=== PATIENT | male | born 1965 | race Caucasian/White ===

== ENCOUNTER 2016-08-03 15:33 | Inpatient (IN) | payer BC ==
[2016-08-03 17:51] VITALS: BMI 27.8
[2016-08-03] MEDS ORDERED: NALOXONE 0.4 MG/ML 1 ML VIAL IV PRN (18:04)
[2016-08-03] MEDS ORDERED: ALPRAZolam 0.25 MG TAB PO PRN (18:05)
[2016-08-03] MEDS ORDERED: LORazepam 2 MG/ML SYRINGE IV PRN (19:19)
[2016-08-03] MEDS: HYDROmorphone 1 MG/ML 1 ML SYRINGE IVP PRN (19:52)
[2016-08-03] MEDS: SODIUM CHLORIDE 0.9% 1,000 ML IV SCH (19:53)
[2016-08-03 20:21] LABS: Basophils # (A) 0.2 k/uL (0-0.2); Basophils % (A) 2 %; CH 28.3; CHCM 33.2; Eosinophils # (A) 0.1 k/uL (0-0.7); Eosinophils % (A) 1 %; HCT 54.6 % (39.0-53.0); HDW 2.69; HGB 17.1 gm/dL (13.0-17.5); Luc # (Auto) 0.26; Luc % (Auto) 2; Lymphocytes # (A) 2.2 k/uL (1.0-4.8); Lymphocytes % (A) 18 %; MCH 26.9 pg (25.0-35.0); MCHC 31.4 g/dL (31.0-37.0); MCV 85.6 fL (80.0-100.0); Mean Platelet Volume 7.9; Monocytes % (A) 8 %; Neutrophils # (A) 8.4 k/uL (1.3-7.7); Neutrophils % (A) 70 %; RBC 6.38 m/uL (4.30-5.90); RDW 13.3 % (11.5-15.5); WBC 12.1 k/uL (3.8-10.6); WBC (Perox) 13.11
[2016-08-03 20:26] LABS: INR 1.1 (<1.1); Prothrombin Time 10.9 sec (9.0-12.0)
[2016-08-03 20:31] LABS: ALT 35 U/L (21-72); AST 33 U/L (17-59); Alkaline Phosphatase 82 U/L (38-126); Amylase 71 U/L (30-110); Anion Gap 13 mmol/L; Blood Urea Nitrogen 14 mg/dL (9-20); Calcium 9.4 mg/dL (8.4-10.2); Carbon Dioxide 21 mmol/L (22-30); Chloride 105 mmol/L (98-107); Glucose 106 mg/dL (74-99); Magnesium 2.4 mg/dL (1.6-2.3); Non-African American GFR(MDRD) >60 (>60 ml/min/1.73 sqM); Phosphorous 4.6 mg/dL (2.5-4.5); Potassium 4.8 mmol/L (3.5-5.1); Sodium 139 mmol/L (137-145); Total Protein 6.9 g/dL (6.3-8.2)
[2016-08-03] MEDS: ALBUTEROL NEBULIZED 2.5 MG/3 ML INHALATION SCH (20:31)
[2016-08-03 20:46] LABS: C Reactive Protein 10.1 mg/L (<10.0)
[2016-08-03] MEDS ORDERED: TEMAZEPAM 15 MG CAP PO PRN (21:00)
[2016-08-03 21:17] LABS: Erythrocyte Sedimentation Rate 13 mm/hr (0-15)
[2016-08-03] MEDS: ENOXAPARIN 40 MG/0.4 ML SYRINGE SQ SCH (21:28)
[2016-08-03] MEDS: ONDANSETRON 4 MG/2 ML VIAL IVP PRN (22:22)
[2016-08-04] MEDS: HYDROmorphone 1 MG/ML 1 ML SYRINGE IVP PRN ×3 (01:28→20:26)
[2016-08-04] MEDS: MELATONIN 5 MG TABLET PO SCH (02:38)
[2016-08-04] MEDS: ENOXAPARIN 40 MG/0.4 ML SYRINGE SQ SCH ×2 (02:38→08:57)
[2016-08-04 06:12] LABS: Appearance,Urine Clear (Clear); Bilirubin,Urine Negative (Negative); Glucose,Urine (UA) Negative (Negative); Ketones,Urine 1+ (Negative); Leukocyte Esterase,Urine Negative (Negative); Mucus,Urine Many /hpf; Nitrite,Urine Negative (Negative); PH, Urine 5.5 (5.0-8.0); Particle Count 8968; Protein,Urine 1+ (Negative); RBC,Urine 1 /hpf (0-5); Specific Gravity,Urine 1.022 (1.001-1.035); UA Billing (MACRO vs. MICRO) MICRO; Urobilinogen,Urine <2.0 mg/dL (<2.0); WBC,Urine <1 /hpf (0-5)
[2016-08-04 07:19] LABS: Basophils # (A) 0.2 k/uL (0-0.2); Basophils % (A) 2 %; CH 28.2; Eosinophils # (A) 0.2 k/uL (0-0.7); Eosinophils % (A) 2 %; HCT 51.3 % (39.0-53.0); HDW 2.73; HGB 16.6 gm/dL (13.0-17.5); Luc # (Auto) 0.27; Luc % (Auto) 3; Lymphocytes % (A) 20 %; MCH 27.8 pg (25.0-35.0); MCHC 32.4 g/dL (31.0-37.0); MCV 85.9 fL (80.0-100.0); Mean Platelet Volume 7.6; Monocytes # (A) 0.9 k/uL (0-1.0); Monocytes % (A) 9 %; Neutrophils # (A) 6.6 k/uL (1.3-7.7); Neutrophils % (A) 65 %; RBC 5.98 m/uL (4.30-5.90); RDW 13.4 % (11.5-15.5); WBC 10.1 k/uL (3.8-10.6); WBC (Perox) 10.84
[2016-08-04 07:34] LABS: Anion Gap 9 mmol/L; Blood Urea Nitrogen 16 mg/dL (9-20); Calcium 9.3 mg/dL (8.4-10.2); Carbon Dioxide 27 mmol/L (22-30); Chloride 106 mmol/L (98-107); Glucose 94 mg/dL (74-99); Non-African American GFR(MDRD) >60 (>60 ml/min/1.73 sqM); Potassium 4.8 mmol/L (3.5-5.1); Sodium 142 mmol/L (137-145)
[2016-08-04] MEDS: ALBUTEROL NEBULIZED 2.5 MG/3 ML INHALATION SCH ×3 (07:34→19:29)
--- NOTE | 2016-08-04 08:34 | P.GSCN ---
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 Following his return he complained of nausea vomiting and diarrhea. He states that he was seen by his primary care physician and was treated initially with a course of Levaquin followed by a course of Bactrim. Yesterday his abdominal discomfort became increasingly worse and he presented to the emergency room at [facility]. The patient states he did have fever and chills, nausea and vomiting, and diarrhea. The patient states his abdominal discomfort has improved since yesterday and he is passing flatus. A CAT scan of the abdomen was performed at [facility] and this will be reviewed. The patient's has been treated for the flu and has been sick for the past 2 weeks. Past surgical history: 1. Thermal bronchoscopy 3 for COPD 2. Wojciech fundoplication 3. Cholecystectomy 4. Disc in his neck 5. Sinus surgery Past medical history: 1. COPD 2. Chronic sinusitis 3. Possible Parkinson's disease Medications: 1. Prednisone 2. Singulair 3. Albuterol 4. X Review of systems: HEENT blurred vision tinnitus Lungs: COPD emphysema Heart: Negative GI: As above : Kidney stones ALLERGIES: Penicillin Social history: Smoking cigars in the past does not smoke now Alcohol: Drinks was stopped approximately a year ago Review of Systems - Constitutional Reports as per HPI - Cardiovascular Reports as per HPI - Respiratory Respiratory Comment(s): COPD/emphysema - Gastrointestinal Reports as per HPI - Genitourinary Reports as per HPI - Musculoskeletal Musculoskeleta Comment(s): Tremor may be related to Parkinson's disease - Neurological Reports as per HPI - Allergic/Immunologic Reports as per HPI Past Medical History Past Medical History: Asthma, COPD, Deep Vein Thrombosis (DVT), GERD/Reflux, Pneumonia, Pulmonary Embolus (PE), Sleep Apnea/CPAP/BIPAP Additional Past Medical History / Comment(s): FOLLOWED BY DR MIR FOR TREMORS ? BEGINNINGS OF PARKINSONS NOT A DX OF YET, HX DVT RT LEG, CANDIE'S, HX OF CELLULITIS/SEPSIS X2, DEG DISC,DAILY PREDNISONE, PNEUMONIA History of Any Multi-Drug Resistant Organisms: None Reported Past Surgical History: Cholecystectomy Additional Past Surgical History / Comment(s): Wojciech fundoplication (2012), previous bronchoscopies, SINUS SX X3, CERVICAL DISCECTOMY, BRONCHIAL THERMOPLASTY #1 ON 03/01/15, #2 03-23-15. Past Anesthesia/Blood Transfusion Reactions: No Reported Reaction Past Psychological History: Anxiety, Bipolar, Depression Smoking Status: Never smoker Past Alcohol Use History: Occasional Additional Past Alcohol Use History / Comment(s): SMOKED CIGARS IN THE QUIT 1996 Past Drug Use History: None Reported - Past Family History Father Family Medical History: Pneumonia, Respiratory Disorder Mother Family Medical History: Eye Disorder, Hypertension Additional Family Medical History / Comment(s): GLUACOMA Medications and Allergies Home Medications Medication Instructions Recorded Confirmed Type Montelukast [Singulair] 10 mg PO DAILY 11/28/14 08/03/16 History Albuterol Nebulized [Ventolin 1 inhalation INHALATION RT-TID 04/10/15 08/03/16 History Nebulized] Melatonin 10 mg PO HS 08/03/16 08/03/16 History Sulfamethoxazole/Trimethoprim 1 tab PO BID 08/03/16 08/03/16 History [Bactrim DS 800-160 mg] Vortioxetine Hydrobromide 10 mg PO DAILY 08/03/16 08/03/16 History [Trintellix] clonazePAM [KlonoPIN] 0.5 mg PO DAILY 08/03/16 08/03/16 History predniSONE 5 mg PO DAILY 08/03/16 08/03/16 History Allergies Allergy/AdvReac Type Severity Reaction Status Date / Time Penicillins Allergy Unknown Verified 08/03/16 18:18 Surgical - Exam Vital Signs Temp Pulse Resp BP Pulse Ox 97.7 F 97 17 123/89 99 08/03/16 17:31 08/03/16 17:31 08/03/16 17:31 08/03/16 17:31 08/03/16 17:31 - General well developed, moderate distress - Eyes normal ocular movement - ENT normal pinna, normal nares, no hearing loss - Neck no masses, trachea midline, no lymphadectomy - Respiratory wheezing at the right base, left lung clear to auscultation normal expansion, normal respiratory effort - Cardiovascular Rhythm: regular Heart Sounds: normal: S1, S2 - Abdomen No guarding or rebound Abdomen: soft, bowel sounds - Rectum Rectum: normal sphincter tone, no tenderness, no masses, no bleeding - Neurologic Patient with a tremor - Psychiatric oriented to time, oriented to person, oriented to place, speech is normal Results - Labs 08/04/16 06:43 08/04/16 06:43 Abnormal Lab Results - Last 24 Hours (Table) 08/03/16 08/03/16 08/04/16 Range/Units 19:30 19:30 05:26 WBC 12.1 H (3.8-10.6) k/uL RBC 6.38 H (4.30-5.90) m/uL Hct 54.6 H (39.0-53.0) % Neutrophils # 8.4 H (1.3-7.7) k/uL Carbon Dioxide 21 L (22-30) mmol/L Glucose 106 H (74-99) mg/dL Phosphorus 4.6 H (2.5-4.5) mg/dL Magnesium 2.4 H (1.6-2.3) mg/dL C-Reactive Protein 10.1 H (<10.0) mg/L Urine Protein 1+ H (Negative) Urine Ketones 1+ H (Negative) Hyaline Casts 11 H (0-2) /lpf Urine Mucus Many H (None) /hpf 08/04/16 Range/Units 06:43 WBC (3.8-10.6) k/uL RBC 5.98 H (4.30-5.90) m/uL Hct (39.0-53.0) % Neutrophils # (1.3-7.7) k/uL Carbon Dioxide (22-30) mmol/L Glucose (74-99) mg/dL Phosphorus (2.5-4.5) mg/dL Magnesium (1.6-2.3) mg/dL C-Reactive Protein (<10.0) mg/L Urine Protein (Negative) Urine Ketones (Negative) Hyaline Casts (0-2) /lpf Urine Mucus (None) /hpf Diabetes panel 08/03/16 08/04/16 Range/Units 19:30 06:43 Sodium 139 142 (137-145) mmol/L Potassium 4.8 4.8 (3.5-5.1) mmol/L Chloride 105 106 (98-107) mmol/L Carbon Dioxide 21 L 27 (22-30) mmol/L BUN 14 16 (9-20) mg/dL Creatinine 1.05 1.07 (0.66-1.25) mg/dL Glucose 106 H 94 (74-99) mg/dL Calcium 9.4 9.3 (8.4-10.2) mg/dL AST 33 (17-59) U/L ALT 35 (21-72) U/L Alkaline Phosphatase 82 (38-126) U/L Total Protein 6.9 (6.3-8.2) g/dL Albumin 4.0 (3.5-5.0) g/dL Calcium panel 08/03/16 08/04/16 Range/Units 19:30 06:43 Calcium 9.4 9.3 (8.4-10.2) mg/dL Phosphorus 4.6 H (2.5-4.5) mg/dL Albumin 4.0 (3.5-5.0) g/dL Pituitary panel 08/03/16 08/04/16 Range/Units 19:30 06:43 Sodium 139 142 (137-145) mmol/L Potassium 4.8 4.8 (3.5-5.1) mmol/L Chloride 105 106 (98-107) mmol/L Carbon Dioxide 21 L 27 (22-30) mmol/L BUN 14 16 (9-20) mg/dL Creatinine 1.05 1.07 (0.66-1.25) mg/dL Glucose 106 H 94 (74-99) mg/dL Calcium 9.4 9.3 (8.4-10.2) mg/dL Adrenal panel 08/03/16 08/04/16 Range/Units 19:30 06:43 Sodium 139 142 (137-145) mmol/L Potassium 4.8 4.8 (3.5-5.1) mmol/L Chloride 105 106 (98-107) mmol/L Carbon Dioxide 21 L 27 (22-30) mmol/L BUN 14 16 (9-20) mg/dL Creatinine 1.05 1.07 (0.66-1.25) mg/dL Glucose 106 H 94 (74-99) mg/dL Calcium 9.4 9.3 (8.4-10.2) mg/dL Total Bilirubin 1.0 (0.2-1.3) mg/dL AST 33 (17-59) U/L ALT 35 (21-72) U/L Alkaline Phosphatase 82 (38-126) U/L Total Protein 6.9 (6.3-8.2) g/dL Albumin 4.0 (3.5-5.0) g/dL Assessment and Plan Plan: Impression/plan: 1. 51-year-old gentleman admitted with abdominal discomfort possible partial bowel obstruction 2. COPD 3. Anxiety depression 4. Chronic sinusitis 5. Possible Parkinson's disease Plan: 1. Review computed tomography scan from [place] repeat abdominal x-rays this a.m. 2. Patient does not have an acute surgical abdomen at this time 3. Management of medical problems as per medicine
[2016-08-04] MEDS: SODIUM CHLORIDE 0.9% 1,000 ML IV SCH ×3 (08:57→12:34)
[2016-08-04] MEDS: clonazePAM 0.5 MG TAB PO SCH (08:57)
[2016-08-04] MEDS: PANTOPRAZOLE 40 MG/10 ML VIAL IV SCH (08:57)
[2016-08-04] MEDS ORDERED: NON-FORMULARY DRUG (Vortioxetine Hydrobromide [Trintellix] 10 MG) PO SCH (09:00)
--- NOTE | 2016-08-04 09:04 | XR ---
EXAMINATION TYPE: XR abdomen 2V DATE OF EXAM: 08/04/2016 8:45 AM COMPARISON: 02/16/2013 HISTORY: Small bowel obstruction TECHNIQUE: 3 views FINDINGS: There is a nasogastric tube that has the tip at the gastroesophageal junction. There is mariana dence of infiltrate and atelectasis at the lung bases. There are multiple dilated small bowel loops filled with air and fluid. I see no definite pneumoperit oneum. There are clips from cholecystectomy. IMPRESSION: Dilated small bowel consistent with ileus or partial mechanical obstruction. This appears similar to the old exam of 02/16/2013. Bilateral basilar atelectasis. Nasogastric tube is not clearly positioned in the stomach.
--- NOTE | 2016-08-04 09:25 | HP ---
DATE OF ADMISSION: 08/03/2016 CHIEF COMPLAINT: Abdominal pain and vomiting and diarrhea. HISTORY OF PRESENT ILLNESS: This 51-year-old woman with a past history of asthma, chronic obstructive pulmonary disease, deep venous thrombosis, GERD, history of pulmonary embolism, sleep apnea, history of tremors, Parkinson's, anxiety with depression, history of [place]'s syndrome, being followed by Dr. Sweet in the outpatient setting has been symptomatic apparently from mid-May. The patient is a [employer] at the [employer] near [place]. Patient apparently went on a holiness trip to [facility] from May 19 and spent a week there and the patient went to different places, along [facility]. The patient also went to [facility] and apparently had a meal there also according to him. The patient was feeling well. The patient flew back. Apart from jet lag, the patient feeling fine but after 3 days later patient felt nausea, diarrhea and chills. The patient had loss of appetite and progressively weak and had multiple courses of antibiotics including Levaquin and Bactrim of recently. Today the patient had vomiting and the patient was flushed and because of multiple symptoms the patient went to [facility] in [place]. The patient had a CAT scan of the abdomen which showed dilatation of the small bowel, possibly small bowel obstruction and the patient referred to [facility] direct admission and admitted for further evaluation and treatment. There is no history of any fever, rigors or chills. No history of headache, loss of consciousness, seizures at this time. Past medical history of asthma, COPD, history of deep venous thrombosis, GERD, pneumonia, pulmonary embolism, history of cholecystectomy, anxiety, bipolar depression. Medications prior to admission include: 1. Melatonin 10 mg p.o. q.h.s. 2. Bactrim DS one p.o. b.i.d. 3. Trintillex 10 mg p.o. daily. 4. Klonopin 0.5 mg p.o. b.i.d. 5. Prednisone 5 mg daily. 6. Singulair 10 mg p.o. daily. 7. Ventolin one p.o. t.i.d. ALLERGIES: PENICILLIN. FAMILY HISTORY: History of pneumonia, respiratory disorder and glaucoma. SOCIAL HISTORY: No smoking. Occasional alcohol intake. The patient used to drink up to 4 to 6 drinks previously. REVIEW OF SYSTEMS: ENT: No diminishing hearing. Diminished vision. CARDIOVASCULAR: No angina. RESPIRATORY: Mentioned earlier. GI: As mentioned earlier. : No dysuria. Nervous system: As mentioned earlier. ALLERGY/IMMUNOLOGY: No asthma or hayfever. MUSCULOSKELETAL: As mentioned earlier. HEMATOLOGY/ONCOLOGY: No history of anemia. ENDOCRINE: As mentioned earlier. CONSTITUTIONAL: As mentioned earlier. DERMATOLOGY: Negative. RHEUMATOLOGY: Negative. PSYCHIATRY: As mentioned earlier. PHYSICAL EXAMINATION: The patient is alert and oriented times three, pulse 97, blood pressure 128/89, respiratory rate 17, temperature 97.7, pulse ox 99% on 2 liters. HEENT: Conjunctivae normal. Oral mucosa moist. NECK: No jugular venous distention. No carotid bruit. No lymph node enlargement. CARDIOVASCULAR: S1, S2 muffled. No S3, no S4. A few scattered rhonchi. ABDOMEN: Soft. Mild diffuse distention. Mild diffuse tenderness present. No guarding. No rigidity. No mass palpable. Bowel sounds diminished. No ascites. No hepatosplenomegaly. Legs: No edema, no swelling. Nervous system: Higher functions as mentioned earlier. Moves all 4 limbs. No focal motor or sensory deficits. Diffuse tremors present. LYMPHATICS: No lymph nodes palpable in the neck, axillae or groin. SKIN: No ulcer, rash or bleeding. LABS: Results awaited. ASSESSMENT: 1. Abdominal pain and distention rule out bowel obstruction. 2. Rule out infectious diarrhea. 3. Rule out ileus. 4. History of asthma chronic obstructive pulmonary disease. 5. History of deep venous thrombosis. 6. History of gastroesophageal reflux disease. 7. History of pneumonia. 8. History of pulmonary embolism. 9. History of sleep apnea. 10. History of tremors. 11. History of Parkinson's. 12. History of [place]'s. 13. History of cellulitis and sepsis. 14. History of cholecystectomy. 15. History Wojciech fundoplication. 16. History of anxiety, bipolar, depression, not otherwise specified. 17. History of bronchial thermoplasty. 18. FULL CODE. RECOMMENDATIONS AND DISCUSSION: In this 51-year-old gentleman who presented with multiple complex medical issues, we will monitor the patient closely. Continue the current medications. Continue symptomatic treatment. At this time I would recommend in this 50-year-old gentleman who presented with multiple complex medical issues, we will monitor the patient closely. Continue with the current medications, I would recommend a surgical evaluation. Keep the patient NPO. NG-tube was inserted. IV fluids. Monitor fluid and electrolytes balance closely. Otherwise, obtain cultures. Stool testing. Infectious disease evaluation. Other than that, resume the home medications. DVT prophylaxis. Prognosis guarded because of multiple complex medical issues. Further recommendations to follow. Discussed with the family, who understands and agrees. Copy of dictation forwarded to Dr. Sweet who the primary physician. REBEKAH
[2016-08-04] MEDS ORDERED: SODIUM CHLORIDE 0.9% 500 ML IV ONE (11:54)
[2016-08-04] MEDS: ACETAMINOPHEN IV (For NPO) 1,000 MG in EMPTY BAG 1 BAG IVPB PRN (12:57)
[2016-08-04] MEDS: AZITHROMYCIN 500 MG in SODIUM CHLORIDE 0.9% 250 ML IVPB SCH (17:37)
--- NOTE | 2016-08-04 18:05 | PN ---
DATE OF SERVICE: 08/04/2016 This 51 -year-old male was admitted with abdominal pain and distention, possibly partial small bowel obstruction, also had features of ileus also. Repeat acute abdomen x-ray shows an ileus and the NG tube is still on. Dr. Valdes has seen the patient and recommended the patient noted to be an acute surgical candidate. Currently infectious disease evaluation by Dr. Kendrick is also in progress at this time. Please note the patient is recently returned from [place] as well. There is no history of fever, or rigors. PAST MEDICAL HISTORY: Reviewed. REVIEW OF SYSTEMS: CARDIOVASCULAR: No angina. RESPIRATORY: No cough. No hemoptysis. GI: As mentioned earlier. : No dysuria. Current medications are reviewed and include: 1. Tylenol 1000 mg q.6h p.r.n. 2. [place] 5 mg q.6h 3. Ventolin 2.5 t.i.d. 4. Xanax 0.25 t.i.d. 5. Zithromax 500 mg IV daily. 6. Klonopin 0.5 mg. 7. Lovenox 40 mg daily. 8. Dilaudid 0.5 q.6h p.r.n. 9. Ativan 0.5 q.6. 10. Melatonin 10 mg q.h.s. 11. Narcan. 12. Zofran. 13. Protonix. 14. Restoril 15 mg q.h.s. PHYSICAL EXAMINATION: The patient is alert and oriented times three. Pulse 65, blood pressure 118/72. Respiratory rate 16. Temperature 98.1. Pulse ox 95% on room air. HEENT: Conjunctivae normal. Oral mucosa moist. NECK: No jugular venous distention. No carotid bruit. No lymph node enlargement. CARDIOVASCULAR: S1, S2, no S3, no S4. RESPIRATORY: Breath sounds diminished at the bases. A few scattered rhonchi. No crackles. ABDOMEN: Soft. Mild diffuse distention. No guarding. No rigidity. No mass palpable. LEGS: No edema. No swelling. CENTRAL NERVOUS SYSTEM: No focal deficits. LABS: WBC 12.1, magnesium 2.4, C-reactive protein is 10.1. UA noted. Cultures are pending. ASSESSMENT: 1. Abdominal pain and distention rule out bowel obstruction or ileus. 2. Rule out infectious diarrhea. 3. History of asthma/chronic obstructive pulmonary disease. 4. History of deep venous thrombosis. 5. History of gastroesophageal reflux disease. 6. History of pneumonia. 7. History of pulmonary embolism. 8. History of sleep apnea. 9. History of tremors. 10. History of Parkinson's ( ) syndrome. 11. History of cellulitis and sepsis. 12. History of cholecystectomy. 13. History of Wojciech fundoplication. 14. Anxiety, bipolar, depression, not otherwise specified. 15. History of bronchial thermoplasty. 16. FULL CODE. RECOMMENDATIONS AND DISCUSSION: Recommend to continue current medications, continue with monitoring, symptomatic treatment. Otherwise, we will continue with symptomatic treatment, NG tube. Closely follow with surgery and infectious disease. I would also recommend await cultures and stool studies. Also recommend follow-up chest x-ray. Otherwise, we will follow the patient closely. Discussed with staff. Discussed with the patient. Further recommendations to follow.
[2016-08-04] MEDS ORDERED: BENZOCAINE SPRAY 100 APPLIC/CAN MUCOUS MEM PRN (18:06)
--- NOTE | 2016-08-04 18:12 | P.CONS ---
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 He was able to travel [facility] generated [facility]. While there he was well. He no difficulties is all I was in [place]. He did have a trip [facility] and did eat therapy several meals. He does relate that he has his flu shot for the trip but no other vaccines. He did not have a typhoid vaccine. The patient relates ongoing difficulties with abdominal pain throughout this 2 months. He's had difficulties with intermittent diarrhea that has been quite profuse at time but without evidence of melena or hematochezia. Is a history of a Niesen fundoplication, and when he started to have emesis yesterday with ongoing abdominal pain presented to the local emergency center. There is a computed tomography scan was performed that showed evidence of an ileus and an NG tube was placed entranced to our facility for further surgical evaluation. Because of his travel history and ongoing gastrointestinal symptoms the infectious diseases consultation was requested. This pleasant gentleman relates that he is not having difficulty with fevers, chills or rigors. He's had some mild weight loss to this timeframe. No difficulty with dehydration. He's having no difficulty with rashes. Review of Systems Primitivo 51-year-old male who is feeling better today than yesterday. He is not having profuse diarrhea today. His nausea is improved. HEENT:Denies headache or acute visual change. Denies sinus or mouth discomforts. Denies neck stiffness or pain. Denies significant oral cavity pain. Denies difficulty on swallowing. Lungs: He has chronic shortness of breath due to his extensive COPD status post his thermal bronchoplasty Cardiovascular: Denies worsening shortness of breath, chest pain, chest wall pain, orthopnea, dyspnea on exertion, syncope Gastrointestinal:D as per the HPI Musculoskeletal: denies significant myalgias or arthralgias. No new joint swelling. Denies new back pain. Skin: Denies new rash or lesions. No new ulcers or wounds are related.. Neuro: Denies headache or visual change. Denies any new onset weakness or difficulty with ambulation. Denies falls or seizures. Psychiatric: Chronic anxiety has chronic depression and chronic therapy Endocrine: Has had significant fatigue that is worsened over the last 7 weeks and some mild weight loss. Past Medical History Past Medical History: Asthma, COPD, Deep Vein Thrombosis (DVT), GERD/Reflux, Pneumonia, Pulmonary Embolus (PE), Sleep Apnea/CPAP/BIPAP Additional Past Medical History / Comment(s): FOLLOWED BY DR MIR FOR TREMORS ? [place] NOT A DX OF YET, HX DVT RT LEG, CANDIE'S, HX OF CELLULITIS/SEPSIS X2, DEG DISC,DAILY PREDNISONE, PNEUMONIA History of Any Multi-Drug Resistant Organisms: None Reported Past Surgical History: Cholecystectomy Additional Past Surgical History / Comment(s): Wojciech fundoplication (2011), previous bronchoscopies, SINUS SX X3, CERVICAL DISCECTOMY, BRONCHIAL THERMOPLASTY #1 ON 03/01/15, #2 03-23-15. Past Anesthesia/Blood Transfusion Reactions: No Reported Reaction Past Psychological History: Anxiety, Bipolar, Depression Additional Psychological History / Comment(s): lives with family home with his . 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 International travel to [place] in the [place] returns May 31 2016. No travel since. No animal exposures. No other ill contacts. developed a respiratory illness and is improving now after the last 2 weeks Smoking Status: Former smoker (Cigars quit in 1996) Past Alcohol Use History: Occasional Additional Past Alcohol Use History / Comment(s): SMOKED CIGARS IN THE QUIT 1996 Past Drug Use History: None Reported - Past Family History Father Family Medical History: Pneumonia, Respiratory Disorder Mother Family Medical History: Eye Disorder, Hypertension Additional Family Medical History / Comment(s): GLUACOMA Medications and Allergies Home Medications and Allergies Comment(s): Current Medications Hydrocodone Bitart/Acetaminophen ([place] 5-325) 1 each PO Q6HR PRN PRN Reason: Pain Albuterol Sulfate (Ventolin Nebulized) 2.5 mg INHALATION RT-TID [facility] Last Admin: 08/04/16 15:22 Dose: Not Given Alprazolam (Xanax) 0.25 mg PO TID PRN PRN Reason: Anxiety WHEN PO PREFERRED Clonazepam (Klonopin) 0.5 mg PO DAILY [facility] Last Admin: 08/04/16 08:57 Dose: Not Given Enoxaparin Sodium (Lovenox) 40 mg SQ DAILY [facility] Last Admin: 08/04/16 08:57 Dose: 40 mg Hydromorphone HCl (Dilaudid) 0.5 mg IVP Q6HR PRN PRN Reason: Severe Pain Last Admin: 08/04/16 05:36 Dose: 0.5 mg Sodium Chloride (Saline 0.9%) 1,000 mls @ 125 mls/hr IV .Q8H [facility] Last Admin: 08/04/16 12:34 Dose: 125 mls/hr Acetaminophen 1,000 mg/ IV (Solution) 100 mls @ 400 mls/hr IVPB Q6HR PRN PRN Reason: Pain Stop: 08/05/16 12:14 Last Admin: 08/04/16 12:57 Dose: 400 mls/hr Azithromycin 500 mg/ Sodium (Chloride) 250 mls @ 125 mls/hr IVPB DAILY@1600 [facility] Last Admin: 08/04/16 17:37 Dose: 125 mls/hr Lorazepam (Ativan) 0.5 mg IV Q6HR PRN PRN Reason: Anxiety WHEN IV PREFERRED Melatonin (Melatonin) 10 mg PO HS [facility] Last Admin: 08/04/16 02:38 Dose: Not Given Naloxone HCl (Narcan) 0.2 mg IV Q2M PRN PRN Reason: Opioid Reversal Non-Formulary Medication (Vortioxetine Hydrobromide [Trintellix]) 10 mg PO DAILY [facility] Ondansetron HCl (Zofran) 4 mg IVP Q6HR PRN PRN Reason: Nausea And Vomiting Last Admin: 08/03/16 22:22 Dose: 4 mg Pantoprazole Sodium (Protonix) 40 mg IV DAILY [facility] Last Admin: 08/04/16 08:57 Dose: 40 mg Temazepam (Restoril) 15 mg PO HS PRN PRN Reason: Insomnia Home Medications Medication Instructions Recorded Confirmed Type Montelukast [Singulair] 10 mg PO DAILY 11/28/14 08/03/16 History Albuterol Nebulized [Ventolin 1 inhalation INHALATION RT-TID 04/10/15 08/03/16 History Nebulized] Melatonin 10 mg PO HS 08/03/16 08/03/16 History Sulfamethoxazole/Trimethoprim 1 tab PO BID 08/03/16 08/03/16 History [Bactrim DS 800-160 mg] Vortioxetine Hydrobromide 10 mg PO DAILY 08/03/16 08/03/16 History [Trintellix] clonazePAM [KlonoPIN] 0.5 mg PO DAILY 08/03/16 08/03/16 History predniSONE 5 mg PO DAILY 08/03/16 08/03/16 History Allergies Allergy/AdvReac Type Severity Reaction Status Date / Time Penicillins Allergy Unknown Verified 08/03/16 18:18 Physical Exam Vitals: Vital Signs Temp Pulse Pulse Resp BP Pulse Ox 08/04/16 16:00 65 16 08/04/16 15:00 98.1 F 65 16 118/78 95 08/04/16 08:00 89 16 08/04/16 07:47 96 08/04/16 07:37 100 97 08/04/16 07:00 97.6 F 89 16 127/75 95 08/04/16 02:32 98.1 F 89 16 135/73 97 08/03/16 20:44 90 08/03/16 20:32 90 08/03/16 20:00 97.7 F 80 16 117/75 98 08/03/16 18:04 97 Intake and Output 08/04/16 08/04/16 08/04/16 06:59 14:59 22:59 Output Total 50 200 Balance -50 -200 Output: Urine 50 200 Other: # Voids 1 3 Pleasant 51-year-old male who has mild obesity and seems to be quite comfortable at this time. Since coming to hospital he apparently is showing improvement in that he is not having profuse diarrhea and nausea and emesis of improve with the NG tube that was placed. HEENT: Anicteric conjunctiva are pink and moist nasal mucosa grossly intact without significant lesions, there is no thrush. NG tube is in place without bleeding Neck: The neck is supple without significant lymphadenopathy or thyromegaly. Lungs: Good bilateral air entry without significant crackles or wheezing. There is no significant bronchial sounds. There is no egophony or dullness. Heart: Regular rate and rhythm with an audible S1-S2, no S3 no S4. There is no significant murmur click or rub, PMI was nondisplaced. Abdomen: Positive bowel sounds soft is only mild tenderness at left lower quadrant. There is no guarding or rebound. Paraspinally. No palpable masses. Extremities: The upper extremities have excellent pulses they are symmetric, no significant petechiae or telangiectasia. No splinter hemorrhages were noted. The lower extremities are free from significant edema. The peripheral pulses were 2+ and symmetric. Neuro: Awake alert oriented to person place and time. There are no acute new gross focal sensory motor deficits. Results CBC & Chem 7: 08/04/16 06:43 08/04/16 06:43 Labs: Abnormal Lab Results - Last 24 Hours (Table) 08/03/16 08/03/16 08/04/16 Range/Units 19:30 19:30 05:26 WBC 12.1 H (3.8-10.6) k/uL RBC 6.38 H (4.30-5.90) m/uL Hct 54.6 H (39.0-53.0) % Neutrophils # 8.4 H (1.3-7.7) k/uL Carbon Dioxide 21 L (22-30) mmol/L Glucose 106 H (74-99) mg/dL Phosphorus 4.6 H (2.5-4.5) mg/dL Magnesium 2.4 H (1.6-2.3) mg/dL C-Reactive Protein 10.1 H (<10.0) mg/L Urine Protein 1+ H (Negative) Urine Ketones 1+ H (Negative) Hyaline Casts 11 H (0-2) /lpf Urine Mucus Many H (None) /hpf 08/04/16 Range/Units 06:43 WBC (3.8-10.6) k/uL RBC 5.98 H (4.30-5.90) m/uL Hct (39.0-53.0) % Neutrophils # (1.3-7.7) k/uL Carbon Dioxide (22-30) mmol/L Glucose (74-99) mg/dL Phosphorus (2.5-4.5) mg/dL Magnesium (1.6-2.3) mg/dL C-Reactive Protein (<10.0) mg/L Urine Protein (Negative) Urine Ketones (Negative) Hyaline Casts (0-2) /lpf Urine Mucus (None) /hpf Microbiology - Last 24 Hours (Table) 08/04/16 05:26 Urine Culture - Preliminary Urine,Clean Catch Laboratory Results WBC 10.1 k/uL (3.8-10.6) 08/04/16 06:43 RBC 5.98 m/uL (4.30-5.90) H 08/04/16 06:43 Hgb 16.6 gm/dL (13.0-17.5) 08/04/16 06:43 Hct 51.3 % (39.0-53.0) 08/04/16 06:43 MCV 85.9 fL (80.0-100.0) 08/04/16 06:43 MCH 27.8 pg (25.0-35.0) 08/04/16 06:43 MCHC 32.4 g/dL (31.0-37.0) 08/04/16 06:43 RDW 13.4 % (11.5-15.5) 08/04/16 06:43 Plt Count 372 k/uL (150-450) 08/04/16 06:43 Neutrophils % 65 % 08/04/16 06:43 Lymphocytes % 20 % 08/04/16 06:43 Monocytes % 9 % 08/04/16 06:43 Eosinophils % 2 % 08/04/16 06:43 Basophils % 2 % 08/04/16 06:43 Neutrophils # 6.6 k/uL (1.3-7.7) 08/04/16 06:43 Lymphocytes # 2.0 k/uL (1.0-4.8) 08/04/16 06:43 Monocytes # 0.9 k/uL (0-1.0) 08/04/16 06:43 Eosinophils # 0.2 k/uL (0-0.7) 08/04/16 06:43 Basophils # 0.2 k/uL (0-0.2) 08/04/16 06:43 ESR 13 mm/hr (0-15) 08/03/16 19:30 PT 10.9 sec (9.0-12.0) 08/03/16 19:30 INR 1.1 (<1.1) 08/03/16 19:30 Sodium 142 mmol/L (137-145) 08/04/16 06:43 Potassium 4.8 mmol/L (3.5-5.1) 08/04/16 06:43 Chloride 106 mmol/L (98-107) 08/04/16 06:43 Carbon Dioxide 27 mmol/L (22-30) 08/04/16 06:43 Anion Gap 9 mmol/L 08/04/16 06:43 BUN 16 mg/dL (9-20) 08/04/16 06:43 Creatinine 1.07 mg/dL (0.66-1.25) 08/04/16 06:43 Est GFR (MDRD) Af Amer >60 (>60 ml/min/1.73 sqM) 08/04/16 06:43 Est GFR (MDRD) Non-Af >60 (>60 ml/min/1.73 sqM) 08/04/16 06:43 Glucose 94 mg/dL (74-99) 08/04/16 06:43 Calcium 9.3 mg/dL (8.4-10.2) 08/04/16 06:43 Phosphorus 4.6 mg/dL (2.5-4.5) H 08/03/16 19:30 Magnesium 2.4 mg/dL (1.6-2.3) H 08/03/16 19:30 Total Bilirubin 1.0 mg/dL (0.2-1.3) 08/03/16 19:30 AST 33 U/L (17-59) 08/03/16 19:30 ALT 35 U/L (21-72) 08/03/16 19:30 Alkaline Phosphatase 82 U/L (38-126) 08/03/16 19:30 C-Reactive Protein 10.1 mg/L (<10.0) H 08/03/16 19:30 Total Protein 6.9 g/dL (6.3-8.2) 08/03/16 19:30 Albumin 4.0 g/dL (3.5-5.0) 08/03/16 19:30 Amylase 71 U/L (30-110) 08/03/16 19:30 Lipase 73 U/L (23-300) 08/03/16 19:30 Urine Color Yellow 08/04/16 05:26 Urine Appearance Clear (Clear) 08/04/16 05:26 Urine pH 5.5 (5.0-8.0) 08/04/16 05:26 Ur Specific [place] 1.022 (1.001-1.035) 08/04/16 05:26 Urine Protein 1+ (Negative) H 08/04/16 05:26 Urine Glucose (UA) Negative (Negative) 08/04/16 05:26 Urine Ketones 1+ (Negative) H 08/04/16 05:26 Urine Blood Negative (Negative) 08/04/16 05:26 Urine Nitrite Negative (Negative) 08/04/16 05:26 Urine Bilirubin Negative (Negative) 08/04/16 05:26 Urine Urobilinogen <2.0 mg/dL (<2.0) 08/04/16 05:26 Ur Leukocyte Esterase Negative (Negative) 08/04/16 05:26 Urine RBC 1 /hpf (0-5) 08/04/16 05:26 Urine WBC <1 /hpf (0-5) 08/04/16 05:26 Hyaline Casts 11 /lpf (0-2) H 08/04/16 05:26 Urine Mucus Many /hpf (None) H 08/04/16 05:26 Microbiology 08/04/16 05:26 Urine,Clean Catch Urine Culture - Preliminary Assessment and Plan (1) Gastroenteritis Narrative/Plan: 51-year-old male presents to his local emergency center with a seven- week history of symptoms. Associated with bouts of diarrhea as well as left lower quadrant abdominal pain and more recently nausea with emesis. Patient is yet to be able to provide a stool specimen. But stool cultures will be sent once available. [facility] is [facility]. In is of concern. He has been treated in the outpatient setting as noted with a course of levofloxacin and then trimethoprim sulfamethoxazole. Typhoidal resistance to quinolones is of ongoing concern. In well data is pending will utilize a azithromycin therapy. Patient understands importance of obtaining a stool specimen. The leukocytosis is improving with hydration. Abdominal pain is under good control at this time. He did have evidence of what appears to be a small bowel obstruction or an ileus that is showing marked improvement at this time. Surgery is following and likely will have the NG tube out by the morning. No evidence of any fever at this time. Status: Acute (2) Ileus Status: Acute (3) Leukocytosis Status: Acute
[2016-08-04] MEDS: ONDANSETRON 4 MG/2 ML VIAL IVP PRN (19:06)
[2016-08-05] MEDS: MELATONIN 5 MG TABLET PO SCH ×2 (00:26→21:40)
[2016-08-05] MEDS: ACETAMINOPHEN IV (For NPO) 1,000 MG in EMPTY BAG 1 BAG IVPB PRN ×2 (01:09→10:59)
[2016-08-05] MEDS: SODIUM CHLORIDE 0.9% 1,000 ML IV SCH ×3 (01:09→22:09)
[2016-08-05] MEDS: PANTOPRAZOLE 40 MG/10 ML VIAL IV SCH ×2 (01:41→07:52)
[2016-08-05] MEDS: HYDROmorphone 1 MG/ML 1 ML SYRINGE IVP PRN (02:58)
--- NOTE | 2016-08-05 07:33 | XR ---
EXAMINATION TYPE: XR chest 1V portable DATE OF EXAM: 08/05/2016 7:23 AM HISTORY: pneumonia. REFERENCE: Previous study dated 04/12/2015. FINDINGS: An NG tube is in place. Its tip is within the stomach. There is a [id number] discrepancy on the films. The side marked left is actually right. There is a chronic left pleural reaction. There is silhouetting of the left heart border. The heart i s not enlarged. IMPRESSION: 1. LEFT RIGHT DISCREPANCY. 2. LEFT LINGULAR INFILTRATE.
[2016-08-05] MEDS: ALBUTEROL NEBULIZED 2.5 MG/3 ML INHALATION SCH ×3 (07:35→19:58)
--- NOTE | 2016-08-05 07:36 | XR ---
EXAMINATION TYPE: XR abdomen 2V DATE OF EXAM ORDERED: 08/05/2016 7:30 AM HISTORY: sbo. COMPARISON: Previous study dated 08/04/2016. FINDINGS: There has been a previous cholecystectomy. There is an NG tube in place. Its tip is barely beyond the distal esophagus and should likely be advanced. Tubing projects over the right upper quadrant. The abdominal gas pattern is nonspecific with nondistended air-filled loops of large and small bowel. There is no evidence of free air. No unusual calcifications are seen. IMPRESSION: NONSPECIFIC ABDOMINAL PICTURE.
[2016-08-05] MEDS: ENOXAPARIN 40 MG/0.4 ML SYRINGE SQ SCH (07:51)
[2016-08-05] MEDS: clonazePAM 0.5 MG TAB PO SCH (07:52)
[2016-08-05 07:53] LABS: Basophils # (A) 0.1 k/uL (0-0.2); Basophils % (A) 1 %; Eosinophils # (A) 0.6 k/uL (0-0.7); Eosinophils % (A) 4 %; HCT 47.4 % (39.0-53.0); HGB 15.5 gm/dL (13.0-17.5); Luc % (Auto) 2; Lymphocytes # (A) 2.6 k/uL (1.0-4.8); Lymphocytes % (A) 20 %; MCH 27.9 pg (25.0-35.0); MCHC 32.7 g/dL (31.0-37.0); MCV 85.3 fL (80.0-100.0); Mean Platelet Volume 7.5; Monocytes # (A) 0.9 k/uL (0-1.0); Monocytes % (A) 7 %; Neutrophils # (A) 8.5 k/uL (1.3-7.7); Neutrophils % (A) 66 %; RBC 5.56 m/uL (4.30-5.90); RDW 13.2 % (11.5-15.5); WBC (Perox) 13.56
[2016-08-05] MEDS: ONDANSETRON 4 MG/2 ML VIAL IVP PRN (08:00)
[2016-08-05 08:01] LABS: Anion Gap 11 mmol/L; Blood Urea Nitrogen 14 mg/dL (9-20); Calcium 9.1 mg/dL (8.4-10.2); Carbon Dioxide 22 mmol/L (22-30); Chloride 109 mmol/L (98-107); Glucose 85 mg/dL (74-99); Non-African American GFR(MDRD) >60 (>60 ml/min/1.73 sqM); Potassium 4.6 mmol/L (3.5-5.1); Sodium 142 mmol/L (137-145)
--- NOTE | 2016-08-05 10:52 | P.PN ---
Subjective 51-year-old being seen this morning just returned from having an abdominal x- ray. The report shows a nondistended air-filled loops of large and small bowel there is no evidence of free air chest x-ray a left lingular infiltrate this morning the patient is stating abdominal pain has improved nasal gastric tube currently is connected to suction. Patient did have a CAT scan on admission of the abdomen which did show evidence of an ileus necessitating and the need to insert the nasogastric tube patient's currently being followed by infectious disease and surgical service Objective - Vital Signs Vital signs: Vital Signs Temp 98.4 F 08/05/16 10:34 Pulse 66 08/05/16 10:34 Resp 16 08/05/16 10:34 BP 131/76 08/05/16 00:50 Pulse Ox 97 08/05/16 10:34 Intake & Output 08/04/16 08/05/16 08/05/16 18:59 06:59 18:59 Intake Total 500 Output Total 350 200 Balance -350 300 Intake: Intake, IV Titration 500 Amount Sodium Chloride 0.9% 1, 500 000 ml @ 125 mls/hr IV . Q8H [facility] Rx#:[id number] Output: Gastric Drainage 100 Urine 250 200 Other: # Voids 3 - Exam Physical exam 51-year-old gentleman resting in bed states he feels better today abdominal pain has improved Lungs essentially clear with adequate air movement sats are 97% on room air Heart S1-S2 audible and regular Abdomen soft no guarding no rebound bowel tones present reports less abdominal pain nasal gastric tube in place urinating no difficulty no frequent stooling Extremities no edema noted - Labs CBC & Chem 7: 08/05/16 07:31 08/05/16 07:29 Labs: Abnormal Lab Results - Last 24 Hours (Table) 08/05/16 08/05/16 Range/Units 07:29 07:31 WBC 13.0 H (3.8-10.6) k/uL Neutrophils # 8.5 H (1.3-7.7) k/uL Chloride 109 H (98-107) mmol/L Microbiology - Last 24 Hours (Table) 08/04/16 05:26 Urine Culture - Final Urine,Clean Catch 08/03/16 19:30 Blood Culture - Preliminary Blood No Growth after 24 hours Assessment and Plan Plan: Impression Present on admission abdominal pain suspect due to a partial small bowel obstruction with an ileus Anxiety depressive disorder nonspecified Chronic sinusitis Possible Parkinson's disease Plan Patient does not have an acute surgical abdomen at this time clamp the nasogastric tube now connected to suction 4 hours later if decrease amount will DC the nasogastric tube and start on a clear liquid diet Management of medical problems per medicine Pain control DVT and GI prophylaxis The above dictated assessment and findings were discussed with dr Ethel Stanford. Impression and the plan of care have been dictated as directed. Donna Jimenes nurse practitioner acting as a scribe for Dr. Rodriguez
[2016-08-05] MEDS: HYDROcodone/APAP 5-325MG 1 EACH TAB PO PRN (14:45)
[2016-08-05] MEDS: AZITHROMYCIN 500 MG in SODIUM CHLORIDE 0.9% 250 ML IVPB SCH (17:02)
--- NOTE | 2016-08-05 20:44 | PN ---
DATE OF SERVICE: 08/05/2016 This 51-year-old gentleman, admitted with abdominal pain and distention, was thought to have partial small bowel obstruction versus ileus. The patient has an NG tube in situ. Surgery is following the patient with a conservative line of management. Please note that the patient also recently returned from [place]. Patient was evaluated by Dr. Kendrick, who recommended Zithromax as empiric treatment. White count is elevated today at 13. PHYSICAL EXAMINATION: Patient is alert and oriented x3. Pulse 88, blood pressure 124/83, respiration 16, temperature 98.1, pulse ox 93% on room air. HEENT: Conjunctivae normal. Oral mucosa moist. NECK: No jugular venous distention. No carotid bruit. No lymph node enlargement. CARDIOVASCULAR SYSTEM: S1, S2 muffled. RESPIRATORY SYSTEM: Breath sounds diminished at the bases. No rhonchi. No crackles. ABDOMEN: Soft. Mild diffuse distention present. No guarding. No rigidity noted. No mass palpable. Bowel sounds diminished. No ascites. NERVOUS SYSTEM: No focal deficit. LABS: WBC 13. Other labs are noted. UA noted. ASSESSMENT: 1. Abdominal pain and distention; possibly partial small bowel obstruction or ileus. 2. Rule out infectious diarrhea. 3. History of asthma and chronic obstructive pulmonary disease. 4. History of deep venous thrombosis. 5. History of gastroesophageal reflux disease. 6. History of pneumonia. 7. History of pulmonary embolus. 8. History of sleep apnea. 9. History of tremors. 10. Parkinson's syndrome. 11. Cellulitis and sepsis. 12. History of cholecystectomy. 13. History of Wojciech fundoplication. 14. Anxiety, bipolar depression not otherwise specified. 15. History of bronchial thermoplasty. 16. FULL CODE. RECOMMENDATIONS AND DISCUSSION: I recommend to continue with the current medications, continue with the monitoring, symptomatic treatment. Continue with the NG tube. Follow closely with Surgery. Empiric antibiotics. Follow the cultures. Please note that patient has not had diarrhea after the admission. Further recommendations to follow.
--- NOTE | 2016-08-05 20:53 | P.PN ---
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 He was able to travel to [place] as well as the [facility] generated [place]. While there he was well. He no difficulties is all I was in [place]. He did have a trip into the [facility] [place] and did eat therapy several meals. He does relate that he has his flu shot for the trip but no other vaccines. He did not have a typhoid vaccine. The patient relates ongoing difficulties with abdominal pain throughout this 2 months. He's had difficulties with intermittent diarrhea that has been quite profuse at time but without evidence of melena or hematochezia. Is a history of a Niesen fundoplication, and when he started to have emesis yesterday with ongoing abdominal pain presented to the local emergency center. There is a computed tomography scan was performed that showed evidence of an ileus and an NG tube was placed entranced to our facility for further surgical evaluation. Because of his travel history and ongoing gastrointestinal symptoms the infectious diseases consultation was requested. This pleasant gentleman relates that he is not having difficulty with fevers, chills or rigors. He's had some mild weight loss to this timeframe. No difficulty with dehydration. He's having no difficulty with rashes. Ileus is improved. The NG tube has been removed. Eating a clear liquid diet with no difficulties. His appetite is markedly improved. Not having profuse diarrhea today. Objective - Vital Signs Vital signs: Vital Signs Temp 98.7 F 08/05/16 19:45 Pulse 84 08/05/16 20:05 Resp 18 08/05/16 19:45 BP 123/73 08/05/16 19:45 Pulse Ox 95 08/05/16 19:45 Intake & Output 08/05/16 08/05/16 08/06/16 06:59 18:59 06:59 Intake Total 500 Output Total 200 400 Balance 300 -400 Intake: Intake, IV Titration 500 Amount Sodium Chloride 0.9% 1, 500 000 ml @ 125 mls/hr IV . Q8H MARYJANE Rx#:[id number] Output: Urine 200 400 Other: # Voids 1 - Exam Pleasant 51-year-old male who has mild obesity and seems to be quite comfortable at this time. Since coming to hospital he apparently is showing improvement in that he is not having profuse diarrhea and nausea and emesis of improved NG tube was removed. HEENT: Anicteric conjunctiva are pink and moist nasal mucosa grossly intact without significant lesions, there is no thrush. NG tube is in place without bleeding Neck: The neck is supple without significant lymphadenopathy or thyromegaly. Lungs: Good bilateral air entry without significant crackles or wheezing. There is no significant bronchial sounds. There is no egophony or dullness. Heart: Regular rate and rhythm with an audible S1-S2, no S3 no S4. There is no significant murmur click or rub, PMI was nondisplaced. Abdomen: Positive bowel sounds soft is only mild tenderness at left lower quadrant. There is no guarding or rebound. Paraspinally. No palpable masses. Extremities: The upper extremities have excellent pulses they are symmetric, no significant petechiae or telangiectasia. No splinter hemorrhages were noted. The lower extremities are free from significant edema. The peripheral pulses were 2+ and symmetric. Neuro: Awake alert oriented to person place and time. There are no acute new gross focal sensory motor deficits. - Labs CBC & Chem 7: 08/05/16 07:31 08/05/16 07:29 Labs: Abnormal Lab Results - Last 24 Hours (Table) 08/05/16 08/05/16 Range/Units 07:29 07:31 WBC 13.0 H (3.8-10.6) k/uL Neutrophils # 8.5 H (1.3-7.7) k/uL Chloride 109 H (98-107) mmol/L Microbiology - Last 24 Hours (Table) 08/04/16 05:26 Urine Culture - Final Urine,Clean Catch 08/03/16 19:30 Blood Culture - Preliminary Blood No Growth after 24 hours Laboratory Results WBC 13.0 k/uL (3.8-10.6) H 08/05/16 07:31 RBC 5.56 m/uL (4.30-5.90) 08/05/16 07:31 Hgb 15.5 gm/dL (13.0-17.5) 08/05/16 07:31 Hct 47.4 % (39.0-53.0) 08/05/16 07:31 MCV 85.3 fL (80.0-100.0) 08/05/16 07:31 MCH 27.9 pg (25.0-35.0) 08/05/16 07:31 MCHC 32.7 g/dL (31.0-37.0) 08/05/16 07:31 RDW 13.2 % (11.5-15.5) 08/05/16 07:31 Plt Count 363 k/uL (150-450) 08/05/16 07:31 Neutrophils % 66 % 08/05/16 07:31 Lymphocytes % 20 % 08/05/16 07:31 Monocytes % 7 % 08/05/16 07:31 Eosinophils % 4 % 08/05/16 07:31 Basophils % 1 % 08/05/16 07:31 Neutrophils # 8.5 k/uL (1.3-7.7) H 08/05/16 07:31 Lymphocytes # 2.6 k/uL (1.0-4.8) 08/05/16 07:31 Monocytes # 0.9 k/uL (0-1.0) 08/05/16 07:31 Eosinophils # 0.6 k/uL (0-0.7) 08/05/16 07:31 Basophils # 0.1 k/uL (0-0.2) 08/05/16 07:31 ESR 13 mm/hr (0-15) 08/03/16 19:30 PT 10.9 sec (9.0-12.0) 08/03/16 19:30 INR 1.1 (<1.1) 08/03/16 19:30 Sodium 142 mmol/L (137-145) 08/05/16 07:29 Potassium 4.6 mmol/L (3.5-5.1) 08/05/16 07:29 Chloride 109 mmol/L (98-107) H 08/05/16 07:29 Carbon Dioxide 22 mmol/L (22-30) 08/05/16 07:29 Anion Gap 11 mmol/L 08/05/16 07:29 BUN 14 mg/dL (9-20) 08/05/16 07:29 Creatinine 0.85 mg/dL (0.66-1.25) 08/05/16 07:29 Est GFR (MDRD) Af Amer >60 (>60 ml/min/1.73 sqM) 08/05/16 07:29 Est GFR (MDRD) Non-Af >60 (>60 ml/min/1.73 sqM) 08/05/16 07:29 Glucose 85 mg/dL (74-99) 08/05/16 07:29 Calcium 9.1 mg/dL (8.4-10.2) 08/05/16 07:29 Phosphorus 4.6 mg/dL (2.5-4.5) H 08/03/16 19:30 Magnesium 2.4 mg/dL (1.6-2.3) H 08/03/16 19:30 Total Bilirubin 1.0 mg/dL (0.2-1.3) 08/03/16 19:30 AST 33 U/L (17-59) 08/03/16 19:30 ALT 35 U/L (21-72) 08/03/16 19:30 Alkaline Phosphatase 82 U/L (38-126) 08/03/16 19:30 C-Reactive Protein 10.1 mg/L (<10.0) H 08/03/16 19:30 Total Protein 6.9 g/dL (6.3-8.2) 08/03/16 19:30 Albumin 4.0 g/dL (3.5-5.0) 08/03/16 19:30 Amylase 71 U/L (30-110) 08/03/16 19:30 Lipase 73 U/L (23-300) 08/03/16 19:30 Urine Color Yellow 08/04/16 05:26 Urine Appearance Clear (Clear) 08/04/16 05:26 Urine pH 5.5 (5.0-8.0) 08/04/16 05:26 Ur Specific [place] 1.022 (1.001-1.035) 08/04/16 05:26 Urine Protein 1+ (Negative) H 08/04/16 05:26 Urine Glucose (UA) Negative (Negative) 08/04/16 05:26 Urine Ketones 1+ (Negative) H 08/04/16 05:26 Urine Blood Negative (Negative) 08/04/16 05:26 Urine Nitrite Negative (Negative) 08/04/16 05:26 Urine Bilirubin Negative (Negative) 08/04/16 05:26 Urine Urobilinogen <2.0 mg/dL (<2.0) 08/04/16 05:26 Ur Leukocyte Esterase Negative (Negative) 08/04/16 05:26 Urine RBC 1 /hpf (0-5) 08/04/16 05:26 Urine WBC <1 /hpf (0-5) 08/04/16 05:26 Hyaline Casts 11 /lpf (0-2) H 08/04/16 05:26 Urine Mucus Many /hpf (None) H 08/04/16 05:26 Microbiology 08/04/16 05:26 Urine,Clean Catch Urine Culture - Final 08/03/16 19:30 Blood Blood Culture - Preliminary No Growth after 24 hours Assessment and Plan (1) Gastroenteritis Narrative/Plan: 51-year-old male presents to his local emergency center with a seven- week history of symptoms. Associated with bouts of diarrhea as well as left lower quadrant abdominal pain and more recently nausea with emesis. Patient is yet to be able to provide a stool specimen. But stool cultures will be sent once available. He has been to the [facility] [place] where typhoid fever is endemic. In is of concern. He has been treated in the outpatient setting as noted with a course of levofloxacin and then trimethoprim sulfamethoxazole. Typhoidal resistance to quinolones is of ongoing concern. And while culture data is pending will utilize a azithromycin therapy. Patient understands importance of obtaining a stool specimen. The leukocytosis is improving with hydration. Abdominal pain is under good control at this time. He did have evidence of what appears to be a small bowel obstruction or an ileus that is showing marked improvement at this time. Surgery is following and with the improvement his NG tube has been removed. He is now tolerating clear liquids without difficulty. He is eating everything on his tray without pain. Has passed stool today. Positive flatus. No evidence of any fever at this time. Status: Acute (2) Ileus Status: Acute (3) Leukocytosis Status: Acute
[2016-08-06 07:40] LABS: Basophils % (A) 1 %; CH 27.7; CHCM 32.7; Eosinophils # (A) 0.9 k/uL (0-0.7); Eosinophils % (A) 11 %; HDW 2.77; HGB 14.6 gm/dL (13.0-17.5); Luc # (Auto) 0.22; Luc % (Auto) 3; Lymphocytes # (A) 2.5 k/uL (1.0-4.8); Lymphocytes % (A) 29 %; MCH 27.6 pg (25.0-35.0); MCHC 32.4 g/dL (31.0-37.0); MCV 85.2 fL (80.0-100.0); Mean Platelet Volume 6.9; Monocytes # (A) 0.5 k/uL (0-1.0); Monocytes % (A) 6 %; Neutrophils # (A) 4.3 k/uL (1.3-7.7); Neutrophils % (A) 51 %; RBC 5.28 m/uL (4.30-5.90); RDW 12.9 % (11.5-15.5); WBC 8.5 k/uL (3.8-10.6)
[2016-08-06] MEDS: ENOXAPARIN 40 MG/0.4 ML SYRINGE SQ SCH (07:41)
[2016-08-06] MEDS: clonazePAM 0.5 MG TAB PO SCH (07:41)
[2016-08-06] MEDS: SODIUM CHLORIDE 0.9% 1,000 ML IV SCH ×3 (07:44→16:48)
[2016-08-06 07:49] LABS: Anion Gap 10 mmol/L; Blood Urea Nitrogen 8 mg/dL (9-20); Calcium 8.9 mg/dL (8.4-10.2); Carbon Dioxide 24 mmol/L (22-30); Chloride 107 mmol/L (98-107); Glucose 88 mg/dL (74-99); Non-African American GFR(MDRD) >60 (>60 ml/min/1.73 sqM); Potassium 4.1 mmol/L (3.5-5.1); Sodium 141 mmol/L (137-145)
[2016-08-06] MEDS: ALBUTEROL NEBULIZED 2.5 MG/3 ML INHALATION SCH ×3 (08:08→18:31)
[2016-08-06 10:02] VITALS: RESP 16
--- NOTE | 2016-08-06 14:49 | PN ---
Patient is a 51-year-old admitted secondary to gastroenteritis which is because of his visit to [facility] recently and typhoidal fever is being considered by Infectious Disease, although patient does not have any mucoid blood or mucoid stools. Patient appears to have diarrhea at this point of time. C. diff is negative. Patient still had 5 episodes of diarrhea as per the patient, although patient's renal function is essentially within normal limits. Patient is getting IV fluids. Patient on 4 benzodiazepines. I discontinued 3 of the benzodiazepines and patient is on azithromycin as per Dr. Ruddy Kendrick and stool cultures are pending. On exam, patient has significant wheezing on exam. Patient appears to have COPD exacerbation, was on 20 mg of prednisone at home, which was restarted and patient additionally added Spiriva. REVIEW OF SYSTEMS: GASTROINTESTINAL: As described in HPI. CARDIOVASCULAR: No chest pain, no orthopnea, no PND, no palpitations. PULMONARY: Denied any shortness of breath. No cough or hemoptysis. NEUROLOGIC: No headaches, no weakness, no numbness. Medications were reviewed and medication changes as mentioned in the interval history. PHYSICAL EXAMINATION: VITAL SIGNS: Temperature 96.9, pulse of 88, respiratory rate of 16, blood pressure is 128/79, saturating at 93% on room air. LUNG EXAMINATION: Significant expiratory wheezing. The patient is also coughing with unable to bring up anything and decreased air entry into bilateral lung zepeda. No crackles were appreciated. GENERAL: The patient is alert and oriented x3, not in any acute distress. Well developed, well nourished. HEENT: Pupils are round and equally reacting to light. EOMI. No scleral icterus. No conjunctival pallor. Normocephalic, atraumatic. No pharyngeal erythema. No thyromegaly. CARDIOVASCULAR: S1 and S2 present. No murmurs, rubs, or gallops. ABDOMEN: Soft, nontender, nondistended, normoactive bowel sounds. No palpable organomegaly. MUSCULOSKELETAL: No joint swelling or deformity. EXTREMITIES: No cyanosis, clubbing, or pedal edema. NEUROLOGICAL: Gross neurological examination did not reveal any focal deficits. SKIN: No rashes. LABORATORY DATA: CBC and CMP essentially within normal limits. ASSESSMENT AND PLAN: 1. Abdominal pain with diarrhea, although the abdomen is soft, I do not believe patient has partial small bowel obstruction or ileus. Patient appears to have gastroenteritis and infectious enteritis or dysentery is being ruled out. Patient is being evaluated for typhoidal fever, although patient does not have any of those symptoms that are consistent with typhoid at this point of time. Patient is empirical before we get the stool ova and parasites. Patient is on antibiotic in the form of azithromycin. 2. Chronic obstructive pulmonary disease with acute exacerbation. 3. Gastroesophageal reflux disease. 4. Sleep apnea. 5. Obesity. 6. Parkinson's. 7. Bipolar disorder. 8. Patient apparently had bronchial thermoplasty in the past. PLAN: As mentioned above.
--- NOTE | 2016-08-06 15:35 | P.PN ---
Subjective 51-year-old male being seen by surgical service at the request of the attending for abdominal pain. Patient states abdominal pain has significantly improved patient additionally states is tolerating a diet. Patient did have a CAT scan on admission of the abdomen it did show evidence of an ileus necessitating the need to insert a nasogastric tube. Nasogastric tube was able to be pulled on the . Patient states no further nausea vomiting has been up ambulating in the room and armstrong Objective - Vital Signs Vital signs: Vital Signs Temp 98.2 F 08/06/16 15:23 Pulse 82 08/06/16 15:23 Resp 16 08/06/16 15:23 BP 129/80 08/06/16 15:23 Pulse Ox 96 08/06/16 15:23 Intake & Output 08/05/16 08/06/16 08/06/16 18:59 06:59 18:59 Intake Total 375 900 Output Total 400 1300 1400 Balance -400 -925 -500 Intake: IV 250 Sodium Chloride 0.9% 1, 250 000 ml @ 125 mls/hr IV . Q8H MARYJANE Rx#:[id number] Intake, IV Titration 125 Amount Azithromycin 500 mg In 125 Sodium Chloride 0.9% 250 ml @ 125 mls/hr IVPB DAILY@1600 MARYJANE Rx#: [id number] Oral 900 Output: Urine 400 1300 1400 Other: # Voids 1 # Bowel Movements 2 - Exam Physical exam 51-year-old gentleman resting in bed states he feels better today abdominal pain has improved patient is concerned about his prednisone states he has not had it since he's been admitted he's been on at maintenance dose of prednisone for the past several years Lungs essentially clear with adequate air movement sats are 97% on room air Heart S1-S2 audible and regular Abdomen soft no guarding no rebound bowel tones present not distended nontender no facial grimacing with palpitation to the abdominal wall urinating no difficulty stooling Extremities no edema noted - Labs CBC & Chem 7: 08/06/16 07:12 08/06/16 07:12 Labs: Abnormal Lab Results - Last 24 Hours (Table) 08/06/16 08/06/16 Range/Units 07:12 07:12 Eosinophils # 0.9 H (0-0.7) k/uL BUN 8 L (9-20) mg/dL Microbiology - Last 24 Hours (Table) 08/03/16 19:30 Blood Culture - Preliminary Blood No Growth after 48 hours Assessment and Plan Plan: Impression Present on admission abdominal pain suspect due to a partial small bowel obstruction with an ileus Anxiety depressive disorder nonspecified Chronic sinusitis Possible Parkinson's disease Plan Patient does not have an acute surgical abdomen at this time Management of medical problems per medicine Pain control DVT and GI prophylaxis The above dictated assessment and findings were discussed with dr tEhel Stanford. Impression and the plan of care have been dictated as directed. Donna Jimenes nurse practitioner acting as a scribe for Dr. Rodriguez
[2016-08-06] MEDS: AZITHROMYCIN 500 MG in SODIUM CHLORIDE 0.9% 250 ML IVPB SCH (16:47)
[2016-08-06] MEDS: NON-FORMULARY DRUG (Vortioxetine Hydrobromide [Trintellix] 10 MG) PO SCH (16:47)
[2016-08-06] MEDS: HYDROcodone/APAP 5-325MG 1 EACH TAB PO PRN (20:03)
[2016-08-06] MEDS: MELATONIN 5 MG TABLET PO SCH (21:12)
--- NOTE | 2016-08-06 22:12 | P.PN ---
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 He was able to travel to [place] as well as the [facility] returning generated 2016. While there he was well. He no difficulties is all I was in [place]. He did have a trip into the [facility] and did eat therapy several meals. He does relate that he has his flu shot for the trip but no other vaccines. He did not have a typhoid vaccine. The patient relates ongoing difficulties with abdominal pain throughout this 2 months. He's had difficulties with intermittent diarrhea that has been quite profuse at time but without evidence of melena or hematochezia. Is a history of a Niesen fundoplication, and when he started to have emesis yesterday with ongoing abdominal pain presented to the local emergency center. There is a computed tomography scan was performed that showed evidence of an ileus and an NG tube was placed entranced to our facility for further surgical evaluation. Because of his travel history and ongoing gastrointestinal symptoms the infectious diseases consultation was requested. This pleasant gentleman relates that he is not having difficulty with fevers, chills or rigors. He's had some mild weight loss to this timeframe. No difficulty with dehydration. He's having no difficulty with rashes. Ileus resolved. NG tube is removed. Eating a solid diet. 13 bowel movements today. Abdominal pain is minimal. Objective - Vital Signs Vital signs: Vital Signs Temp 97.5 F L 08/06/16 20:00 Pulse 83 08/06/16 20:00 Resp 16 08/06/16 20:00 BP 108/68 08/06/16 20:00 Pulse Ox 91 L 08/06/16 20:00 Intake & Output 08/06/16 08/06/16 08/07/16 06:59 18:59 06:59 Intake Total 375 900 Output Total 1300 1400 Balance -925 -500 Intake: IV 250 Sodium Chloride 0.9% 1, 250 000 ml @ 125 mls/hr IV . Q8H MARYJANE Rx#:[id number] Intake, IV Titration 125 Amount Azithromycin 500 mg In 125 Sodium Chloride 0.9% 250 ml @ 125 mls/hr IVPB DAILY@1600 MARYJANE Rx#: [id number] Oral 900 Output: Urine 1300 1400 Other: # Bowel Movements 2 - Exam Pleasant 51-year-old male who has mild obesity and seems to be quite comfortable at this time. Since coming to hospital he apparently is showing improvement in that he is not having profuse diarrhea and nausea and emesis of improved NG tube was removed. HEENT: Anicteric conjunctiva are pink and moist nasal mucosa grossly intact without significant lesions, there is no thrush. NG tube is in place without bleeding Neck: The neck is supple without significant lymphadenopathy or thyromegaly. Lungs: Good bilateral air entry without significant crackles or wheezing. There is no significant bronchial sounds. There is no egophony or dullness. Heart: Regular rate and rhythm with an audible S1-S2, no S3 no S4. There is no significant murmur click or rub, PMI was nondisplaced. Abdomen: Positive bowel sounds soft is only mild tenderness at left lower quadrant. There is no guarding or rebound. Paraspinally. No palpable masses. Extremities: The upper extremities have excellent pulses they are symmetric, no significant petechiae or telangiectasia. No splinter hemorrhages were noted. The lower extremities are free from significant edema. The peripheral pulses were 2+ and symmetric. Neuro: Awake alert oriented to person place and time. There are no acute new gross focal sensory motor deficits. - Labs CBC & Chem 7: 08/06/16 07:12 08/06/16 07:12 Labs: Abnormal Lab Results - Last 24 Hours (Table) 08/06/16 08/06/16 Range/Units 07:12 07:12 Eosinophils # 0.9 H (0-0.7) k/uL BUN 8 L (9-20) mg/dL Microbiology - Last 24 Hours (Table) 08/03/16 19:30 Blood Culture - Preliminary Blood No Growth after 72 hours 08/06/16 07:08 Stool Culture - Preliminary Stool Laboratory Results WBC 8.5 k/uL (3.8-10.6) 08/06/16 07:12 RBC 5.28 m/uL (4.30-5.90) 08/06/16 07:12 Hgb 14.6 gm/dL (13.0-17.5) 08/06/16 07:12 Hct 45.0 % (39.0-53.0) 08/06/16 07:12 MCV 85.2 fL (80.0-100.0) 08/06/16 07:12 MCH 27.6 pg (25.0-35.0) 08/06/16 07:12 MCHC 32.4 g/dL (31.0-37.0) 08/06/16 07:12 RDW 12.9 % (11.5-15.5) 08/06/16 07:12 Plt Count 341 k/uL (150-450) 08/06/16 07:12 Neutrophils % 51 % 08/06/16 07:12 Lymphocytes % 29 % 08/06/16 07:12 Monocytes % 6 % 08/06/16 07:12 Eosinophils % 11 % 08/06/16 07:12 Basophils % 1 % 08/06/16 07:12 Neutrophils # 4.3 k/uL (1.3-7.7) 08/06/16 07:12 Lymphocytes # 2.5 k/uL (1.0-4.8) 08/06/16 07:12 Monocytes # 0.5 k/uL (0-1.0) 08/06/16 07:12 Eosinophils # 0.9 k/uL (0-0.7) H 08/06/16 07:12 Basophils # 0.0 k/uL (0-0.2) 08/06/16 07:12 ESR 13 mm/hr (0-15) 08/03/16 19:30 PT 10.9 sec (9.0-12.0) 08/03/16 19:30 INR 1.1 (<1.1) 08/03/16 19:30 Sodium 141 mmol/L (137-145) 08/06/16 07:12 Potassium 4.1 mmol/L (3.5-5.1) 08/06/16 07:12 Chloride 107 mmol/L (98-107) 08/06/16 07:12 Carbon Dioxide 24 mmol/L (22-30) 08/06/16 07:12 Anion Gap 10 mmol/L 08/06/16 07:12 BUN 8 mg/dL (9-20) L 08/06/16 07:12 Creatinine 0.79 mg/dL (0.66-1.25) 08/06/16 07:12 Est GFR (MDRD) Af Amer >60 (>60 ml/min/1.73 sqM) 08/06/16 07:12 Est GFR (MDRD) Non-Af >60 (>60 ml/min/1.73 sqM) 08/06/16 07:12 Glucose 88 mg/dL (74-99) 08/06/16 07:12 Calcium 8.9 mg/dL (8.4-10.2) 08/06/16 07:12 Phosphorus 4.6 mg/dL (2.5-4.5) H 08/03/16 19:30 Magnesium 2.4 mg/dL (1.6-2.3) H 08/03/16 19:30 Total Bilirubin 1.0 mg/dL (0.2-1.3) 08/03/16 19:30 AST 33 U/L (17-59) 08/03/16 19:30 ALT 35 U/L (21-72) 08/03/16 19:30 Alkaline Phosphatase 82 U/L (38-126) 08/03/16 19:30 C-Reactive Protein 10.1 mg/L (<10.0) H 08/03/16 19:30 Total Protein 6.9 g/dL (6.3-8.2) 08/03/16 19:30 Albumin 4.0 g/dL (3.5-5.0) 08/03/16 19:30 Amylase 71 U/L (30-110) 08/03/16 19:30 Lipase 73 U/L (23-300) 08/03/16 19:30 Urine Color Yellow 08/04/16 05:26 Urine Appearance Clear (Clear) 08/04/16 05:26 Urine pH 5.5 (5.0-8.0) 08/04/16 05:26 Ur Specific [place] 1.022 (1.001-1.035) 08/04/16 05:26 Urine Protein 1+ (Negative) H 08/04/16 05:26 Urine Glucose (UA) Negative (Negative) 08/04/16 05:26 Urine Ketones 1+ (Negative) H 08/04/16 05:26 Urine Blood Negative (Negative) 08/04/16 05:26 Urine Nitrite Negative (Negative) 08/04/16 05:26 Urine Bilirubin Negative (Negative) 08/04/16 05:26 Urine Urobilinogen <2.0 mg/dL (<2.0) 08/04/16 05:26 Ur Leukocyte Esterase Negative (Negative) 08/04/16 05:26 Urine RBC 1 /hpf (0-5) 08/04/16 05:26 Urine WBC <1 /hpf (0-5) 08/04/16 05:26 Hyaline Casts 11 /lpf (0-2) H 08/04/16 05:26 Urine Mucus Many /hpf (None) H 08/04/16 05:26 Stool Occult Blood Negative (Negative) 08/06/16 07:08 C. difficile (EIA) Intrp Negative (Negative) 08/06/16 07:08 Microbiology 08/03/16 19:30 Blood Blood Culture - Preliminary No Growth after 72 hours 08/06/16 07:08 Stool Stool Culture - Preliminary 08/04/16 05:26 Urine,Clean Catch Urine Culture - Final Assessment and Plan (1) Gastroenteritis Narrative/Plan: 51-year-old male presents to his local emergency center with a seven- week history of symptoms. Associated with bouts of diarrhea as well as left lower quadrant abdominal pain and more recently nausea with emesis. Patient is yet to be able to provide a stool specimen. But stool cultures will be sent once available. He has been to the [facility] where typhoid fever is endemic. In is of concern. He has been treated in the outpatient setting as noted with a course of levofloxacin and then trimethoprim sulfamethoxazole. Typhoidal resistance to quinolones is of ongoing concern. And while culture data is pending will utilize a azithromycin therapy. Patient understands importance of obtaining a stool specimen. The leukocytosis is improving with hydration. Abdominal pain is under good control at this time. Concerns to alias at admission. This is now completely resolved. Eating solid food without difficulty at all. He did have copious loose stools today. 13 stools noted. The dose of Lomotil will be added and Questran will be added. He is eating everything on his tray without pain. No evidence of any fever at this time. We'll complete a 5 day course of azithromycin. Status: Acute (2) Ileus Status: Acute (3) Leukocytosis Status: Acute
[2016-08-07] MEDS: SODIUM CHLORIDE 0.9% 1,000 ML IV SCH ×2 (02:48→08:39)
[2016-08-07 07:12] LABS: Basophils % (A) 1 %; CH 28.2; CHCM 33.5; Eosinophils # (A) 0.4 k/uL (0-0.7); Eosinophils % (A) 6 %; HCT 41.8 % (39.0-53.0); HDW 2.77; HGB 14.2 gm/dL (13.0-17.5); Luc # (Auto) 0.19; Luc % (Auto) 3; Lymphocytes # (A) 2.4 k/uL (1.0-4.8); Lymphocytes % (A) 34 %; MCH 28.7 pg (25.0-35.0); MCV 84.4 fL (80.0-100.0); Mean Platelet Volume 7.6; Monocytes # (A) 0.4 k/uL (0-1.0); Monocytes % (A) 5 %; Neutrophils # (A) 3.6 k/uL (1.3-7.7); Neutrophils % (A) 52 %; RBC 4.95 m/uL (4.30-5.90); RDW 12.9 % (11.5-15.5); WBC (Perox) 7.06
[2016-08-07 07:24] LABS: Anion Gap 7 mmol/L; Blood Urea Nitrogen 4 mg/dL (9-20); Calcium 8.8 mg/dL (8.4-10.2); Carbon Dioxide 26 mmol/L (22-30); Chloride 108 mmol/L (98-107); Glucose 102 mg/dL (74-99); Non-African American GFR(MDRD) >60 (>60 ml/min/1.73 sqM); Potassium 3.7 mmol/L (3.5-5.1); Sodium 141 mmol/L (137-145)
[2016-08-07] MEDS: ALBUTEROL NEBULIZED 2.5 MG/3 ML INHALATION SCH ×2 (07:29→13:18)
[2016-08-07] MEDS ORDERED: TIOTROPIUM 18 MCG/PUFF INHALER INHALATION SCH (08:00)
[2016-08-07] MEDS: ENOXAPARIN 40 MG/0.4 ML SYRINGE SQ SCH (08:25)
[2016-08-07] MEDS: NON-FORMULARY DRUG (Vortioxetine Hydrobromide [Trintellix] 10 MG) PO SCH (08:26)
[2016-08-07] MEDS: CHOLESTYRAMINE (WITH SUGAR) 4 GM PACKET PO SCH ×3 (08:26→17:04)
[2016-08-07] MEDS: DIPHENOX-ATROP 2.5-0.025 MG 1 EACH TAB PO PRN ×2 (08:43→16:59)
[2016-08-07] MEDS ORDERED: predniSONE 20 MG TAB PO SCH (09:00)
[2016-08-07] MEDS ORDERED: PANTOPRAZOLE 40 MG TABLET PO SCH (09:00)
[2016-08-07 13:20] VITALS: PULSE 82
[2016-08-07 15:21] VITALS: BP 124/72; TEMP 98.6
[2016-08-07] MEDS ORDERED: AZITHROMYCIN 500 MG TAB PO SCH (16:00)
--- NOTE | 2016-08-07 22:39 | P.PN ---
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 He was able to travel [place] [facility]. While there he was well. He no difficulties is all I was in [place]. He did have a trip [place] [facility] [place] and did eat therapy several meals. He does relate that he has his flu shot for the trip but no other vaccines. He did not have a typhoid vaccine. The patient relates ongoing difficulties with abdominal pain throughout this 2 months. He's had difficulties with intermittent diarrhea that has been quite profuse at time but without evidence of melena or hematochezia. Is a history of a Niesen fundoplication, and when he started to have emesis yesterday with ongoing abdominal pain presented to the local emergency center. There is a computed tomography scan was performed that showed evidence of an ileus and an NG tube was placed entranced to our facility for further surgical evaluation. Because of his travel history and ongoing gastrointestinal symptoms the infectious diseases consultation was requested. This pleasant gentleman relates that he is not having difficulty with fevers, chills or rigors. He's had some mild weight loss to this timeframe. No difficulty with dehydration. He's having no difficulty with rashes. Ileus resolved. NG tube is removed. Eating a solid diet. 13 bowel movements yesterday, much better today eating all meals without problem. Abdominal pain resolved. Objective - Vital Signs Vital signs: Vital Signs Temp 98.6 F 08/07/16 15:00 Pulse 82 08/07/16 15:00 Resp 16 08/07/16 15:00 BP 124/72 08/07/16 15:00 Pulse Ox 97 08/07/16 15:00 Intake & Output 08/07/16 08/07/16 08/08/16 06:59 18:59 06:59 Intake Total 720 Balance 720 Intake: Oral 720 Other: Voiding Method Toilet Toilet # Voids 1 3 - Exam Primitivo 51-year-old male who has mild obesity and seems to be quite comfortable at this time. Since coming to hospital he apparently is showing improvement in that he is not having profuse diarrhea and nausea and emesis of improved NG tube was removed. HEENT: Anicteric conjunctiva are pink and moist nasal mucosa grossly intact without significant lesions, there is no thrush. NG tube is in place without bleeding Neck: The neck is supple without significant lymphadenopathy or thyromegaly. Lungs: Good bilateral air entry without significant crackles or wheezing. There is no significant bronchial sounds. There is no egophony or dullness. Heart: Regular rate and rhythm with an audible S1-S2, no S3 no S4. There is no significant murmur click or rub, PMI was nondisplaced. Abdomen: Positive bowel sounds soft no tenderness . There is no guarding or rebound. Paraspinally. No palpable masses. Extremities: The upper extremities have excellent pulses they are symmetric, no significant petechiae or telangiectasia. No splinter hemorrhages were noted. The lower extremities are free from significant edema. The peripheral pulses were 2+ and symmetric. Neuro: Awake alert oriented to person place and time. There are no acute new gross focal sensory motor deficits. - Labs CBC & Chem 7: 08/07/16 06:52 08/07/16 06:52 Labs: Abnormal Lab Results - Last 24 Hours (Table) 08/07/16 Range/Units 06:52 Chloride 108 H (98-107) mmol/L BUN 4 L (9-20) mg/dL Glucose 102 H (74-99) mg/dL Microbiology - Last 24 Hours (Table) 08/03/16 19:30 Blood Culture - Preliminary Blood No Growth after 96 hours 08/06/16 07:08 Stool for WBCs - Final Stool Laboratory Results WBC 7.0 k/uL (3.8-10.6) 08/07/16 06:52 RBC 4.95 m/uL (4.30-5.90) 08/07/16 06:52 Hgb 14.2 gm/dL (13.0-17.5) 08/07/16 06:52 Hct 41.8 % (39.0-53.0) 08/07/16 06:52 MCV 84.4 fL (80.0-100.0) 08/07/16 06:52 MCH 28.7 pg (25.0-35.0) 08/07/16 06:52 MCHC 34.0 g/dL (31.0-37.0) 08/07/16 06:52 RDW 12.9 % (11.5-15.5) 08/07/16 06:52 Plt Count 294 k/uL (150-450) 08/07/16 06:52 Neutrophils % 52 % 08/07/16 06:52 Lymphocytes % 34 % 08/07/16 06:52 Monocytes % 5 % 08/07/16 06:52 Eosinophils % 6 % 08/07/16 06:52 Basophils % 1 % 08/07/16 06:52 Neutrophils # 3.6 k/uL (1.3-7.7) 08/07/16 06:52 Lymphocytes # 2.4 k/uL (1.0-4.8) 08/07/16 06:52 Monocytes # 0.4 k/uL (0-1.0) 08/07/16 06:52 Eosinophils # 0.4 k/uL (0-0.7) 08/07/16 06:52 Basophils # 0.0 k/uL (0-0.2) 08/07/16 06:52 ESR 13 mm/hr (0-15) 08/03/16 19:30 PT 10.9 sec (9.0-12.0) 08/03/16 19:30 INR 1.1 (<1.1) 08/03/16 19:30 Sodium 141 mmol/L (137-145) 08/07/16 06:52 Potassium 3.7 mmol/L (3.5-5.1) 08/07/16 06:52 Chloride 108 mmol/L (98-107) H 08/07/16 06:52 Carbon Dioxide 26 mmol/L (22-30) 08/07/16 06:52 Anion Gap 7 mmol/L 08/07/16 06:52 BUN 4 mg/dL (9-20) L 08/07/16 06:52 Creatinine 0.68 mg/dL (0.66-1.25) 08/07/16 06:52 Est GFR (MDRD) Af Amer >60 (>60 ml/min/1.73 sqM) 08/07/16 06:52 Est GFR (MDRD) Non-Af >60 (>60 ml/min/1.73 sqM) 08/07/16 06:52 Glucose 102 mg/dL (74-99) H 08/07/16 06:52 Calcium 8.8 mg/dL (8.4-10.2) 08/07/16 06:52 Phosphorus 4.6 mg/dL (2.5-4.5) H 08/03/16 19:30 Magnesium 2.4 mg/dL (1.6-2.3) H 08/03/16 19:30 Total Bilirubin 1.0 mg/dL (0.2-1.3) 08/03/16 19:30 AST 33 U/L (17-59) 08/03/16 19:30 ALT 35 U/L (21-72) 08/03/16 19:30 Alkaline Phosphatase 82 U/L (38-126) 08/03/16 19:30 C-Reactive Protein 10.1 mg/L (<10.0) H 08/03/16 19:30 Total Protein 6.9 g/dL (6.3-8.2) 08/03/16 19:30 Albumin 4.0 g/dL (3.5-5.0) 08/03/16 19:30 Amylase 71 U/L (30-110) 08/03/16 19:30 Lipase 73 U/L (23-300) 08/03/16 19:30 Urine Color Yellow 08/04/16 05:26 Urine Appearance Clear (Clear) 08/04/16 05:26 Urine pH 5.5 (5.0-8.0) 08/04/16 05:26 Ur Specific [place] 1.022 (1.001-1.035) 08/04/16 05:26 Urine Protein 1+ (Negative) H 08/04/16 05:26 Urine Glucose (UA) Negative (Negative) 08/04/16 05:26 Urine Ketones 1+ (Negative) H 08/04/16 05:26 Urine Blood Negative (Negative) 08/04/16 05:26 Urine Nitrite Negative (Negative) 08/04/16 05:26 Urine Bilirubin Negative (Negative) 08/04/16 05:26 Urine Urobilinogen <2.0 mg/dL (<2.0) 08/04/16 05:26 Ur Leukocyte Esterase Negative (Negative) 08/04/16 05:26 Urine RBC 1 /hpf (0-5) 08/04/16 05:26 Urine WBC <1 /hpf (0-5) 08/04/16 05:26 Hyaline Casts 11 /lpf (0-2) H 08/04/16 05:26 Urine Mucus Many /hpf (None) H 08/04/16 05:26 Stool Occult Blood Negative (Negative) 08/06/16 07:08 C. difficile (EIA) Intrp Negative (Negative) 08/06/16 07:08 Microbiology 08/03/16 19:30 Blood Blood Culture - Preliminary No Growth after 96 hours 08/06/16 07:08 Stool Stool for WBCs - Final 08/06/16 07:08 Stool Stool Culture - Preliminary 08/04/16 05:26 Urine,Clean Catch Urine Culture - Final Assessment and Plan (1) Gastroenteritis Narrative/Plan: 51-year-old male presents to his local emergency center with a seven- week history of symptoms. Associated with bouts of diarrhea as well as left lower quadrant abdominal pain and more recently nausea with emesis. Patient is yet to be able to provide a stool specimen. But stool cultures will be sent once available. [place] [facility] [place] endemic. In is of concern. He has been treated in the outpatient setting as noted with a course of levofloxacin and then trimethoprim sulfamethoxazole. Typhoidal resistance to quinolones is of ongoing concern. And while culture data is pending will utilize a azithromycin therapy. Patient understands importance of obtaining a stool specimen. The leukocytosis is improving with hydration. Abdominal pain is under good control at this time. Concerns to alias at admission. This is now completely resolved. Eating solid food without difficulty at all. He did have copious loose stools yesterday 13 stools noted. Lomotil added and Questran added with resolution of symptoms He is eating everything on his tray without pain. No evidence of any fever at this time. Cultures negative We'll complete a 5 day course of azithromycin. Status: Acute (2) Ileus Status: Acute (3) Leukocytosis Status: Acute
--- NOTE | 2016-08-08 07:24 | DS ---
DATE OF ADMISSION: 08/03/2016 DATE OF DISCHARGE: 08/07/2016 Patient is a 51-year-old admitted secondary to gastroenteritis which was considered secondary to enteric fever or typhoidal fever. My suspicion is low for that, but anyways Dr. Kendrick, Infectious Disease will decide about the antibiotics. Patient's symptoms improved with Questran and Lomotil and patient's stool cultures still does not have any WBC. Stool cultures are not back yet. I leave the decision of antibiotics to Infectious Disease and patient's C. diff is negative. Patient will be discharged on Lomotil and Questran. Patient was seen and examined on the day of discharge. Vitals are stable. PHYSICAL EXAMINATION: RESPIRATORY EXAMINATION: Improved wheezing, but still has a little bit of expiratory wheezing GENERAL: The patient is alert and oriented x3, not in any acute distress. Well developed, well nourished. HEENT: Pupils are round and equally reacting to light. EOMI. No scleral icterus. No conjunctival pallor. Normocephalic, atraumatic. No pharyngeal erythema. No thyromegaly. CARDIOVASCULAR: S1 and S2 present. No murmurs, rubs, or gallops. ABDOMEN: Soft, nontender, nondistended, normoactive bowel sounds. No palpable organomegaly. MUSCULOSKELETAL: No joint swelling or deformity. EXTREMITIES: No cyanosis, clubbing, or pedal edema. NEUROLOGICAL: Gross neurological examination did not reveal any focal deficits. SKIN: No rashes. Patient also has tracheobronchitis and patient is being discharged on azithromycin for his diarrhea which should help with his bronchitis, too. FINAL DIAGNOSES: 1. Gastroenteritis, enteric fever as per Gastroenterology. 2. Chronic obstructive pulmonary disease with minimal exacerbation. 3. Gastroesophageal reflux disease. 4. Sleep apnea. 5. Parkinson's. 6. Bipolar disorder. 7. Bronchial thermoplasty in the past. Patient will be discharged in stable medical condition to home. Activity as tolerated. Please refer to my discharge medication reconciliation for depart medications. Activity as tolerated. Regular diet. Spent greater than 35 minutes in total discharge process.
[2016-08-14 01:34] LABS: Cryptosporidium parvum Not detected (Not detected); Isospora belli Not detected (Not detected); Microsporidium Not detected (Not detected); Routine Ova and Parasites Not detected
== END 2016-08-07 18:56 | disposition home or self-care (01) | DRG 389 ==
LOC: 3SUR 17:25
PROVIDERS: ADMIT Internal Medicine; ATTEND Internal Medicine
DX: K56.60 Unspecified intestinal obstruction (principal); J44.1 Chronic obstructive pulmonary disease with (acute) exacerbation; G20 Parkinson's disease; G47.30 Sleep apnea, unspecified; J32.9 Chronic sinusitis, unspecified; J45.909 Unspecified asthma, uncomplicated; K21.9 Gastro-esophageal reflux disease without esophagitis; K52.9 Noninfective gastroenteritis and colitis, unspecified; F41.8 Other specified anxiety disorders; E66.9 Obesity, unspecified; F31.9 Bipolar disorder, unspecified; Z79.899 Other long term (current) drug therapy; Z82.49 Family history of ischemic heart disease and other diseases of the circulatory system; Z86.711 Personal history of pulmonary embolism; Z86.718 Personal history of other venous thrombosis and embolism; Z87.01 Personal history of pneumonia (recurrent); Z87.891 Personal history of nicotine dependence; Z88.0 Allergy status to penicillin
CPT/HCPCS: 71010; 74020; 80048; 80053; 81001; 82150; 82272; 83690; 83735; 84100; 85025; 85610; 85652; 86140; 87040; 87045; 87046; 87086; 87177; 87207; 87209; 87324; 89055; 93005; 94640; 94660; 94760

== ENCOUNTER 2016-09-20 08:15 | Day surgery (SDC) | payer BC ==
[2016-09-18 10:57] VITALS: BMI 29.1
--- NOTE | 2016-09-20 07:25 | P.GSHP ---
History of Present Illness H&P Date: 09/20/16 CHIEF COMPLAINT: GERD and colon screen HISTORY OF PRESENT ILLNESS: The patient is a 51-year-old male who presents reports gastroesophageal reflux disease and chronic diarrhea. Upper and lower endoscopy were offered for further evaluation and management. PAST MEDICAL HISTORY: Please see list. PAST SURGICAL HISTORY: Please see list. MEDICATIONS: Please see list. ALLERGIES: Please see list. SOCIAL HISTORY: No illicit drug use FAMILY HISTORY: No reports of Crohn disease or ulcerative colitis. REVIEW OF ORGAN SYSTEMS: CONSTITUTIONAL: No reports of fevers or chills. GI: Denies any blood in stools or constipation. PHYSICAL EXAM: VITAL SIGNS: Stable GENERAL: Well-developed pleasant in no acute distress. HEENT: No scleral icterus. Extraocular movements grossly intact. Moist buccal mucosa. NECK: Supple without lymphadenopathy. CHEST: Unlabored respirations. Equal bilateral excursions. CARDIOVASCULAR: Regular rate and rhythm. Distal 2+ pulses. ABDOMEN: Soft, nondistended. MUSCULOSKELETAL: No clubbing, cyanosis, or edema. ASSESSMENT: 1. Gastroesophageal reflux disease 2. Diarrhea. PLAN: 1. Recommend proceeding with an upper and lower endoscopy Past Medical History Past Medical History: Asthma, COPD, Deep Vein Thrombosis (DVT), GERD/Reflux, Pneumonia, Pulmonary Embolus (PE), Sleep Apnea/CPAP/BIPAP Additional Past Medical History / Comment(s): FOLLOWED BY DR MIR FOR TREMORS ? BEGINNINGS OF [place] NOT A DX OF YET, HX DVT RT LEG, CANDIE'S, HX OF CELLULITIS/SEPSIS X2, DEG DISC,DAILY PREDNISONE, PNEUMONIA , 16 weeks "bowel and abdominal trouble" History of Any Multi-Drug Resistant Organisms: None Reported Past Surgical History: Cholecystectomy Additional Past Surgical History / Comment(s): Wojciech fundoplication (2011), previous bronchoscopies, SINUS SX X3, CERVICAL DISCECTOMY, BRONCHIAL THERMOPLASTY #1 ON 03/01/15, #2 03-23-15. 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 International travel to [place] in the [employer] returns May 31 2016 Smoking Status: Former smoker Past Alcohol Use History: None Reported Additional Past Alcohol Use History / Comment(s): SMOKED CIGARS IN THE QUIT 1996 Past Drug Use History: None Reported - Past Family History Father Family Medical History: Pneumonia, Respiratory Disorder Mother Family Medical History: Eye Disorder, Hypertension Additional Family Medical History / Comment(s): GLUACOMA Medications and Allergies Home Medications Medication Instructions Recorded Confirmed Type Montelukast [Singulair] 10 mg PO DAILY 11/28/14 09/18/16 History Albuterol Nebulized [Ventolin 1 inhalation INHALATION RT-TID 04/10/15 09/18/16 History Nebulized] Melatonin 10 mg PO HS 08/03/16 09/18/16 History Vortioxetine Hydrobromide 10 mg PO DAILY 08/03/16 09/18/16 History [Trintellix] clonazePAM [KlonoPIN] 0.5 mg PO BID 08/03/16 09/18/16 History predniSONE 40 mg PO DAILY 08/03/16 09/18/16 History Ipratropium Nebulized [Atrovent 0.5 mg INHALATION Q6HR PRN 09/18/16 09/18/16 History Nebulized] Loratadine [Claritin] 10 mg PO DAILY 09/18/16 09/18/16 History Pantoprazole [Protonix] 40 mg PO DAILY 09/18/16 09/18/16 History Allergies Allergy/AdvReac Type Severity Reaction Status Date / Time Penicillins Allergy Unknown Verified 09/18/16 10:40
[~2016-09-20 08:15] MED LIST: LACTATED RINGERS 1,000 ML IV SCH
[2016-09-20 08:45] VITALS: RESP 16; TEMP 98.2
[2016-09-20 08:51] LABS: Glucose,Whole Blood 78 mg/dL (75-99)
[2016-09-20] MEDS ORDERED: LIDOCAINE 1% INJ 10MG/ML (20 ML MDV) ONE (09:22)
[2016-09-20] MEDS ORDERED: PROPOFOL 10 MG/ML 20 ML VIAL IV ONE (09:22)
[2016-09-20 10:09] VITALS: PULSE 58
[2016-09-20 10:26] VITALS: BP 116/78
--- NOTE | 2016-09-20 21:52 | P.PCN ---
Date of Procedure: 09/20/16 Description of Procedure: PREOPERATIVE DIAGNOSIS: Epigastric abdominal pain. Gastroesophageal reflux disease. Previous history of Wojciech fundoplasty. POSTOPERATIVE DIAGNOSIS: Epigastric abdominal pain. Gastroesophageal reflux disease. Previous history of Wojciech fundoplasty. OPERATION: Esophagogastroduodenoscopy with biopsies along antrum. SURGEON: Melissa Capellan MD ANESTHESIA: MAC. INDICATIONS: The patient is a 51-year-old female who presents with a history of reflux disease and epigastric abdominal pain. Benefits and risks of the procedure were described. Informed consent was obtained. DESCRIPTION: The patient was brought into the endoscopy suite and laid in the left lateral decubitus position. An Olympus gastroscope was passed along the posterior oropharynx down to the distal esophagus where the squamocolumnar junction was encountered at 45 cm from the incisors. The stomach was entered and minimal bile reflux was found. Additional findings are listed below. Biopsies with cold forceps were obtained of the antrum. The first through third portion of the duodenum was examined and unremarkable. Retroflexion of the scope confirmed Hill grade I lower esophageal valve. The squamocolumnar junction demostrated no acute LA grade A erosive esophagitis. The stomach was desufflated. The patient tolerated the procedure well. FINDINGS: Squamocolumnar junction 45 cm from the incisors. Hill grade 1 lower esophageal valve. No LA grade A erosive esophagitis. No active duodenitis. Mild gastritis. RECOMMENDATIONS: Further recommendations pending results of pathology report. Upper endoscopy as needed.
--- NOTE | 2016-09-20 21:56 | P.PCN ---
Date of Procedure: 09/20/16 Description of Procedure: PREOPERATIVE DIAGNOSIS: Chronic diarrhea. POSTOPERATIVE DIAGNOSIS: Chronic diarrhea. Colon adenoma ascending colon. Colitis. OPERATION: Colonoscopy to the ileocecal valve and appendiceal orifice. Colonoscopy random cold forceps biopsies. Colonoscopy with polypectomy at ascending colon. SURGEON: Melissa Capellan MD. ANESTHESIA: MAC. INDICATIONS: The patient is a 51-year-old male who presents with chronic diarrhea over 4 months. Benefits and risks were described and informed consent was obtained. DESCRIPTION OF PROCEDURE: A colon prep was avoided with his history of chronic diarrhea. He had been brought into the operating room and laid in the left lateral decubitus position. After adequate intravenous sedation, the rectum was examined with 2% lidocaine jelly. The prostate was smooth and without abnormality. No external hemorrhoids were encountered. The rectal tone was within normal limits. No lesions were palpated in the rectal vault. An Olympus colonoscope was advanced until the ileocecal valve and appendiceal orifice were clearly viewed. No stools found throughout the entire colon. The scope was removed with visualization of each mucosal fold. At the ascending colon, a 4 mm villous adenoma was cold forceps biopsy. No scattered diverticulosis was encountered. Random cold forceps biopsies were obtained throughout the colon to investigate microscopic colitis. Retroflexion of the scope demonstrated grade 1 internal hemorrhoids without active bleeding or inflammation. The colon was desufflated. The patient had tolerated the procedure well. Withdrawal time was over 6 minutes. FINDINGS: Internal hemorrhoids, grade 1 No external prolapsed hemorrhoids. No arteriovenous malformations. Villous adenoma 4 mm cold biopsy forceps at ascending colon. Random biopsies throughout the colon for microscopic colitis. RECOMMENDATIONS: Lower endoscopy in 3-5 years for adenoma, otherwise 08/30/2019. Plan - Discharge Summary Discharge Medication List Montelukast [Singulair] 10 mg PO DAILY 11/28/14 [History] Albuterol Nebulized [Ventolin Nebulized] 1 inhalation INHALATION RT-TID [History] Melatonin 10 mg PO HS 08/03/16 [History] Vortioxetine Hydrobromide [Trintellix] 10 mg PO DAILY 08/03/16 [History] clonazePAM [KlonoPIN] 0.5 mg PO BID 08/03/16 [History] predniSONE 40 mg PO DAILY 08/03/16 [History] Budesonide-Formot 160-4.5 Mcg [Symbicort 160-4.5 Mcg Inhaler] 2 puff INHALATION BID #1 inhaler 08/07/16 [Rx] Ipratropium Nebulized [Atrovent Nebulized] 0.5 mg INHALATION Q6HR PRN 09/18/16 [ History] Loratadine [Claritin] 10 mg PO DAILY 09/18/16 [History] Pantoprazole [Protonix] 40 mg PO DAILY 09/18/16 [History] Follow up Appointment(s)/Referral(s): Melissa Capellan MD [STAFF PHYSICIAN] - 10/03/16 (At [place]) Patient Instructions/Handouts: *Surgery [facility] - (Anesthesia) Endoscopy Discharge Instructions, Colonoscopy (DC), Microscopic Colitis (GEN), Upper Endoscopy (DC) Discharge Disposition: HOME SELF-CARE
== END 2016-09-20 10:38 | disposition home or self-care (01) ==
LOC: ORWHC2ENDO 08:15
PROVIDERS: ATTEND Surgery Plastic and Reconstructive Surgery
DX: K52.9 Noninfective gastroenteritis and colitis, unspecified (principal); K29.50 Unspecified chronic gastritis without bleeding; D12.2 Benign neoplasm of ascending colon; K64.0 First degree hemorrhoids; K21.9 Gastro-esophageal reflux disease without esophagitis; J45.909 Unspecified asthma, uncomplicated; J44.9 Chronic obstructive pulmonary disease, unspecified; Z86.718 Personal history of other venous thrombosis and embolism; Z86.711 Personal history of pulmonary embolism; G47.33 Obstructive sleep apnea (adult) (pediatric); F41.9 Anxiety disorder, unspecified; F31.9 Bipolar disorder, unspecified; Z79.52 Long term (current) use of systemic steroids; Z79.51 Long term (current) use of inhaled steroids; Z79.899 Other long term (current) drug therapy; Z88.0 Allergy status to penicillin; Z87.891 Personal history of nicotine dependence
CPT/HCPCS: 88305; 88342; 45380; 43239; J2001; J2704

== ENCOUNTER → 2016-10-15 | Outpatient (CLI) | payer BC ==
[2016-10-15 14:34] LABS: Basophils # (A) 0.1 k/uL (0-0.2); Basophils % (A) 1 %; CHCM 33.8; Eosinophils # (A) 0.1 k/uL (0-0.7); Eosinophils % (A) 1 %; HCT 44.2 % (39.0-53.0); HDW 2.71; HGB 14.6 gm/dL (13.0-17.5); Luc # (Auto) 0.29; Luc % (Auto) 2; Lymphocytes # (A) 4.2 k/uL (1.0-4.8); Lymphocytes % (A) 26 %; MCH 28.5 pg (25.0-35.0); MCHC 33.1 g/dL (31.0-37.0); MCV 86.1 fL (80.0-100.0); Mean Platelet Volume 6.7; Monocytes # (A) 1.1 k/uL (0-1.0); Monocytes % (A) 7 %; Neutrophils # (A) 10.2 k/uL (1.3-7.7); Neutrophils % (A) 64 %; RBC 5.14 m/uL (4.30-5.90); RDW 13.5 % (11.5-15.5); WBC (Perox) 15.47
[2016-10-15 14:50] LABS: Anion Gap 7 mmol/L; Blood Urea Nitrogen 11 mg/dL (9-20); Calcium 9.1 mg/dL (8.4-10.2); Carbon Dioxide 29 mmol/L (22-30); Chloride 103 mmol/L (98-107); Glucose 85 mg/dL (74-99); Magnesium 2.2 mg/dL (1.6-2.3); Non-African American GFR(MDRD) >60 (>60 ml/min/1.73 sqM); Potassium 4.1 mmol/L (3.5-5.1); Sodium 139 mmol/L (137-145)
== END ==
LOC: LABWHC1 13:50
PROVIDERS: ATTEND Internal Medicine Critical Care Medicine
DX: K52.9 Noninfective gastroenteritis and colitis, unspecified (principal); J45.50 Severe persistent asthma, uncomplicated
CPT/HCPCS: 36415; 80048; 83735; 84425; 85025

== ENCOUNTER → 2017-01-07 | Outpatient (CLI) | payer BC ==
--- NOTE | 2017-01-07 15:37 | CT ---
EXAMINATION TYPE: CT chest wo con DATE OF EXAM: 01/07/2017 COMPARISON: Outside CT thorax dated 08/03/2016. CT abdomen pelvis dated 04/20/2011. HISTORY: asthma, decrease in lung capacity CT DLP: 807 mGycm. Automated Exposure Control for Dose Reduction was Utilized. TECHNIQUE: CT scan of the thorax is performed without IV contrast. FINDINGS: LUNGS: Within the posterior basilar segment of the left lower lobe there are 2 focal consolidations t he more medial measuring 2.7 cm in the more lateral measuring 2.1 cm. Given the density and the locat ion these most likely relate to areas of atelectasis. Smaller similar consolidation is seen measuring 8 mm on series 9 image 243 in the left lower lobe, also likely related to atelectasis. Subpleural no dularity on the left dependently is favored to represent focal subsegmental atelectasis. Focal area o f atelectasis is seen within the left upper lobe. Within the right lower lobe at the lung base there are scattered multifocal areas of reticular nodula r opacity with minimal peribronchial cuffing and few areas of mucus impaction identified. These are l ocalized to the right lower lobe and seen on series 9 image 226, series 4 image 51, and series 9 imag e 249. There is no evidence of honeycombing, bronchiectasis, interstitial lobular thickening, or sequ ignacio of fibrosis. There is no concerning parenchymal mass or nodule identified. There is no pleural effusion or pneumothorax seen. The tracheobronchial tree is patent. MEDIASTINUM: Lack of IV contrast is noted to limit evaluation for mediastinal and especially hilar ad enopathy. There are no definitive greater than 1 cm hilar or mediastinal lymph nodes. No cardiomega ly or pericardial effusion is seen. OTHER: Cholecystectomy clips are noted within the right upper quadrant. Multilevel degenerative penaloza es are seen of the thoracic spine, mild in degree. IMPRESSION: 1. No evidence of pulmonary fibrosis. 2. Multifocal right lower lobe reticular opacities with peribronchial cuffing and few areas of termin al bronchus mucoid impaction compatible small airway disease. 3. Small areas of consolidation within the left lung base that have progressed from the prior exam bu t are favored to represent atelectasis. Superimposed infection is possible. 4. No evidence of adenopathy.
== END | disposition home or self-care (01) ==
LOC: RADCTMAIN 14:31
PROVIDERS: ATTEND Internal Medicine Critical Care Medicine
DX: J18.1 Lobar pneumonia, unspecified organism (principal); J98.11 Atelectasis; J45.50 Severe persistent asthma, uncomplicated; Z88.0 Allergy status to penicillin
CPT/HCPCS: 71250

== ENCOUNTER 2017-01-31 11:10 | Day surgery (SDC) | payer BC ==
[2017-01-30 11:59] VITALS: BMI 31.8
[~2017-01-31 11:10] MED LIST changes: +ALBUTEROL NEB (CONC) 2.5 MG/0.5 ML INHALATION ONE; +LACTATED RINGERS 1,000 ML IV ONE; +LIDOCAINE 1% 20 ML VIAL (10MG/ML) FOR IV START INTRADERMA PRN; +LIDOCAINE 2% (PF) 20 MG/ML 10ML INHALATION ONE
[2017-01-31 11:24] VITALS: TEMP 98
[2017-01-31] MEDS ORDERED: LACTATED RINGERS 1,000 ML IV ONE (11:32)
[2017-01-31 11:33] LABS: Glucose,Whole Blood 86 mg/dL (75-99)
[2017-01-31] MEDS ORDERED: MIDAZOLAM 2 MG/2 ML VIAL ONE (12:09)
[2017-01-31] MEDS ORDERED: LIDOCAINE 1% INJ 10MG/ML (20 ML MDV) ONE (12:09)
[2017-01-31] MEDS ORDERED: fentaNYL (PF) 50 MCG/ML 2 ML AMP ONE (12:09)
[2017-01-31] MEDS ORDERED: PROPOFOL 10 MG/ML 20 ML VIAL IV ONE (12:09)
[2017-01-31] MEDS ORDERED: LIDOCAINE 2% INJ 20 MG/ML INTRATRACH ONE (12:26)
--- NOTE | 2017-01-31 12:32 | P.PCN ---
Date of Procedure: 01/31/17 Preoperative Diagnosis: Shortness of breath, severe persistent bronchial asthma, mucous plugging Postoperative Diagnosis: Tracheobronchitis, mucous plugging Procedure(s) Performed: Flexible bronchoscopy, lingular bronchoalveolar lavage Anesthesia: MAC Surgeon: Solomon Gifford Pathology: other Condition: stable Disposition: same day Operative Findings: This procedure was done and operating room. Anesthetic agents was administered by [employer]OV[employer] TECHNICIAN the bedside. After achieving adequate sedation of the flexible bronchoscope was inserted through the left nostril. The bronchoscope was advanced to the posterior oropharynx and the upper airway structures were all within normal limits. Following that the laryngeal structures were inspected. Epiglottis was identified. The vallecula, arytenoids and the vocal cords were all within normal limits. A total of 2 mL of 1% lidocaine was applied to the vocal cords and following that the bronchoscope was advanced into the upper trachea and examination of the tracheal bronchial tree was done. Some loose of the secretions were identified in the trachea. There was suctioned out without any major difficulties. There was a mild degree of tracheal bronchomalacia. The tracheal wall was slightly inflamed throughout. Airway inspection was completed. The joselin was sharp in the midline. Bilateral mainstem bronchi were seen. Examination of the right side including the right upper lobe bronchus, bronchus intermedius, right middle lobe bronchus and right lower lobe bronchussegments and subsegments. Examination of the left side including left main stem bronchus, left upper lobe bronchus, lingular segments, and the left lower lobesegments. There were loose it for secretions throughout the patient' s airway more so in the lingular segment and the various segments of the left lower lobe. Therapeutic it was suctioning was done. Similarly, and mild degree of tracheal bronchomalacia throughout the patient's airways. The bronchoscope was wedged in the superior segment of the lingula and a bronchioloalveolar lavage was done. A total of 120s up fluid was infused and 35 mL was suctioned back without any major difficulties. Therapeutic it was suctioning was done. Bronchoscope was removed and the procedure was terminated. No endobronchial tumors. No foreign bodies. No polyps. No lesions. Diffuse mucosal inflammatory changes were seen typical of tracheal bronchitis.
[2017-01-31 14:29] VITALS: BP 114/64; PULSE 97; RESP 18
[2017-01-31 16:33] LABS: RBC, Body Fluid 35000 /uL
== END 2017-01-31 13:50 | disposition home or self-care (01) ==
LOC: ORWHC2ENDO 11:10
PROVIDERS: ATTEND Internal Medicine Critical Care Medicine
DX: J40 Bronchitis, not specified as acute or chronic (principal); J45.50 Severe persistent asthma, uncomplicated; J98.09 Other diseases of bronchus, not elsewhere classified; G47.33 Obstructive sleep apnea (adult) (pediatric); Z99.89 Dependence on other enabling machines and devices; E66.9 Obesity, unspecified; Z68.31 Body mass index [BMI] 31.0-31.9, adult; K21.9 Gastro-esophageal reflux disease without esophagitis; Z87.891 Personal history of nicotine dependence; Z86.718 Personal history of other venous thrombosis and embolism; Z86.711 Personal history of pulmonary embolism; F31.9 Bipolar disorder, unspecified; F41.9 Anxiety disorder, unspecified; G25.0 Essential tremor; Z79.51 Long term (current) use of inhaled steroids; Z79.52 Long term (current) use of systemic steroids; Z79.899 Other long term (current) drug therapy; Z88.0 Allergy status to penicillin
CPT/HCPCS: 94640; 87798 ×4; 87496; 87498; 87529 ×2; 88108; 88305; 89050; 87252; 87502 ×2; 87070; 87205; 87102; 87077; 87186; 31624; J2001 ×3; J2250; J3010; J2704

== ENCOUNTER → 2017-04-07 | Outpatient (CLI) | payer BC ==
[2017-04-07 14:24] LABS: Basophils % (A) 0 %; CH 27.6; CHCM 31.6; Eosinophils % (A) 0 %; HDW 2.54; Luc # (Auto) 0.07; Luc % (Auto) 1; Lymphocytes # (A) 1.5 k/uL (1.0-4.8); Lymphocytes % (A) 14 %; MCH 27.6 pg (25.0-35.0); MCHC 31.3 g/dL (31.0-37.0); Mean Platelet Volume 7.3; Monocytes # (A) 0.5 k/uL (0-1.0); Monocytes % (A) 5 %; Neutrophils # (A) 8.9 k/uL (1.3-7.7); Neutrophils % (A) 80 %; RBC 5.45 m/uL (4.30-5.90); RDW 15.5 % (11.5-15.5); WBC 11.1 k/uL (3.8-10.6); WBC (Perox) 11.04
== END | disposition home or self-care (01) ==
LOC: LABWHC1 13:29
PROVIDERS: ATTEND Internal Medicine Critical Care Medicine
DX: J18.9 Pneumonia, unspecified organism (principal)
CPT/HCPCS: 36415; 85025

== ENCOUNTER 2017-05-15 14:31 | Observation (INO) | payer BC ==
[2017-05-15] MEDS ORDERED: NITROGLYCERIN OINT 1 INCH/GM PACKET TOPICAL STA (14:52)
[2017-05-15] MEDS ORDERED: IPRATROPIUM-ALBUTEROL 3 ML NEB INHALATION STA (14:52)
[2017-05-15] MEDS ORDERED: ASPIRIN 81 MG PO STA (14:52)
--- NOTE | 2017-05-15 14:55 | ED ---
General Adult HPI - General Chief complaint: Chest Pain Stated complaint: Chest Pain Time Seen by Provider: 05/15/17 14:45 Source: patient, family, RN notes reviewed Mode of arrival: wheelchair Limitations: no limitations - History of Present Illness Initial comments: Patient is a pleasant 52-year-old male presenting to the emergency department claiming of chest discomfort. Onset of symptoms was a couple of days ago. Symptoms have progressively worsened since that time. Discomfort is currently 3 /10. Discomfort feels like an ache. Patient does have associated dyspnea. Symptoms do worsen with exertion. No nausea or vomiting or diaphoresis. Patient has had some associated sweating. Patient is unclear if he has a history of CHF based on mixed reports from doctors. Patient states he does have a history of COPD however this feels different. Patient did have a pneumonia recently however this has cleared up based on follow-up x-ray. - Related Data Home Medications Medication Instructions Recorded Confirmed Montelukast [Singulair] 10 mg PO DAILY 11/28/14 05/15/17 predniSONE 20 mg PO DAILY 08/03/16 05/15/17 Loratadine [Claritin] 10 mg PO DAILY 09/18/16 05/15/17 Pantoprazole [Protonix] 40 mg PO DAILY 09/18/16 05/15/17 Loperamide [Imodium] 4 mg PO DAILY 01/30/17 05/15/17 Sertraline [Zoloft] 100 mg PO DAILY 01/30/17 05/15/17 Topiramate [Topamax] 25 mg PO BID 01/30/17 05/15/17 Previous Rx's Medication Instructions Recorded Budesonide-Formot 160-4.5 Mcg 2 puff INHALATION BID #1 inhaler 08/07/16 [Symbicort 160-4.5 Mcg Inhaler] Albuterol Nebulized [Ventolin 1 inhalation INHALATION RT-TID #0 04/24/17 Nebulized] Allergies Allergy/AdvReac Type Severity Reaction Status Date / Time Penicillins Allergy Swelling Verified 05/15/17 15:14 Review of Systems ROS Statement: Those systems with pertinent positive or pertinent negative responses have been documented in the HPI. ROS Other: All systems not noted in ROS Statement are negative. Constitutional: Denies: fever Eyes: Denies: eye pain ENT: Denies: ear pain Respiratory: Reports: cough (Chronic and unchanged), dyspnea Cardiovascular: Reports: chest pain Endocrine: Reports: fatigue Gastrointestinal: Denies: abdominal pain, vomiting Genitourinary: Denies: dysuria Musculoskeletal: Denies: back pain Skin: Denies: rash Neurological: Denies: headache Past Medical History Past Medical History: Asthma, COPD, Deep Vein Thrombosis (DVT), GERD/Reflux, Pneumonia, Pulmonary Embolus (PE), Sleep Apnea/CPAP/BIPAP Additional Past Medical History / Comment(s): [place] persistent bronchial asthma, remote history of pulmonary embolism, 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 Previous bronchoscopies. SINUS SX X3, CERVICAL DISCECTOMY. BRONCHIAL THERMOPLASTY X3. Past Anesthesia/Blood Transfusion Reactions: No Reported Reaction, Family History of Problems w/ Anesthesia Additional Past Anesthesia/Blood Transfusion Reaction / Comment(s): mother, brother-ponv Past Psychological History: Anxiety, Bipolar, Depression Smoking Status: Former smoker Past Alcohol Use History: None Reported Past Drug Use History: None Reported - Past Family History Son(s) Additional Family Medical History / Comment(s): suicide- depression. Daughter(s) Additional Family Medical History / Comment(s): "two holes in heart" Father Family Medical History: Pneumonia, Respiratory Disorder Mother Family Medical History: Eye Disorder, Hypertension Additional Family Medical History / Comment(s): GLAUCOMA General Exam Limitations: no limitations General appearance: alert, in no apparent distress Head exam: Present: atraumatic Eye exam: Present: normal appearance, PERRL ENT exam: Present: normal oropharynx Neck exam: Present: normal inspection Respiratory exam: Present: wheezes Cardiovascular Exam: Present: regular rate, normal rhythm Expanded Peripheral pulses: 2+: Radial (R), Radial (L), Dorsalis Pedis (R), Dorsalis Pedis (L) GI/Abdominal exam: Present: soft. Absent: tenderness Extremities exam: Present: normal inspection. Absent: pedal edema, calf tenderness Back exam: Present: normal inspection Neurological exam: Present: alert Psychiatric exam: Present: normal affect, normal mood Skin exam: Present: normal color Course Vital Signs 05/15/17 05/15/17 05/15/17 14:39 15:37 15:48 Temperature 97.6 F Pulse Rate 95 90 90 Respiratory 18 Rate Blood Pressure 134/82 O2 Sat by Pulse 95 Oximetry 05/15/17 16:00 Temperature Pulse Rate 101 H Respiratory 16 Rate Blood Pressure 130/79 O2 Sat by Pulse 95 Oximetry EKG Findings - EKG Comments: EKG Findings:: Sinus tachycardia 101. IN 140. QRS 82. QT 3:30. QTC 427. Normal axis. Normal QRS. No acute ST change. Medical Decision Making - Medical Decision Making Patient reevaluated and resting comfortably in bed. Patient and family updated on results and plan. Case was discussed with practitioner Camille, who will admit for Dr. bates, who admits for Dr. Sweet. - Lab Data Result diagrams: 05/15/17 15:14 05/15/17 15:14 Lab Results 05/15/17 05/15/17 05/15/17 Range/Units 15:14 15:14 15:14 WBC 15.9 H (3.8-10.6) k/uL RBC 5.67 (4.30-5.90) m/uL Hgb 15.6 (13.0-17.5) gm/dL Hct 50.7 (39.0-53.0) % MCV 89.4 (80.0-100.0) fL MCH 27.5 (25.0-35.0) pg MCHC 30.8 L (31.0-37.0) g/dL RDW 16.4 H (11.5-15.5) % Plt Count 334 (150-450) k/uL Neutrophils % 87 % Lymphocytes % 7 % Monocytes % 3 % Eosinophils % 1 % Basophils % 0 % Neutrophils # 13.9 H (1.3-7.7) k/uL Lymphocytes # 1.2 (1.0-4.8) k/uL Monocytes # 0.5 (0-1.0) k/uL Eosinophils # 0.2 (0-0.7) k/uL Basophils # 0.0 (0-0.2) k/uL Anisocytosis Slight PT (9.0-12.0) sec INR (<1.2) APTT (22.0-30.0) sec D-Dimer (<0.60) mg/L FEU Sodium 140 (137-145) mmol/L Potassium 3.8 (3.5-5.1) mmol/L Chloride 107 (98-107) mmol/L Carbon Dioxide 23 (22-30) mmol/L Anion Gap 10 mmol/L BUN 17 (9-20) mg/dL Creatinine 1.04 (0.66-1.25) mg/dL Est GFR (MDRD) Af Amer >60 (>60 ml/min/1.73 sqM) Est GFR (MDRD) Non-Af >60 (>60 ml/min/1.73 sqM) Glucose 119 H (74-99) mg/dL Calcium 9.8 (8.4-10.2) mg/dL Magnesium 2.2 (1.6-2.3) mg/dL Total Bilirubin 0.8 (0.2-1.3) mg/dL AST 18 (17-59) U/L ALT 38 (21-72) U/L Alkaline Phosphatase 64 (38-126) U/L Total Creatine Kinase 31 L (55-170) U/L CK-MB (CK-2) 0.7 (0.0-2.4) ng/mL CK-MB (CK-2) Rel Index 2.3 Troponin I <0.012 (0.000-0.034) ng/mL NT-Pro-B Natriuret Pep pg/mL Total Protein 6.5 (6.3-8.2) g/dL Albumin 4.1 (3.5-5.0) g/dL 05/15/17 05/15/17 Range/Units 15:14 15:14 WBC (3.8-10.6) k/uL RBC (4.30-5.90) m/uL Hgb (13.0-17.5) gm/dL Hct (39.0-53.0) % MCV (80.0-100.0) fL MCH (25.0-35.0) pg MCHC (31.0-37.0) g/dL RDW (11.5-15.5) % Plt Count (150-450) k/uL Neutrophils % % Lymphocytes % % Monocytes % % Eosinophils % % Basophils % % Neutrophils # (1.3-7.7) k/uL Lymphocytes # (1.0-4.8) k/uL Monocytes # (0-1.0) k/uL Eosinophils # (0-0.7) k/uL Basophils # (0-0.2) k/uL Anisocytosis PT 9.6 (9.0-12.0) sec INR 1.0 (<1.2) APTT 20.5 L (22.0-30.0) sec D-Dimer 0.25 (<0.60) mg/L FEU Sodium (137-145) mmol/L Potassium (3.5-5.1) mmol/L Chloride (98-107) mmol/L Carbon Dioxide (22-30) mmol/L Anion Gap mmol/L BUN (9-20) mg/dL Creatinine (0.66-1.25) mg/dL Est GFR (MDRD) Af Amer (>60 ml/min/1.73 sqM) Est GFR (MDRD) Non-Af (>60 ml/min/1.73 sqM) Glucose (74-99) mg/dL Calcium (8.4-10.2) mg/dL Magnesium (1.6-2.3) mg/dL Total Bilirubin (0.2-1.3) mg/dL AST (17-59) U/L ALT (21-72) U/L Alkaline Phosphatase (38-126) U/L Total Creatine Kinase (55-170) U/L CK-MB (CK-2) (0.0-2.4) ng/mL CK-MB (CK-2) Rel Index Troponin I (0.000-0.034) ng/mL NT-Pro-B Natriuret Pep 43 pg/mL Total Protein (6.3-8.2) g/dL Albumin (3.5-5.0) g/dL - Radiology Data Radiology results: image reviewed (Chest x-ray shows atelectasis) Disposition Clinical Impression: Unstable angina pectoris Disposition: ADMITTED IP TO THIS [facility] Referrals: Corona Sweet MD [Primary Care Provider] - 1-2 days Decision Time: 17:00
[2017-05-15 15:28] LABS: Anisocytosis Slight; Basophils % (A) 0 %; Eosinophils # (A) 0.2 k/uL (0-0.7); Eosinophils % (A) 1 %; HCT 50.7 % (39.0-53.0); HGB 15.6 gm/dL (13.0-17.5); Lymphocytes # (A) 1.2 k/uL (1.0-4.8); Lymphocytes % (A) 7 %; MCH 27.5 pg (25.0-35.0); MCHC 30.8 g/dL (31.0-37.0); MCV 89.4 fL (80.0-100.0); Mean Platelet Volume 7.3; Monocytes # (A) 0.5 k/uL (0-1.0); Monocytes % (A) 3 %; Neutrophils # (A) 13.9 k/uL (1.3-7.7); Neutrophils % (A) 87 %; Platelet Count 334 k/uL (150-450); RBC 5.67 m/uL (4.30-5.90); RDW 16.4 % (11.5-15.5); WBC 15.9 k/uL (3.8-10.6)
[2017-05-15 15:39] LABS: D-Dimer 0.25 mg/L FEU (<0.60)
[2017-05-15 15:43] LABS: Prothrombin Time 9.6 sec (9.0-12.0)
[2017-05-15 15:44] LABS: ALT 38 U/L (21-72); AST 18 U/L (17-59); Albumin 4.1 g/dL (3.5-5.0); Alkaline Phosphatase 64 U/L (38-126); Anion Gap 10 mmol/L; Blood Urea Nitrogen 17 mg/dL (9-20); Calcium 9.8 mg/dL (8.4-10.2); Carbon Dioxide 23 mmol/L (22-30); Chloride 107 mmol/L (98-107); Glucose 119 mg/dL (74-99); Magnesium 2.2 mg/dL (1.6-2.3); Potassium 3.8 mmol/L (3.5-5.1); Sodium 140 mmol/L (137-145); Total Bilirubin 0.8 mg/dL (0.2-1.3); Total Protein 6.5 g/dL (6.3-8.2)
[2017-05-15 15:51] LABS: Partial Thromboplastin Time 20.5 sec (22.0-30.0)
[2017-05-15 15:56] LABS: Creatine Kinase 31 U/L (55-170)
--- NOTE | 2017-05-15 15:56 | XR ---
EXAMINATION TYPE: XR chest 2V DATE OF EXAM: 05/15/2017 COMPARISON: 05/09/2017 TECHNIQUE: PA and lateral views submitted. HISTORY: Chest pain FINDINGS: Subsegmental changes at both lung bases. Biapical pleural thickening. No pneumothorax or overt failur e. Heart size stable. Degenerative changes spine. Arthropathy of the shoulders. IMPRESSION: 1. Basilar atelectasis favored over pneumonia.
[2017-05-15 16:09] LABS: Creatine Kinase MB 0.7 ng/mL (0.0-2.4); Troponin I <0.012 ng/mL (0.000-0.034)
[2017-05-15] MEDS ORDERED: HEPARIN SODIUM,PORCINE 5,000 UNIT/ML 1 ML VIAL IV ONE (17:00)
[2017-05-15] MEDS ORDERED: HEPARIN SODIUM,PORCINE 5,000 UNIT/ML 1 ML VIAL IV PRN (17:00)
[2017-05-15] MEDS ORDERED: HEPARIN SOD,PORK IN 0.45% NACL 25,000 UNIT in 0.45% NACL 1 500ML.BAG IV SCH (17:00)
[2017-05-15] MEDS ORDERED: NITROGLYCERIN SL TABS 0.4 MG TAB SUBLINGUAL PRN (17:00)
--- NOTE | 2017-05-15 20:05 | P.HPIM ---
History of Present Illness H&P Date: 05/15/17 Chief Complaint: Chest pain HISTORY OF PRESENT ILLNESS: 52-year-old male patient of Dr. Sweet with chronic stable medical conditions include asthma, COPD, DVT, GERD, PE, obstructive sleep apnea, generalized anxiety disorder and depression who presented to the emergency department after 2 days of chest pain and increasing shortness of breath. States that even with minimal activity he had extreme shortness of breath, all symptoms worsen with any activity. with accompanying chest pain which was midsternal radiating straight through to his back and down to the lower portions of his flank bilaterally. No nausea vomiting sweating palpitations, dizziness, lightheadedness. Of note patient had a recent hospital stay for an acute asthma exacerbation and bronchopneumonia for which he received a course of steroids as well as underwent a bronchoscopy. Patient was seen in the outpatient setting by Dr. Gifford's nurse practitioner Lexi Denny on Friday, follow-up x-ray performed at that time and showed that the pneumonia had cleared up. REVIEW OF SYSTEMS GEN.: [ Tired] EYES: [None] HEENT: [None] NECK: [None] RESPIRATORY: [ shortness of breath at rest] CARDIOVASCULAR: [Chest pain ] GASTROINTESTINAL: [None] GENITOURINARY: [None] MUSCULOSKELETAL: [Back pain] LYMPHATICS: [None] HEMATOLOGICAL: [None] PSYCHIATRY: [Anxiety, depression] NEUROLOGICAL: [None] PAST MEDICAL HISTORY Past medical history: Asthma COPD, remote history of right deep vein thrombosis , GERD, reflux, pneumonia, pulmonary embolus, sleep apnea/CPAP/BiPAP, essential tremor, Past surgical history: Cholecystectomy, Wojciech fundoplication, previous bronchoscopies, sinus surgery 3, cervical discectomy, bronchial thermoplasty 3 , Past psychological history: Anxiety, depression SOCIAL HISTORY: Additional psychological/social history: None Smoking use history: 5 cigars a day 10 years Alcohol use history: Occasional Drug use history: Denies Marital status: Living situation: Lives with family and 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 BMI noted] GENERAL: [Average built, sitting up, anxious appearing]. EYES: [Pupils equal. Conjunctiva raciel]l. HEENT: [External appearance of nose and ears normal, oral cavity grossly normal] . NECK: [JVD unable to assess; masses not palpable]. HEART: [First and second heart sounds are normal; no edema]. LUNGS:[ Respiratory rate increased; clear to auscultation, productive cough with clear sputum]. ABDOMEN: [Soft, nontender, liver spleen not palpable, no masses palpable]. LYMPHATICS: [No lymph nodes palpable in the axilla and neck]. PSYCH: [Alert and oriented x3; mood and affect somewhat anxious]l. NEUROLOGICAL: [Cranial nerves grossly intact; no facial asymmetry, power and sensation grossly intact]. INVESTIGATIONS: LABS: White blood cell count 15.9, total CK 31, troponin less than 0.012 BNP 43 Chest x-ray: Basilar atelectasis favored over pneumonia ASSESSMENT: -Unstable angina/atypical chest pain in a patient who had a recent episode of purulent tracheobronchitis who presents with persistent chest pain and cough with shortness of breath -Severe persistent steroid-dependent bronchial asthma -Obstructive sleep apnea uses a CPAP machine. -GERD -Essential tremor -Anxiety/depression not otherwise specified PLAN: Continue heparin drip, cardiology consulted home medications reordered. Plan of care discussed with the patient the bedside in detail he is in agreement. We will follow along closely. 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 Smith. 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 Previous bronchoscopies. SINUS SX X3, CERVICAL DISCECTOMY. BRONCHIAL THERMOPLASTY X3. Past Anesthesia/Blood Transfusion Reactions: No Reported Reaction, Family History of Problems w/ Anesthesia Additional Past Anesthesia/Blood Transfusion Reaction / Comment(s): mother, brother-ponv Past Psychological History: Anxiety, Bipolar, Depression Smoking Status: Former smoker Past Alcohol Use History: None Reported Past Drug Use History: None Reported - Past Family History Son(s) Additional Family Medical History / Comment(s): suicide- depression. Daughter(s) Additional Family Medical History / Comment(s): "two holes in heart" Father Family Medical History: Pneumonia, Respiratory Disorder Mother Family Medical History: Eye Disorder, Hypertension Additional Family Medical History / Comment(s): GLAUCOMA Medications and Allergies Home Medications Medication Instructions Recorded Confirmed Type Montelukast [Singulair] 10 mg PO DAILY 11/28/14 05/15/17 History predniSONE 20 mg PO DAILY 08/03/16 05/15/17 History Budesonide-Formot 160-4.5 Mcg 2 puff INHALATION BID #1 inhaler 08/07/16 Rx [Symbicort 160-4.5 Mcg Inhaler] Loratadine [Claritin] 10 mg PO DAILY 09/18/16 05/15/17 History Pantoprazole [Protonix] 40 mg PO DAILY 09/18/16 05/15/17 History Loperamide [Imodium] 4 mg PO DAILY 01/30/17 05/15/17 History Sertraline [Zoloft] 100 mg PO DAILY 01/30/17 05/15/17 History Topiramate [Topamax] 25 mg PO BID 01/30/17 05/15/17 History Albuterol Nebulized [Ventolin 1 inhalation INHALATION RT-TID #0 04/24/17 Rx Nebulized] Allergies Allergy/AdvReac Type Severity Reaction Status Date / Time Penicillins Allergy Swelling Verified 05/15/17 15:14 Physical Exam Vitals: Vital Signs Temp Pulse Pulse Resp BP BP Pulse Ox 05/15/17 18:33 98.2 F 89 18 128/74 94 L 05/15/17 18:05 98 F 86 16 112/79 96 05/15/17 16:00 101 H 16 130/79 95 05/15/17 15:48 90 05/15/17 15:37 90 05/15/17 14:39 97.6 F 95 18 134/82 95 Intake and Output 05/15/17 05/15/17 05/15/17 06:59 14:59 22:59 Intake Total 360 Output Total 48 Balance 312 Intake: Oral 360 Output: Post Void Residual 48 Other: Weight 104.326 kg 102.2 kg Patient Weight 05/16/17 06:59 Weight 102.2 kg Results CBC & Chem 7: 05/15/17 15:14 05/15/17 15:14 Labs: Abnormal Lab Results - Last 24 Hours (Table) 05/15/17 05/15/17 05/15/17 Range/Units 15:14 15:14 15:14 WBC 15.9 H (3.8-10.6) k/uL MCHC 30.8 L (31.0-37.0) g/dL RDW 16.4 H (11.5-15.5) % Neutrophils # 13.9 H (1.3-7.7) k/uL APTT (22.0-30.0) sec Glucose 119 H (74-99) mg/dL Total Creatine Kinase 31 L (55-170) U/L 05/15/17 Range/Units 15:14 WBC (3.8-10.6) k/uL MCHC (31.0-37.0) g/dL RDW (11.5-15.5) % Neutrophils # (1.3-7.7) k/uL APTT 20.5 L (22.0-30.0) sec Glucose (74-99) mg/dL Total Creatine Kinase (55-170) U/L
[2017-05-15] MEDS: NITROGLYCERIN OINT 1 INCH/GM PACKET TOPICAL SCH (20:18)
[2017-05-15] MEDS: ALBUTEROL NEBULIZED 2.5 MG/3 ML INHALATION PRN (20:43)
[2017-05-15] MEDS: TOPIRAMATE 25 MG TAB PO SCH (21:14)
[2017-05-15 21:27] VITALS: BMI 30.5
[2017-05-15 21:58] LABS: Creatine Kinase 29 U/L (55-170)
[2017-05-15 22:11] LABS: Creatine Kinase MB 0.7 ng/mL (0.0-2.4); Troponin I <0.012 ng/mL (0.000-0.034)
[2017-05-15] MEDS: TEMAZEPAM 15 MG CAP PO SCH (22:26)
--- NOTE | 2017-05-15 22:39 | HP ---
HISTORY AND PHYSICAL DATE OF ADMISSION: May 15, 2017. ATTENDING NOTE: Patient seen and examined by me. I discussed with nurse practitioner, Ms. Godinez. Patient recently treated for pneumonia. Now presents with some chest pressure and exertion. Anterior central. Denies any perspiration. No obvious radiation. Getting easily short-winded. PHYSICAL EXAMINATION: Temperature 98.2, pulse 89, respiration 18, blood pressure 120/74, pulse ox 94% on room air. BMI 30.6. Lungs decreased breath sounds. Mild minimal wheezing. Cardiovascular first and second sounds normal. No edema. ABDOMEN: Soft and nontender. Psych alert x3. Mood is slightly anxious-appearing. INVESTIGATIONS: White count 15.9, hemoglobin 15.6. Home medications do include steroids. INVESTIGATIONS: Troponin negative. ProBNP 43. EKG normal sinus rhythm. ASSESSMENT: 1. Anterior chest wall pain, sharp, could be viral pleurisy. The patient recently recovered from pneumonia. Need to rule out a cardiac cause. 2. Chronic gastroesophageal reflux disease. 3. Bipolar disorder, chronic. 4. Obstructive sleep apnea uses CPAP machine. 5. Primary osteoarthritis. 6. Anxiety, not otherwise specified. 7. Persistent asthma with recent exacerbation. 8. 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 9. Obesity; BMI 30.6. PLAN: Home medications are resumed. Care was discussed with the patient. Cardiology was consulted. The patient's D-dimer is only 0.25 making PE extremely unlikely. Care was discussed with the patient. Copy to Dr. Sweet. Cardiology was consulted. MMODL / REDN: [id number] /
[2017-05-16] MEDS: NITROGLYCERIN OINT 1 INCH/GM PACKET TOPICAL SCH ×5 (00:06→23:09)
[2017-05-16 04:25] LABS: Mean Platelet Volume 7.5; Platelet Count 294 k/uL (150-450)
[2017-05-16 04:48] LABS: Creatine Kinase 27 U/L (55-170)
[2017-05-16 04:49] LABS: Cholesterol 232 mg/dL (<200); HDL Cholesterol 85 mg/dL (40-60); LDL Cholesterol,Calculated 128 mg/dL (0-99); Triglycerides 95 mg/dL (<150)
[2017-05-16 05:01] LABS: Creatine Kinase MB 0.7 ng/mL (0.0-2.4); Troponin I <0.012 ng/mL (0.000-0.034)
[2017-05-16] MEDS: SYMBICORT 160-4.5 MCG INHALER INHALATION SCH ×2 (08:19→20:07)
[2017-05-16] MEDS: ALBUTEROL NEBULIZED 2.5 MG/3 ML INHALATION SCH ×3 (08:19→20:07)
[2017-05-16] MEDS: ASPIRIN 81 MG PO SCH (08:45)
[2017-05-16] MEDS ORDERED: ASPIRIN 325 MG TAB PO SCH (09:00)
[2017-05-16] MEDS ORDERED: ATORVASTATIN 80 MG TAB PO SCH (09:00)
--- NOTE | 2017-05-16 10:51 | P.CRDCN ---
History of Present Illness Consult date: 05/16/16 History of present illness: Mr. Tafoya is a 52-year-old male past medical history significant for COPD and sleep apnea. He has never seen a shop repairer and denies history of coronary artery disease, hypertension, diabetes mellitus or dyslipidemia. We have asked to see him in consultation for complaints of chest pain. He states the chest pain has been going on for the past 2 days in the mid-sternal region and radiates to the precordial region. It is described as a heavy burning sensation. The pain is worse with exertion and is associated with shortness of breath. He says while he is sitting still the pain is mildly evident but when he gets up to walk the heaviness increases. He also complains of persistent reflux type heartburn pain for the past 2 days unrelieved by his prescribed Protonix. He recently was treated for pneumonia and underwent a bronchoscopy per Dr. Gifford. He states this pain and shortness of breath is different in nature than his typical COPD sensations. EKG on arrival shows sinus mechanism with no acute ST or T-wave abnormalities. Chest xray is negative for an acute cardiopulmonary process with evidence of bibasilar atelectasis. He has significant family history of heart disease with his father and 2 brothers both having had heart disease prematurely. Laboratory data reviewed, WBC 15.9 is chronically elevated secondary to chronic steroid use, d-dimer negative, potassium 3.8, Cr 1.04, LDL 128, HDL 85, cardiac enzymes negative x3. Currently he takes no cardiac medications. Review of Systems CONSTITUTIONAL: Denies fever. Denies chills. EYES: Denies blurred vision. Denies vision changes. Denies eye pain. EARS, NOSE, MOUTH & THROAT: Denies headache. Denies sore throat. Denies ear pain. CARDIOVASCULAR: Complains of mild chest heaviness at rest, worse with exertion associated with shortness of breath. Denies orthopnea. Denies PND. Denies palpitations. RESPIRATORY: Denies cough. GASTROINTESTINAL: Denies abdominal pain. Denies diarrhea. Denies constipation. Denies nausea. Denies vomiting. MUSCULOSKELETAL: Denies myalgias. INTEGUMENTARY: Denies pruitis. Denies rash. NEUROLOGIC: Denies numbness. Denies tingling. Denies weakness. PSYCHIATRIC: Denies anxiety. Denies depression. ENDOCRINE: Denies fatigue. Denies weight change. Denies polydipsia. Denies polyurina. GENITOURINARY: Denies burning, hematuria or urgency with micturation. HEMATOLOGIC: Denies history of anemia. Denies bleeding. 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 Previous bronchoscopies. SINUS SX X3, CERVICAL DISCECTOMY. BRONCHIAL THERMOPLASTY X3. Past Anesthesia/Blood Transfusion Reactions: No Reported Reaction, Family History of Problems w/ Anesthesia Additional Past Anesthesia/Blood Transfusion Reaction / Comment(s): mother, brother-ponv Smoking Status: Former smoker - Past Family History Son(s) Additional Family Medical History / Comment(s): suicide- depression. Daughter(s) Additional Family Medical History / Comment(s): "two holes in heart" Father Family Medical History: Pneumonia, Respiratory Disorder Mother Family Medical History: Eye Disorder, Hypertension Additional Family Medical History / Comment(s): GLAUCOMA Medications and Allergies Home Medications Medication Instructions Recorded Confirmed Type Montelukast [Singulair] 10 mg PO DAILY 11/28/14 05/15/17 History predniSONE 20 mg PO DAILY 08/03/16 05/15/17 History Budesonide-Formot 160-4.5 Mcg 2 puff INHALATION BID #1 inhaler 08/07/16 Rx [Symbicort 160-4.5 Mcg Inhaler] Loratadine [Claritin] 10 mg PO DAILY 09/18/16 05/15/17 History Pantoprazole [Protonix] 40 mg PO DAILY 09/18/16 05/15/17 History Loperamide [Imodium] 4 mg PO DAILY 01/30/17 05/15/17 History Sertraline [Zoloft] 100 mg PO DAILY 01/30/17 05/15/17 History Topiramate [Topamax] 25 mg PO BID 01/30/17 05/15/17 History Albuterol Nebulized [Ventolin 1 inhalation INHALATION RT-TID #0 04/24/17 Rx Nebulized] Temazepam [Restoril] 15 mg PO HS 05/15/17 05/15/17 History Allergies Allergy/AdvReac Type Severity Reaction Status Date / Time Penicillins Allergy Swelling Verified 05/15/17 21:15 Physical Exam Vitals: Vital Signs Temp Pulse Pulse Resp BP BP Pulse Ox 05/16/17 04:00 97.6 F 72 16 116/65 96 05/16/17 03:57 18 05/16/17 00:00 18 05/15/17 22:53 88 18 120/68 93 L 05/15/17 20:56 95 05/15/17 20:43 95 95 05/15/17 20:00 18 05/15/17 18:33 98.2 F 89 18 128/74 94 L 05/15/17 18:05 98 F 86 16 112/79 96 05/15/17 16:00 101 H 16 130/79 95 05/15/17 15:48 90 05/15/17 15:37 90 05/15/17 14:39 97.6 F 95 18 134/82 95 Intake and Output 05/15/17 05/16/17 05/16/17 22:59 06:59 14:59 Intake Total 360 163 Output Total 48 Balance 312 163 Intake: Intake, IV Titration 163 Amount Heparin Sod,Pork in 0.45% 163 NaCl 25,000 unit In 0.45 % NaCl 1 500ml.bag @ 9. 586 UNITS/KG/HR 20 mls/hr IV .Q24H [facility] Rx#: [id number] Oral 360 Output: Post Void Residual 48 Other: # Voids 1 Weight 102.2 kg blood pressure 116/65 with a heart rate of 72 afebrile GENERAL: This is a 52-year-old male in no apparent distress at the time of my examination. Obese. HEENT: Head is atraumatic, normocephalic. Pupils are equal, round. Sclerae anicteric. Conjunctivae are clear. Mucous membranes of the mouth are moist. Neck is supple. There is no jugular venous distention. No carotid bruit is heard. LUNGS: faint wheezing on inspiration as well as expiration with coarse sounds at the bases. Diminished bilaterally. No chest wall tenderness is noted on palpation or with deep breathing. HEART: Regular rate and rhythm without murmurs, rubs or gallops. S1 and S2 heard. ABDOMEN: Soft, nontender. Bowel sounds are heard. No organomegaly noted. EXTREMITIES: 2+ peripheral pulses with no evidence of peripheral edema and no calf tenderness noted. NEUROLOGIC: Patient is awake, alert and oriented x3. Results 05/16/17 03:45 05/15/17 15:14 Cardiac Enzymes 05/15/17 05/15/17 05/15/17 Range/Units 15:14 15:14 15:14 WBC 15.9 H (3.8-10.6) k/uL RBC 5.67 (4.30-5.90) m/uL Hgb 15.6 (13.0-17.5) gm/dL Hct 50.7 (39.0-53.0) % MCV 89.4 (80.0-100.0) fL MCH 27.5 (25.0-35.0) pg MCHC 30.8 L (31.0-37.0) g/dL RDW 16.4 H (11.5-15.5) % Plt Count 334 (150-450) k/uL Neutrophils % 87 % Lymphocytes % 7 % Monocytes % 3 % Eosinophils % 1 % Basophils % 0 % Neutrophils # 13.9 H (1.3-7.7) k/uL Lymphocytes # 1.2 (1.0-4.8) k/uL Monocytes # 0.5 (0-1.0) k/uL Eosinophils # 0.2 (0-0.7) k/uL Basophils # 0.0 (0-0.2) k/uL Anisocytosis Slight PT (9.0-12.0) sec INR (<1.2) APTT (22.0-30.0) sec D-Dimer (<0.60) mg/L FEU Sodium 140 (137-145) mmol/L Potassium 3.8 (3.5-5.1) mmol/L Chloride 107 (98-107) mmol/L Carbon Dioxide 23 (22-30) mmol/L Anion Gap 10 mmol/L BUN 17 (9-20) mg/dL Creatinine 1.04 (0.66-1.25) mg/dL Est GFR (MDRD) Af Amer >60 (>60 ml/min/1.73 sqM) Est GFR (MDRD) Non-Af >60 (>60 ml/min/1.73 sqM) Glucose 119 H (74-99) mg/dL Calcium 9.8 (8.4-10.2) mg/dL Magnesium 2.2 (1.6-2.3) mg/dL Total Bilirubin 0.8 (0.2-1.3) mg/dL AST 18 (17-59) U/L ALT 38 (21-72) U/L Alkaline Phosphatase 64 (38-126) U/L Total Creatine Kinase 31 L (55-170) U/L CK-MB (CK-2) 0.7 (0.0-2.4) ng/mL CK-MB (CK-2) Rel Index 2.3 Troponin I <0.012 (0.000-0.034) ng/mL NT-Pro-B Natriuret Pep pg/mL Total Protein 6.5 (6.3-8.2) g/dL Albumin 4.1 (3.5-5.0) g/dL Triglycerides (<150) mg/dL Cholesterol (<200) mg/dL LDL Cholesterol, Calc (0-99) mg/dL HDL Cholesterol (40-60) mg/dL 05/15/17 05/15/17 05/15/17 Range/Units 15:14 15:14 21:28 WBC (3.8-10.6) k/uL RBC (4.30-5.90) m/uL Hgb (13.0-17.5) gm/dL Hct (39.0-53.0) % MCV (80.0-100.0) fL MCH (25.0-35.0) pg MCHC (31.0-37.0) g/dL RDW (11.5-15.5) % Plt Count (150-450) k/uL Neutrophils % % Lymphocytes % % Monocytes % % Eosinophils % % Basophils % % Neutrophils # (1.3-7.7) k/uL Lymphocytes # (1.0-4.8) k/uL Monocytes # (0-1.0) k/uL Eosinophils # (0-0.7) k/uL Basophils # (0-0.2) k/uL Anisocytosis PT 9.6 (9.0-12.0) sec INR 1.0 (<1.2) APTT 20.5 L (22.0-30.0) sec D-Dimer 0.25 (<0.60) mg/L FEU Sodium (137-145) mmol/L Potassium (3.5-5.1) mmol/L Chloride (98-107) mmol/L Carbon Dioxide (22-30) mmol/L Anion Gap mmol/L BUN (9-20) mg/dL Creatinine (0.66-1.25) mg/dL Est GFR (MDRD) Af Amer (>60 ml/min/1.73 sqM) Est GFR (MDRD) Non-Af (>60 ml/min/1.73 sqM) Glucose (74-99) mg/dL Calcium (8.4-10.2) mg/dL Magnesium (1.6-2.3) mg/dL Total Bilirubin (0.2-1.3) mg/dL AST (17-59) U/L ALT (21-72) U/L Alkaline Phosphatase (38-126) U/L Total Creatine Kinase 29 L (55-170) U/L CK-MB (CK-2) 0.7 (0.0-2.4) ng/mL CK-MB (CK-2) Rel Index 2.4 Troponin I <0.012 (0.000-0.034) ng/mL NT-Pro-B Natriuret Pep 43 pg/mL Total Protein (6.3-8.2) g/dL Albumin (3.5-5.0) g/dL Triglycerides (<150) mg/dL Cholesterol (<200) mg/dL LDL Cholesterol, Calc (0-99) mg/dL HDL Cholesterol (40-60) mg/dL 05/15/17 05/16/17 05/16/17 Range/Units 23:33 03:45 03:45 WBC (3.8-10.6) k/uL RBC (4.30-5.90) m/uL Hgb (13.0-17.5) gm/dL Hct (39.0-53.0) % MCV (80.0-100.0) fL MCH (25.0-35.0) pg MCHC (31.0-37.0) g/dL RDW (11.5-15.5) % Plt Count 294 (150-450) k/uL Neutrophils % % Lymphocytes % % Monocytes % % Eosinophils % % Basophils % % Neutrophils # (1.3-7.7) k/uL Lymphocytes # (1.0-4.8) k/uL Monocytes # (0-1.0) k/uL Eosinophils # (0-0.7) k/uL Basophils # (0-0.2) k/uL Anisocytosis PT (9.0-12.0) sec INR (<1.2) APTT 28.4 (22.0-30.0) sec D-Dimer (<0.60) mg/L FEU Sodium (137-145) mmol/L Potassium (3.5-5.1) mmol/L Chloride (98-107) mmol/L Carbon Dioxide (22-30) mmol/L Anion Gap mmol/L BUN (9-20) mg/dL Creatinine (0.66-1.25) mg/dL Est GFR (MDRD) Af Amer (>60 ml/min/1.73 sqM) Est GFR (MDRD) Non-Af (>60 ml/min/1.73 sqM) Glucose (74-99) mg/dL Calcium (8.4-10.2) mg/dL Magnesium (1.6-2.3) mg/dL Total Bilirubin (0.2-1.3) mg/dL AST (17-59) U/L ALT (21-72) U/L Alkaline Phosphatase (38-126) U/L Total Creatine Kinase 27 L (55-170) U/L CK-MB (CK-2) 0.7 (0.0-2.4) ng/mL CK-MB (CK-2) Rel Index 2.6 Troponin I <0.012 (0.000-0.034) ng/mL NT-Pro-B Natriuret Pep pg/mL Total Protein (6.3-8.2) g/dL Albumin (3.5-5.0) g/dL Triglycerides (<150) mg/dL Cholesterol (<200) mg/dL LDL Cholesterol, Calc (0-99) mg/dL HDL Cholesterol (40-60) mg/dL 05/16/17 Range/Units 03:45 WBC (3.8-10.6) k/uL RBC (4.30-5.90) m/uL Hgb (13.0-17.5) gm/dL Hct (39.0-53.0) % MCV (80.0-100.0) fL MCH (25.0-35.0) pg MCHC (31.0-37.0) g/dL RDW (11.5-15.5) % Plt Count (150-450) k/uL Neutrophils % % Lymphocytes % % Monocytes % % Eosinophils % % Basophils % % Neutrophils # (1.3-7.7) k/uL Lymphocytes # (1.0-4.8) k/uL Monocytes # (0-1.0) k/uL Eosinophils # (0-0.7) k/uL Basophils # (0-0.2) k/uL Anisocytosis PT (9.0-12.0) sec INR (<1.2) APTT (22.0-30.0) sec D-Dimer (<0.60) mg/L FEU Sodium (137-145) mmol/L Potassium (3.5-5.1) mmol/L Chloride (98-107) mmol/L Carbon Dioxide (22-30) mmol/L Anion Gap mmol/L BUN (9-20) mg/dL Creatinine (0.66-1.25) mg/dL Est GFR (MDRD) Af Amer (>60 ml/min/1.73 sqM) Est GFR (MDRD) Non-Af (>60 ml/min/1.73 sqM) Glucose (74-99) mg/dL Calcium (8.4-10.2) mg/dL Magnesium (1.6-2.3) mg/dL Total Bilirubin (0.2-1.3) mg/dL AST (17-59) U/L ALT (21-72) U/L Alkaline Phosphatase (38-126) U/L Total Creatine Kinase (55-170) U/L CK-MB (CK-2) (0.0-2.4) ng/mL CK-MB (CK-2) Rel Index Troponin I (0.000-0.034) ng/mL NT-Pro-B Natriuret Pep pg/mL Total Protein (6.3-8.2) g/dL Albumin (3.5-5.0) g/dL Triglycerides 95 (<150) mg/dL Cholesterol 232 H (<200) mg/dL LDL Cholesterol, Calc 128 H (0-99) mg/dL HDL Cholesterol 85 H (40-60) mg/dL Coagulation 05/15/17 05/15/17 Range/Units 15:14 23:33 PT 9.6 (9.0-12.0) sec APTT 20.5 L 28.4 (22.0-30.0) sec Lipids 05/16/17 Range/Units 03:45 Triglycerides 95 (<150) mg/dL Cholesterol 232 H (<200) mg/dL HDL Cholesterol 85 H (40-60) mg/dL CBC 05/15/17 05/16/17 Range/Units 15:14 03:45 WBC 15.9 H (3.8-10.6) k/uL RBC 5.67 (4.30-5.90) m/uL Hgb 15.6 (13.0-17.5) gm/dL Hct 50.7 (39.0-53.0) % Plt Count 334 294 (150-450) k/uL Comprehensive Metabolic Panel 05/15/17 Range/Units 15:14 Sodium 140 (137-145) mmol/L Potassium 3.8 (3.5-5.1) mmol/L Chloride 107 (98-107) mmol/L Carbon Dioxide 23 (22-30) mmol/L BUN 17 (9-20) mg/dL Creatinine 1.04 (0.66-1.25) mg/dL Glucose 119 H (74-99) mg/dL Calcium 9.8 (8.4-10.2) mg/dL AST 18 (17-59) U/L ALT 38 (21-72) U/L Alkaline Phosphatase 64 (38-126) U/L Total Protein 6.5 (6.3-8.2) g/dL Albumin 4.1 (3.5-5.0) g/dL Current Medications Generic Name Dose Route Start Last Admin Trade Name Freq PRN Reason Stop Dose Admin Albuterol Sulfate 2.5 mg 05/16/17 08:00 Ventolin Nebulized INHALATION RT-TID MARYJANE Albuterol Sulfate 2.5 mg 05/15/17 20:33 05/15/17 20:43 Ventolin Nebulized INHALATION 2.5 mg RT-Q4H PRN Administration Shortness Of Breath Aspirin 81 mg 05/16/17 09:00 Aspirin PO DAILY [facility] Budesonide/Formoterol Fumarate 2 puff 05/16/17 08:00 Symbicort 160-4.5 Mcg Inhaler INHALATION RT-BID [facility] Heparin Sodium (Porcine) 0 unit 05/15/17 17:00 Heparin IV Q6HR PRN Low PTT Protocol Heparin Sodium/Sodium Chloride 500 mls @ 20 mls/hr 05/15/17 17:00 05/16/17 02 :10 25,000 unit/ Sodium Chloride IV 12.58 units/kg/hr .Q24H MARYJANE 26.24 mls/hr Protocol Titration 9.586 UNITS/KG/HR Loperamide HCl 4 mg 05/16/17 09:00 Imodium PO DAILY [facility] Loratadine 10 mg 05/16/17 09:00 Claritin PO DAILY [facility] Montelukast Sodium 10 mg 05/16/17 09:00 Singulair PO DAILY [facility] Nitroglycerin 1 inch 05/15/17 19:00 05/16/17 06:07 Nitro-Bid Oint TOPICAL Not Given Q6HR [facility] Nitroglycerin 0.4 mg 05/15/17 17:00 Nitrostat SUBLINGUAL Q5M PRN Chest Pain Pantoprazole Sodium 40 mg 05/16/17 07:30 Protonix PO AC-BRKFST [facility] Prednisone 20 mg 05/16/17 09:00 PO DAILY [facility] Sertraline HCl 100 mg 05/16/17 09:00 Zoloft PO DAILY [facility] Sodium Chloride 10 ml 05/15/17 21:00 05/15/17 21:14 Saline Flush IV 10 ml BID [facility] Administration Temazepam 15 mg 05/15/17 22:30 05/15/17 22:26 Restoril PO 15 mg HS [facility] Administration Topiramate 25 mg 05/15/17 21:00 05/15/17 21:14 Topamax PO 25 mg BID MARYJANE Administration Intake and Output 05/15/17 05/16/17 05/16/17 22:59 06:59 14:59 Intake Total 360 163 Output Total 48 Balance 312 163 Intake: Intake, IV Titration 163 Amount Heparin Sod,Pork in 0.45% 163 NaCl 25,000 unit In 0.45 % NaCl 1 500ml.bag @ 9. 586 UNITS/KG/HR 20 mls/hr IV .Q24H [facility] Rx#: [id number] Oral 360 Output: Post Void Residual 48 Other: # Voids 1 Weight 102.2 kg 05/16/17 03:45 05/15/17 15:14 Assessment and Plan Assessment: ASSESSMENT 1. Unstable angina, negative cardiac enzymes. 2. COPD 3. Dyslipidemia 4. Leukocytosis secondary to chronic steroid use PLAN Obtain 2-D echocardiogram and Doppler study to assess cardiac structure and function. I recommend proceeding with cardiac catheterization. This will be discussed with plant safety leader on-call Dr. Cook. Give atorvastatin 80 mg and aspirin 81 mg now. Continue with heparin infusion until time of catheterization is determined. Remain NPO. I have discussed the risks, benefits and alternative therapies for the above- mentioned procedure and for both sedation/analgesia as well as necessary blood product administration, if indicated, as they pertain to this patient. The patient has indicated understanding and acceptance of the risks and procedures discussed. Questions have been answered appropriately and he is agreeable to move forward with above stated procedure. Nurse Practitioner note has been reviewed, I agree with a documented findings and plan of care. Patient was seen and examined.
--- NOTE | 2017-05-16 10:58 | P.CRDCN ---
History of Present Illness History of present illness: 52-year-old male patient presenting with increasing shortness of breath with heaviness in the chest which is new and his symptoms are different from his usual symptoms of shortness of breath related to advanced COPD. ECG normal 2, cardiac enzymes normal symptoms consistent with exertional angina of new onset Plan: Aspirin, statins, discussed with Dr. Cook for proceeding with coronary angiography. Detailed discussion with the patient. 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 Previous bronchoscopies. SINUS SX X3, CERVICAL DISCECTOMY. BRONCHIAL THERMOPLASTY X3. Past Anesthesia/Blood Transfusion Reactions: No Reported Reaction, Family History of Problems w/ Anesthesia Additional Past Anesthesia/Blood Transfusion Reaction / Comment(s): mother, brother-ponv Smoking Status: Former smoker - Past Family History Son(s) Additional Family Medical History / Comment(s): suicide- depression. Daughter(s) Additional Family Medical History / Comment(s): "two holes in heart" Father Family Medical History: Pneumonia, Respiratory Disorder Mother Family Medical History: Eye Disorder, Hypertension Additional Family Medical History / Comment(s): GLAUCOMA Medications and Allergies Home Medications Medication Instructions Recorded Confirmed Type Montelukast [Singulair] 10 mg PO DAILY 11/28/14 05/15/17 History predniSONE 20 mg PO DAILY 08/03/16 05/15/17 History Budesonide-Formot 160-4.5 Mcg 2 puff INHALATION BID #1 inhaler 08/07/16 Rx [Symbicort 160-4.5 Mcg Inhaler] Loratadine [Claritin] 10 mg PO DAILY 09/18/16 05/15/17 History Pantoprazole [Protonix] 40 mg PO DAILY 09/18/16 05/15/17 History Loperamide [Imodium] 4 mg PO DAILY 01/30/17 05/15/17 History Sertraline [Zoloft] 100 mg PO DAILY 01/30/17 05/15/17 History Topiramate [Topamax] 25 mg PO BID 01/30/17 05/15/17 History Albuterol Nebulized [Ventolin 1 inhalation INHALATION RT-TID #0 04/24/17 Rx Nebulized] Temazepam [Restoril] 15 mg PO HS 05/15/17 05/15/17 History Allergies Allergy/AdvReac Type Severity Reaction Status Date / Time Penicillins Allergy Swelling Verified 05/15/17 21:15 Physical Exam Vitals: Vital Signs Temp Pulse Pulse Resp BP BP BP 05/16/17 08:34 74 05/16/17 08:19 72 05/16/17 08:00 98.2 F 80 18 137/63 05/16/17 04:00 97.6 F 72 16 116/65 05/16/17 03:57 18 05/16/17 00:00 18 05/15/17 22:53 88 18 120/68 05/15/17 20:56 95 05/15/17 20:43 95 05/15/17 20:00 18 05/15/17 18:33 98.2 F 89 18 128/74 05/15/17 18:05 98 F 86 16 112/79 05/15/17 16:00 101 H 16 130/79 05/15/17 15:48 90 05/15/17 15:37 90 05/15/17 14:39 97.6 F 95 18 134/82 Pulse Ox 05/16/17 08:34 05/16/17 08:19 05/16/17 08:00 98 05/16/17 04:00 96 05/16/17 03:57 05/16/17 00:00 05/15/17 22:53 93 L 05/15/17 20:56 05/15/17 20:43 95 05/15/17 20:00 05/15/17 18:33 94 L 05/15/17 18:05 96 05/15/17 16:00 95 05/15/17 15:48 05/15/17 15:37 05/15/17 14:39 95 Intake and Output 05/15/17 05/16/17 05/16/17 22:59 06:59 14:59 Intake Total 360 163 214.731 Output Total 48 Balance 312 163 214.731 Intake: Intake, IV Titration 163 214.731 Amount Heparin Sod,Pork in 0.45% 163 214.731 NaCl 25,000 unit In 0.45 % NaCl 1 500ml.bag @ 9. 586 UNITS/KG/HR 20 mls/hr IV .Q24H [facility] Rx#: [id number] Oral 360 Output: Post Void Residual 48 Other: Voiding Method Toilet # Voids 1 Weight 102.2 kg Results 05/16/17 03:45 05/15/17 15:14 Cardiac Enzymes 05/15/17 05/15/17 05/15/17 Range/Units 15:14 15:14 21:28 AST 18 (17-59) U/L CK-MB (CK-2) 0.7 0.7 (0.0-2.4) ng/mL Troponin I <0.012 <0.012 (0.000-0.034) ng/mL 05/16/17 Range/Units 03:45 AST (17-59) U/L CK-MB (CK-2) 0.7 (0.0-2.4) ng/mL Troponin I <0.012 (0.000-0.034) ng/mL Coagulation 05/15/17 05/15/17 05/16/17 Range/Units 15:14 23:33 09:23 PT 9.6 (9.0-12.0) sec APTT 20.5 L 28.4 36.0 H (22.0-30.0) sec Lipids 05/16/17 Range/Units 03:45 Triglycerides 95 (<150) mg/dL Cholesterol 232 H (<200) mg/dL HDL Cholesterol 85 H (40-60) mg/dL CBC 05/15/17 05/16/17 Range/Units 15:14 03:45 WBC 15.9 H (3.8-10.6) k/uL RBC 5.67 (4.30-5.90) m/uL Hgb 15.6 (13.0-17.5) gm/dL Hct 50.7 (39.0-53.0) % Plt Count 334 294 (150-450) k/uL Comprehensive Metabolic Panel 05/15/17 Range/Units 15:14 Sodium 140 (137-145) mmol/L Potassium 3.8 (3.5-5.1) mmol/L Chloride 107 (98-107) mmol/L Carbon Dioxide 23 (22-30) mmol/L BUN 17 (9-20) mg/dL Creatinine 1.04 (0.66-1.25) mg/dL Glucose 119 H (74-99) mg/dL Calcium 9.8 (8.4-10.2) mg/dL AST 18 (17-59) U/L ALT 38 (21-72) U/L Alkaline Phosphatase 64 (38-126) U/L Total Protein 6.5 (6.3-8.2) g/dL Albumin 4.1 (3.5-5.0) g/dL Current Medications Generic Name Dose Route Start Last Admin Trade Name Freq PRN Reason Stop Dose Admin Albuterol Sulfate 2.5 mg 05/16/17 08:00 05/16/17 08:19 Ventolin Nebulized INHALATION 2.5 mg RT-TID MARYJANE Administration Albuterol Sulfate 2.5 mg 05/15/17 20:33 05/15/17 20:43 Ventolin Nebulized INHALATION 2.5 mg RT-Q4H PRN Administration Shortness Of Breath Aspirin 81 mg 05/16/17 09:00 05/16/17 08:45 Aspirin PO 81 mg DAILY [facility] Administration Atorvastatin Calcium 80 mg 05/16/17 09:00 05/16/17 08:45 Lipitor PO 80 mg DAILY MARYJANE Administration Budesonide/Formoterol Fumarate 2 puff 05/16/17 08:00 05/16/17 08:19 Symbicort 160-4.5 Mcg Inhaler INHALATION 2 puff RT-BID MARYJANE Administration Heparin Sodium (Porcine) 0 unit 05/15/17 17:00 05/16/17 10:21 Heparin IV 4,000 unit Q6HR PRN Administration Low PTT Protocol Heparin Sodium/Sodium Chloride 500 mls @ 20 mls/hr 05/15/17 17:00 05/16/17 10 :21 25,000 unit/ Sodium Chloride IV 15.43 units/kg/hr .Q24H MARYJANE 32.2 mls/hr Protocol Titration 9.586 UNITS/KG/HR Loperamide HCl 4 mg 05/16/17 09:00 Imodium PO DAILY [facility] Loratadine 10 mg 05/16/17 09:00 Claritin PO DAILY [facility] Montelukast Sodium 10 mg 05/16/17 09:00 Singulair PO DAILY [facility] Nitroglycerin 1 inch 05/15/17 19:00 05/16/17 06:07 Nitro-Bid Oint TOPICAL Not Given Q6HR [facility] Nitroglycerin 0.4 mg 05/15/17 17:00 Nitrostat SUBLINGUAL Q5M PRN Chest Pain Pantoprazole Sodium 40 mg 05/16/17 07:30 Protonix PO AC-BRKFST [facility] Prednisone 20 mg 05/16/17 09:00 PO DAILY [facility] Sertraline HCl 100 mg 05/16/17 09:00 Zoloft PO DAILY [facility] Sodium Chloride 10 ml 05/15/17 21:00 05/16/17 09:42 Saline Flush IV Not Given BID [facility] Temazepam 15 mg 05/15/17 22:30 05/15/17 22:26 Restoril PO 15 mg HS MARYJANE Administration Topiramate 25 mg 05/15/17 21:00 05/15/17 21:14 Topamax PO 25 mg BID MARYJANE Administration Intake and Output 05/15/17 05/16/17 05/16/17 22:59 06:59 14:59 Intake Total 360 163 214.731 Output Total 48 Balance 312 163 214.731 Intake: Intake, IV Titration 163 214.731 Amount Heparin Sod,Pork in 0.45% 163 214.731 NaCl 25,000 unit In 0.45 % NaCl 1 500ml.bag @ 9. 586 UNITS/KG/HR 20 mls/hr IV .Q24H [facility] Rx#: [id number] Oral 360 Output: Post Void Residual 48 Other: Voiding Method Toilet # Voids 1 Weight 102.2 kg 05/16/17 03:45 05/15/17 15:14
[2017-05-16] MEDS: LORATADINE 10 MG TAB PO SCH (11:17)
[2017-05-16] MEDS: TOPIRAMATE 25 MG TAB PO SCH ×2 (11:17→19:44)
[2017-05-16] MEDS: SERTRALINE 100 MG TAB PO SCH (11:18)
[2017-05-16] MEDS: LOPERAMIDE 2 MG CAP PO SCH (11:18)
[2017-05-16] MEDS: PANTOPRAZOLE 40 MG TABLET PO SCH (11:18)
[2017-05-16] MEDS: MONTELUKAST 10 MG TAB PO SCH (11:18)
[2017-05-16] MEDS: predniSONE 20 MG TAB PO SCH (11:18)
[2017-05-16] MEDS: ACETAMINOPHEN TAB 325 MG TAB PO PRN ×2 (11:56→17:43)
--- NOTE | 2017-05-16 12:11 | ECHOF ---
Referral Reason:sob with exertion MEASUREMENTS -------- HEIGHT: 182.9 cm WEIGHT: 102.1 kg BP: 116/5 RVIDd: 2.6 cm (< 3.3) IVSd: 1.3 cm (0.6 - 1.1) LVIDd: 4.5 cm (3.9 - 5.3) LVPWd: 1.1 cm (0.6 - 1.1) IVSs: 1.5 cm LVIDs: 3.5 cm LVPWs: 1.6 cm LA Diam: 3.6 cm (2.7 - 3.8) LAESV Index (A-L): 22.97 ml/m Ao Diam: 3.6 cm (2.0 - 3.7) AV Cusp: 2.5 cm (1.5 - 2.6) MV EXCURSION: 14.230 mm (> 18.000) MV EF SLOPE: 83 mm/s (70 - 150) EPSS: 0.2 cm MV E Vicente: 0.81 m/s MV DecT: 188 ms MV A Vicente: 0.71 m/s MV E/A Ratio: 1.15 FINDINGS -------- Sinus rhythm. This was a technically adequate study. The left ventricular size is normal. There is mild concentric left ventricular hypertrophy. Overa ll left ventricular systolic function is normal with, an EF between 55 - 60 %. The right ventricle is normal in size. Normal LA size by volume 22+/-6 ml/m2. The right atrium is normal in size. The aortic valve is trileaflet and appears structurally normal. The mitral valve is normal. The tricuspid valve appears structurally normal. There is no pulmonic regurgitation present. The aortic root size is normal. Normal inferior vena cava with normal inspiratory collapse consistent with estimated right atrial pre ssure of 5 mmHg. There is no pericardial effusion. CONCLUSIONS -------- 1. Sinus rhythm. 2. This was a technically adequate study. 3. The left ventricular size is normal. 4. There is mild concentric left ventricular hypertrophy. 5. Overall left ventricular systolic function is normal with, an EF between 55 - 60 %. 6. The right ventricle is normal in size. 7. Normal LA size by volume 22+/-6 ml/m2. 8. The right atrium is normal in size. 9. The aortic valve is trileaflet and appears structurally normal. 10. The mitral valve is normal. 11. The tricuspid valve appears structurally normal. 12. There is no pulmonic regurgitation present. 13. The aortic root size is normal. 14. Normal inferior vena cava with normal inspiratory collapse consistent with estimated right atrial pressure of 5 mmHg. 15. There is no pericardial effusion. SUPERVISOR PASTRY: Shayla South RDCS
[2017-05-16] MEDS ORDERED: SODIUM CHLORIDE 0.9% 1,000 ML in EMPTY BAG 1 BAG IV ONE (13:08)
[2017-05-16] MEDS ORDERED: LIDOCAINE 2% INJ 20 MG/ML (20 ML MDV) ONE ×2 (14:04→16:30)
[2017-05-16] MEDS ORDERED: MIDAZOLAM 2 MG/2 ML VIAL ONE ×2 (14:15→16:31)
[2017-05-16] MEDS ORDERED: VERAPAMIL 2.5 MG/ML 2 ML AMP ONE ×2 (14:15→16:31)
[2017-05-16] MEDS ORDERED: HEPARIN SODIUM 1,000 UN/ML (10ML VL) ONE ×2 (14:15→16:31)
[2017-05-16] MEDS ORDERED: IV FLUID CONTINUATION 450 ML IV ONE (14:24)
--- NOTE | 2017-05-16 16:13 | PN ---
PROGRESS NOTE DATE OF SERVICE: 05/16/17. ATTENDING NOTE: Patient seen and examined by me. I discussed with nurse practitioner, Ms. Godinez. Patient admitted with chest pain. Cardiology has decided to proceed with cardiac catheterization, awaiting the same. Had some episodes of chest pain. PHYSICAL EXAMINATION: Temperature 98.1, pulse 84, respiration 18, blood pressure 130/69, pulse ox 94% on room air. LUNGS: Slightly decreased breath sounds. CARDIOVASCULAR: First and second sounds normal. INVESTIGATIONS: Troponin x3 negative. LDL is 128. ASSESSMENT: 1. Anterior chest wall pain could be unstable angina pending a cardiac catheterization as per Cardiology. 2. Possible viral pleurisy from recently recurring pneumonia. 3. Other medical conditions are stable. Care was discussed with the patient. Await cardiac catheterization and go from there. MMBINAL / IJN: [id number] /
[2017-05-16] MEDS ORDERED: SODIUM CHLORIDE 0.9% 1,000 ML IV ONE (16:54)
[2017-05-16] MEDS: MIDAZOLAM 2 MG/2 ML VIAL IVP ONE ×2 (17:02→17:09)
[2017-05-16] MEDS ORDERED: LIDOCAINE 2% INJ 20 MG/ML SQ ONE (17:03)
[2017-05-16] MEDS: VERAPAMIL SYRINGE (5 MG/10 ML) INTRAARTER ONE ×2 (17:04→17:14)
[2017-05-16] MEDS ORDERED: HEPARIN SODIUM 1,000 UN/ML (10ML VL) IV ONE (17:12)
--- NOTE | 2017-05-16 17:15 | P.PN ---
Progress Note - Text Progress Note Date: 05/16/17 DATE OF SERVICE: 05/16/2017 PRESENTING COMPLAINT: Chest pain HISTORY OF PRESENT ILLNESS: 52-year-old male who presents with 2 days of chest pain and increasing shortness of breath. Patient had a recent history of acute asthma exacerbation and bronchopneumonia for which he received a course of steroids as well as underwent bronchoscopy on his previous hospital stay. INTERVAL HISTORY: 05/16/2017 Patient lying in bed appears comfortable, cardiology saw the patient recommending to proceed with cardiac catheterization sometime later today. Patient to remain nothing by mouth with heparin infusion to continue. Ambulatory in the room and armstrong ways without assistance. Last BM prior to admission. REVIEW OF SYSTEMS: Done for constitutional ,cardiovascular, GI, pulmonary with relevant findings as above. CURRENT MEDICATIONS Tylenol, albuterol, aspirin, Symbicort, heparin, Imodium, loratidine, nitro ointment, Protonix, prednisone, Zoloft, Restoril, Topamax. PHYSICAL EXAM VITAL SIGNS: Temperature 98.2, pulse 80, respirations 18, blood pressure 137/63, oxygen saturation 98% on room air. GENERAL APPEARANCE: Lying in bed, not in distress. EYES: Pupils equal. Conjunctiva normal. NECK: JVD not raised. Mass not palpable. RESPIRATORY: Respiratory effort normal. Lungs clear to auscultation. CARDIOVASCULAR: First and second sounds normal. No edema. ABDOMEN: Soft. Liver and spleen not palpable. No tenderness. No mass palpable. PSYCHIATRY: Alert and oriented x3. Mood and affect normal. INVESTIGATIONS: White blood cell count 15.9, triglyceride 95 cholesterol 232, LDL cholesterol 128, HDL cholesterol 85. ASSESSMENT: -Anterior chest wall chest pain could be unstable angina pending a cardiac catheterization as per cardiology. -Possible viral pleurisy from recent recurring pneumonia. -Chronic gastroesophageal reflux disease. -Bipolar disorder, chronic. -Obstructive sleep apnea uses CPAP machine. -Primary osteoarthritis. -Anxiety not otherwise specified. -Persistent asthma with recent exacerbation. -[place] syndrome secondary to chronic use of steroids. -Obesity, body mass index 30.6 PLAN: Patient to remain nothing by mouth, continue IV fluids await for cardiac catheterization per cardiology. Plan of care discussed with the patient the bedside we will follow closely. PLASTIC CARD GRADER CARDROOM statement: Patient was seen and examined by nurse practitioner Camille Godinez and all elements of the case discussed with attending Dr. Smith
[2017-05-16] MEDS ORDERED: IOHEXOL 350 MG/ML 125ML BOTTLE INJ ONE (17:16)
[2017-05-16] MEDS ORDERED: RX INFO: IV CONTRAST WAS GIVEN 1 EACH MISC MISCELLANE PRN (17:21)
[2017-05-16] MEDS ORDERED: SODIUM CHLORIDE 0.9% 1,000 ML IV SCH (17:30)
[2017-05-16] MEDS: TEMAZEPAM 15 MG CAP PO SCH (19:44)
[2017-05-16] MEDS ORDERED: TEMAZEPAM 15 MG CAP PO SCH (23:15)
[2017-05-17] MEDS: NITROGLYCERIN OINT 1 INCH/GM PACKET TOPICAL SCH (05:01)
[2017-05-17 07:25] VITALS: RESP 16
[2017-05-17] MEDS: SYMBICORT 160-4.5 MCG INHALER INHALATION SCH (07:54)
[2017-05-17] MEDS: ALBUTEROL NEBULIZED 2.5 MG/3 ML INHALATION SCH ×2 (07:54→11:20)
[2017-05-17 08:12] LABS: Mean Platelet Volume 6.8; Platelet Count 273 k/uL (150-450)
[2017-05-17] MEDS: TOPIRAMATE 25 MG TAB PO SCH (08:54)
[2017-05-17] MEDS: LOPERAMIDE 2 MG CAP PO SCH (08:54)
[2017-05-17] MEDS: ASPIRIN 81 MG PO SCH (08:55)
[2017-05-17] MEDS: PANTOPRAZOLE 40 MG TABLET PO SCH (08:55)
[2017-05-17] MEDS: LORATADINE 10 MG TAB PO SCH (08:55)
[2017-05-17] MEDS: MONTELUKAST 10 MG TAB PO SCH (08:55)
[2017-05-17] MEDS: predniSONE 20 MG TAB PO SCH (08:55)
[2017-05-17] MEDS: SERTRALINE 100 MG TAB PO SCH (08:55)
--- NOTE | 2017-05-17 08:58 | CC ---
CARDIAC CATHETERIZATION REPORT PERFORMING PHYSICIAN: Servando Cook MD, digital technician. PROCEDURE PERFORMED: 1. Selective right and left coronary angiogram. 2. Left heart catheterization. INDICATION: This is a pleasant 52-year-old gentleman who has COPD and was experiencing exertional dyspnea and was concerning for angina. He was seen and evaluated by Dr. Chavez who recommended proceeding with a heart catheterization to assess severe underlying CAD. APPROACH: Right radial artery. COMPLICATION: None. LEVEL OF SEDATION: Moderate with sedation length of 14 minutes. PROCEDURE DESCRIPTION: After obtaining informed consent, the patient was brought to cardiac aquatic laborer. The right radial artery was cannulated using micropuncture technique and a micropuncture wire passed easily then I placed a 6-Turkish sheath in the right radial artery and then I did selective right and left coronary angiogram using JR4 and JL4. A JL3 0.5 catheters. The procedure was completed without any complication. SELECTIVE CORONARY ANGIOGRAM: 1. The RCA is a large caliber vessel. It is a dominant vessel. It is angiographically normal. 2. The left main is angiographically normal it bifurcates into the circumflex, ramus intermedius, and left anterior descending artery. 3. The circumflex is a large caliber vessel and it is a codominant vessel. The left circumflex system is angiographically normal. It gives rise into a large OM branch which seems to be angiographically normal and the circumflex distally bifurcates into PDA and PLV branches both are angiographically normal. 4. The ramus intermedius is a medium caliber vessel and seems to be angiographically normal. 5. The left anterior descending artery: The proximal LAD is angiographically normal and gives rise into a large diagonal, which seems to be angiographically normal. The mid LAD and distal LAD are angiographically normal. HEMODYNAMICS: The left ventricular end-diastolic pressure was 8 mmHg. No gradient was identified across the aortic valve. CONCLUSION: 1. Normal coronary angiogram. 2. Normal left ventricular end-diastolic pressure. POSTPROCEDURE MANAGEMENT: 1. Maximize medical treatment. 2. Follow up with the patient. MMODL / IJN: [id number] /
[2017-05-17] MEDS ORDERED: ATORVASTATIN 20 MG TAB PO SCH (09:00)
--- NOTE | 2017-05-17 09:14 | PN ---
PROGRESS NOTE Mr. Tafoya is a 52-year-old male who presented with symptoms of chest discomfort. He has a history of chronic obstructive lung disease and asthma. He underwent a cardiac catheterization yesterday by Dr. Cook that showed no evidence of obstructive coronary artery disease with a preserved left ventricle size by echocardiography. He continues to have dyspnea and cough. MEDICATION: At this time includes: 1. Aspirin 81 mg daily. 2. Lipitor 80 mg daily. 3. Nitro paste. 4. Sertraline. 5. Temazepam. 6. Topamax. PHYSICAL EXAMINATION: Blood pressure running in the one teens and 120s with a heart in 70s. Lungs with severe decrease in air exchange and scattered wheezes. HEART: Regular rhythm S1, S2. No S3. No rub. ABDOMEN: Soft, nontender. EXTREMITIES: No edema. Right radial pulse is intact. LAB DATA: Revealed cholesterol 232 with an LDL of 128. His white blood cell count 15.9. IMPRESSION: 1. Chest discomfort with no evidence of obstructive coronary artery disease. 2. History of chronic obstructive lung disease. 3. Hyperlipidemia. RECOMMENDATION: From the cardiac standpoint, he is stable. I would expect he should be able to be discharged home soon and follow up as an outpatient. MMODL / IJN: [id number] /
[2017-05-17 11:12] VITALS: BP 150/79; TEMP 98
[2017-05-17] MEDS: ALBUTEROL NEBULIZED 2.5 MG/3 ML INHALATION PRN (11:20)
[2017-05-17 11:31] VITALS: PULSE 80
--- NOTE | 2017-05-17 11:49 | XR ---
EXAMINATION TYPE: XR chest 2V DATE OF EXAM: 05/17/2017 HISTORY: increasing shortness of breath. REFERENCE: Previous study dated 05/15/2017. FINDINGS: Lung volumes are prominent. There continues to be bibasilar atelectasis. The lungs are othe rwise clear. Pleural spaces are clear. Heart size is upper limits of normal. IMPRESSION: CONTINUING BIBASILAR AIRSPACE DISEASE LIKELY REPRESENTED ATELECTASIS.
--- NOTE | 2017-05-17 14:02 | P.CNPUL ---
History of Present Illness Consult date: 05/17/17 Reason for consult: dyspnea History of present illness: 52-year-old male patient with severe persistent bronchial asthma that has been steroid dependent for many years. The patient also has history of obstructive sleep apnea. The patient has chronic dyspnea. The patient came into the hospital because of worsening shortness of breath and chest pain. The patient had a cardiac catheterization and the catheterization was essentially clear. The patient was asked to be seen by pulmonary knowing that he has chronic dyspnea which we think it is currently at his baseline. The patient a bronchoscopy on multiple occasions. Last bronchoscopy that was done in April showed no evidence of any microbial growth in the microbial cultures were essentially negative. He did however have some rest or secretions that were suctioned out and therapeutic it was suctioning was done. Chest x-ray showed no acute cardio pulmonary abnormalities and the patient has some limited bibasilar pulmonary infiltrates. The patient has mild leukocytosis. No pleurisy. No hemoptysis. He has had previous history of DVT of the right lower extremity and questionable pulmonary embolism for which she is on no anticoagulants for the time being. In terms of his bronchial asthma, he has a severe persistent bronchial asthma who is postop bronchial thermoplasty and his latest spirometry in the office showed a FEV1 of 60% of predicted. His fractional excretion of nitric oxide was 17 ppb. The patient had a baseline eosinophile count that was low and he was not candidate for interleukin-5 treatment. He was maintained on a combination of Symbicort, Pulmicort Respules, and he is steroid dependent and he has been taking 20 mg of prednisone a daily basis. He utilizes albuterol neb last treatment [id number]. We will unable to wean down the steroids because of his severe persistent bronchial asthma and worsening shortness of breath. The patient has also obstructive sleep apnea maintained on CPAP therapy at a pressure of 12 cm of water. His been battling tremors for which she is under the care of Dr. Ayala treated with Mysoline. 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 This of fundoplication 2011, previous bronchoscopies, cervical discectomy, bronchial thermoplasty. Past Anesthesia/Blood Transfusion Reactions: No Reported Reaction, Family History of Problems w/ Anesthesia Additional Past Anesthesia/Blood Transfusion Reaction / Comment(s): mother, brother-ponv Smoking Status: Former smoker - Past Family History Son(s) Additional Family Medical History / Comment(s): suicide- depression. Daughter(s) Additional Family Medical History / Comment(s): "two holes in heart" Father Family Medical History: Pneumonia, Respiratory Disorder Mother Family Medical History: Eye Disorder, Hypertension Additional Family Medical History / Comment(s): GLAUCOMA Medications and Allergies Home Medications Medication Instructions Recorded Confirmed Type Montelukast [Singulair] 10 mg PO DAILY 11/28/14 05/15/17 History predniSONE 20 mg PO DAILY 08/03/16 05/15/17 History Budesonide-Formot 160-4.5 Mcg 2 puff INHALATION BID #1 inhaler 08/07/16 Rx [Symbicort 160-4.5 Mcg Inhaler] Loratadine [Claritin] 10 mg PO DAILY 09/18/16 05/15/17 History Pantoprazole [Protonix] 40 mg PO DAILY 09/18/16 05/15/17 History Loperamide [Imodium] 4 mg PO DAILY 01/30/17 05/15/17 History Sertraline [Zoloft] 100 mg PO DAILY 01/30/17 05/15/17 History Topiramate [Topamax] 25 mg PO BID 01/30/17 05/15/17 History Albuterol Nebulized [Ventolin 1 inhalation INHALATION RT-TID #0 04/24/17 Rx Nebulized] Temazepam [Restoril] 15 mg PO HS 05/15/17 05/15/17 History Allergies Allergy/AdvReac Type Severity Reaction Status Date / Time Penicillins Allergy Swelling Verified 05/15/17 21:15 Physical Exam Vitals: Vital Signs Temp Pulse Pulse Resp BP BP Pulse Ox 05/17/17 11:30 80 05/17/17 11:22 76 05/17/17 11:10 98 F 66 16 150/79 95 05/17/17 08:01 72 05/17/17 07:55 72 05/17/17 07:24 98.5 F 75 16 156/92 93 L 05/17/17 04:00 97.6 F 66 18 113/66 96 05/16/17 23:26 18 05/16/17 22:44 74 18 125/68 94 L 05/16/17 20:30 80 05/16/17 20:07 76 95 05/16/17 20:00 18 05/16/17 19:43 97.9 F 78 18 130/71 94 L 05/16/17 19:15 82 18 145/64 96 05/16/17 18:45 84 132/72 95 05/16/17 18:05 84 137/69 94 L 05/16/17 17:50 83 132/67 95 05/16/17 17:35 98.2 F 79 18 110/64 95 05/16/17 16:00 98.3 F 84 18 123/71 93 L Intake and Output 05/16/17 05/17/17 05/17/17 22:59 06:59 14:59 Intake Total 390 700 Balance 390 700 Intake: IV 150 Oral 240 700 Other: Voiding Method Toilet Toilet Toilet Urinal Urinal This is an obese male patient, comfortable, not in acute distress. He has obvious cushingoid features related to previous steroid use.Head exam was generally normal. There was no scleral icterus or corneal arcus. Mucous membranes were moist.Neck was supple and without jugular venous distension, thyromegaly, or carotid bruits. Carotids were easily palpable bilaterally. There was no adenopathy. There is significant crowding of posterior pharynx. Lungs diminished breath sounds bilaterally otherwise clear.Cardiac exam revealed the PMI to be normally situated and sized. The rhythm was regular and no extrasystoles were noted during several minutes of auscultation. The first and second heart sounds were normal and physiologic splitting of the second heart sound was noted. There were no murmurs, rubs, clicks, or gallops. Abdomen is distended soft there is no direct tenderness no rebound tinsel guarding. No organomegaly. Extremity especially on the right is quite abnormal which is very much swollen from knee below and there is obvious erythema warmth and tenderness related to cellulitis. No open wounds or ulcers. No varicosities.neurologically the patient is awake and alert and the patient has no focal neurological deficit at this point. Results - Laboratory Findings CBC and BMP: 05/17/17 07:29 05/15/17 15:14 PT/INR, D-dimer PT 9.6 sec (9.0-12.0) 05/15/17 15:14 INR 1.0 (<1.2) 05/15/17 15:14 D-Dimer 0.25 mg/L FEU (<0.60) 05/15/17 15:14 Abnormal lab findings: Abnormal Labs 05/15/17 05/15/17 05/15/17 15:14 15:14 15:14 WBC 15.9 H MCHC 30.8 L RDW 16.4 H Neutrophils # 13.9 H APTT Glucose 119 H Total Creatine Kinase 31 L Cholesterol LDL Cholesterol, Calc HDL Cholesterol 05/15/17 05/15/17 05/16/17 15:14 21:28 03:45 WBC MCHC RDW Neutrophils # APTT 20.5 L Glucose Total Creatine Kinase 29 L 27 L Cholesterol LDL Cholesterol, Calc HDL Cholesterol 05/16/17 05/16/17 03:45 09:23 WBC MCHC RDW Neutrophils # APTT 36.0 H Glucose Total Creatine Kinase Cholesterol 232 H LDL Cholesterol, Calc 128 H HDL Cholesterol 85 H - Diagnostic Findings Chest x-ray: image reviewed Assessment and Plan Plan: Assessment 1 atypical chest pain with normal coronaries 2 chronic dyspnea, multifactorial. Obviously his severe persistent bronchial asthma has been a significant Contributing factor and I think that the patient has developed somewhat of fixed airway disease and he has been not responding to systemic steroids and he hasn't been able to wean his steroids any further. Based on the most recent evaluation that was done in the office, his FENO was at 17, his FEV1 was at 60% of predicted and the patient was on 20 mg of prednisone a daily basis. The most recent CAT scan of the chest that was done April 2016 shows no evidence of any pulmonary embolism, fibrosis or any other major abnormalities. Some atelectatic changes and limited infiltration was seen in the left lung base. He is less bronchoscopy from 04/25/2017 yielded no microbial growth and there was positive rhino virus detected. 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 No changes from my standpoint. Continue Symbicort, Pulmicort Respules, Singulair, and 20 mg of prednisone daily basis. Continue bronchodilators around the clock. No need for antibiotics. Chest x-ray was reviewed. We'll follow-up in the office.
--- NOTE | 2017-05-18 10:15 | DS ---
DISCHARGE SUMMARY DATE OF ADMISSION: 05/15/17. DATE OF DISCHARGE: 05/17/17. FINAL DIAGNOSES: 1. Anterior chest wall pain possibly from viral pleurisy. 2. Chronic gastroesophageal reflux disease. 3. Bipolar disorder, chronic. 4. Obstructive sleep apnea uses CPAP machine. 5. Primary osteoarthritis. 6. Anxiety, not otherwise specified. 7. Severe persistent asthma. 8. [place] syndrome secondary to chronic use of steroids. 9. Obesity; BMI of 30.6. CONSULTATION: Dr. Gifofrd from Pulmonary and Dr. Haja Chavez from Cardiology. HOSPITAL COURSE: This is a patient with recent pneumonia presented with chest pain, sounded more pleuritic in nature, felt to be viral pleurisy. Seen by Cardiology, Dr. Chavez. Did undergo a cardiac cath with normal coronaries. Seen by Dr. Gifford. Nothing further to be added. Patient steroids. Today patient is feeling better. On exam lungs slightly decreased breath sounds. Care was discussed with the patient and at the bedside. The patient LDL did come back at 128. The patient did have a 2-D echocardiogram that showed preserved LV function. DISCHARGE MEDICATIONS: 1. Singulair 10 mg p.o. daily. 2. Prednisone 20 mg a day. 3. Symbicort 160/4.5, 2 puffs b.i.d. 4. Claritin 10 mg a day. 5. Protonix 40 mg a day. 6. Imodium 4 mg p.o. daily. 7. Zoloft 100 mg p.o. daily. 8. Topamax 25 p.o. b.i.d. 9. Ventolin inhaler t.i.d. p.r.n. 10.Restoril 50 mg p.o. q.h.s. Follow up with Dr. Harvey in 1 week, follow up with Dr. Sweet in 3 days, follow up with Dr. Gifford in 3 days. Discussion and discharge planning more than [address] Sweet. MMELEONORA / REDN: [id number] /
== END 2017-05-17 15:28 | disposition home or self-care (01) ==
LOC: EC 14:31 → 3OBS 17:00
PROVIDERS: ADMIT Hospitalist; ATTEND Hospitalist
DX: R07.89 Other chest pain (principal); K21.9 Gastro-esophageal reflux disease without esophagitis; F31.9 Bipolar disorder, unspecified; G47.33 Obstructive sleep apnea (adult) (pediatric); J45.50 Severe persistent asthma, uncomplicated; M19.91 Primary osteoarthritis, unspecified site; T38.0X5A Adverse effect of glucocorticoids and synthetic analogues, initial encounter; E24.2 Drug-induced Cushing's syndrome; J44.9 Chronic obstructive pulmonary disease, unspecified; E66.9 Obesity, unspecified; G25.0 Essential tremor; F41.1 Generalized anxiety disorder; F17.290 Nicotine dependence, other tobacco product, uncomplicated; E78.5 Hyperlipidemia, unspecified; Z79.52 Long term (current) use of systemic steroids; Z79.51 Long term (current) use of inhaled steroids; Z68.30 Body mass index [BMI] 30.0-30.9, adult; Z87.01 Personal history of pneumonia (recurrent); Z79.899 Other long term (current) drug therapy; Z88.0 Allergy status to penicillin; Z86.718 Personal history of other venous thrombosis and embolism; Z86.711 Personal history of pulmonary embolism; Z99.89 Dependence on other enabling machines and devices; Z82.49 Family history of ischemic heart disease and other diseases of the circulatory system; Z83.6 Family history of other diseases of the respiratory system
CPT/HCPCS: 96366 ×2; 96376 ×2; 96365; 99285; 51798; 36415; 94640 ×6; 94760 ×2; 93005; 93306; 93458; 85379; 83880; 80061; 80053; 82550 ×2; 82553 ×2; 83735; 84484 ×2; 85025; 85049 ×2; 85610; 85730 ×2; 71046 ×2; G0378 ×3; C1894; C1769; J2001; J2250; J1644 ×4; J7512 ×2; Q9967

== ENCOUNTER → 2017-07-15 | Outpatient (CLI) | payer BC ==
--- NOTE | 2017-07-15 16:28 | BD ---
EXAMINATION TYPE: MG DEXA axial skeleton. DATE OF EXAM: 07/15/2017 COMPARISON: NONE CLINICAL HISTORY: PT IS 52 YR OLD MALE, ICD-10 CODE S32.010 FRAGILITY FRACTURE/CHRONIC COMP. FXS Height: 69.5 Weight: 230 FRAX RISK QUESTIONS: Alcohol (3 or more units per day): SOCIAL Family History (Parent hip fracture): NO Glucocorticoids (More than 3mos): YES (Ex: prednisone, prednisolone, methylprednisolone, dexamethasone, and hydrocortisone). History of Fracture in Adulthood: YES Secondary Osteoporosis: NO 1. Type 1 Diabetes: NO 2. Hyperthyroidism: NO 3. Menopause before 45: NA 4. Malnutrition: NO 5. Chronic liver disease: NO Rheumatoid Arthritis: NO Current Tobacco Use: CIGARS IN THE 'S, NOTHING NOW RISK FACTORS HISTORY OF: RT HAND CHILD Spine Fracture: COMPRESSION FX IN LUMBAR AND THORACIC SPINE When: AT 51 YRS OLD Family History of Osteoporosis: NONE KNOW Active: SOMEWHAT Diet low in dairy products/other sources of calcium: MAYBE, A BIT LOW Lost more than 2 inches in height since high school: YES Frequent falls: NO Poor Health: COPD Hyperparathyroidism: NO Adrenal Insufficiency: NO MEDICATIONS: Prednisone or other steroids: YES, PREDNISONE, 18 YRS. FOR COPD How Lon YRS Additional Medications: ZOLOFT, PROTONIX, Additional History: DISC REMOVAL FROM C SPINE, EXAM MEASUREMENTS: Bone mineral densitometry was performed using the [employer] System. Bone mineral density as measured about the Lumbar spine is: LUMBAR SPINE NOT TESTED....COMPRESSION FXS OF LUMBAR SPINE AND THORACIC SPINE Bone mineral density about the R hip (g/cm2): 0.867 Bone mineral density about the L hip (g/cm2): 0.979 T Score values are as follows: -----R Neck: -0.9 -----L Neck: -0.7 -----R Total: -1.1 -----L Total: -0.2 Bone mineral density FIRST BONE DENSITY STUDY AT [facility] FRAX%S: THERE IS A 12.5% CHANCE OF A MAJOR OSTEOPOROTIC FX AND A1.2% FOR HIP FX.....PROBABILITY OF FX IN 10 YRS TIME. IMPRESSION: Osteopenia (T Score between -2.5 and -1). There is slightly increased risk of fracture and the patient may be considered for treatment. Re-Screen 2-5 years. NOTE: T-SCORE=SD OF THE YOUNG ADULT MEAN.
== END | disposition home or self-care (01) ==
LOC: RADBDWWP 07:50
PROVIDERS: ATTEND Physical Medicine & Rehabilitation
DX: M48.56XA Collapsed vertebra, not elsewhere classified, lumbar region, initial encounter for fracture (principal); M48.54XA Collapsed vertebra, not elsewhere classified, thoracic region, initial encounter for fracture
CPT/HCPCS: 77080

== ENCOUNTER → 2018-01-26 | Outpatient (CLI) | payer BC ==
[2018-01-26 15:16] LABS: Basophils # (A) 0.1 k/uL (0-0.2); Basophils % (A) 1 %; Eosinophils % (A) 0 %; HCT 49.1 % (39.0-53.0); HGB 15.8 gm/dL (13.0-17.5); Lymphocytes # (A) 1.2 k/uL (1.0-4.8); Lymphocytes % (A) 11 %; MCHC 32.1 g/dL (31.0-37.0); MCV 90.3 fL (80.0-100.0); Mean Platelet Volume 6.5; Monocytes # (A) 0.5 k/uL (0-1.0); Monocytes % (A) 5 %; Neutrophils # (A) 9.1 k/uL (1.3-7.7); Neutrophils % (A) 83 %; Platelet Count 378 k/uL (150-450); RBC 5.44 m/uL (4.30-5.90); RDW 14.1 % (11.5-15.5)
[2018-01-26 20:07] LABS: Gliadin AB IgA, Unit <0.2 U/mL
== END | disposition home or self-care (01) ==
LOC: LABWHC1 14:52
PROVIDERS: ATTEND Internal Medicine Gastroenterology
DX: K52.832 Lymphocytic colitis (principal); K52.9 Noninfective gastroenteritis and colitis, unspecified
CPT/HCPCS: 36415; 83516; 85025

== ENCOUNTER → 2018-05-22 | Outpatient (CLI) | payer BC ==
[2018-05-23 02:28] LABS: Albumin/Globulin Ratio 2.11 (1.20-2.10); Anion Gap 8.8 mmol/L (4.00-12.00); Carbon Dioxide 26.2 mmol/L (21.6-31.8); Globulin 1.9 g/dL (1.6-3.3); Potassium 4.3 mmol/L (3.5-5.5); Total Bilirubin 0.3 mg/dL (0.2-1.2); Total Protein 5.9 g/dL (6.2-8.2)
== END ==
LOC: LABWHC1 15:00
PROVIDERS: ATTEND Internal Medicine Clinical Cardiac Electrophysiology
DX: E78.5 Hyperlipidemia, unspecified (principal); R06.02 Shortness of breath
CPT/HCPCS: 36415; 80053; 80061; 84443

== ENCOUNTER → 2018-07-30 | Outpatient (CLI) | payer BC ==
--- NOTE | 2018-07-30 13:22 | US ---
EXAMINATION TYPE: US abdomen comp/pelvis limited DATE OF EXAM: 07/30/2018 COMPARISON: CT 2017 CLINICAL HISTORY: 53-year-old male R10.13Epigastric pain,N20.0Calculus of kidney. Abdomen pain with r ight flank pain, increase in urination, history of cholecystectomy TECHNIQUE: Multiple sonographic images of the abdomen and bladder are obtained. FINDINGS: EXAM MEASUREMENTS: Liver Length: 16.9 cm Gallbladder: surgically absent CBD: 0.3 cm Spleen: 11.9 cm Right Kidney: 12.0 x 5.4 x 5.9 cm Left Kidney: 12.0 x 5.4 x 5.0 cm Pancreas: limited by overlying midline bowel gas. The visualized head and neck show no gross abnorma lly. Liver: wnl Gallbladder: surgically absent CBD: wnl Spleen: wnl Right Kidney: wnl Left Kidney: wnl Upper IVC: wnl Abd Aorta: wnl Bladder: wnl Bilateral Jets Seen yes IMPRESSION: 1. Status post cholecystectomy. Suboptimal visualization of the pancreas. 2. Otherwise, unremarkable sonographic examination of the abdomen. 3. Both ureteral jets are visualized. The bladder also shows no gross abnormality.
== END | disposition home or self-care (01) ==
LOC: RADUSWWP 08:19
PROVIDERS: ATTEND Surgery Plastic and Reconstructive Surgery
DX: R10.13 Epigastric pain (principal); N20.0 Calculus of kidney; Z90.49 Acquired absence of other specified parts of digestive tract; Z88.0 Allergy status to penicillin
CPT/HCPCS: 76700; 76857

== ENCOUNTER 2018-08-13 07:24 | Day surgery (SDC) | payer BC ==
[2018-08-11 12:57] VITALS: BMI 34.4
[~2018-08-13 07:24] MED LIST changes: -ALBUTEROL NEB (CONC) 2.5 MG/0.5 ML INHALATION ONE; -LACTATED RINGERS 1,000 ML IV ONE; -LIDOCAINE 2% (PF) 20 MG/ML 10ML INHALATION ONE
--- NOTE | 2018-08-13 07:51 | P.GSHP ---
History of Present Illness H&P Date: 08/13/18 CHIEF COMPLAINT: GERD and chronic diarrhea HISTORY OF PRESENT ILLNESS: The patient is a 53-year-old male who presents with gastroesophageal reflux disease and chronic diarrhea. Upper and lower endoscopy were offered for further evaluation and management. PAST MEDICAL HISTORY: Please see list. PAST SURGICAL HISTORY: Please see list. MEDICATIONS: Please see list. ALLERGIES: Please see list. SOCIAL HISTORY: No illicit drug use FAMILY HISTORY: No reports of Crohn disease or ulcerative colitis. REVIEW OF ORGAN SYSTEMS: CONSTITUTIONAL: No reports of fevers or chills. GI: Denies any blood in stools or constipation. PHYSICAL EXAM: VITAL SIGNS: Stable GENERAL: Well-developed pleasant in no acute distress. HEENT: No scleral icterus. Extraocular movements grossly intact. Moist buccal mucosa. NECK: Supple without lymphadenopathy. CHEST: Unlabored respirations. Equal bilateral excursions. CARDIOVASCULAR: Regular rate and rhythm. Distal 2+ pulses. ABDOMEN: Soft, nondistended. MUSCULOSKELETAL: No clubbing, cyanosis, or edema. ASSESSMENT: 1. Gastroesophageal reflux disease 2. Chronic diarrhea PLAN: 1. Recommend proceeding with an upper and lower endoscopy Past Medical History Past Medical History: Asthma, COPD, Deep Vein Thrombosis (DVT), GERD/Reflux, Pneumonia, Pulmonary Embolus (PE), Sleep Apnea/CPAP/BIPAP Additional Past Medical History / Comment(s): Severe persistent bronchial asthma , remote history of pulmonary embolism, history of DVT of the right lower extremity, degenerative arthritis, obstructive sleep apnea maintained on CPAP at a pressure of 12 cm of water,essential tremors,degenerative disc disc History of Any Multi-Drug Resistant Organisms: None Reported Past Surgical History: Cholecystectomy Additional Past Surgical History / Comment(s): Cardiac catheterization was done in May 2017 it was consistent with normal coronaries. This of fundoplication 2011, previous bronchoscopies, cervical discectomy, bronchial thermoplasty. Past Anesthesia/Blood Transfusion Reactions: No Reported Reaction, Family History of Problems w/ Anesthesia Additional Past Anesthesia/Blood Transfusion Reaction / Comment(s): mother, brother-ponv Smoking Status: Former smoker - Past Family History Son(s) Additional Family Medical History / Comment(s): suicide- depression. Daughter(s) Additional Family Medical History / Comment(s): "two holes in heart" Father Family Medical History: Pneumonia, Respiratory Disorder Mother Family Medical History: Eye Disorder, Hypertension Additional Family Medical History / Comment(s): GLAUCOMA Medications and Allergies Home Medications Medication Instructions Recorded Confirmed Type Montelukast [Singulair] 10 mg PO HS 11/28/14 08/11/18 History predniSONE 40 mg PO DAILY 08/03/16 08/11/18 History Loratadine [Claritin] 10 mg PO DAILY 09/18/16 08/11/18 History Pantoprazole [Protonix] 40 mg PO HS 09/18/16 08/11/18 History Sertraline [Zoloft] 100 mg PO HS 01/30/17 08/11/18 History Topiramate [Topamax] 25 mg PO HS 01/30/17 08/11/18 History Albuterol Nebulized [Ventolin 1 inhalation INHALATION RT-TID #0 04/24/17 08/11/18 Rx Nebulized] Budesonide [Pulmicort] 1 mg INHALATION BID 08/11/18 08/11/18 History Diphenox-Atrop 2.5-0.025 mg 1 tab PO HS 08/11/18 08/11/18 History [Lomotil] Gabapentin [Neurontin] 300 mg PO BID 08/11/18 08/11/18 History Ipratropium-Albuterol Nebulize 3 ml INHALATION TID PRN 08/11/18 08/11/18 History [Duoneb 0.5 mg-3 mg/3 ml Soln] Tamsulosin HCl [Flomax] 0.8 mg PO HS 08/11/18 08/11/18 History clonazePAM [KlonoPIN] 0.5 mg PO BID PRN 08/11/18 08/11/18 History Allergies Allergy/AdvReac Type Severity Reaction Status Date / Time Penicillins Allergy Swelling Verified 08/11/18 12:45
[2018-08-13 07:59] VITALS: TEMP 98.2
[2018-08-13] MEDS ORDERED: PROPOFOL 10 MG/ML 20 ML VIAL IV ONE (08:07)
[2018-08-13] MEDS ORDERED: LIDOCAINE 1% INJ 10MG/ML (20 ML MDV) ONE (08:07)
[2018-08-13] MEDS ORDERED: fentaNYL (PF) 50 MCG/ML 2 ML AMP ONE (08:07)
[2018-08-13] MEDS ORDERED: MIDAZOLAM 2 MG/2 ML VIAL ONE (08:07)
--- NOTE | 2018-08-13 08:35 | P.PCN ---
Date of Procedure: 08/13/18 Description of Procedure: PREOPERATIVE DIAGNOSIS: Gastroesophageal reflux disease. Severe chronic structure pulmonary disease, history of asthma Chronic steroid dependence Hypertensive heart disease History of Wojciech fundoplasty POSTOPERATIVE DIAGNOSIS: Gastroesophageal reflux disease. Severe chronic structure pulmonary disease, history of asthma Chronic steroid dependence Hypertensive heart disease Chronic gastritis, superficial History of Wojciech fundoplasty OPERATION: Esophagogastroduodenoscopy with biopsies along antrum. SURGEON: Melissa Capellan MD ANESTHESIA: MAC. INDICATIONS: The patient is a 53-year-old male who presents with a history of reflux disease. Benefits and risks of the procedure were described. Informed consent was obtained. DESCRIPTION: The patient was brought into the endoscopy suite and laid in the left lateral decubitus position. An Olympus gastroscope was passed along the posterior oropharynx down to the distal esophagus where the squamocolumnar junction was encountered at 47 cm from the incisors. The stomach was entered and no bile reflux was found. Additional findings are listed below. Biopsies with cold forceps were obtained of the antrum. The first through third portion of the duodenum was examined and unremarkable. Retroflexion of the scope confirmed Hill grade 1+ lower esophageal valve. The squamocolumnar junction demonstrated no LA grade A erosive esophagitis. The stomach was desufflated. The patient tolerated the procedure well. FINDINGS: Squamocolumnar junction 47 cm from the incisors. Diaphragmatic hiatus at 47 cm. Features of previous Wojciech fundoplasty Hill grade 1+ lower esophageal valve. No LA grade A erosive esophagitis. No active duodenitis. Chronic gastritis, superficial RECOMMENDATIONS: Upper endoscopy as needed.
[2018-08-13 08:40] VITALS: RESP 16
--- NOTE | 2018-08-13 08:41 | P.PCN ---
Date of Procedure: 08/13/18 Description of Procedure: PREOPERATIVE DIAGNOSIS: Chronic diarrhea History of microscopic colitis POSTOPERATIVE DIAGNOSIS: Chronic diarrhea History of microscopic colitis Transverse colon polyp, benign OPERATION: Colonoscopy to the ileocecal valve and appendiceal orifice. Colonoscopy with hot snare polypectomy Colonoscopy with multiple cold forceps biopsies. SURGEON: Melissa Capellan MD. ANESTHESIA: MAC. INDICATIONS: The patient is a 53-year-old male who presents for chronic diarrhea and history of colitis. Benefits and risks were described and informed consent was obtained. DESCRIPTION OF PROCEDURE: The patient had undergone Gatorade, MiraLAX and Dulcolax prep. He had been brought into the operating room and laid in the left lateral decubitus position. After adequate intravenous sedation, the rectum was examined with 2% lidocaine jelly. No external hemorrhoids were encountered. The rectal tone was within normal limits. The prostate was smooth and without abnormality. No lesions were palpated in the rectal vault. An Olympus colonoscope was advanced until the ileocecal valve and appendiceal orifice were clearly viewed. The prep was fair with residual liquid stool. No blunting of the mucosa or hyperemia was found. Multiple random cold forceps biopsies were obtained for evaluation of microscopic colitis. No scattered diverticulosis was encountered. A hyperplastic villous polyp of 6 mm was snare polypectomy at 70 cm from the anal verge, midtransverse colon. Stool assay was obtained for colitis. Retroflexion of the scope demonstrated no internal hemorrhoids without active bleeding or inflammation. The colon was desufflated. The patient had tolerated the procedure well. Withdrawal time was over 6 minutes. FINDINGS: [place]ronchik preparation quality scale 3 (1-5) No internal hemorrhoids No external hemorrhoids A hyperplastic villous polyp of 6 mm was snare polypectomy at 70 cm from the anal verge, midtransverse colon. Stool assay was obtained for colitis. No arteriovenous malformations. No sigmoid diverticulosis RECOMMENDATIONS: Repeat colonoscopy 5 years, 2023. Plan - Discharge Summary Discharge Rx Participant: No New Discharge Prescriptions: No Action Montelukast [Singulair] 10 mg PO HS predniSONE 40 mg PO DAILY Loratadine [Claritin] 10 mg PO DAILY Pantoprazole [Protonix] 40 mg PO HS Sertraline [Zoloft] 100 mg PO HS Topiramate [Topamax] 25 mg PO HS Albuterol Nebulized [Ventolin Nebulized] 1 inhalation INHALATION RT-TID #0 clonazePAM [KlonoPIN] 0.5 mg PO BID PRN PRN Reason: Anxiety Diphenox-Atrop 2.5-0.025 mg [Lomotil] 1 tab PO HS Tamsulosin HCl [Flomax] 0.8 mg PO HS Ipratropium-Albuterol Nebulize [Duoneb 0.5 mg-3 mg/3 ml Soln] 3 ml INHALATION TID PRN PRN Reason: sob Budesonide [Pulmicort] 1 mg INHALATION BID Gabapentin [Neurontin] 300 mg PO BID Discharge Medication List Montelukast [Singulair] 10 mg PO HS 11/28/14 [History] predniSONE 40 mg PO DAILY 08/03/16 [History] Loratadine [Claritin] 10 mg PO DAILY 09/18/16 [History] Pantoprazole [Protonix] 40 mg PO HS 09/18/16 [History] Sertraline [Zoloft] 100 mg PO HS 01/30/17 [History] Topiramate [Topamax] 25 mg PO HS 01/30/17 [History] Albuterol Nebulized [Ventolin Nebulized] 1 inhalation INHALATION RT-TID #0 04/24/17 [Rx] Budesonide [Pulmicort] 1 mg INHALATION BID 08/11/18 [History] Diphenox-Atrop 2.5-0.025 mg [Lomotil] 1 tab PO HS 08/11/18 [History] Gabapentin [Neurontin] 300 mg PO BID 08/11/18 [History] Ipratropium-Albuterol Nebulize [Duoneb 0.5 mg-3 mg/3 ml Soln] 3 ml INHALATION TID PRN 08/11/18 [History] Tamsulosin HCl [Flomax] 0.8 mg PO HS 08/11/18 [History] clonazePAM [KlonoPIN] 0.5 mg PO BID PRN 08/11/18 [History] Follow up Appointment(s)/Referral(s): Melissa Capellan MD [STAFF PHYSICIAN] - 09/01/18 ([place]) Patient Instructions/Handouts: Microscopic Colitis (DC), Gastroesophageal Reflux Disease (DC), Colorectal Polyps (DC) Activity/Diet/Wound Care/Special Instructions: Repeat colonoscopy 5 years2023 Discharge Disposition: HOME SELF-CARE
[2018-08-13 09:00] VITALS: BP 131/83; PULSE 83
== END 2018-08-13 09:10 | disposition home or self-care (01) ==
LOC: ORWHC2ENDO 07:24
PROVIDERS: ATTEND Surgery Plastic and Reconstructive Surgery
DX: D12.3 Benign neoplasm of transverse colon (principal); K29.30 Chronic superficial gastritis without bleeding; K21.9 Gastro-esophageal reflux disease without esophagitis; K52.9 Noninfective gastroenteritis and colitis, unspecified; J44.9 Chronic obstructive pulmonary disease, unspecified; I11.9 Hypertensive heart disease without heart failure; F19.20 Other psychoactive substance dependence, uncomplicated; I25.10 Atherosclerotic heart disease of native coronary artery without angina pectoris; G47.33 Obstructive sleep apnea (adult) (pediatric); J45.50 Severe persistent asthma, uncomplicated; Z88.0 Allergy status to penicillin; Z87.891 Personal history of nicotine dependence; Z86.718 Personal history of other venous thrombosis and embolism; Z86.711 Personal history of pulmonary embolism; Z81.8 Family history of other mental and behavioral disorders; Z79.52 Long term (current) use of systemic steroids; Z87.01 Personal history of pneumonia (recurrent); Z82.49 Family history of ischemic heart disease and other diseases of the circulatory system; Z79.899 Other long term (current) drug therapy; Z99.89 Dependence on other enabling machines and devices; G25.0 Essential tremor
CPT/HCPCS: 88305; 83993; 87045; 83630; 87046; 45385; 45380; 43239; J2250; J2001; J3010; J2704

== ENCOUNTER → 2018-09-11 | Outpatient (CLI) | payer BC | LOC: LABWHC1 14:11 | PROVIDERS: ATTEND Internal Medicine Critical Care Medicine | DX: J45.901 Unspecified asthma with (acute) exacerbation (principal); J45.50 Severe persistent asthma, uncomplicated | CPT/HCPCS: 36415; 85008 ==

== ENCOUNTER 2018-09-18 05:55 | Day surgery (SDC) | payer BC ==
[2018-09-17 09:31] VITALS: BMI 33.1
[2018-09-18] MEDS ORDERED: LIDOCAINE 2% (PF) 20 MG/ML 5 ML VIAL INHALATION ONE (06:23)
[2018-09-18] MEDS ORDERED: ALBUTEROL NEBULIZED 2.5 MG/3 ML INHALATION STA (06:24)
[2018-09-18] MEDS ORDERED: LIDOCAINE VISCOUS 2% 15 ML CUP MUCOUS MEM ONE (06:24)
[2018-09-18] MEDS ORDERED: LIDOCAINE 1% 20 ML VIAL (10MG/ML) FOR IV START INTRADERMA ONE (06:42)
[2018-09-18 06:43] VITALS: TEMP 98.1
[2018-09-18] MEDS ORDERED: LACTATED RINGERS 1,000 ML IV ONE (06:43)
[2018-09-18] MEDS ORDERED: HYDROCORTISONE SUCCINATE 100 MG/2 ML VIAL IV ONE (06:45)
[2018-09-18 06:51] LABS: Glucose,Whole Blood 91 mg/dL (75-99)
[2018-09-18] MEDS ORDERED: MIDAZOLAM 2 MG/2 ML VIAL ONE (07:15)
[2018-09-18] MEDS ORDERED: PROPOFOL 10 MG/ML 20 ML VIAL IV ONE (07:15)
[2018-09-18] MEDS ORDERED: KETAMINE 10 MG/ML 20 ML VIAL ONE (07:15)
[2018-09-18] MEDS ORDERED: GLYCOPYRROLATE 0.2 MG/ML 2 ML VIAL ONE (07:15)
[2018-09-18] MEDS ORDERED: LIDOCAINE 2% INJ 20 MG/ML INTRATRACH ONE (07:32)
--- NOTE | 2018-09-18 07:35 | P.PCN ---
Date of Procedure: 09/18/18 Preoperative Diagnosis: Severe persistent bronchial asthma, steroid dependence, shortness of breath, rule out underlying infection Postoperative Diagnosis: Severe persistent bronchial asthma, mucous plugging, steroid dependence, bronchial alveolar lavage of the right middle lobe done Procedure(s) Performed: Flexible bronchoscopy, bronchioloalveolar lavage of the right middle lobe, therapeutic airway suctioning Anesthesia: MAC Surgeon: Solomon Gifford Estimated Blood Loss (ml): 0 Pathology: other Condition: stable Disposition: same day Operative Findings: This procedure was done under conscious sedation. The patient was given a total of 50 mg of ketamine IV, 100 mg of propofol IV, 2 mg of Versed IV. After achieving adequate sedation, the flexible bronchoscope was inserted to the right nostril and was advanced into the upper airway. Examination of the posterior oropharynx and larynx was done. Epiglottis was easily identified. There was some secretions retained around the epiglottis and vallecula that was suctioned out. Arytenoids and the vocal cords were within normal limits. No lesions or nodules was identified. There was dynamic obstruction of the upper airway/pharyngeal laryngeal liang indicating a component of obstructive sleep apnea. A total of 2 mL of 1% lidocaine was applied to the vocal cords and following that the flexible bronchoscope was advanced into the upper trachea. Examination of the tracheal bronchial tree was done. There was milky yellowish respiratory secretions retained in the distal trachea and bilateral mainstem bronchi and some in the lower lobes bilaterally. The secretions were suctioned out after being irrigated with saline. Airway inspection was completed. There was a mild degree of malacia involving the trachea. Some degree of malacia also seen in the main bronchi and the lower lobe bronchi bilaterally. This was not severe and the patient had a patent airway with exhalation and cough. The visualized airways included main trachea, joselin, bilateral mainstem bronchi, right upper lobe bronchus, bronchus intermedius, right middle lobe bronchus, right lower lobe bronchus, left upper lobe bronchus, left lower lobe bronchus, along with its various segments and subsegments. All of these airways were patent and there was no evidence of any endobronchial tumors or lesions identified. At this point, the bronchoscope was wedged in the right middle lobe and the bronchioloalveolar lavage was done. A total of 100 disease of fluid was infused in the form of normal saline and 25 mL was aspirated. The aspirate was nonbloody. Therapeutic airway suctioning was done. Bronchoscope was removed. Patient was transferred recovery in stable condition. The bronchioloalveolar lavage will be sent for cell count and differential in addition to microbial cultures. No bedside complications.
[2018-09-18 08:20] VITALS: BP 121/76; PULSE 89; RESP 20
[2018-09-18 14:18] LABS: Color,BF Red
[2018-09-18 14:19] LABS: Appearance,BF Blood Tinged; Nucleated Cells, Body Fluid 260 /uL; RBC, Body Fluid 17000 /uL
[2018-09-18 14:30] LABS: Mononuclear WBC,Body Fluid 58 %; Polynuclear WBC,Body Fluid 42 %; Total Cells Counted,Body Fluid 100
== END 2018-09-18 08:35 | disposition home or self-care (01) ==
LOC: ORWHC2ENDO 05:55
PROVIDERS: ATTEND Internal Medicine Critical Care Medicine
DX: J45.50 Severe persistent asthma, uncomplicated (principal); J39.8 Other specified diseases of upper respiratory tract; G47.33 Obstructive sleep apnea (adult) (pediatric); E66.9 Obesity, unspecified; F31.9 Bipolar disorder, unspecified; F41.9 Anxiety disorder, unspecified; G25.0 Essential tremor; K52.832 Lymphocytic colitis; J44.9 Chronic obstructive pulmonary disease, unspecified; H26.9 Unspecified cataract; M50.90 Cervical disc disorder, unspecified, unspecified cervical region; K21.9 Gastro-esophageal reflux disease without esophagitis; Z68.33 Body mass index [BMI] 33.0-33.9, adult; Z99.89 Dependence on other enabling machines and devices; Z79.51 Long term (current) use of inhaled steroids; Z79.52 Long term (current) use of systemic steroids; Z79.899 Other long term (current) drug therapy; Z88.0 Allergy status to penicillin; Z87.891 Personal history of nicotine dependence; Z86.14 Personal history of Methicillin resistant Staphylococcus aureus infection; Z86.711 Personal history of pulmonary embolism; Z86.718 Personal history of other venous thrombosis and embolism
CPT/HCPCS: 94640; 87798 ×3; 87496; 87498; 87529; 89050; 87252; 87502; 87634; 87070; 87205; 87075; 87116; 87102; 87206; 31645; 31624; J2001 ×2; J2250; J1720; J2704

== ENCOUNTER 2018-12-25 11:59 | Inpatient (IN) | payer BC ==
[2018-12-25] MEDS ORDERED: ALBUTEROL NEBULIZED 2.5 MG/3 ML INHALATION STA (12:13)
[2018-12-25] MEDS ORDERED: methylPREDNISolone SOD SUCCI 125 MG/2 ML VIAL IV STA (12:13)
[2018-12-25] MEDS ORDERED: SODIUM CHLORIDE 0.9% 1,000 ML IV STA (12:13)
[2018-12-25] MEDS ORDERED: IPRATROPIUM 0.5 MG/2.5 ML NEBU INHALATION STA (12:13)
--- NOTE | 2018-12-25 12:30 | ED ---
SOB HPI - General Chief Complaint: Shortness of Breath Stated Complaint: MARIA DE JESUS Time Seen by Provider: 12/25/18 12:12 Source: patient, RN notes reviewed, old records reviewed Mode of arrival: ambulatory Limitations: no limitations - History of Present Illness Initial Comments: This is a 53-year-old male the ER for evaluation. Patient resents today for one month of shortness of breath occasional cough no chest pain. He does suffer from asthma and COPD. Patient has been on outpatient treatment with steroids and antibiotics states symptoms just have not improved at this point. No recent travel history no significant sick contacts no fever cough or congestion. MD Complaint: shortness of breath, cough -: month(s) Severity: moderate Severity scale (1-10): 4 Quality: other (Without chest pain) Consistency: intermittent Improves With: rest, bronchodilators Worsens With: exertion, movement Known History Of: COPD, asthma Context: recent URI Associated Symptoms: cough Treatments Prior to Arrival: none - Related Data Home Medications Medication Instructions Recorded Confirmed Montelukast [Singulair] 10 mg PO DAILY 11/28/14 12/25/18 Loratadine [Claritin] 10 mg PO DAILY 09/18/16 12/25/18 Sertraline [Zoloft] 100 mg PO HS 01/30/17 12/25/18 Topiramate [Topamax] 50 mg PO HS 01/30/17 12/25/18 Budesonide [Pulmicort] 1 mg INHALATION RT-BID 08/11/18 12/25/18 Diphenox-Atrop 2.5-0.025 mg 2 tab PO HS 08/11/18 12/25/18 [Lomotil] Gabapentin [Neurontin] 600 mg PO HS 08/11/18 12/25/18 Ipratropium-Albuterol Nebulize 3 ml INHALATION RT-TID PRN 08/11/18 12/25/18 [Duoneb 0.5 mg-3 mg/3 ml Soln] Tamsulosin HCl [Flomax] 0.8 mg PO HS 08/11/18 12/25/18 L.acidoph,Paracasei, B.lactis 2 cap PO DAILY 09/17/18 12/25/18 [Probiotic] Albuterol Inhaler [Ventolin Hfa 2 puff INHALATION RT-Q6H PRN 12/25/18 12/25/18 Inhaler] Ibuprofen [Motrin Ib] 1,000 mg PO BID PRN 12/25/18 12/25/18 predniSONE 20 mg PO DAILY 12/25/18 12/25/18 Allergies Allergy/AdvReac Type Severity Reaction Status Date / Time Penicillins Allergy Swelling Verified 12/25/18 13:50 Review of Systems ROS Statement: Those systems with pertinent positive or pertinent negative responses have been documented in the HPI. ROS Other: All systems not noted in ROS Statement are negative. 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 Past Anesthesia/Blood Transfusion Reactions: No Reported Reaction, Family History of Problems w/ Anesthesia Additional Past Anesthesia/Blood Transfusion Reaction / Comment(s): mother, brother-ponv Past Psychological History: Anxiety, Depression Smoking Status: Former smoker - Past Family History Son(s) Additional Family Medical History / Comment(s): suicide- depression. Daughter(s) Additional Family Medical History / Comment(s): "two holes in heart" Father Family Medical History: Pneumonia, Respiratory Disorder Mother Family Medical History: Eye Disorder, Hypertension Additional Family Medical History / Comment(s): GLAUCOMA General Exam Limitations: no limitations General appearance: alert, in no apparent distress Head exam: Present: atraumatic, normocephalic, normal inspection Eye exam: Present: normal appearance, PERRL, EOMI. Absent: scleral icterus, conjunctival injection, periorbital swelling ENT exam: Present: normal exam, mucous membranes moist Neck exam: Present: normal inspection. Absent: tenderness, meningismus, lymphadenopathy Respiratory exam: Present: wheezes. Absent: respiratory distress, rales, rhonchi, stridor Cardiovascular Exam: Present: normal rhythm, tachycardia, normal heart sounds. Absent: systolic murmur, diastolic murmur, rubs, gallop, clicks GI/Abdominal exam: Present: soft, normal bowel sounds. Absent: distended, tenderness, guarding, rebound, rigid Extremities exam: Present: normal inspection, full ROM, normal capillary refill. Absent: tenderness, pedal edema, joint swelling, calf tenderness Back exam: Present: normal inspection Neurological exam: Present: alert, oriented X3, CN II-XII intact Psychiatric exam: Present: normal affect, normal mood Skin exam: Present: warm, dry, intact, normal color. Absent: rash Course Vital Signs 12/25/18 12/25/18 12/25/18 12:03 13:27 13:41 Temperature 97.8 F Pulse Rate 100 94 90 Respiratory 24 22 Rate Blood Pressure 120/78 122/80 O2 Sat by Pulse 96 98 Oximetry 12/25/18 12/25/18 13:45 14:02 Temperature Pulse Rate 98 101 H Respiratory Rate Blood Pressure O2 Sat by Pulse Oximetry Medical Decision Making - Medical Decision Making 53 male the ER for evaluation presents today for evaluation regards to shortness of breath. Patient acting been on outpatient treatment feeling outpatient treatment steroids 2 and antibiotics. Patient will admit for further chanel luation management - Lab Data Result diagrams: 12/25/18 13:00 12/25/18 13:00 Lab Results 12/25/18 12/25/18 12/25/18 Range/Units 13:00 13:00 13:00 WBC 13.3 H (3.8-10.6) k/uL RBC 4.89 (4.30-5.90) m/uL Hgb 14.1 (13.0-17.5) gm/dL Hct 43.4 (39.0-53.0) % MCV 88.6 (80.0-100.0) fL MCH 28.7 (25.0-35.0) pg MCHC 32.4 (31.0-37.0) g/dL RDW 13.7 (11.5-15.5) % Plt Count 342 (150-450) k/uL Neutrophils % 79 % Lymphocytes % 11 % Monocytes % 4 % Eosinophils % 4 % Basophils % 1 % Neutrophils # 10.5 H (1.3-7.7) k/uL Lymphocytes # 1.5 (1.0-4.8) k/uL Monocytes # 0.6 (0-1.0) k/uL Eosinophils # 0.5 (0-0.7) k/uL Basophils # 0.1 (0-0.2) k/uL PT (9.0-12.0) sec INR (<1.2) APTT (22.0-30.0) sec Sodium 135 L (137-145) mmol/L Potassium 4.1 (3.5-5.1) mmol/L Chloride 104 (98-107) mmol/L Carbon Dioxide 21 L (22-30) mmol/L Anion Gap 10 mmol/L BUN 9 (9-20) mg/dL Creatinine 0.85 (0.66-1.25) mg/dL Est GFR (CKD-EPI)AfAm >90 (>60 ml/min/1.73 sqM) Est GFR (CKD-EPI)NonAf >90 (>60 ml/min/1.73 sqM) Glucose 100 H (74-99) mg/dL Calcium 9.0 (8.4-10.2) mg/dL Magnesium 1.8 (1.6-2.3) mg/dL Total Bilirubin 0.4 (0.2-1.3) mg/dL AST 20 (17-59) U/L ALT 22 (21-72) U/L Alkaline Phosphatase 59 (38-126) U/L Troponin I (0.000-0.034) ng/mL NT-Pro-B Natriuret Pep 37 pg/mL Total Protein 6.1 L (6.3-8.2) g/dL Albumin 3.7 (3.5-5.0) g/dL 12/25/18 12/25/18 Range/Units 13:00 13:00 WBC (3.8-10.6) k/uL RBC (4.30-5.90) m/uL Hgb (13.0-17.5) gm/dL Hct (39.0-53.0) % MCV (80.0-100.0) fL MCH (25.0-35.0) pg MCHC (31.0-37.0) g/dL RDW (11.5-15.5) % Plt Count (150-450) k/uL Neutrophils % % Lymphocytes % % Monocytes % % Eosinophils % % Basophils % % Neutrophils # (1.3-7.7) k/uL Lymphocytes # (1.0-4.8) k/uL Monocytes # (0-1.0) k/uL Eosinophils # (0-0.7) k/uL Basophils # (0-0.2) k/uL PT 9.6 (9.0-12.0) sec INR 0.9 (<1.2) APTT 22.3 (22.0-30.0) sec Sodium (137-145) mmol/L Potassium (3.5-5.1) mmol/L Chloride (98-107) mmol/L Carbon Dioxide (22-30) mmol/L Anion Gap mmol/L BUN (9-20) mg/dL Creatinine (0.66-1.25) mg/dL Est GFR (CKD-EPI)AfAm (>60 ml/min/1.73 sqM) Est GFR (CKD-EPI)NonAf (>60 ml/min/1.73 sqM) Glucose (74-99) mg/dL Calcium (8.4-10.2) mg/dL Magnesium (1.6-2.3) mg/dL Total Bilirubin (0.2-1.3) mg/dL AST (17-59) U/L ALT (21-72) U/L Alkaline Phosphatase (38-126) U/L Troponin I <0.012 (0.000-0.034) ng/mL NT-Pro-B Natriuret Pep pg/mL Total Protein (6.3-8.2) g/dL Albumin (3.5-5.0) g/dL - EKG Data -: EKG Interpreted by Me (EKG shows sinus rhythm rate of 93, RI 144, QRS 86, QTc 410) - Radiology Data Radiology results: report reviewed (Chest x-rays negative for acute disease), image reviewed Disposition Clinical Impression: Acute exacerbation of chronic obstructive airways disease, Severe asthma with acute exacerbation Disposition: ADMITTED IP TO THIS [facility] Condition: Fair Is patient prescribed a controlled substance at d/c from ED?: No Referrals: Corona Sweet MD [Primary Care Provider] - 1-2 days
[2018-12-25 13:09] LABS: Basophils # (A) 0.1 k/uL (0-0.2); Basophils % (A) 1 %; Eosinophils # (A) 0.5 k/uL (0-0.7); Eosinophils % (A) 4 %; HCT 43.4 % (39.0-53.0); HGB 14.1 gm/dL (13.0-17.5); Lymphocytes # (A) 1.5 k/uL (1.0-4.8); Lymphocytes % (A) 11 %; MCH 28.7 pg (25.0-35.0); MCHC 32.4 g/dL (31.0-37.0); MCV 88.6 fL (80.0-100.0); Mean Platelet Volume 6.6; Monocytes # (A) 0.6 k/uL (0-1.0); Monocytes % (A) 4 %; Neutrophils # (A) 10.5 k/uL (1.3-7.7); Neutrophils % (A) 79 %; Platelet Count 342 k/uL (150-450); RBC 4.89 m/uL (4.30-5.90); RDW 13.7 % (11.5-15.5); WBC 13.3 k/uL (3.8-10.6)
[2018-12-25 13:19] LABS: ALT 22 U/L (21-72); AST 20 U/L (17-59); African American GFR (CKD) >90 (>60 ml/min/1.73 sqM); Albumin 3.7 g/dL (3.5-5.0); Alkaline Phosphatase 59 U/L (38-126); Anion Gap 10 mmol/L; Blood Urea Nitrogen 9 mg/dL (9-20); Carbon Dioxide 21 mmol/L (22-30); Chloride 104 mmol/L (98-107); Glucose 100 mg/dL (74-99); Magnesium 1.8 mg/dL (1.6-2.3); Non-African American GFR(CKD) >90 (>60 ml/min/1.73 sqM); Potassium 4.1 mmol/L (3.5-5.1); Sodium 135 mmol/L (137-145); Total Bilirubin 0.4 mg/dL (0.2-1.3); Total Protein 6.1 g/dL (6.3-8.2)
[2018-12-25 13:27] LABS: INR 0.9 (<1.2); Partial Thromboplastin Time 22.3 sec (22.0-30.0); Prothrombin Time 9.6 sec (9.0-12.0)
--- NOTE | 2018-12-25 14:39 | XR ---
EXAMINATION TYPE: XR chest 2V DATE OF EXAM: 12/25/2018 COMPARISON: NONE HISTORY: Increasing shortness of breath for one month TECHNIQUE: Frontal and lateral views of the chest are obtained. FINDINGS: There is no focal air space opacity, pleural effusion, or pneumothorax seen. Curvilinear density overlying the right cardiophrenic angle appears to the prior 05/17/2017 and could represent rig ht middle lobe atelectasis on the lateral view or prominent epicardial fat pad. Skinfold is seen over the left cardiac border. Pulmonary hyperinflation and flattening the diaphragms relates underlying C OPD. Prominent perihilar markings are present on the lateral view. Minimal degenerative changes of th e spine. The cardiac silhouette size is within normal limits. The osseous structures are intact. IMPRESSION: 1. Right middle lobe atelectasis versus prominent epicardial fat pad is chronic and seen in 2018. 2. COPD with peribronchial cuffing on the lateral view that may be reactive or infectious.
[2018-12-25] MEDS: SODIUM CHLORIDE 0.9% 1,000 ML IV SCH (15:07)
[2018-12-25] MEDS: IPRATROPIUM-ALBUTEROL 3 ML NEB INHALATION SCH ×2 (15:42→19:49)
[2018-12-25] MEDS ORDERED: IPRATROPIUM-ALBUTEROL 3 ML NEB INHALATION PRN (16:56)
--- NOTE | 2018-12-25 17:35 | CT ---
EXAMINATION TYPE: CT angio chest DATE OF EXAM: 12/25/2018 5:00 PM COMPARISON: None HISTORY: Increasing SOB CT DLP: 537.1 mGycm Automated exposure control for dose reduction was used. CONTRAST: CTA scan of the thorax is performed with IV Contrast, patient injected with 100 mL of Isovue 370, pul monary embolism protocol. There are 3-D post processed images.. FINDINGS: There is subsegmental atelectasis at the posterior left lung base. Lungs are clear of consolidation. There is no pleural effusion. Heart size is normal. There is no pericardial effusion. There is no mediastinal adenopathy. There are no hilar masses. Thoracic aorta is intact without evide nce of aneurysm or dissection. There are small filling defects in the branches of the left lower lobe pulmonary artery. There is also filling defect in small branches of the right lower lobe pulmonary a rtery. Bony thorax is intact. There is old mild compression fractures of T12 and L1. IMPRESSION: THERE ARE MULTIPLE SMALL EMBOLI IN LOWER LOBE PULMONARY ARTERIES BILATERALLY. This exam was discussed with ER physician at 5:45 PM.
[2018-12-25] MEDS ORDERED: HEPARIN SODIUM,PORCINE 10,000 UNIT/ML 1 ML VIAL IV ONE (17:41)
[2018-12-25] MEDS ORDERED: HEPARIN SODIUM,PORCINE 5,000 UNIT/ML 1 ML VIAL IV PRN (17:41)
[2018-12-25] MEDS: HEPARIN SOD,PORK IN 0.45% NACL 25,000 UNIT in 0.45% NACL 1 250ML.BAG IV SCH (18:38)
[2018-12-25] MEDS: methylPREDNISolone SOD SUCCI 125 MG/2 ML VIAL IV SCH ×2 (18:38→23:44)
--- NOTE | 2018-12-25 18:43 | P.CNPUL ---
History of Present Illness Consult date: 12/25/18 Reason for consult: dyspnea, asthma History of present illness: 53-year-old male patient with known history of severe persistent bronchial asthma, steroid dependent who is coming into the emergency department complaining of few weeks worth of increased shortness of breath with occasional cough and congestion. He has been bronchospastic and wheezy. The patient is very well-known to me. He has history of severe chronic bronchial asthma, deep venous thrombosis, bipolar disorder, chronic steroid therapy, chronic anxiety, cataracts, a previous history of methicillin-resistant staph aureus infection, cervical disc disease, pulmonary embolism, and sleep apnea syndrome. The patient used to be on Xolair but it did not seem to help. In addition, the patient is status post bronchial thermoplasty. He was seen in April of last year and then more recently seen by our nurse practitioner and June and me in July. The patient takes prednisone chronically at 20 mg a day. His last bronchoscopy was done 2016 and back then there was a bilateral growth with a rhinovirus Yeasts including penicillium and Cladosporium. The bacterial cultures were all negative. His total eosinophil level is low at 55. As such we sill try to see if his insurance covers any interleukin-5 or 4, 13 treatments. He is currently on Pulmicort Respules and albuterol nebulized treatments [id number]. He is also on Singulair. During his last office visit, I was able to move this patient for Fesenra as I thought that the patient is a steroid-dependent bronchi al asthma and the patient's eosinophil count has been high in the past however, based on the fact that he has been on steroids, his most recent count is 55 A repeat bronchospastic evaluation was done today and he was up to 70%. No fever. No chills. No pleurisy. No hemoptysis. He is walking and has lost around 12 pounds since his last evaluation. Based on all this encouraging results I asked the patient to gradually cut down his prednisone hoping that with initiation of Fesenra should be under better control. I asked him to cut down his prednisone 1 mg every week. Note that the patient is also active sleep apnea. He has been maintained on CPAP pressure of 12 cm of water. Review of Systems Constitutional Constitutional: no fever, no night sweats, no significant weight gain, no significant weight loss, there is chronic worsening of his overall exercise tolerance Eyes Eyes: no dry eyes, no vision change, no irritation ENMT Ears: no difficulty hearing, no ear pain Nose: no frequent nosebleeds, no nose problems, no sinus problems Mouth/Throat: no sore throat, no bleeding gums, no snoring, no mouth ulcers, no teeth problems, dry mouth Cardiovascular Cardiovascular: no chest pain, no arm pain on exertion, no shortness of breath when lying down, no palpitations, no known heart murmur, shortness of breath when walking Respiratory Respiratory: wheezing, no coughing up blood, no sleep apnea, cough, he has chronic shortness of breath Gastrointestinal Gastrointestinal: no abdominal pain, no nausea, no vomiting, no constipation, normal appetite, no diarrhea, not vomiting blood, no dyspepsia, no GERD Genitourinary Genitourinary: no incontinence, no difficulty urinating, no hematuria, no increased frequency Musculoskeletal Musculoskeletal: no muscle aches, no muscle weakness, no arthralgias/joint pain, no back pain, no swelling in the extremities Integumentary Skin: no abnormal mole, no jaundice, no rashes, no laceration Neurologic Neurologic: no loss of consciousness, no weakness, no numbness, no seizures, no dizziness, no migraines, no headaches, tremor Psychiatric Psych: no depression, no sleep disturbances, feeling safe in a relationship, no alcohol abuse, no anxiety, no hallucinations, no suicidal thoughts Endocrine Endocrine: no fatigue Hematologic/Lymphatic Hematologic/Lymphatic no swollen glands, no bruising, no excessive bleeding Allergic/Immunologic Allergy/Immunologic: no runny nose, no sinus pressure, no itching, no hives, no frequent sneezing Past Medical History Past Medical History: Asthma, COPD, Deep Vein Thrombosis (DVT), GERD/Reflux, Pneumonia, Pulmonary Embolus (PE), Sleep Apnea/CPAP/BIPAP Additional Past Medical History / Comment(s): Severe persistent bronchial asthma, remote history of pulmonary embolism, 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 History of Any Multi-Drug Resistant Organisms: MRSA Date of last positivie culture/infection: "few years ago" MDRO Source:: lungs Past Surgical History: Cholecystectomy, Heart Catheterization Additional Past Surgical History / Comment(s): EGD, colonoscopies, esophageal motility test, kaylee fundlaplication, bronchoscopies, bronchial thermoplasty, cervical disc surgery, vasectomy, sinus surgery x 3. Past Anesthesia/Blood Transfusion Reactions: No Reported Reaction, Family History of Problems w/ Anesthesia Additional Past Anesthesia/Blood Transfusion Reaction / Comment(s): Mother, brother-ponv. Pt received blood in past without reaction. Smoking Status: Former smoker - Past Family History Son(s) Additional Family Medical History / Comment(s): suicide- depression. Daughter(s) Additional Family Medical History / Comment(s): "two holes in heart" Brother(s) Family Medical History: Myocardial Infarction (HI) Additional Family Medical History / Comment(s): Brother of a HI at the age of 56yrs. Father Family Medical History: Pneumonia, Respiratory Disorder Mother Family Medical History: Eye Disorder, Hypertension, Myocardial Infarction (HI) Additional Family Medical History / Comment(s): GLAUCOMA. Mother had a HI at the age of 87yrs. Medications and Allergies Home Medications Medication Instructions Recorded Confirmed Type Montelukast [Singulair] 10 mg PO DAILY 11/28/14 12/25/18 History Loratadine [Claritin] 10 mg PO DAILY 09/18/16 12/25/18 History Sertraline [Zoloft] 100 mg PO HS 01/30/17 12/25/18 History Topiramate [Topamax] 50 mg PO HS 01/30/17 12/25/18 History Budesonide [Pulmicort] 1 mg INHALATION RT-BID 08/11/18 12/25/18 History Diphenox-Atrop 2.5-0.025 mg 2 tab PO HS 08/11/18 12/25/18 History [Lomotil] Gabapentin [Neurontin] 600 mg PO HS 08/11/18 12/25/18 History Ipratropium-Albuterol Nebulize 3 ml INHALATION RT-TID PRN 08/11/18 12/25/18 History [Duoneb 0.5 mg-3 mg/3 ml Soln] Tamsulosin HCl [Flomax] 0.8 mg PO HS 08/11/18 12/25/18 History L.acidoph,Paracasei, B.lactis 2 cap PO DAILY 09/17/18 12/25/18 History [Probiotic] Albuterol Inhaler [Ventolin Hfa 2 puff INHALATION RT-Q6H PRN 12/25/18 12/25/18 History Inhaler] Ibuprofen [Motrin Ib] 1,000 mg PO BID PRN 12/25/18 12/25/18 History predniSONE 20 mg PO DAILY 12/25/18 12/25/18 History Allergies Allergy/AdvReac Type Severity Reaction Status Date / Time Penicillins Allergy Swelling Verified 12/25/18 13:50 Physical Exam Vitals: Vital Signs Temp Pulse Pulse Resp BP BP Pulse Ox 12/25/18 16:00 98 18 12/25/18 15:53 98 12/25/18 15:42 100 96 12/25/18 15:29 98.6 F 98 18 115/69 96 12/25/18 15:14 107 H 16 121/74 98 12/25/18 15:00 98.9 F 99 22 104/65 91 L 12/25/18 14:02 101 H 12/25/18 13:45 98 12/25/18 13:41 90 22 122/80 98 12/25/18 13:27 94 12/25/18 12:03 97.8 F 100 24 120/78 96 Intake and Output 12/25/18 12/25/18 12/25/18 06:59 14:59 22:59 Other: Voiding Method Toilet Weight 104.326 kg General Appearance no diaphoresis, no respiratory distress, speech not interrupted by breaths, no dyspnea, no pallor, not cachectic, well nourished, appears well, obesity (Cushingoid features) HEENT no pursed lip breathing, no jugular venous distention, no mucous membrane cyanosis, no perioral cyanosis, mallampati classification: class 3 Chest no barrel chest, no retractions, no sternocleidomastoid muscle contractions, no supraclavicular retractions, no intercostal retractions, no decreased air movement, no rhonchi, no hyperinflation, prolonged expiratory wheezing, decreased air movement Heart no right ventricular heave, no distant heart sounds, no s3 gallop, (normal) jugular vein: jugular venous distention: by 0cm GI bowel sounds: hyperactive (borborygmi), bowel sounds: diminished or absent Extremities no cyanosis, no clubbing, no edema Neurologic no decreased mental status, no somnolence, no confusion, and there are tremors Examination of the skin revealed no evidence of significant rashes, suspicious appearing nevi or other concerning lesions. Results - Laboratory Findings CBC and BMP: 12/25/18 13:00 12/25/18 13:00 PT/INR, D-dimer PT 9.6 sec (9.0-12.0) 12/25/18 13:00 INR 0.9 (<1.2) 12/25/18 13:00 Abnormal lab findings: Abnormal Labs 12/25/18 12/25/18 13:00 13:00 WBC 13.3 H Neutrophils # 10.5 H Sodium 135 L Carbon Dioxide 21 L Glucose 100 H Total Protein 6.1 L - Diagnostic Findings Chest x-ray: image reviewed Assessment and Plan Plan: 1 Worsening of chronic dyspnea without clear signs of exacerbation of severe persistent bronchial asthma. The patient is coming in for worsening shortness of breath. During his last evaluation my office back in October 2018 the patient was doing much better. He was on a combination of Pulmicort Respules, DuoNeb nebulized treatments around the clock, Singulair and 20 mg of prednisone. He was approved for Fesenra and he was asked to gradually wean down the prednisone dose till he gets admitted for dyspnea. 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 Restart Pulmicort Respules. Hold oral prednisone for now. Obtain CTA of the chest to rule out PE. Chest x-ray shows no evidence of any acute pulmonary infiltrates. Resume his outpatient medications. We'll continue to follow
[2018-12-25] MEDS: BUDESONIDE 1 MG/2 ML NEBU INHALATION SCH (19:48)
[2018-12-25] MEDS: IBUPROFEN 800 MG TAB PO PRN (21:57)
[2018-12-25] MEDS: SERTRALINE 100 MG TAB PO SCH (21:58)
[2018-12-25] MEDS: GABAPENTIN 300 MG CAP PO SCH (21:58)
[2018-12-25] MEDS: DIPHENOX-ATROP 2.5-0.025 MG 1 EACH TAB PO SCH (21:58)
[2018-12-25] MEDS: TOPIRAMATE 25 MG TAB PO SCH (21:58)
[2018-12-25] MEDS: TAMSULOSIN 0.4 MG CAP.ER.24H PO SCH (21:58)
[2018-12-26] MEDS ORDERED: clonazePAM 0.5 MG TAB PO STA (00:57)
[2018-12-26] MEDS: methylPREDNISolone SOD SUCCI 125 MG/2 ML VIAL IV SCH ×2 (05:22→11:34)
[2018-12-26] MEDS: HEPARIN SOD,PORK IN 0.45% NACL 25,000 UNIT in 0.45% NACL 1 250ML.BAG IV SCH ×2 (05:23→21:55)
[2018-12-26] MEDS: SODIUM CHLORIDE 0.9% 1,000 ML IV SCH ×3 (05:23→21:15)
[2018-12-26 05:59] LABS: Basophils % (A) 0 %; Eosinophils % (A) 0 %; HGB 14.3 gm/dL (13.0-17.5); Lymphocytes # (A) 1.1 k/uL (1.0-4.8); Lymphocytes % (A) 8 %; MCH 29.1 pg (25.0-35.0); MCHC 32.6 g/dL (31.0-37.0); MCV 89.4 fL (80.0-100.0); Mean Platelet Volume 6.6; Monocytes # (A) 0.4 k/uL (0-1.0); Monocytes % (A) 3 %; Neutrophils # (A) 12.3 k/uL (1.3-7.7); Neutrophils % (A) 89 %; Platelet Count 369 k/uL (150-450); RBC 4.92 m/uL (4.30-5.90); RDW 13.8 % (11.5-15.5); WBC 13.8 k/uL (3.8-10.6)
[2018-12-26 06:06] LABS: INR 0.9 (<1.2); Partial Thromboplastin Time 63.8 sec (22.0-30.0)
[2018-12-26] MEDS: LACTOBACILLUS ACIDOPH & BULGAR 1 EACH PACKET PO SCH (08:13)
[2018-12-26] MEDS: MONTELUKAST 10 MG TAB PO SCH (08:14)
[2018-12-26] MEDS: IBUPROFEN 800 MG TAB PO PRN ×2 (08:14→16:25)
[2018-12-26] MEDS: LORATADINE 10 MG TAB PO SCH (08:14)
[2018-12-26] MEDS: BUDESONIDE 1 MG/2 ML NEBU INHALATION SCH ×2 (09:34→20:04)
[2018-12-26] MEDS: IPRATROPIUM-ALBUTEROL 3 ML NEB INHALATION SCH ×4 (09:34→20:04)
--- NOTE | 2018-12-26 09:54 | US ---
EXAMINATION TYPE: US venous doppler duplex LE DATE OF EXAM: 12/25/2018 9:48 PM COMPARISON: US CLINICAL HISTORY: r/o dvt. Small Pulmonary emboli; prior right leg DVT and PE 10 years ago SIDE PERFORMED: Bilateral TECHNIQUE: The lower extremity deep venous system is examined utilizing real time linear array sonog matty with graded compression, doppler sonography and color-flow sonography. VESSELS IMAGED: Common Femoral Vein Deep Femoral Vein Greater Saphenous Vein * Femoral Vein Popliteal Vein Small Saphenous Vein * Proximal Calf Veins (* superficial vessels) Right Leg: Negative for DVT Left Leg: Negative for DVT IMPRESSION: No evidence for DVT at this time.
--- NOTE | 2018-12-26 12:38 | P.HPIM ---
History of Present Illness H&P Date: 12/26/18 Chief Complaint: Shortness of breath Mr. 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 Patient states that he has been having difficulty in breathing going on for the past 3-4 weeks. He has occasional cough and mild congestion. In an outpatient setting patient has been taking breathing treatments and steroids but his difficulty in breathing doesn't seem to improve, so he came into the emergency department. Patient takes 20 mg of prednisone every day for the past 19 years and he has cushingoid features. Patient denies having any lower extremity swelling or hemoptysis. He has history of obstructive sleep apnea and is on CPAP of 12. Patient denies having any chest pain. Denies having any fevers chills or pleuritic type of chest pain. In the emergency the patient had chest x-ray showing right middle lobe atelectasis and chronic COPD changes, so admitted for COPD exacerbation. He has been evaluated by Dr. Palacios and his field recruiter yesterday who ordered a CT of the chest to rule out PE. The CTA chest was showing bilateral multiple small emboli in the pulmonary arteries. So the patient has been started on IV heparin last night. Patient denies having any fevers chills or rigors. No bowel pain, nausea vomiting or diarrhea. No lower extremity swelling. No headaches or neck stiffness or blurring of vision. No weakness of his extremities. No dysuria or hematuria. No other active complaints. Patient states that his shortness of breath is still present. Review of Systems REVIEW OF SYSTEMS: PSYCH: Generalized anxiety disorder NEURO:No c/o weakness of the extremties, No facial droop, No speech abnormalitie s. VASCULAR: Peripheral nervous system within the normal limits no edema HEMATOLOGIC: No history of easy bleeding and bruising . No recent infections . RESPIRATORY: As per HPI IMMUNE: No infections INTEGUMENT: no rashes OPHTHALMOLOGIC: No blurry vision and no eye discharge : No dysuria or hematuria CARDIAC: No chest pain , shortness of breath , paroxysmal nocturnal dyspnea MUSCULOSKELETAL : No Aches or pains in the joints or muscles. GI: No abdominal pain, Nausea or vomiting. No constipation or diarrhea. 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 History of Any Multi-Drug Resistant Organisms: MRSA Date of last positivie culture/infection: "few years ago" MDRO Source:: lungs Past Surgical History: Cholecystectomy, Heart Catheterization Additional Past Surgical History / Comment(s): EGD, colonoscopies, esophageal motility test, kaylee fundlaplication, bronchoscopies, bronchial thermoplasty, cervical disc surgery, vasectomy, sinus surgery x 3. Past Anesthesia/Blood Transfusion Reactions: No Reported Reaction, Family History of Problems w/ Anesthesia Additional Past Anesthesia/Blood Transfusion Reaction / Comment(s): Mother, brother-ponv. Pt received blood in past without reaction. Smoking Status: Former smoker - Past Family History Son(s) Additional Family Medical History / Comment(s): suicide- depression. Daughter(s) Additional Family Medical History / Comment(s): "two holes in heart" Brother(s) Family Medical History: Myocardial Infarction (CO) Additional Family Medical History / Comment(s): Brother of a CO at the age of 56yrs. Father Family Medical History: Pneumonia, Respiratory Disorder Mother Family Medical History: Eye Disorder, Hypertension, Myocardial Infarction (CO) Additional Family Medical History / Comment(s): GLAUCOMA. Mother had a CO at the age of 87yrs. Medications and Allergies Home Medications Medication Instructions Recorded Confirmed Type Montelukast [Singulair] 10 mg PO DAILY 11/28/14 12/25/18 History Loratadine [Claritin] 10 mg PO DAILY 09/18/16 12/25/18 History Sertraline [Zoloft] 100 mg PO HS 01/30/17 12/25/18 History Topiramate [Topamax] 50 mg PO HS 01/30/17 12/25/18 History Budesonide [Pulmicort] 1 mg INHALATION RT-BID 08/11/18 12/25/18 History Diphenox-Atrop 2.5-0.025 mg 2 tab PO HS 08/11/18 12/25/18 History [Lomotil] Gabapentin [Neurontin] 600 mg PO HS 08/11/18 12/25/18 History Ipratropium-Albuterol Nebulize 3 ml INHALATION RT-TID PRN 08/11/18 12/25/18 History [Duoneb 0.5 mg-3 mg/3 ml Soln] Tamsulosin HCl [Flomax] 0.8 mg PO HS 08/11/18 12/25/18 History L.acidoph,Paracasei, B.lactis 2 cap PO DAILY 09/17/18 12/25/18 History [Probiotic] Albuterol Inhaler [Ventolin Hfa 2 puff INHALATION RT-Q6H PRN 12/25/18 12/25/18 History Inhaler] Ibuprofen [Motrin Ib] 1,000 mg PO BID PRN 12/25/18 12/25/18 History predniSONE 20 mg PO DAILY 12/25/18 12/25/18 History Allergies Allergy/AdvReac Type Severity Reaction Status Date / Time Penicillins Allergy Swelling Verified 12/25/18 13:50 Physical Exam Vitals: Vital Signs Temp Pulse Pulse Resp BP BP Pulse Ox 12/26/18 09:50 96 12/26/18 09:35 96 95 12/26/18 08:10 16 12/26/18 06:47 98.4 F 86 16 123/70 93 L 12/26/18 01:32 97.7 F 87 18 109/63 94 L 12/25/18 21:55 98.6 F 99 18 119/68 95 12/25/18 20:03 92 12/25/18 19:50 92 12/25/18 19:01 98.4 F 67 15 107/67 98 12/25/18 16:00 98 18 12/25/18 15:53 98 12/25/18 15:42 100 96 12/25/18 15:29 98.6 F 98 18 115/69 96 12/25/18 15:14 107 H 16 121/74 98 12/25/18 15:00 98.9 F 99 22 104/65 91 L 12/25/18 14:02 101 H 12/25/18 13:45 98 12/25/18 13:41 90 22 122/80 98 12/25/18 13:27 94 Intake and Output 12/25/18 12/26/18 12/26/18 22:59 06:59 14:59 Intake Total 80 176.992 180 Output Total 900 Balance 80 176.992 -720 Intake: Intake, IV Titration 80 176.992 Amount Heparin Sod,Pork in 0.45% 176.992 NaCl 25,000 unit In 0.45 % NaCl 1 250ml.bag @ 18 UNITS/KG/HR 18.779 mls/hr IV .[id number] MARYJANE Rx#: [id number] Sodium Chloride 0.9% 1, 80 000 ml @ 100 mls/hr IV . Q10H MARYJANE Rx#:[id number] Oral 180 Output: Urine 900 Other: Voiding Method Toilet Toilet # Voids 1 1 Weight 106.8 kg GEN. APPEARANCE: alert, in no apparent distress HEENT: Cushingoid features with hudson shaped face NECK EXAM: Short. RESPIRATORY EXAM: Decreased breath sounds bilaterally. No wheeze or crackles. CARDIOVASCULAR EXAM: S1 and S2 heard. GI/ABDOMINAL EXAM: soft, normal bowel sounds. Absent: distended, tenderness, guarding, rebound, rigid EXTREMITIES EXAM: No pedal edema. NEUROLOGICAL EXAM: alert, oriented X3, no focal neurological deficits PSYCHIATRIC EXAM: normal affect, normal mood SKIN EXAM: warm, dry, intact, normal color. Absent: rash Results CBC & Chem 7: 12/26/18 05:46 12/25/18 13:00 Labs: Abnormal Lab Results - Last 24 Hours (Table) 12/25/18 12/25/18 12/26/18 Range/Units 13:00 13:00 00:24 WBC 13.3 H (3.8-10.6) k/uL Neutrophils # 10.5 H (1.3-7.7) k/uL APTT 118.4 H* (22.0-30.0) sec Sodium 135 L (137-145) mmol/L Carbon Dioxide 21 L (22-30) mmol/L Glucose 100 H (74-99) mg/dL Total Protein 6.1 L (6.3-8.2) g/dL 12/26/18 12/26/18 Range/Units 05:46 05:46 WBC 13.8 H (3.8-10.6) k/uL Neutrophils # 12.3 H (1.3-7.7) k/uL APTT 63.8 H (22.0-30.0) sec Sodium (137-145) mmol/L Carbon Dioxide (22-30) mmol/L Glucose (74-99) mg/dL Total Protein (6.3-8.2) g/dL Thrombosis Risk Factor Assmnt - Choose All That Apply Any of the Below Risk Factors Present?: Yes Each Factor Represents 1 point: Abnormal pulmonary function (COPD), Age 41-60 years, Obesity (BMI >25), Serious lung disease incl. 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 He is to be continued on IV steroids and breathing treatments for COPD exacerbation. Continue with the rest of his home medication regimen. Further recommendations to follow depending on the progress of the patient. The treatment plan was dis cussed in detail with the patient at bedside today.
--- NOTE | 2018-12-26 13:00 | P.PN ---
Subjective Progress Note Date: 12/26/18 53-year-old male patient with known history of severe persistent bronchial asthma, steroid dependent who is coming into the emergency department complaining of few weeks worth of increased shortness of breath with occasional cough and congestion. He has been bronchospastic and wheezy. The patient is ve ry well-known to me. He has history of severe chronic bronchial asthma, deep venous thrombosis, bipolar disorder, chronic steroid therapy, chronic anxiety, cataracts, a previous history of methicillin-resistant staph aureus infection, cervical disc disease, pulmonary embolism, and sleep apnea syndrome. The patient used to be on Xolair but it did not seem to help. In addition, the patient is status post bronchial thermoplasty. He was seen in April of last year and then more recently seen by our nurse practitioner and June and me in July. The patient takes prednisone chronically at 20 mg a day. His last bronchoscopy was done 2016 and back then there was a bilateral growth with a rhinovirus Yeasts including penicillium and Cladosporium. The bacterial cultures were all negative. His total eosinophil level is low at 55. As such we sill try to see if his insurance covers any interleukin-5 or 4, 13 treatments. He is currently on Pulmicort Respules and albuterol nebulized treatments [id number]. He is also on Singulair. During his last office visit, I was able to move this zehra ent for Fesenra as I thought that the patient is a steroid-dependent bronchial asthma and the patient's eosinophil count has been high in the past however, based on the fact that he has been on steroids, his most recent count is 55 A repeat bronchospastic evaluation was done today and he was up to 70%. No fever. No chills. No pleurisy. No hemoptysis. He is walking and has lost around 12 pounds since his last evaluation. Based on all this encouraging results I asked the patient to gradually cut down his prednisone hoping that with initiation of Fesenra should be under better control. I asked him to cut down his prednisone 1 mg every week. Note that the patient is also active sleep apnea. He has been maintained on CPAP pressure of 12 cm of water. On today's evaluation of 12/26/2018, the patient is resting comfortably in bed. Diagnosis of a breath and pulmonary embolism. Currently on IV heparin. PTT is therapeutic. The Doppler of the lower extremity was negative for DVT. The pat ient is having an echocardiogram. The plan is to subject this patient to oral anticoagulation with the next 24 hours. He is hemodynamically stable. The steroids will be tapered. Objective - Vital Signs Vital signs: Vital Signs Temp 98.4 F 12/26/18 06:47 Pulse 96 12/26/18 09:50 Resp 16 12/26/18 08:10 BP 123/70 12/26/18 06:47 Pulse Ox 95 12/26/18 09:35 Intake & Output 12/25/18 12/26/18 12/26/18 18:59 06:59 18:59 Intake Total 256.992 180 Output Total 900 Balance 256.992 -720 Weight 104.326 kg 106.8 kg Intake: Intake, IV Titration 256.992 Amount Heparin Sod,Pork in 0.45% 176.992 NaCl 25,000 unit In 0.45 % NaCl 1 250ml.bag @ 18 UNITS/KG/HR 18.779 mls/hr IV .[id number] [facility] Rx#: [id number] Sodium Chloride 0.9% 1, 80 000 ml @ 100 mls/hr IV . Q10H [facility] Rx#:[id number] Oral 180 Output: Urine 900 Other: Voiding Method Toilet Toilet Toilet # Voids 1 - Exam General Appearance no diaphoresis, no respiratory distress, speech not interrup guero by breaths, no dyspnea, no pallor, not cachectic, well nourished, appears well, obesity (Cushingoid features) HEENT no pursed lip breathing, no jugular venous distention, no mucous membrane cyanosis, no perioral cyanosis, mallampati classification: class 3 Chest no barrel chest, no retractions, no sternocleidomastoid muscle contractions, no supraclavicular retractions, no intercostal retractions, no decreased air movement, no rhonchi, no hyperinflation, prolonged expiratory wheezing, decreased air movement Heart no right ventricular heave, no distant heart sounds, no s3 gallop, (normal) jugular vein: jugular venous distention: by 0cm GI bowel sounds: hyperactive (borborygmi), bowel sounds: diminished or absent Extremities no cyanosis, no clubbing, no edema Neurologic no decreased mental status, no somnolence, no confusion, and there are tremors Examination of the skin revealed no evidence of significant rashes, suspicious appearing nevi or other concerning lesions. - Labs CBC & Chem 7: 12/26/18 05:46 12/25/18 13:00 Labs: Abnormal Lab Results - Last 24 Hours (Table) 12/25/18 12/25/18 12/26/18 Range/Units 13:00 13:00 00:24 WBC 13.3 H (3.8-10.6) k/uL Neutrophils # 10.5 H (1.3-7.7) k/uL APTT 118.4 H* (22.0-30.0) sec Sodium 135 L (137-145) mmol/L Carbon Dioxide 21 L (22-30) mmol/L Glucose 100 H (74-99) mg/dL Total Protein 6.1 L (6.3-8.2) g/dL 12/26/18 12/26/18 Range/Units 05:46 05:46 WBC 13.8 H (3.8-10.6) k/uL Neutrophils # 12.3 H (1.3-7.7) k/uL APTT 63.8 H (22.0-30.0) sec Sodium (137-145) mmol/L Carbon Dioxide (22-30) mmol/L Glucose (74-99) mg/dL Total Protein (6.3-8.2) g/dL Assessment and Plan Plan: 1 Worsening of chronic dyspnea without clear signs of exacerbation of severe persistent bronchial asthma. The CT angiogram of the chest showed bilateral pulmonary embolism consistent with acute bilateral pulmonary embolism. Doppler of the lower extremity was negative. 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 Continue IV heparin and switched this patient to Eliquis as of tomorrow. Echocardiogram. We'll continue to follow.
[2018-12-26] MEDS: predniSONE 10 MG TAB PO SCH (13:53)
--- NOTE | 2018-12-26 14:44 | ECHOF ---
Referral Reason:sob MEASUREMENTS -------- HEIGHT: 182.9 cm WEIGHT: 106.6 kg BP: 109/63 IVSd: 1.2 cm (0.6 - 1.1) LVIDd: 3.4 cm (3.9 - 5.3) LVPWd: 1.2 cm (0.6 - 1.1) IVSs: 1.3 cm LVIDs: 1.8 cm LVPWs: 1.5 cm RVIDd: 3.3 cm (< 3.3) LAESV Index (A-L): 21.60 ml/m Ao Diam: 3.7 cm (2.0 - 3.7) LA Diam: 3.1 cm (2.7 - 3.8) AV Cusp: 2.3 cm (1.5 - 2.6) EPSS: 2.2 cm MV E Vicente: 0.86 m/s MV DecT: 138 ms MV A Vicente: 0.65 m/s MV E/A Ratio: 1.32 RAP: 5.00 mmHg RVSP: 16.42 mmHg MV EF SLOPE: 89.33 mm/s (70 - 150) MV EXCURSION: 15.25 mm (> 18.000) FINDINGS -------- Sinus rhythm. This was a technically adequate study. The left ventricular size is normal. There is mild concentric left ventricular hypertrophy. Overa ll left ventricular systolic function is normal with, an EF between 55 - 60 %. The right ventricle is mildly enlarged. The left atrial size is normal. Normal LA size by volume 22+/-6 ml/m2. The right atrial size is normal. Interatrial and interventricular septum intact. The aortic valve is trileaflet and appears structurally normal. The mitral valve is normal. There is trace mitral regurgitation. The tricuspid valve appears structurally normal. Trace tricuspid regurgitation present. There is no pulmonic regurgitation present. The aortic root size is normal. Normal inferior vena cava with normal inspiratory collapse consistent with estimated right atrial pre ssure of 5 mmHg. There is no pericardial effusion. CONCLUSIONS -------- 1. Sinus rhythm. 2. This was a technically adequate study. 3. The left ventricular size is normal. 4. There is mild concentric left ventricular hypertrophy. 5. Overall left ventricular systolic function is normal with, an EF between 55 - 60 %. 6. The right ventricle is mildly enlarged. 7. The left atrial size is normal. 8. Normal LA size by volume 22+/-6 ml/m2. 9. The right atrial size is normal. 10. Interatrial and interventricular septum intact. 11. The aortic valve is trileaflet and appears structurally normal. 12. The mitral valve is normal. 13. There is trace mitral regurgitation. 14. The tricuspid valve appears structurally normal. 15. Trace tricuspid regurgitation present. 16. There is no pulmonic regurgitation present. 17. The aortic root size is normal. 18. Normal inferior vena cava with normal inspiratory collapse consistent with estimated right atrial pressure of 5 mmHg. 19. There is no pericardial effusion. CORPORATE COUNSELOR: Karen Santamaria RDCS
[2018-12-26] MEDS: GABAPENTIN 300 MG CAP PO SCH (21:15)
[2018-12-26] MEDS: TAMSULOSIN 0.4 MG CAP.ER.24H PO SCH (21:15)
[2018-12-26] MEDS: DIPHENOX-ATROP 2.5-0.025 MG 1 EACH TAB PO SCH (21:15)
[2018-12-26] MEDS: SERTRALINE 100 MG TAB PO SCH (21:15)
[2018-12-26] MEDS: TOPIRAMATE 25 MG TAB PO SCH (21:54)
[2018-12-27] MEDS ORDERED: clonazePAM 1 MG TAB PO STA (00:31)
[2018-12-27 07:20] LABS: Basophils % (A) 0 %; Eosinophils % (A) 0 %; HCT 41.2 % (39.0-53.0); HGB 13.2 gm/dL (13.0-17.5); Lymphocytes # (A) 1.6 k/uL (1.0-4.8); Lymphocytes % (A) 12 %; MCH 28.2 pg (25.0-35.0); MCHC 32.1 g/dL (31.0-37.0); Mean Platelet Volume 7.3; Monocytes # (A) 0.9 k/uL (0-1.0); Monocytes % (A) 7 %; Neutrophils # (A) 10.7 k/uL (1.3-7.7); Neutrophils % (A) 79 %; Platelet Count 325 k/uL (150-450); RBC 4.68 m/uL (4.30-5.90); RDW 13.7 % (11.5-15.5); WBC 13.5 k/uL (3.8-10.6)
[2018-12-27 07:26] LABS: INR 0.9 (<1.2); Partial Thromboplastin Time 54.1 sec (22.0-30.0); Prothrombin Time 9.8 sec (9.0-12.0)
[2018-12-27] MEDS: predniSONE 10 MG TAB PO SCH (07:44)
[2018-12-27] MEDS: MONTELUKAST 10 MG TAB PO SCH (07:44)
[2018-12-27] MEDS: LORATADINE 10 MG TAB PO SCH (07:44)
[2018-12-27] MEDS: SODIUM CHLORIDE 0.9% 1,000 ML IV SCH ×2 (07:45→17:27)
[2018-12-27] MEDS: LACTOBACILLUS ACIDOPH & BULGAR 1 EACH PACKET PO SCH (07:46)
[2018-12-27] MEDS: BUDESONIDE 1 MG/2 ML NEBU INHALATION SCH ×2 (08:39→20:02)
[2018-12-27] MEDS: IPRATROPIUM-ALBUTEROL 3 ML NEB INHALATION SCH ×4 (08:39→20:02)
[2018-12-27] MEDS: HEPARIN SOD,PORK IN 0.45% NACL 25,000 UNIT in 0.45% NACL 1 250ML.BAG IV SCH (11:38)
--- NOTE | 2018-12-27 12:53 | P.PN ---
Subjective Progress Note Date: 12/27/18 Principal diagnosis: Pulmonary embolism Mr. 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 Patient states that he has been having difficulty in breathing going on for the past 3-4 weeks. He has occasional cough and mild congestion. In an outpatient setting patient has been taking breathing treatments and steroids but his difficulty in breathing doesn't seem to improve, so he came into the emergency department. Patient takes 20 mg of prednisone every day for the past 19 years and he has cushingoid features. Patient denies having any lower extremity swelling or hemoptysis. He has history of obstructive sleep apnea and is on CPAP of 12. Patient denies having any chest pain. Denies having any fevers chills or pleuritic type of chest pain. In the emergency the patient had chest x-ray showing right middle lobe atelectasis and chronic COPD changes, so admitted for COPD exacerbation. He has been evaluated by Dr. Gifford, his value stream leader who ordered a CT of the chest to rule out PE. The CTA chest was showing bilateral multiple small emboli in the pulmonary arteries. So the patient has been started on IV heparin . On 12/27/2018- patient is lying in bed appears to be in no acute distress. He complains that on moving around from the bed to the bathroom he has mild difficulty in breathing. Patient denies having any cough. No fever chills or rigors. No swelling of his extremities. No dysuria or hematuria. No abdominal pain, nausea or vomiting. Patient denies having any blood in his stool. No complaints of orthopnea or PND. No bleeding from any site. Patient continues to be on a heparin drip. Objective - Vital Signs Vital signs: Vital Signs Temp 98.3 F 12/27/18 07:38 Pulse 80 12/27/18 11:40 Resp 16 12/27/18 07:38 BP 123/70 12/27/18 07:38 Pulse Ox 97 12/27/18 08:39 Intake & Output 12/26/18 12/27/18 12/27/18 18:59 06:59 18:59 Intake Total 840 250 534.652 Output Total 900 900 Balance -60 250 -365.348 Weight 107 kg Intake: Intake, IV Titration 250 214.652 Amount Heparin Sod,Pork in 0.45% 250 214.652 NaCl 25,000 unit In 0.45 % NaCl 1 250ml.bag @ 18 UNITS/KG/HR 18.779 mls/hr IV .[id number] [facility] Rx#: [id number] Oral 840 320 Output: Urine 900 900 Other: Voiding Method Toilet Urinal Urinal # Voids 2 - Exam GEN. APPEARANCE: alert, in no apparent distress HEENT: Cushingoid features with hudson shaped face NECK EXAM: Short. RESPIRATORY EXAM: Decreased breath sounds bilaterally. Mild end expiratory w heeze bilaterally. CARDIOVASCULAR EXAM: S1 and S2 heard. GI/ABDOMINAL EXAM: soft, normal bowel sounds. Absent: distended, tenderness, guarding, rebound, rigid EXTREMITIES EXAM: No pedal edema. NEUROLOGICAL EXAM: alert, oriented X3, no focal neurological deficits PSYCHIATRIC EXAM: normal affect, normal mood SKIN EXAM: warm, dry, intact, normal color. Absent: rash - Labs CBC & Chem 7: 12/27/18 06:36 12/25/18 13:00 Labs: Abnormal Lab Results - Last 24 Hours (Table) 12/27/18 12/27/18 Range/Units 06:36 06:36 WBC 13.5 H (3.8-10.6) k/uL Neutrophils # 10.7 H (1.3-7.7) k/uL APTT 54.1 H (22.0-30.0) sec Assessment and Plan Assessment: ASSESSMENT Multiple small bilateral PE Acute COPD exacerbation Remote history of DVT and PE Cushingoid features secondary to chronic long-term steroid use History of lymphocytic plasmacytoid colitis Generalized anxiety disorder Obesity with BMI of 33 Bipolar disorder Essential tremors Previous history of MRSA in the lungs Cervical disc disease Obstructive sleep apnea on CPAP PLAN: Patient continues to be on heparin drip until tomorrow morning, to check with his insurance regarding anticoagulation choice, that he can be sent home on. Will be continued on IV steroids and breathing treatments for COPD exacerbation. Continue with the rest of his home medication regimen. Further recommendations to follow depending on the progress of the patient. The treatment plan was discussed in detail with the patient at bedside today.
--- NOTE | 2018-12-27 13:45 | P.PN ---
Subjective Progress Note Date: 12/27/18 53-year-old male patient with known history of severe persistent bronchial asthma, steroid dependent who is coming into the emergency department complaining of few weeks worth of increased shortness of breath with occasional cough and congestion. He has been bronchospastic and wheezy. The patient is ve ry well-known to me. He has history of severe chronic bronchial asthma, deep venous thrombosis, bipolar disorder, chronic steroid therapy, chronic anxiety, cataracts, a previous history of methicillin-resistant staph aureus infection, cervical disc disease, pulmonary embolism, and sleep apnea syndrome. The patient used to be on Xolair but it did not seem to help. In addition, the patient is status post bronchial thermoplasty. He was seen in April of last year and then more recently seen by our nurse practitioner and June and me in July. The patient takes prednisone chronically at 20 mg a day. His last bronchoscopy was done 2016 and back then there was a bilateral growth with a rhinovirus Yeasts including penicillium and Cladosporium. The bacterial cultures were all negative. His total eosinophil level is low at 55. As such we sill try to see if his insurance covers any interleukin-5 or 4, 13 treatments. He is currently on Pulmicort Respules and albuterol nebulized treatments [id number]. He is also on Singulair. During his last office visit, I was able to move this zehra ent for Fesenra as I thought that the patient is a steroid-dependent bronchial asthma and the patient's eosinophil count has been high in the past however, based on the fact that he has been on steroids, his most recent count is 55 A repeat bronchospastic evaluation was done today and he was up to 70%. No fever. No chills. No pleurisy. No hemoptysis. He is walking and has lost around 12 pounds since his last evaluation. Based on all this encouraging results I asked the patient to gradually cut down his prednisone hoping that with initiation of Fesenra should be under better control. I asked him to cut down his prednisone 1 mg every week. Note that the patient is also active sleep apnea. He has been maintained on CPAP pressure of 12 cm of water. On today's evaluation of 12/26/2018, the patient is resting comfortably in bed. Diagnosis of a breath and pulmonary embolism. Currently on IV heparin. PTT is therapeutic. The Doppler of the lower extremity was negative for DVT. The pat ient is having an echocardiogram. The plan is to subject this patient to oral anticoagulation with the next 24 hours. He is hemodynamically stable. The steroids will be tapered. On 12/27/2018, Coleman is feeling great. Has no complaints. He'll be switched to oral anticoagulation. Prednisone is down to 30 mg. Echo was noted and within normal limits. Objective - Vital Signs Vital signs: Vital Signs Temp 98.3 F 12/27/18 07:38 Pulse 80 12/27/18 11:40 Resp 16 12/27/18 07:38 BP 123/70 12/27/18 07:38 Pulse Ox 97 12/27/18 08:39 Intake & Output 12/26/18 12/27/18 12/27/18 18:59 06:59 18:59 Intake Total 840 250 534.652 Output Total 900 900 Balance -60 250 -365.348 Weight 107 kg Intake: Intake, IV Titration 250 214.652 Amount Heparin Sod,Pork in 0.45% 250 214.652 NaCl 25,000 unit In 0.45 % NaCl 1 250ml.bag @ 18 UNITS/KG/HR 18.779 mls/hr IV .[id number] [facility] Rx#: [id number] Oral 840 320 Output: Urine 900 900 Other: Voiding Method Toilet Urinal Urinal # Voids 2 - Exam General Appearance no diaphoresis, no respiratory distress, speech not interrupted by breaths, no dyspnea, no pallor, not cachectic, well nourished, appears well, obesity (Cushingoid features) HEENT no pursed lip breathing, no jugular venous distention, no mucous membrane cyanosis, no perioral cyanosis, mallampati classification: class 3 Chest no barrel chest, no retractions, no sternocleidomastoid muscle contractions, no supraclavicular retractions, no intercostal retractions, no decreased air movement, no rhonchi, no hyperinflation, prolonged expiratory wheezing, decreased air movement Heart no right ventricular heave, no distant heart sounds, no s3 gallop, (normal) jugular vein: jugular venous distention: by 0cm GI bowel sounds: hyperactive (borborygmi), bowel sounds: diminished or absent Extremities no cyanosis, no clubbing, no edema Neurologic no decreased mental status, no somnolence, no confusion, and there are tremors Examination of the skin revealed no evidence of significant rashes, suspicious appearing nevi or other concerning lesions. - Labs CBC & Chem 7: 12/27/18 06:36 12/25/18 13:00 Labs: Abnormal Lab Results - Last 24 Hours (Table) 12/27/18 12/27/18 Range/Units 06:36 06:36 WBC 13.5 H (3.8-10.6) k/uL Neutrophils # 10.7 H (1.3-7.7) k/uL APTT 54.1 H (22.0-30.0) sec Assessment and Plan Plan: 1 Worsening of chronic dyspnea without clear signs of exacerbation of severe persistent bronchial asthma. The CT angiogram of the chest showed bilateral pulmonary embolism consistent with acute bilateral pulmonary embolism. Doppler of the lower extremity was negative. The echo of the heart is within normal limits and the patient is on IV heparin. Clinically improved and the patient is less short of breath. 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 Investigate the possibility of switching this patient is Xarelto. A prescription will be sent to case management for in stools clearance and if so the patient will be switched.
[2018-12-27] MEDS: GABAPENTIN 300 MG CAP PO SCH (20:23)
[2018-12-27] MEDS: DIPHENOX-ATROP 2.5-0.025 MG 1 EACH TAB PO SCH (20:23)
[2018-12-27] MEDS: SERTRALINE 100 MG TAB PO SCH (20:23)
[2018-12-27] MEDS: TAMSULOSIN 0.4 MG CAP.ER.24H PO SCH (20:23)
[2018-12-27] MEDS: TOPIRAMATE 25 MG TAB PO SCH (20:24)
[2018-12-27] MEDS ORDERED: clonazePAM 1 MG TAB PO ONE (21:00)
[2018-12-28] MEDS: HEPARIN SOD,PORK IN 0.45% NACL 25,000 UNIT in 0.45% NACL 1 250ML.BAG IV SCH (00:58)
[2018-12-28] MEDS: SODIUM CHLORIDE 0.9% 1,000 ML IV SCH (00:58)
[2018-12-28 07:21] VITALS: BP 122/80; RESP 15; TEMP 98.5
[2018-12-28] MEDS: BUDESONIDE 1 MG/2 ML NEBU INHALATION SCH (07:37)
[2018-12-28] MEDS: IPRATROPIUM-ALBUTEROL 3 ML NEB INHALATION SCH ×2 (07:37→11:39)
[2018-12-28] MEDS: MONTELUKAST 10 MG TAB PO SCH (08:09)
[2018-12-28] MEDS: predniSONE 10 MG TAB PO SCH (08:09)
[2018-12-28] MEDS: LORATADINE 10 MG TAB PO SCH (08:10)
[2018-12-28] MEDS: LACTOBACILLUS ACIDOPH & BULGAR 1 EACH PACKET PO SCH (08:10)
[2018-12-28 08:28] LABS: Basophils % (A) 0 %; Eosinophils # (A) 0.1 k/uL (0-0.7); Eosinophils % (A) 1 %; HCT 43.9 % (39.0-53.0); HGB 14.3 gm/dL (13.0-17.5); Lymphocytes # (A) 4.4 k/uL (1.0-4.8); Lymphocytes % (A) 46 %; MCH 28.8 pg (25.0-35.0); MCHC 32.5 g/dL (31.0-37.0); MCV 88.4 fL (80.0-100.0); Mean Platelet Volume 6.9; Monocytes # (A) 0.6 k/uL (0-1.0); Monocytes % (A) 7 %; Neutrophils # (A) 4.4 k/uL (1.3-7.7); Neutrophils % (A) 45 %; Platelet Count 322 k/uL (150-450); RBC 4.96 m/uL (4.30-5.90); RDW 13.9 % (11.5-15.5); WBC 9.7 k/uL (3.8-10.6)
[2018-12-28 08:31] LABS: INR 0.9 (<1.2)
[2018-12-28 08:32] LABS: Partial Thromboplastin Time 51.2 sec (22.0-30.0); Prothrombin Time 10.2 sec (9.0-12.0)
[2018-12-28 11:50] VITALS: PULSE 80
[2018-12-28] MEDS ORDERED: RIVAROXABAN 15 MG TAB PO SCH (12:15)
--- NOTE | 2018-12-28 12:15 | P.PN ---
Subjective Progress Note Date: 12/28/18 Principal diagnosis: Acute pulmonary emboli 53-year-old male patient with known history of severe persistent bronchial asthma, steroid dependent who is coming into the emergency department complaining of few weeks worth of increased shortness of breath with occasional cough and congestion. He has been bronchospastic and wheezy. The patient is very well-known to me. He has history of severe chronic bronchial asthma, deep venous thrombosis, bipolar disorder, chronic steroid therapy, chronic anxiety, cataracts, a previous history of methicillin-resistant staph aureus infection, cervical disc disease, pulmonary embolism, and sleep apnea syndrome. The patient used to be on Xolair but it did not seem to help. In addition, the patient is status post bronchial thermoplasty. He was seen in April of last year and then more recently seen by our nurse practitioner and June and me in July. The patient takes prednisone chronically at 20 mg a day. His last bronchoscopy was done 2016 and back then there was a bilateral growth with a rhinovirus Yeasts including penicillium and Cladosporium. The bacterial cultures were all negative. His total eosinophil level is low at 55. As such we sill try to see if his insurance covers any interleukin-5 or 4, 13 treatments. He is currently on Pulmicort Respules and albuterol nebulized treatments [id number]. He is also on Singulair. During his last office visit, I was able to move this patient for Fesenra as I thought that the patient is a steroid-dependent bronchial asthma and the patient's eosinophil count has been high in the past however, based on the fact that he has been on steroids, his most recent count is 55 A repeat bronchospastic evaluation was done today and he was up to 70%. No fever. No chills. No pleurisy. No hemoptysis. He is walking and has lost around 12 pounds since his last evaluation. Based on all this encouraging results I asked the patient to gradually cut down his prednisone hoping that with initiation of Fesenra should be under better control. I asked him to cut down his prednisone 1 mg every week. Note that the patient is also active sleep apnea. He has been maintained on CPAP pressure of 12 cm of water. On today's evaluation of 12/26/2018, the patient is resting comfortably in bed. Diagnosis of a breath and pulmonary embolism. Currently on IV heparin. PTT is therapeutic. The Doppler of the lower extremity was negative for DVT. The patient is having an echocardiogram. The plan is to subject this patient to oral anticoagulation with the next 24 hours. He is hemodynamically stable. The steroids will be tapered. On 12/27/2018, Coleman is feeling great. Has no complaints. He'll be switched to oral anticoagulation. Prednisone is down to 30 mg. Echo was noted and within normal limits. On 12/28/2018 patient seen in follow-up on medical surgical floor. Breathing easier today, yesterday patient states he had severe coughing spells, the coughing has subsided today, still has some shortness of breath with exertion, otherwise no acute distress, lung sounds are positive for expiratory wheezes at the lung bases, but good air entry noted bilaterally, CTA chest was positive for bilateral PEs, patient has been on IV heparin, we will transition him to oral Xarelto today. Room air pulse ox was 93%, patient is afebrile. Patient continues on oral prednisone, nebulized bronchodilators. Today's lab work has been reviewed, showing CBC within normal limits. No complaints of chest pain, no lightheadedness, no dizziness, no hemoptysis, no pleurisy. Objective - Vital Signs Vital signs: Vital Signs Temp 98.5 F 12/28/18 07:00 Pulse 80 12/28/18 11:49 Resp 15 12/28/18 07:00 BP 122/80 12/28/18 07:00 Pulse Ox 93 L 12/28/18 07:00 Intake & Output 12/27/18 12/28/18 12/28/18 18:59 06:59 18:59 Intake Total 1274.652 208.653 Output Total 1300 Balance -25.348 208.653 Weight 107.8 kg Intake: Intake, IV Titration 214.652 208.653 Amount Heparin Sod,Pork in 0.45% 214.652 208.653 NaCl 25,000 unit In 0.45 % NaCl 1 250ml.bag @ 18 UNITS/KG/HR 18.779 mls/hr IV .[id number] MARYJANE Rx#: [id number] Oral 1060 Output: Urine 1300 Other: Voiding Method Urinal Toilet # Voids 2 - Exam GENERAL EXAM: Alert, active, pleasant, 53-year-old white male, on the room air, with pulse ox of 93% comfortable in no apparent distress. HEAD: Normocephalic/atraumatic. EYES: Normal reaction of pupils, equal size. Conjunctiva pink, sclera white. NOSE: Clear with pink turbinates. THROAT: No erythema or exudates. NECK: No masses, no JVD, no thyroid enlargement, no adenopathy. CHEST: No chest wall deformity. Symmetrical expansion. LUNGS: Equal air entry with end expiratory wheezes, at the lung bases posteriorly CVS: Regular rate and rhythm, normal S1 and S2, no gallops, no murmurs, no rubs ABDOMEN: Soft, nontender. No hepatosplenomegaly, normal bowel sounds, no guarding or rigidity. EXTREMITIES: No clubbing, no edema, no cyanosis, 2+ pulses and upper and lower extremities. MUSCULOSKELETAL: Muscle strength and tone normal. SPINE: No scoliosis or deformity SKIN: No rashes CENTRAL NERVOUS SYSTEM: Alert and oriented -3. No focal deficits, tone is normal in all 4 extremities. PSYCHIATRIC: Alert and oriented -3. Appropriate affect. Intact judgment and insight. - Labs CBC & Chem 7: 12/28/18 07:49 12/25/18 13:00 Labs: Abnormal Lab Results - Last 24 Hours (Table) 12/28/18 Range/Units 07:49 APTT 51.2 H (22.0-30.0) sec Assessment and Plan Plan: Assessment: 1 Worsening of chronic dyspnea without clear signs of exacerbation of severe persistent bronchial asthma. The CT angiogram of the chest showed bilateral pulmonary embolism consistent with acute bilateral pulmonary embolism. Doppler of the lower extremity was negative. The echo of the heart is within normal limits and the patient is on IV heparin. Clinically improved and the patient is less short of breath. 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 Echo results have been noted, Dopplers of the lower extremities were negative. Overall patient is less dyspneic, coughing less, no pleurisy, no chest pain. Hemodynamically patient is stable. Increase activity as tolerated. Anticipate discharge home possibly next 24 hours I performed a history & physical examination of the patient and discussed their management with my nurse practitioner, Lola Castillo. I reviewed the nurse practitioner's note and agree with the documented findings and plan of care. Lung sounds are positive for end expiratory wheezes at bilateral bases. The findings and the impression was discussed with the patient. I attest to the documentation by the nurse practitioner. Time with Patient: Less than 30
--- NOTE | 2018-12-28 21:52 | P.DS ---
Providers Date of admission: 12/25/18 18:04 Expected date of discharge: 12/28/18 Attending physician: Alo Esteban Primary care physician: [facility] Course: Mr. 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 Patient states that he has been having difficulty in breathing going on for the past 3-4 weeks. He has occasional cough and mild congestion. In an outpatient setting patient has been taking breathing treatments and steroids but his difficulty in breathing doesn't seem to improve, so he came into the emergency department. Patient takes 20 mg of prednisone every day for the past 19 years and he has cushingoid features. Patient denies having any lower extremity swelling or hemoptysis. He has history of obstructive sleep apnea and is on CPAP of 12. Patient denies having any chest pain. Denies having any fevers chills or pleuritic type of chest pain. In the emergency the patient had chest x-ray showing right middle lobe atelectasis and chronic COPD changes, so admitted for COPD exacerbation. He has been evaluated by Dr. Palacios and his impregnator electrolytic capacitors yesterday who ordered a CT of the chest to rule out PE. The CTA chest was showing bilateral multiple small emboli in the pulmonary arteries. So the patient has been started on IV heparin. Hospital course - Pt was given IV steroids, breathing treatments. He was maintained on heparin drip over the weekend. And on Friday morning checked with his insurance regarding the coverage for newer anti coagulants. Xarelto is covered and so he was cleared by Pulmonary service, to be discharged home on it. No other changes in his meds were made. His vitals and labs were WNL. Exam GEN. APPEARANCE: alert, in no apparent distress HEENT: Cushingoid features with hudson shaped face NECK EXAM: Short. RESPIRATORY EXAM: Decreased breath sounds bilaterally. Mild end expiratory wheeze bilaterally. CARDIOVASCULAR EXAM: S1 and S2 heard. GI/ABDOMINAL EXAM: soft, normal bowel sounds. Absent: distended, tenderness, guarding, rebound, rigid EXTREMITIES EXAM: No pedal edema. NEUROLOGICAL EXAM: alert, oriented X3, no focal neurological deficits PSYCHIATRIC EXAM: normal affect, normal mood SKIN EXAM: warm, dry, intact, normal color. Absent: rash Laboratory Last Values WBC 9.7 k/uL (3.8-10.6) 12/28/18 07:49 RBC 4.96 m/uL (4.30-5.90) 12/28/18 07:49 Hgb 14.3 gm/dL (13.0-17.5) 12/28/18 07:49 Hct 43.9 % (39.0-53.0) 12/28/18 07:49 MCV 88.4 fL (80.0-100.0) 12/28/18 07:49 MCH 28.8 pg (25.0-35.0) 12/28/18 07:49 MCHC 32.5 g/dL (31.0-37.0) 12/28/18 07:49 RDW 13.9 % (11.5-15.5) 12/28/18 07:49 Plt Count 322 k/uL (150-450) 12/28/18 07:49 Neutrophils % 45 % 12/28/18 07:49 Lymphocytes % 46 % 12/28/18 07:49 Monocytes % 7 % 12/28/18 07:49 Eosinophils % 1 % 12/28/18 07:49 Basophils % 0 % 12/28/18 07:49 Neutrophils # 4.4 k/uL (1.3-7.7) 12/28/18 07:49 Lymphocytes # 4.4 k/uL (1.0-4.8) 12/28/18 07:49 Monocytes # 0.6 k/uL (0-1.0) 12/28/18 07:49 Eosinophils # 0.1 k/uL (0-0.7) 12/28/18 07:49 Basophils # 0.0 k/uL (0-0.2) 12/28/18 07:49 PT 10.2 sec (9.0-12.0) 12/28/18 07:49 INR 0.9 (<1.2) 12/28/18 07:49 APTT 51.2 sec (22.0-30.0) H 12/28/18 07:49 Sodium 135 mmol/L (137-145) L 12/25/18 13:00 Potassium 4.1 mmol/L (3.5-5.1) 12/25/18 13:00 Chloride 104 mmol/L (98-107) 12/25/18 13:00 Carbon Dioxide 21 mmol/L (22-30) L 12/25/18 13:00 Anion Gap 10 mmol/L 12/25/18 13:00 BUN 9 mg/dL (9-20) 12/25/18 13:00 Creatinine 0.85 mg/dL (0.66-1.25) 12/25/18 13:00 Est GFR (CKD-EPI)AfAm >90 (>60 ml/min/1.73 sqM) 12/25/18 13:00 Est GFR (CKD-EPI)NonAf >90 (>60 ml/min/1.73 sqM) 12/25/18 13:00 Glucose 100 mg/dL (74-99) H 12/25/18 13:00 Calcium 9.0 mg/dL (8.4-10.2) 12/25/18 13:00 Magnesium 1.8 mg/dL (1.6-2.3) 12/25/18 13:00 Total Bilirubin 0.4 mg/dL (0.2-1.3) 12/25/18 13:00 AST 20 U/L (17-59) 12/25/18 13:00 ALT 22 U/L (21-72) 12/25/18 13:00 Alkaline Phosphatase 59 U/L (38-126) 12/25/18 13:00 Troponin I <0.012 ng/mL (0.000-0.034) 12/25/18 13:00 NT-Pro-B Natriuret Pep 37 pg/mL 12/25/18 13:00 Total Protein 6.1 g/dL (6.3-8.2) L 12/25/18 13:00 Albumin 3.7 g/dL (3.5-5.0) 12/25/18 13:00 DISCHARGE DIAGNOSIS Multiple small bilateral PE Acute COPD exacerbation Remote history of DVT and PE Cushingoid features secondary to chronic long-term steroid use History of lymphocytic plasmacytoid colitis Generalized anxiety disorder Obesity with BMI of 33 Bipolar disorder Essential tremors Previous history of MRSA in the lungs Cervical disc disease Obstructive sleep apnea on CPAP Plan - Pt is being discharged home in a stable condition and to have a follow up with his PCP and Lithograph Printer. Patient Condition at Discharge: Fair Plan - Discharge Summary Discharge Rx Participant: No New Discharge Prescriptions: New Rivaroxaban [Xarelto Starter Pack] 1 each PO DIRECTED 30 Days #1 tab Continue Montelukast [Singulair] 10 mg PO DAILY Loratadine [Claritin] 10 mg PO DAILY Sertraline [Zoloft] 100 mg PO HS Topiramate [Topamax] 50 mg PO HS Diphenox-Atrop 2.5-0.025 mg [Lomotil] 2 tab PO HS Tamsulosin HCl [Flomax] 0.8 mg PO HS Ipratropium-Albuterol Nebulize [Duoneb 0.5 mg-3 mg/3 ml Soln] 3 ml INHALATION RT-TID PRN PRN Reason: Shortness Of Breath Budesonide [Pulmicort] 1 mg INHALATION RT-BID Gabapentin [Neurontin] 600 mg PO HS L.acidoph,Paracasei, B.lactis [Probiotic] 2 cap PO DAILY predniSONE 20 mg PO DAILY Ibuprofen [Motrin Ib] 1,000 mg PO BID PRN PRN Reason: Pain Albuterol Inhaler [Ventolin Hfa Inhaler] 2 puff INHALATION RT-Q6H PRN PRN Reason: Shortness Of Breath Discharge Medication List Montelukast [Singulair] 10 mg PO DAILY 11/28/14 [History] Loratadine [Claritin] 10 mg PO DAILY 09/18/16 [History] Sertraline [Zoloft] 100 mg PO HS 01/30/17 [History] Topiramate [Topamax] 50 mg PO HS 01/30/17 [History] Budesonide [Pulmicort] 1 mg INHALATION RT-BID 08/11/18 [History] Diphenox-Atrop 2.5-0.025 mg [Lomotil] 2 tab PO HS 08/11/18 [History] Gabapentin [Neurontin] 600 mg PO HS 08/11/18 [History] Ipratropium-Albuterol Nebulize [Duoneb 0.5 mg-3 mg/3 ml Soln] 3 ml INHALATION RT-TID PRN 08/11/18 [History] Tamsulosin HCl [Flomax] 0.8 mg PO HS 08/11/18 [History] L.acidoph,Paracasei, B.lactis [Probiotic] 2 cap PO DAILY 09/17/18 [History] Albuterol Inhaler [Ventolin Hfa Inhaler] 2 puff INHALATION RT-Q6H PRN 12/25/18 [History] Ibuprofen [Motrin Ib] 1,000 mg PO BID PRN 12/25/18 [History] predniSONE 20 mg PO DAILY 12/25/18 [History] Rivaroxaban [Xarelto Starter Pack] 1 each PO DIRECTED 30 Days #1 tab 12/28/18 [Rx] Follow up Appointment(s)/Referral(s): Corona Sweet MD [Primary Care Provider] - 01/04/19 1:00 pm Solomon Gifford MD [Family Provider] - (Patient already has appointment scheduled for Thursday 12/28 ) Patient Instructions/Handouts: Pulmonary Embolism (DC) Discharge Disposition: HOME SELF-CARE
== END 2018-12-28 14:52 | disposition home or self-care (01) | DRG 190 ==
LOC: EC 11:59 → 1SOBS 14:51 → OBSVTOIN 18:04 → 4SSUR 19:27
PROVIDERS: ADMIT Hospitalist; ATTEND Hospitalist
DX: J44.1 Chronic obstructive pulmonary disease with (acute) exacerbation (principal); I26.99 Other pulmonary embolism without acute cor pulmonale; J45.51 Severe persistent asthma with (acute) exacerbation; E66.9 Obesity, unspecified; F31.9 Bipolar disorder, unspecified; F41.1 Generalized anxiety disorder; G25.0 Essential tremor; G47.33 Obstructive sleep apnea (adult) (pediatric); Z99.89 Dependence on other enabling machines and devices; K21.9 Gastro-esophageal reflux disease without esophagitis; M50.90 Cervical disc disorder, unspecified, unspecified cervical region; Z68.33 Body mass index [BMI] 33.0-33.9, adult; Z79.52 Long term (current) use of systemic steroids; Z79.899 Other long term (current) drug therapy; Z81.8 Family history of other mental and behavioral disorders; Z82.49 Family history of ischemic heart disease and other diseases of the circulatory system; Z86.14 Personal history of Methicillin resistant Staphylococcus aureus infection; Z86.711 Personal history of pulmonary embolism; Z86.718 Personal history of other venous thrombosis and embolism; Z87.891 Personal history of nicotine dependence; Z87.442 Personal history of urinary calculi; Z83.511 Family history of glaucoma; M10.9 Gout, unspecified; Z90.49 Acquired absence of other specified parts of digestive tract; K52.9 Noninfective gastroenteritis and colitis, unspecified
CPT/HCPCS: 36415; 71046; 71275; 80053; 83735; 83880; 84484; 85025; 85610; 85730; 93005; 93306; 93970; 94640; 94644; 94660; 94760; 96361; 96374; 99285

== ENCOUNTER 2019-04-14 13:15 | Inpatient (IN) | payer BC ==
[2019-04-14] MEDS ORDERED: IBUPROFEN 600 MG TAB PO STA (13:35)
[2019-04-14] MEDS ORDERED: ACETAMINOPHEN TAB 500 MG TAB PO STA (13:35)
[2019-04-14] MEDS ORDERED: HYDROmorphone 1 MG/ML 1 ML SYRINGE IVP STA (13:37)
[2019-04-14] MEDS ORDERED: IPRATROPIUM-ALBUTEROL 3 ML NEB INHALATION STA (13:37)
[2019-04-14] MEDS ORDERED: methylPREDNISolone SOD SUCCI 125 MG/2 ML VIAL IV STA (13:38)
--- NOTE | 2019-04-14 13:44 | ED ---
General Adult HPI - General Chief complaint: Shortness of Breath Stated complaint: SOB Time Seen by Provider: 04/14/19 13:25 Source: patient, RN notes reviewed, old records reviewed Mode of arrival: wheelchair Limitations: no limitations - History of Present Illness Initial comments: This is a 54-year-old male who presents emergency Department with a past medical history significant for COPD. Patient states over the last 2 days he's had difficulty breathing is gotten considerably worse per patient also states at home is been spiking 101-102 10. Patient states today the breathing was so bad he decided to come and be evaluated. Patient complains of chronic back pain but he also states his been having some diffuse abdominal achiness today and that is been fairly significant at times. Patient denies any vomiting but states she's been nauseated anytime he tries to eat or drink. Patient denies any diarrhea. Patient denies any dysuria hematuria. Patient denies headache patient denies numbness weakness. Patient denies lightheadedness or dizziness. - Related Data Home Medications Medication Instructions Recorded Confirmed Montelukast [Singulair] 10 mg PO DAILY 11/28/14 12/25/18 Loratadine [Claritin] 10 mg PO DAILY 09/18/16 12/25/18 Sertraline [Zoloft] 100 mg PO HS 01/30/17 12/25/18 Topiramate [Topamax] 50 mg PO HS 01/30/17 12/25/18 Budesonide [Pulmicort] 1 mg INHALATION RT-BID 08/11/18 12/25/18 Diphenox-Atrop 2.5-0.025 mg 2 tab PO HS 08/11/18 12/25/18 [Lomotil] Gabapentin [Neurontin] 600 mg PO HS 08/11/18 12/25/18 Ipratropium-Albuterol Nebulize 3 ml INHALATION RT-TID PRN 08/11/18 12/25/18 [Duoneb 0.5 mg-3 mg/3 ml Soln] Tamsulosin HCl [Flomax] 0.8 mg PO HS 08/11/18 12/25/18 L.acidoph,Paracasei, B.lactis 2 cap PO DAILY 09/17/18 12/25/18 [Probiotic] Albuterol Inhaler [Ventolin Hfa 2 puff INHALATION RT-Q6H PRN 12/25/18 12/25/18 Inhaler] Ibuprofen [Motrin Ib] 1,000 mg PO BID PRN 12/25/18 12/25/18 predniSONE 20 mg PO DAILY 12/25/18 12/25/18 Previous Rx's Medication Instructions Recorded Rivaroxaban [Xarelto Starter Pack] 1 each PO DIRECTED 30 Days #1 12/28/18 tab Allergies Allergy/AdvReac Type Severity Reaction Status Date / Time Penicillins Allergy Swelling Verified 04/14/19 13:22 Review of Systems ROS Statement: Those systems with pertinent positive or pertinent negative responses have been documented in the HPI. ROS Other: All systems not noted in ROS Statement are negative. Past Medical History Past Medical History: Asthma, COPD, Deep Vein Thrombosis (DVT), GERD/Reflux, Pneumonia, Pulmonary Embolus (PE), Sleep Apnea/CPAP/BIPAP Additional Past Medical History / Comment(s): Severe persistent bronchial asthma, remote history of pulmonary embolism, 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 History of Any Multi-Drug Resistant Organisms: MRSA Date of last positivie culture/infection: "few years ago" MDRO Source:: lungs Past Surgical History: Cholecystectomy, Heart Catheterization Additional Past Surgical History / Comment(s): EGD, colonoscopies, esophageal motility test, kaylee fundlaplication, bronchoscopies, bronchial thermoplasty, cervical disc surgery, vasectomy, sinus surgery x 3. Past Anesthesia/Blood Transfusion Reactions: No Reported Reaction, Family History of Problems w/ Anesthesia Additional Past Anesthesia/Blood Transfusion Reaction / Comment(s): Mother, brother-ponv. Pt received blood in past without reaction. Past Psychological History: Anxiety, Depression Smoking Status: Former smoker Past Alcohol Use History: None Reported Past Drug Use History: None Reported - Past Family History Son(s) Additional Family Medical History / Comment(s): suicide- depression. Daughter(s) Additional Family Medical History / Comment(s): "two holes in heart" Brother(s) Family Medical History: Myocardial Infarction (MS) Additional Family Medical History / Comment(s): Brother of a MS at the age of 56yrs. Father Family Medical History: Pneumonia, Respiratory Disorder Mother Family Medical History: Eye Disorder, Hypertension, Myocardial Infarction (MS) Additional Family Medical History / Comment(s): GLAUCOMA. Mother had a MS at the age of 87yrs. General Exam - General Exam Comments Initial Comments: GENERAL: Patient is well-developed and well-nourished. Patient is nontoxic and well- hydrated and is in mild distress. ENT: Neck is soft and supple. No significant lymphadenopathy is noted. Oropharynx is clear. Moist mucous membranes. Neck has full range of motion without elici ting any pain. EYES: The sclera were anicteric and conjunctiva were pink and moist. Extraocular m ovements were intact and pupils were equal round and reactive to light. Eyelids were unremarkable. PULMONARY: Patient has diminished breath sounds in the left base. Patient has a very wheezing bilaterally. CARDIOVASCULAR: There is a regular rate and rhythm without any murmurs gallops or rubs. ABDOMEN: Soft and nontender with normal bowel sounds. No palpable organomegaly was noted. There is no palpable pulsatile mass. SKIN: Skin is clear with no lesions or rashes and otherwise unremarkable. NEUROLOGIC: Patient is alert and oriented x3. Cranial nerves II through XII are grossly intact. Motor and sensory are also intact. Normal speech, volume and content. Symmetrical smile. MUSCULOSKELETAL: Normal extremities with adequate strength and full range of motion. No lower extremity swelling or edema. No calf tenderness. LYMPHATICS: No significant lymphadenopathy is noted PSYCHIATRIC: Normal psychiatric evaluation. Limitations: no limitations Course Vital Signs 04/14/19 04/14/19 04/14/19 13:20 15:31 15:41 Temperature 98.8 F Pulse Rate 107 H 98 100 Respiratory 22 Rate Blood Pressure 136/68 O2 Sat by Pulse 91 L Oximetry Medical Decision Making - Medical Decision Making EKG shows sinus rhythm at 71 bpm WA interval 206 QRS is 96 Q-T intervals 406 QTC shows 441. EKG shows no ST segment elevation or depression Repeat EKG was done because of the poor quality of the first EKG. This EKG shows a sinus rhythm at a rate of 105 bpm WA interval is 138 QRS is 92 QT interval 322 QTC is 425 per patient's EKG shows no ST segment elevation or depression. Chest x-ray shows no acute abnormality. I started the patient on antibiotics secondary to the patient's fever and his COPD. I spoke with the depression agreed to admit the patient admitted the patient wrote admitting orders. CT of the patient's admission no acute abnormality. - Lab Data Result diagrams: 04/14/19 14:00 04/14/19 14:00 Lab Results 04/14/19 04/14/19 04/14/19 Range/Units 14:00 14:00 14:00 WBC 13.5 H (3.8-10.6) k/uL RBC 4.99 (4.30-5.90) m/uL Hgb 14.3 (13.0-17.5) gm/dL Hct 42.7 (39.0-53.0) % MCV 85.4 (80.0-100.0) fL MCH 28.6 (25.0-35.0) pg MCHC 33.5 (31.0-37.0) g/dL RDW 13.9 (11.5-15.5) % Plt Count 316 (150-450) k/uL Neutrophils % 76 % Lymphocytes % 12 % Monocytes % 9 % Eosinophils % 0 % Basophils % 0 % Neutrophils # 10.3 H (1.3-7.7) k/uL Lymphocytes # 1.6 (1.0-4.8) k/uL Monocytes # 1.2 H (0-1.0) k/uL Eosinophils # 0.0 (0-0.7) k/uL Basophils # 0.0 (0-0.2) k/uL PT (9.0-12.0) sec INR (<1.2) APTT (22.0-30.0) sec Sodium 139 (137-145) mmol/L Potassium 4.1 (3.5-5.1) mmol/L Chloride 104 (98-107) mmol/L Carbon Dioxide 26 (22-30) mmol/L Anion Gap 9 mmol/L BUN 14 (9-20) mg/dL Creatinine 1.01 (0.66-1.25) mg/dL Est GFR (CKD-EPI)AfAm >90 (>60 ml/min/1.73 sqM) Est GFR (CKD-EPI)NonAf 83 (>60 ml/min/1.73 sqM) Glucose 102 H (74-99) mg/dL Plasma Lactic Acid Willian 1.1 (0.7-2.0) mmol/L Calcium 9.0 (8.4-10.2) mg/dL Total Bilirubin 1.7 H (0.2-1.3) mg/dL AST 23 (17-59) U/L ALT 31 (21-72) U/L Alkaline Phosphatase 76 (38-126) U/L Troponin I (0.000-0.034) ng/mL Total Protein 6.3 (6.3-8.2) g/dL Albumin 3.8 (3.5-5.0) g/dL Influenza Type A RNA (Not Detectd) Influenza Type B (PCR) (Not Detectd) 04/14/19 04/14/19 04/14/19 Range/Units 14:00 14:00 14:30 WBC (3.8-10.6) k/uL RBC (4.30-5.90) m/uL Hgb (13.0-17.5) gm/dL Hct (39.0-53.0) % MCV (80.0-100.0) fL MCH (25.0-35.0) pg MCHC (31.0-37.0) g/dL RDW (11.5-15.5) % Plt Count (150-450) k/uL Neutrophils % % Lymphocytes % % Monocytes % % Eosinophils % % Basophils % % Neutrophils # (1.3-7.7) k/uL Lymphocytes # (1.0-4.8) k/uL Monocytes # (0-1.0) k/uL Eosinophils # (0-0.7) k/uL Basophils # (0-0.2) k/uL PT 10.0 (9.0-12.0) sec INR 0.9 (<1.2) APTT 21.5 L (22.0-30.0) sec Sodium (137-145) mmol/L Potassium (3.5-5.1) mmol/L Chloride (98-107) mmol/L Carbon Dioxide (22-30) mmol/L Anion Gap mmol/L BUN (9-20) mg/dL Creatinine (0.66-1.25) mg/dL Est GFR (CKD-EPI)AfAm (>60 ml/min/1.73 sqM) Est GFR (CKD-EPI)NonAf (>60 ml/min/1.73 sqM) Glucose (74-99) mg/dL Plasma Lactic Acid Willian (0.7-2.0) mmol/L Calcium (8.4-10.2) mg/dL Total Bilirubin (0.2-1.3) mg/dL AST (17-59) U/L ALT (21-72) U/L Alkaline Phosphatase (38-126) U/L Troponin I <0.012 (0.000-0.034) ng/mL Total Protein (6.3-8.2) g/dL Albumin (3.5-5.0) g/dL Influenza Type A RNA Not Detected (Not Detectd) Influenza Type B (PCR) Not Detected (Not Detectd) Disposition Clinical Impression: Acute exacerbation of chronic obstructive pulmonary disease, Bronchitis Disposition: ADMITTED IP TO THIS [facility] Referrals: Corona Sweet MD [Primary Care Provider] - 1-2 days Time of Disposition: 15:52
[2019-04-14 14:12] LABS: Basophils % (A) 0 %; Eosinophils % (A) 0 %; HCT 42.7 % (39.0-53.0); HGB 14.3 gm/dL (13.0-17.5); Lymphocytes # (A) 1.6 k/uL (1.0-4.8); Lymphocytes % (A) 12 %; MCH 28.6 pg (25.0-35.0); MCHC 33.5 g/dL (31.0-37.0); MCV 85.4 fL (80.0-100.0); Mean Platelet Volume 6.4; Monocytes # (A) 1.2 k/uL (0-1.0); Monocytes % (A) 9 %; Neutrophils # (A) 10.3 k/uL (1.3-7.7); Neutrophils % (A) 76 %; Platelet Count 316 k/uL (150-450); RBC 4.99 m/uL (4.30-5.90); RDW 13.9 % (11.5-15.5); WBC 13.5 k/uL (3.8-10.6)
[2019-04-14 14:24] LABS: ALT 31 U/L (21-72); AST 23 U/L (17-59); African American GFR (CKD) >90 (>60 ml/min/1.73 sqM); Albumin 3.8 g/dL (3.5-5.0); Alkaline Phosphatase 76 U/L (38-126); Anion Gap 9 mmol/L; Blood Urea Nitrogen 14 mg/dL (9-20); Carbon Dioxide 26 mmol/L (22-30); Chloride 104 mmol/L (98-107); Glucose 102 mg/dL (74-99); Non-African American GFR(CKD) 83 (>60 ml/min/1.73 sqM); Potassium 4.1 mmol/L (3.5-5.1); Sodium 139 mmol/L (137-145); Total Bilirubin 1.7 mg/dL (0.2-1.3); Total Protein 6.3 g/dL (6.3-8.2)
[2019-04-14 14:38] LABS: INR 0.9 (<1.2)
[2019-04-14 14:51] LABS: Partial Thromboplastin Time 21.5 sec (22.0-30.0)
--- NOTE | 2019-04-14 15:05 | XR ---
EXAMINATION TYPE: XR chest 2V DATE OF EXAM: 04/14/2019 COMPARISON: 12/25/2018 TECHNIQUE: PA and lateral views submitted. HISTORY: Fever and cough FINDINGS: Hyperinflation suggests COPD. There is apical and lateral pleural based thickening. By basilar subseg mental consolidation noted. Heart is stable in size. Degenerative change of the spine. IMPRESSION: 1. COPD with basilar atelectasis favored over pneumonia correlate clinically.
--- NOTE | 2019-04-14 15:24 | CT ---
EXAMINATION TYPE: CT abdomen pelvis wo con DATE OF EXAM: 04/14/2019 COMPARISON: 04/20/2011 HISTORY: epigastric pain CT DLP: 1384 mGycm Examination of the solid and hollow viscera is limited given the lack of contrast. FINDINGS: LUNG BASES: No evidence for nodule. No evidence for infiltrate. LIVER/GB: Cholecystectomy clips noted. No space-occupying hepatic lesion. PANCREAS: No pancreatic mass identified. No inflammatory process seen. SPLEEN: No evidence for splenomegaly. No intrasplenic lesions seen. ADRENALS: No adrenal nodules identified. No evidence for thickening. KIDNEYS: No evidence for renal mass. No nephrolithiasis. No hydronephrosis. BOWEL: Appendix has a normal appearance. No evidence of bowel obstruction. No inflammatory process. Lymph nodes: No evidence for adenopathy greater than 1 cm. Abdominal aorta: Atheromatous changes seen. No evidence for aneurysm. Genital organs: No significant abnormality. Other: No significant abnormality. IMPRESSION: NO DISTINCT ABNORMALITY IDENTIFIED TO ACCOUNT FOR THE PATIENT'S SYMPTOMS.
[2019-04-14] MEDS: SODIUM CHLORIDE 0.9% 500 ML 500 ML IV SCH ×3 (15:28→16:32)
[2019-04-14] MEDS ORDERED: IPRATROPIUM-ALBUTEROL 3 ML NEB INHALATION PRN (15:52)
[2019-04-14 18:22] LABS: Appearance,Urine Clear (Clear); Bilirubin,Urine Negative (Negative); Blood,Urine Negative (Negative); Color,Urine Yellow; Glucose,Urine (UA) Negative (Negative); Ketones,Urine 2+ (Negative); Leukocyte Esterase,Urine Negative (Negative); Nitrite,Urine Negative (Negative); PH, Urine 6.5 (5.0-8.0); Protein,Urine Trace (Negative); Specific Gravity,Urine 1.021 (1.001-1.035)
[2019-04-14] MEDS: methylPREDNISolone SOD SUCCI 125 MG/2 ML VIAL IV SCH (18:22)
[2019-04-14 20:12] LABS: Glucose,Whole Blood 123 mg/dL (75-99)
[2019-04-14] MEDS ORDERED: ALBUTEROL NEBULIZED 2.5 MG/3 ML INHALATION PRN (20:22)
[2019-04-14] MEDS ORDERED: ACETAMINOPHEN TAB 325 MG TAB PO PRN (20:25)
[2019-04-14] MEDS: DIPHENOX-ATROP 2.5-0.025 MG 1 EACH TAB PO SCH (21:21)
[2019-04-14] MEDS: SERTRALINE 100 MG TAB PO SCH (21:21)
[2019-04-14] MEDS: clonazePAM 0.5 MG TAB PO SCH (21:21)
[2019-04-14] MEDS: TAMSULOSIN 0.4 MG CAP.ER.24H PO SCH (21:21)
[2019-04-14] MEDS: GABAPENTIN 300 MG CAP PO SCH (21:21)
[2019-04-14] MEDS: TOPIRAMATE 25 MG TAB PO SCH (21:22)
[2019-04-15] MEDS: methylPREDNISolone SOD SUCCI 125 MG/2 ML VIAL IV SCH ×5 (00:22→23:25)
[2019-04-15] MEDS: IPRATROPIUM-ALBUTEROL 3 ML NEB INHALATION SCH ×4 (07:00→19:25)
[2019-04-15] MEDS: BUDESONIDE 0.5 MG/2 ML NEBU INHALATION SCH ×2 (07:00→19:25)
[2019-04-15] MEDS: FORMOTEROL FUMARATE 20 MCG/2 ML NEBU INHALATION SCH ×2 (07:04→19:25)
[2019-04-15 07:15] LABS: Glucose,Whole Blood 138 mg/dL (75-99)
[2019-04-15] MEDS ORDERED: FORMOTEROL FUMARATE 20 MCG/2 ML NEBU INHALATION SCH (08:00)
[2019-04-15] MEDS: RIVAROXABAN 20 MG TAB PO SCH (08:29)
[2019-04-15] MEDS: LACTOBACILLUS ACIDOPH & BULGAR 1 EACH PACKET PO SCH (08:29)
[2019-04-15] MEDS: MONTELUKAST 10 MG TAB PO SCH (08:29)
[2019-04-15] MEDS: LORATADINE 10 MG TAB PO SCH (08:30)
[2019-04-15] MEDS: SODIUM CHLORIDE 0.9% 1,000 ML IV SCH ×2 (08:56→20:15)
[2019-04-15] MEDS ORDERED: LEVOFLOXACIN 500 MG TAB PO SCH (09:00)
[2019-04-15 12:22] LABS: Glucose,Whole Blood 133 mg/dL (75-99)
[2019-04-15] MEDS: INSULIN ASPART (NovoLOG) 100 UNIT/ML VIAL SQ SCH ×3 (12:24→20:25)
[2019-04-15 17:21] LABS: Glucose,Whole Blood 123 mg/dL (75-99)
[2019-04-15] MEDS: TOPIRAMATE 25 MG TAB PO SCH (20:15)
[2019-04-15] MEDS: clonazePAM 0.5 MG TAB PO SCH (20:16)
[2019-04-15] MEDS: DIPHENOX-ATROP 2.5-0.025 MG 1 EACH TAB PO SCH (20:16)
[2019-04-15] MEDS: GABAPENTIN 300 MG CAP PO SCH (20:16)
[2019-04-15] MEDS: SERTRALINE 100 MG TAB PO SCH (20:16)
[2019-04-15] MEDS: TAMSULOSIN 0.4 MG CAP.ER.24H PO SCH (20:16)
[2019-04-15 20:25] LABS: Glucose,Whole Blood 152 mg/dL (75-99)
--- NOTE | 2019-04-16 00:04 | P.HPIM ---
History of Present Illness H&P Date: 04/15/19 Chief Complaint: Short of breath History of presenting complaint: This is a pleasant 54-year-old patient of Dr. Sweet. Chronic stable medical conditions include GERD, obstructive sleep apnea uses CPAP, or strength redness, anxiety,. Patient has known severe persistent asthma. Patient for about a week has been progressively getting more and more short of breath cough(congestion the chest. Not able to pickling grader any sputum really appetite has not been good much worse in the last 2 days. Does spike a fever of 102.4. Patient normally constipated as a bowel movement every 3 days. Patient also severely wheezing. Started on bronchodilators steroids. With some improvement. 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 Alcohol occ asionally. Lives alone. Is on disability. 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 Physical examination: VITAL SIGNS: 100.6, 107, 22, 136/68, 91% on room air GENERAL: BMI 32.6, sitting up short of breath., Cushingoid EYES: Pupils equal. Conjunctiva normal. HEENT: External appearance of nose and ears normal, oral cavity grossly normal. NECK: JVD not raised; masses not palpable. HEART: First and second heart sounds are normal; no edema. LUNGS:[ Respiratory rate increased, accessory muscles working, decreased breath sounds prolonged expiration,. Some coarse crackles in the right base ABDOMEN: Soft, nontender, liver spleen not palpable, no masses palpable. PSYCH: Alert and oriented x3; mood and affect anxiousl. NEUROLOGICAL: Cranial nerves grossly intact; no facial asymmetry, power and sensation grossly intact. LYMPHATICS: No lymph nodes palpable in the axilla and neck INVESTIGATIONS, reviewed in the clinical context: White count 3.5 potassium 4.1 creatinine 1.01 Influenza type A and B both negative Chest x-ray film personally reviewed by me-possible right-sided infiltrate EKG tracing personally reviewed by me-sinus rhythm Assessment: -Possible right lower lobe pneumonia suspected gram-negative organism causing sepsis on presentation -Acute exacerbation of severe persistent asthma -Obesity BMI 32.6 -Obstructive sleep apnea uses CPAP machine -GERD -Anxiety not otherwise specified Plan: -Patient started on nebulized bronchodilators every 4 hours, inhaled and IV steroids, on the home medications resumed. Bulb was consulted. Care was discussed with the patient. Questions were answered. 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 History of Any Multi-Drug Resistant Organisms: MRSA Date of last positivie culture/infection: 2015 MDRO Source:: lungs Past Surgical History: Cholecystectomy, Heart Catheterization Additional Past Surgical History / Comment(s): EGD, colonoscopies, esophageal motility test, kaylee fundlaplication, bronchoscopies, bronchial thermoplasty, cervical disc surgery, vasectomy, sinus surgery x 3. Past Anesthesia/Blood Transfusion Reactions: No Reported Reaction, Family History of Problems w/ Anesthesia Additional Past Anesthesia/Blood Transfusion Reaction / Comment(s): Mother, brother-ponv. Pt received blood in past without reaction. Past Psychological History: Anxiety, Depression Additional Psychological History / Comment(s): Pt resides alone. He is independent. He has a walker and a nebulizer. Smoking Status: Former smoker Past Alcohol Use History: None Reported Additional Past Alcohol Use History / Comment(s): SMOKED CIGARS IN THE QUIT 1996 Past Drug Use History: None Reported - Past Family History Son(s) Additional Family Medical History / Comment(s): suicide- depression. Daughter(s) Additional Family Medical History / Comment(s): "two holes in heart" Brother(s) Family Medical History: Myocardial Infarction ([place]) Additional Family Medical History / Comment(s): Brother of a AR at the age of 56yrs. Father Family Medical History: Pneumonia, Respiratory Disorder Mother Family Medical History: Eye Disorder, Hypertension, Myocardial Infarction ([place]) Additional Family Medical History / Comment(s): GLAUCOMA. Mother had a AR at the age of 87yrs. Medications and Allergies Home Medications Medication Instructions Recorded Confirmed Type Montelukast [Singulair] 10 mg PO DAILY 11/28/14 04/14/19 History Loratadine [Claritin] 10 mg PO DAILY 09/18/16 04/14/19 History Sertraline [Zoloft] 100 mg PO HS 01/30/17 04/14/19 History Topiramate [Topamax] 50 mg PO HS 01/30/17 04/14/19 History Diphenox-Atrop 2.5-0.025 mg 2 tab PO HS 08/11/18 04/14/19 History [Lomotil] Gabapentin [Neurontin] 600 mg PO HS 08/11/18 04/14/19 History Ipratropium-Albuterol Nebulize 3 ml INHALATION RT-QID 08/11/18 04/14/19 History [Duoneb 0.5 mg-3 mg/3 ml Soln] Tamsulosin HCl [Flomax] 0.8 mg PO HS 08/11/18 04/14/19 History L.acidoph,Paracasei, B.lactis 2 cap PO DAILY 09/17/18 04/14/19 History [Probiotic] Albuterol Inhaler [Ventolin Hfa 2 puff INHALATION RT-Q6H PRN 12/25/18 04/14/19 H istory Inhaler] predniSONE 20 mg PO DAILY 12/25/18 04/14/19 History Arformoterol Tartrate [Brovana] 15 mcg INHALATION RT-BID 04/14/19 04/14/19 History Benralizumab [Fasenra] 30 mg SQ Q56D 04/14/19 04/14/19 History Budesonide [Pulmicort] 0.5 mg INHALATION RT-BID 04/14/19 04/14/19 History Rivaroxaban [Xarelto] 20 mg PO DAILY 04/14/19 04/14/19 History clonazePAM [KlonoPIN] 1.5 mg PO HS 04/14/19 04/14/19 History Allergies Allergy/AdvReac Type Severity Reaction Status Date / Time Penicillins Allergy Swelling Verified 04/14/19 16:16 Physical Exam Vitals: Vital Signs Temp Pulse Pulse Resp BP Pulse Ox 04/15/19 19:52 91 04/15/19 19:40 93 04/15/19 19:25 92 95 04/15/19 16:00 18 04/15/19 15:22 95 04/15/19 15:12 92 04/15/19 13:28 98.6 F 97 18 118/62 95 04/15/19 10:58 96 04/15/19 10:47 100 04/15/19 08:45 97.5 F L 99 16 102/67 95 04/15/19 08:00 20 04/15/19 07:29 98 04/15/19 07:20 102 H 04/15/19 07:19 102 H 04/15/19 07:04 96 04/15/19 04:30 97.8 F 73 20 109/63 94 L Intake and Output 04/15/19 04/15/19 04/16/19 14:59 22:59 06:59 Intake Total 850 Balance 850 Intake: Oral 850 Other: Voiding Method Urinal Urinal # Voids 2 600 Results CBC & Chem 7: 04/14/19 14:00 04/14/19 14:00 Labs: Abnormal Lab Results - Last 24 Hours (Table) 04/15/19 04/15/19 04/15/19 Range/Units 07:13 12:20 17:19 POC Glucose (mg/dL) 138 H 133 H 123 H (75-99) mg/dL 04/15/19 Range/Units 20:22 POC Glucose (mg/dL) 152 H (75-99) mg/dL Microbiology - Last 24 Hours (Table) 04/14/19 15:15 Blood Culture - Preliminary Blood No Growth after 24 hours 04/14/19 14:18 Blood Culture - Preliminary Blood No Growth after 24 hours Thrombosis Risk Factor Assmnt - Choose All That Apply Each Factor Represents 1 point: Abnormal pulmonary function (COPD), Age 41-60 years, Obesity (BMI >25), Serious lung disease incl. pneumonia (< 1month) Other Risk Factors: Yes Each Risk Factor Represents 3 Points: History of DVT/PE Other congenital or acquired thrombophilia - If yes, enter type in comment: No Thrombosis Risk Factor Assessment Total Risk Factor Score: 7 Thrombosis Risk Factor Assessment Level: High Risk
[2019-04-16] MEDS: methylPREDNISolone SOD SUCCI 40 MG/ML 1 ML VIAL IV SCH ×3 (00:32→15:46)
[2019-04-16] MEDS: IPRATROPIUM-ALBUTEROL 3 ML NEB INHALATION SCH ×7 (00:48→22:54)
[2019-04-16] MEDS: SODIUM CHLORIDE 0.9% 1,000 ML IV SCH ×2 (05:08→15:46)
[2019-04-16] MEDS: BUDESONIDE 1 MG/2 ML NEBU INHALATION SCH ×2 (07:07→19:14)
[2019-04-16] MEDS: FORMOTEROL FUMARATE 20 MCG/2 ML NEBU INHALATION SCH ×2 (07:08→19:14)
[2019-04-16 07:09] LABS: Glucose,Whole Blood 130 mg/dL (75-99)
[2019-04-16] MEDS: INSULIN ASPART (NovoLOG) 100 UNIT/ML VIAL SQ SCH ×4 (08:36→21:44)
[2019-04-16] MEDS: LACTOBACILLUS ACIDOPH & BULGAR 1 EACH PACKET PO SCH (08:37)
[2019-04-16] MEDS: MONTELUKAST 10 MG TAB PO SCH (08:38)
[2019-04-16] MEDS: LORATADINE 10 MG TAB PO SCH (08:38)
[2019-04-16] MEDS: RIVAROXABAN 20 MG TAB PO SCH (08:38)
[2019-04-16 11:59] LABS: Glucose,Whole Blood 132 mg/dL (75-99)
--- NOTE | 2019-04-16 13:09 | P.CNPUL ---
History of Present Illness Consult date: 04/16/19 Requesting physician: Rodolfo Smith Reason for consult: dyspnea Chief complaint: Fever, body aches, shortness of breath History of present illness: This is a 54-year-old white male patient with past medical history of severe persistent eosinophilic bronchial asthma, status post bronchial thermoplasty, on Fasenra, history of pulmonary embolism currently on Xarelto, sleep apnea syndrome on CPAP therapy, morbid obesity, chronic steroid use, anxiety, bipolar disorder, lymphocytic-plasmacytic colitis, previous history of MRSA infection, chronic pain syndrome who presented to the hospital on 04/14/2019 for evaluation of worsening shortness of breath, fever, diffuse body aches, lethargy, and poor appetite. He stated that his symptoms started on Friday, on Friday had a fever of 102.3, he went to [facility] where he was given a dose of Levaquin and a prescription for oral Levaquin however she never filled the prescription. His symptoms became progressively worse and patient came into [facility] ER for further treatment. No chest pain, no hemoptysis, no nausea vomiting or diarrhea, his ap petite is poor, and he is also complaining of feeling weak and dehydrated. Chest x-ray was completed showing COPD with basilar atelectasis. Abdominal and pelvis CT showed clear lung bases and no distinct abnormality. Influenza screen was negative, white blood cell count was 13.5, hemoglobin is 14.3, coagulation profile was within normal limits, renal profile and electrolytes are within normal limits, troponin was negative 1, urinalysis did not show evidence of infection. Patient was started on empiric antibiotics in the form of Rocephin, IV steroids, and breathing treatments and was seen the patient in consultation for acute exacerbation of severe persistent bronchial asthma likely related to possibility of viral infection Review of Systems All systems: negative Constitutional: Reports as per HPI, Reports poor appetite, Reports weakness, Denies chills, Denies fever Eyes: denies blurred vision, denies pain Ears, nose, mouth and throat: Denies headache, Denies sore throat Cardiovascular: Denies chest pain, Denies shortness of breath Respiratory: Reports dyspnea, Denies cough Gastrointestinal: Denies abdominal pain, Denies diarrhea, Denies nausea, Denies vomiting Musculoskeletal: Denies myalgias Integumentary: Denies pruritus, Denies rash Neurological: Denies numbness, Denies weakness Psychiatric: Denies anxiety, Denies depression Endocrine: Denies fatigue, Denies weight change Past Medical History Past Medical History: Asthma, COPD, Deep Vein Thrombosis (DVT), GERD/Reflux, Hyperlipidemia, Pneumonia, Pulmonary Embolus (PE), Sleep Apnea/CPAP/BIPAP Additional Past Medical History / Comment(s): Severe persistent bronchial asthma, remote history of pulmonary embolism, 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 History of Any Multi-Drug Resistant Organisms: MRSA Date of last positivie culture/infection: 2015 MDRO Source:: lungs Past Surgical History: Cholecystectomy, Heart Catheterization Additional Past Surgical History / Comment(s): EGD, colonoscopies, esophageal motility test, kaylee fundlaplication, bronchoscopies, bronchial thermoplasty, cervical disc surgery, vasectomy, sinus surgery x 3. Past Anesthesia/Blood Transfusion Reactions: No Reported Reaction, Family History of Problems w/ Anesthesia Additional Past Anesthesia/Blood Transfusion Reaction / Comment(s): Mother, brother-ponv. Pt received blood in past without reaction. Past Psychological History: Anxiety, Depression Additional Psychological History / Comment(s): Pt resides alone. He is independent. He has a walker and a nebulizer. Smoking Status: Former smoker Past Alcohol Use History: None Reported Additional Past Alcohol Use History / Comment(s): SMOKED CIGARS IN THE QUIT 1996 Past Drug Use History: None Reported - Past Family History Son(s) Additional Family Medical History / Comment(s): suicide- depression. Daughter(s) Additional Family Medical History / Comment(s): "two holes in heart" Brother(s) Family Medical History: Myocardial Infarction ([place]) Additional Family Medical History / Comment(s): Brother of a [place] at the age of 56yrs. Father Family Medical History: Pneumonia, Respiratory Disorder Mother Family Medical History: Eye Disorder, Hypertension, Myocardial Infarction ([place]) Additional Family Medical History / Comment(s): GLAUCOMA. Mother had a [place] at the age of 87yrs. Medications and Allergies Home Medications Medication Instructions Recorded Confirmed Type Montelukast [Singulair] 10 mg PO DAILY 11/28/14 04/14/19 History Loratadine [Claritin] 10 mg PO DAILY 09/18/16 04/14/19 History Sertraline [Zoloft] 100 mg PO HS 01/30/17 04/14/19 History Topiramate [Topamax] 50 mg PO HS 01/30/17 04/14/19 History Diphenox-Atrop 2.5-0.025 mg 2 tab PO HS 08/11/18 04/14/19 History [Lomotil] Gabapentin [Neurontin] 600 mg PO HS 08/11/18 04/14/19 History Ipratropium-Albuterol Nebulize 3 ml INHALATION RT-QID 08/11/18 04/14/19 History [Duoneb 0.5 mg-3 mg/3 ml Soln] Tamsulosin HCl [Flomax] 0.8 mg PO HS 08/11/18 04/14/19 History L.acidoph,Paracasei, B.lactis 2 cap PO DAILY 09/17/18 04/14/19 History [Probiotic] Albuterol Inhaler [Ventolin Hfa 2 puff INHALATION RT-Q6H PRN 12/25/18 04/14/19 History Inhaler] predniSONE 20 mg PO DAILY 12/25/18 04/14/19 History Arformoterol Tartrate [Brovana] 15 mcg INHALATION RT-BID 04/14/19 04/14/19 History Benralizumab [Fasenra] 30 mg SQ Q56D 04/14/19 04/14/19 History Budesonide [Pulmicort] 0.5 mg INHALATION RT-BID 04/14/19 04/14/19 History Rivaroxaban [Xarelto] 20 mg PO DAILY 04/14/19 04/14/19 History clonazePAM [KlonoPIN] 1.5 mg PO HS 04/14/19 04/14/19 History Allergies Allergy/AdvReac Type Severity Reaction Status Date / Time Penicillins Allergy Swelling Verified 04/14/19 16:16 Physical Exam Vitals: Vital Signs Temp Pulse Pulse Resp BP BP Pulse Ox 04/16/19 10:58 100 04/16/19 10:43 98 04/16/19 08:00 20 04/16/19 07:30 102 H 04/16/19 07:17 105 H 04/16/19 07:08 105 H 94 L 04/16/19 05:11 97.0 F L 100 20 111/70 95 04/16/19 00:58 93 04/16/19 00:50 90 04/15/19 20:45 97.5 F L 99 16 102/67 95 04/15/19 19:52 91 04/15/19 19:40 93 04/15/19 19:25 92 95 04/15/19 16:00 18 04/15/19 15:22 95 04/15/19 15:12 92 04/15/19 13:28 98.6 F 97 18 118/62 95 Intake and Output 04/15/19 04/16/19 04/16/19 22:59 06:59 14:59 Output Total 850 Balance -850 Output: Urine 850 Other: Voiding Method Urinal Toilet Urinal # Voids 600 # Bowel Movements 0 GENERAL EXAM: Alert, pleasant, 54-year-old white male, on room air, with a pul se ox of 95% comfortable in no apparent distress. HEAD: Normocephalic/atraumatic. EYES: Normal reaction of pupils, equal size. Conjunctiva pink, sclera white. NOSE: Clear with pink turbinates. THROAT: No erythema or exudates. NECK: No masses, no JVD, no thyroid enlargement, no adenopathy. CHEST: No chest wall deformity. Symmetrical expansion. LUNGS: Equal air entry with scattered wheezes, no significant rhonchi or rales CVS: Regular rate and rhythm, normal S1 and S2, no gallops, no murmurs, no rubs ABDOMEN: Soft, nontender. No hepatosplenomegaly, normal bowel sounds, no guarding or rigidity. EXTREMITIES: No clubbing, no edema, no cyanosis, 2+ pulses and upper and lower extremities. MUSCULOSKELETAL: Muscle strength and tone normal. SPINE: No scoliosis or deformity SKIN: No rashes CENTRAL NERVOUS SYSTEM: Alert and oriented -3. No focal deficits, tone is normal in all 4 extremities. PSYCHIATRIC: Alert and oriented -3. Appropriate affect. Intact judgment and insight. Results - Laboratory Findings CBC and BMP: 04/14/19 14:00 04/14/19 14:00 PT/INR, D-dimer PT 10.0 sec (9.0-12.0) 04/14/19 14:00 INR 0.9 (<1.2) 04/14/19 14:00 Abnormal lab findings: Abnormal Labs 04/14/19 04/14/19 04/14/19 14:00 14:00 14:00 WBC 13.5 H Neutrophils # 10.3 H Monocytes # 1.2 H APTT 21.5 L Glucose 102 H POC Glucose (mg/dL) Total Bilirubin 1.7 H Urine Protein Urine Ketones 04/14/19 04/14/19 04/15/19 17:41 20:10 07:13 WBC Neutrophils # Monocytes # APTT Glucose POC Glucose (mg/dL) 123 H 138 H Total Bilirubin Urine Protein Trace H Urine Ketones 2+ H 04/15/19 04/15/19 04/15/19 12:20 17:19 20:22 WBC Neutrophils # Monocytes # APTT Glucose POC Glucose (mg/dL) 133 H 123 H 152 H Total Bilirubin Urine Protein Urine Ketones 04/16/19 04/16/19 07:06 11:57 WBC Neutrophils # Monocytes # APTT Glucose POC Glucose (mg/dL) 130 H 132 H Total Bilirubin Urine Protein Urine Ketones - Diagnostic Findings Chest x-ray: report reviewed, image reviewed Additional studies: CT of abdomen and pelvis reviewed, EKG reviewed Assessment and Plan Plan: Assessment: #1. Acute exacerbation of severe persistent eosinophilic bronchial asthma #2. Fever, chills, generalized body aches, influenza screen was negative, possibly a viral infection. Chest x-ray and lung bases seen on the CT of abdomen and pelvis showed no acute process #3. History of pulmonary embolism, recurrent, patient is on long-term anticoagulation in the form of Xarelto #4. 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 Hx of eosinophilic bronchial asthma, S/P bronchial thermoplasty, previous treatment with Xolair, with no improvement, and currenty on Fasenra #6. Bipolar disorder #7. Essential tremors #8. Chronic anxiety #9. History of lymphocytic plasmacytoid colitis #10. Cervical disc disease #11. Chronic pain syndrome #12. Previous respiratory MRSA infection Plan: Continue IV steroids, continue antibiotics, no fever or chills since admission, patient is on room air, still has some wheezes, and exertional dyspnea, but overall improving, clinically stable. Continue bronchodilators, continue oral anticoagulation. I performed a history & physical examination of the patient and discussed their management with my nurse practitioner, Lola Castillo. I reviewed the nurse practitioner's note and agree with the documented findings and plan of care. Lung sounds are positive for scattered wheezes. The findings and the impression was discussed with the patient. I attest to the documentation by the nurse practitioner. Time with Patient: Greater than 30
[2019-04-16 16:55] LABS: Glucose,Whole Blood 122 mg/dL (75-99)
--- NOTE | 2019-04-16 20:24 | PN ---
PROGRESS NOTE DATE OF SERVICE: 04/16/2019 This 54-year-old gentleman who was admitted with right lower pneumonia is being closely monitored at this time. The patient also had acute exacerbation of chronic persistent asthma as well. Pulmonary is following the patient closely. Patient on broad IV antibiotics. PAST MEDICAL HISTORY: Reviewed. REVIEW OF SYSTEMS: Cardiovascular system: No angina or palpitations. Respirations: As mentioned earlier. GI no nausea or vomiting. : No dysuria or hematuria. CENTRAL NERVOUS SYSTEM: No numbness or weakness. CURRENT MEDICATIONS: Reviewed and include: 1. Tylenol p.r.n. 2. Ventolin 2.5 q.6h p.r.n. 3. DuoNeb q.i.d. and p.r.n. 4. Pulmicort 1 mg b.i.d. 5. Rocephin 1 g daily. 6. Klonopin 1.5 mg q.h.s. 7. Lomotil 2 mg q.h.s. 8. Perforomist 20 mcg b.i.d. 9. Neurontin. 10.NovoLog. 11.Lactinex. 12.Claritin. 13.Solu-Medrol 40 IV q.8h. 14.Singular. 15.Xarelto. 16.Zoloft. 17.Flomax. 18.Topamax. PHYSICAL EXAM: Patient is alert, oriented x3. Pulse is 91. blood pressure 135/69, respirations 16, temperature 98 degrees, pulse ox 92% on 2 L. HEENT: Conjunctivae normal. NECK: No JVD. CARDIOVASCULAR: S1, S2 normal. RESPIRATION: Breath sounds diminished in the bases. Bilateral scattered rhonchi and crackles. ABDOMEN: Soft, nontender. LEGS are no edema. No swelling. CENTRAL NERVOUS SYSTEM: No focal deficits. LABS: WBC 13.5, 1.2. Cultures obtained. Influenza is negative. Chest x-ray reviewed personally by me. ASSESSMENT: 1. Acute right lower lobe pneumonia possibly gram-negative with sepsis present on admission. 2. Asthma, acute exacerbation with history of chronic persistent severe asthma. 3. Obesity with body mass index of 32.6. 4. Obstructive sleep apnea. 5. Gastroesophageal reflux disease. 6. Anxiety. 7. Hypertension. 8. History of pulmonary embolism. 9. History of sleep apnea. 10.History of deep vein thrombosis. 11.History of degenerative joint disease. 12.History of cholecystectomy. 13.history of anxiety, depression. RECOMMENDATIONS AND DISCUSSION: In this 54-year-old gentleman with multiple complex medical issues, we will monitor the patient closely, continue the current medications, management and symptomatic treatment. Otherwise, I would recommend continue with antibiotics, steroids, bronchodilators. Patient is on Xarelto. We will continue to monitor. Prognosis guarded because of multiple complex medical issues. Home medication has been ordered. I would also recommend monitor blood sugars closely. Prognosis guarded because of multiple complex medical issues. Further recommendations to follow. MMODL / IJN: [id number] / MTDD
[2019-04-16 21:11] LABS: Glucose,Whole Blood 105 mg/dL (75-99)
[2019-04-16] MEDS: GABAPENTIN 300 MG CAP PO SCH (21:44)
[2019-04-16] MEDS: SERTRALINE 100 MG TAB PO SCH (21:44)
[2019-04-16] MEDS: TAMSULOSIN 0.4 MG CAP.ER.24H PO SCH (21:44)
[2019-04-16] MEDS: TOPIRAMATE 25 MG TAB PO SCH (21:44)
[2019-04-16] MEDS: MELATONIN 5 MG TABLET PO SCH (21:44)
[2019-04-16] MEDS: DIPHENOX-ATROP 2.5-0.025 MG 1 EACH TAB PO SCH (21:49)
[2019-04-16] MEDS: clonazePAM 0.5 MG TAB PO SCH (21:50)
[2019-04-17] MEDS: methylPREDNISolone SOD SUCCI 40 MG/ML 1 ML VIAL IV SCH ×4 (00:15→23:36)
[2019-04-17] MEDS: SODIUM CHLORIDE 0.9% 1,000 ML IV SCH ×2 (00:20→10:20)
[2019-04-17] MEDS: IPRATROPIUM-ALBUTEROL 3 ML NEB INHALATION SCH ×6 (04:01→22:52)
[2019-04-17 07:19] LABS: Glucose,Whole Blood 115 mg/dL (75-99)
[2019-04-17] MEDS: BUDESONIDE 1 MG/2 ML NEBU INHALATION SCH ×2 (07:38→19:22)
[2019-04-17] MEDS: FORMOTEROL FUMARATE 20 MCG/2 ML NEBU INHALATION SCH ×2 (07:38→19:22)
[2019-04-17] MEDS: INSULIN ASPART (NovoLOG) 100 UNIT/ML VIAL SQ SCH ×4 (09:15→20:39)
[2019-04-17] MEDS: LORATADINE 10 MG TAB PO SCH (10:20)
[2019-04-17] MEDS: MONTELUKAST 10 MG TAB PO SCH (10:20)
[2019-04-17] MEDS: LACTOBACILLUS ACIDOPH & BULGAR 1 EACH PACKET PO SCH (10:20)
[2019-04-17] MEDS: RIVAROXABAN 20 MG TAB PO SCH (10:20)
[2019-04-17 11:41] LABS: Glucose,Whole Blood 121 mg/dL (75-99)
--- NOTE | 2019-04-17 14:04 | P.PN ---
Subjective Progress Note Date: 04/17/19 Principal diagnosis: Acute exacerbation of severe persistent a was in the final bronchial asthma, and tracheobronchitis This is a 54-year-old white male patient with past medical history of severe persistent eosinophilic bronchial asthma, status post bronchial thermoplasty, on Fasenra, history of pulmonary embolism currently on Xarelto, sleep apnea syndrome on CPAP therapy, morbid obesity, chronic steroid use, anxiety, bipolar disorder, lymphocytic-plasmacytic colitis, previous history of MRSA infection, chronic pain syndrome who presented to the hospital on 04/14/2019 for evaluation of worsening shortness of breath, fever, diffuse body aches, lethargy, and poor appetite. He stated that his symptoms started on Friday, on Friday had a fever of 102.3, he went to [place] [facility] where he was given a dose of Levaquin and a prescription for oral Levaquin however she never filled the prescription. His symptoms became progressively worse and patient came into [facility] ER for further treatment. No chest pain, no hemoptysis, no nausea vomiting or diarrhea, his appetite is poor, and he is also complaining of feeling weak and dehydrated. Chest x-ray was completed showing COPD with basilar atelectasis. Abdominal and pelvis CT showed clear lung bases and no distinct abnormality. Influenza screen was negative, white blood cell count was 13.5, hemoglobin is 14.3, coagulation profile was within normal limits, renal profile and electrolytes are within normal limits, troponin was negative 1, urinalysis did not show evidence of infection. Patient was started on empiric antibiotics in the form of Rocephin, IV steroids, and breathing treatments and was seen the patient in consultation for acute exacerbation of severe persistent bronchial asthma likely related to possibility of viral infection. On 04/17/2019 patient seen in follow-up on medical surgical floor. He states his breathing is still labored, although slightly improved, his cough is dry, nonproductive, no complaints of chest pain, he is afebrile, remains on 2 L of oxygen, he is wearing his CPAP from home. Influenza is negative. Continues on IV steroids, empiric antibiotics and oral anticoagulants Objective - Vital Signs Vital signs: Vital Signs Temp 98.0 F 04/17/19 05:09 Pulse 80 04/17/19 11:41 Resp 18 04/17/19 05:09 BP 118/69 04/17/19 05:09 Pulse Ox 94 L 04/17/19 05:09 Intake & Output 04/16/19 04/17/19 04/17/19 18:59 06:59 18:59 Output Total 600 1400 Balance -600 -1400 Output: Urine 600 1400 Other: Voiding Method Toilet Toilet Urinal Urinal # Voids 1 # Bowel Movements 0 - Exam GENERAL EXAM: Alert, pleasant, 54-year-old white male, on 2 L of oxygen, with a pulse ox of 95% comfortable in no apparent distress. HEAD: Normocephalic/atraumatic. EYES: Normal reaction of pupils, equal size. Conjunctiva pink, sclera white. NOSE: Clear with pink turbinates. THROAT: No erythema or exudates. NECK: No masses, no JVD, no thyroid enlargement, no adenopathy. CHEST: No chest wall deformity. Symmetrical expansion. LUNGS: Equal air entry with scattered wheezes, no significant rhonchi or rales CVS: Regular rate and rhythm, normal S1 and S2, no gallops, no murmurs, no rubs ABDOMEN: Soft, nontender. No hepatosplenomegaly, normal bowel sounds, no guarding or rigidity. EXTREMITIES: No clubbing, no edema, no cyanosis, 2+ pulses and upper and lower extremities. MUSCULOSKELETAL: Muscle strength and tone normal. SPINE: No scoliosis or deformity SKIN: No rashes CENTRAL NERVOUS SYSTEM: Alert and oriented -3. No focal deficits, tone is normal in all 4 extremities. PSYCHIATRIC: Alert and oriented -3. Appropriate affect. Intact judgment and insight. - Labs CBC & Chem 7: 04/14/19 14:00 04/14/19 14:00 Labs: Abnormal Lab Results - Last 24 Hours (Table) 04/16/19 04/16/19 04/17/19 Range/Units 16:53 21:10 07:18 POC Glucose (mg/dL) 122 H 105 H 115 H (75-99) mg/dL 04/17/19 Range/Units 11:40 POC Glucose (mg/dL) 121 H (75-99) mg/dL Microbiology - Last 24 Hours (Table) 04/14/19 15:15 Blood Culture - Preliminary Blood No Growth after 48 hours 04/14/19 14:18 Blood Culture - Preliminary Blood No Growth after 48 hours Assessment and Plan Plan: Assessment: #1. Acute exacerbation of severe persistent eosinophilic bronchial asthma, complicated by tracheobronchitis #2. Fever, chills, generalized body aches, influenza screen was negative, possibly a viral infection. Chest x-ray and lung bases seen on the CT of abdomen and pelvis showed no acute process #3. History of pulmonary embolism, recurrent, patient is on long-term a nticoagulation in the form of Xarelto #4. 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 Hx of eosinophilic bronchial asthma, S/P bronchial thermoplasty, previous treatment with Xolair, with no improvement, and currenty on Fasenra #6. Bipolar disorder #7. Essential tremors #8. Chronic anxiety #9. History of lymphocytic plasmacytoid colitis #10. Cervical disc disease #11. Chronic pain syndrome #12. Previous respiratory MRSA infection Plan: Continue current medical treatment, continue IV steroids, empiric antibiotics, send a sputum for culture, continue breathing treatments, still dyspneic and bronchospastic, not quite back to baseline. I performed a history & physical examination of the patient and discussed their management with my nurse practitioner, Lola Csatillo. I reviewed the nurse practitioner's note and agree with the documented findings and plan of care. Lung sounds are positive for scattered wheezes. The findings and the impression was discussed with the patient. I attest to the documentation by the nurse practitioner. Time with Patient: Less than 30
[2019-04-17 16:59] LABS: Glucose,Whole Blood 140 mg/dL (75-99)
--- NOTE | 2019-04-17 20:02 | PN ---
PROGRESS NOTE DATE OF SERVICE: 04/17/2019 This 54-year-old gentleman admitted with asthma, acute exacerbation, also had pneumonia. No chest pain. No palpitations. No fever. Dr. Reynoso is following the patient closely. EXAM: Alert and oriented x3. Pulse is 94, blood pressure 118/56, respiration 18, temperature 97.9, pulse ox 94% on 2 L. HEENT: Conjunctivae normal. Oral mucosa moist. NECK: No jugular venous distention. No lymph node enlargement. CARDIOVASCULAR: S1, S2. RESPIRATORY: Diminished breath sounds at the bases. Bilateral scattered rhonchi and crackles. ABDOMEN: Soft, nontender. LEGS: No swelling. NERVOUS SYSTEM: No focal deficits. LABS: WBC 13.5. ASSESSMENT: 1. Asthma acute exacerbation with cough with a baseline chronic persistent severe asthma. 2. Acute right lower lobe pneumonia, possibly gram-negative sepsis present on admission. 3. Obesity with body mass index of 32.6. 4. History of obstructive sleep apnea. 5. Gastroesophageal reflux disease. 6. Anxiety. 7. Hypertension. 8. History of pulmonary embolism. 9. History of sleep apnea. 10.History of deep vein thrombosis. 11.History of degenerative joint disease. 12.History of cholecystectomy. 13.History of anxiety and depression. RECOMMENDATION AND DISCUSSION: Recommend to continue current management, continue bronchodilators, continue empiric antibiotics and I would recommend also DVT prophylaxis. The patient is currently on Xarelto. Further recommendations to follow. MMODL / IJN: [id number] /
[2019-04-17] MEDS: TAMSULOSIN 0.4 MG CAP.ER.24H PO SCH (20:21)
[2019-04-17] MEDS: SERTRALINE 100 MG TAB PO SCH (20:21)
[2019-04-17] MEDS: MELATONIN 5 MG TABLET PO SCH (20:21)
[2019-04-17] MEDS: TOPIRAMATE 25 MG TAB PO SCH (20:21)
[2019-04-17] MEDS: clonazePAM 0.5 MG TAB PO SCH (20:27)
[2019-04-17] MEDS: DIPHENOX-ATROP 2.5-0.025 MG 1 EACH TAB PO SCH (20:27)
[2019-04-17] MEDS: GABAPENTIN 300 MG CAP PO SCH (20:27)
[2019-04-17 20:33] LABS: Glucose,Whole Blood 119 mg/dL (75-99)
[2019-04-18] MEDS: IPRATROPIUM-ALBUTEROL 3 ML NEB INHALATION SCH ×6 (03:27→23:38)
[2019-04-18] MEDS: BUDESONIDE 1 MG/2 ML NEBU INHALATION SCH ×2 (06:46→19:13)
[2019-04-18] MEDS: FORMOTEROL FUMARATE 20 MCG/2 ML NEBU INHALATION SCH ×2 (06:47→19:13)
[2019-04-18 06:54] LABS: Glucose,Whole Blood 106 mg/dL (75-99)
[2019-04-18 08:02] LABS: Basophils % (A) 0 %; Eosinophils % (A) 0 %; HCT 41.7 % (39.0-53.0); HGB 13.5 gm/dL (13.0-17.5); Lymphocytes # (A) 1.2 k/uL (1.0-4.8); Lymphocytes % (A) 12 %; MCHC 32.4 g/dL (31.0-37.0); MCV 86.6 fL (80.0-100.0); Mean Platelet Volume 7.6; Monocytes # (A) 0.6 k/uL (0-1.0); Monocytes % (A) 6 %; Neutrophils % (A) 81 %; Platelet Count 349 k/uL (150-450); RBC 4.81 m/uL (4.30-5.90); RDW 13.5 % (11.5-15.5)
[2019-04-18 08:25] LABS: African American GFR (CKD) >90 (>60 ml/min/1.73 sqM); Anion Gap 8 mmol/L; Blood Urea Nitrogen 17 mg/dL (9-20); Calcium 9.2 mg/dL (8.4-10.2); Carbon Dioxide 24 mmol/L (22-30); Chloride 109 mmol/L (98-107); Glucose 125 mg/dL (74-99); Non-African American GFR(CKD) >90 (>60 ml/min/1.73 sqM); Potassium 4.3 mmol/L (3.5-5.1); Sodium 141 mmol/L (137-145)
[2019-04-18] MEDS: INSULIN ASPART (NovoLOG) 100 UNIT/ML VIAL SQ SCH ×4 (08:30→21:20)
[2019-04-18] MEDS: RIVAROXABAN 20 MG TAB PO SCH (09:37)
[2019-04-18] MEDS: LACTOBACILLUS ACIDOPH & BULGAR 1 EACH PACKET PO SCH (09:37)
[2019-04-18] MEDS: LORATADINE 10 MG TAB PO SCH (09:37)
[2019-04-18] MEDS: MONTELUKAST 10 MG TAB PO SCH (09:37)
[2019-04-18] MEDS: methylPREDNISolone SOD SUCCI 40 MG/ML 1 ML VIAL IV SCH ×3 (09:37→23:45)
[2019-04-18 11:46] LABS: Glucose,Whole Blood 110 mg/dL (75-99)
--- NOTE | 2019-04-18 12:11 | P.PN ---
Subjective Progress Note Date: 04/18/19 Principal diagnosis: Acute exacerbation of severe persistent a was in the final bronchial asthma, and tracheobronchitis This is a 54-year-old white male patient with past medical history of severe persistent eosinophilic bronchial asthma, status post bronchial thermoplasty, on Fasenra, history of pulmonary embolism currently on Xarelto, sleep apnea syndrome on CPAP therapy, morbid obesity, chronic steroid use, anxiety, bipolar disorder, lymphocytic-plasmacytic colitis, previous history of MRSA infection, chronic pain syndrome who presented to the hospital on 04/14/2019 for evaluation of worsening shortness of breath, fever, diffuse body aches, lethargy, and poor appetite. He stated that his symptoms started on Friday, on Friday had a fever of 102.3, he went to [place] ER where he was given a dose of Levaquin and a prescription for oral Levaquin however she never filled the prescription. His symptoms became progressively worse and patient came into [facility] ER for further treatment. No chest pain, no hemoptysis, no nausea vomiting or diarrhea, his appetite is poor, and he is also complaining of feeling weak and dehydrated. Chest x-ray was completed showing COPD with basilar atelectasis. Abdominal and pelvis CT showed clear lung bases and no distinct abnormality. Influenza screen was negative, white blood cell count was 13.5, hemoglobin is 14.3, coagulation profile was within normal limits, renal profile and electrolytes are within normal limits, troponin was negative 1, urinalysis did not show evidence of infection. Patient was started on empiric antibiotics in the form of Rocephin, IV steroids, and breathing treatments and was seen the patient in consultation for acute exacerbation of severe persistent bronchial asthma likely related to possibility of viral infection. On 04/17/2019 patient seen in follow-up on medical surgical floor. He states his breathing is still labored, although slightly improved, his cough is dry, nonproductive, no complaints of chest pain, he is afebrile, remains on 2 L of oxygen, he is wearing his CPAP from home. Influenza is negative. Continues on IV steroids, empiric antibiotics and oral anticoagulants On 04/18/2019 patient seen in follow-up on medical surgical floor. Doing better, breathing easier. At times she is producing small amount of philip-colored phlegm, no fever or chills. Still has some burning sensation with coughing in his chest, but the throat burning has subsided. Vital signs are stable, afebrile. He is on a combination of ceftriaxone, IV steroids, nebulized bronchodilators, and Pulmicort/Perforomist, improving Objective - Vital Signs Vital signs: Vital Signs Temp 97.8 F 04/18/19 04:33 Pulse 84 04/18/19 10:53 Resp 18 04/18/19 04:33 BP 134/70 04/18/19 04:33 Pulse Ox 95 04/18/19 04:33 Intake & Output 04/17/19 04/18/19 04/18/19 18:59 06:59 18:59 Intake Total 1200 Output Total 2700 900 Balance -1500 -900 Intake: Oral 1200 Output: Urine 2700 900 Other: Voiding Method Toilet Urinal # Voids 4 - Exam GENERAL EXAM: Alert, pleasant, 54-year-old white male, on 2 L of oxygen, with a pulse ox of 95% comfortable in no apparent distress. HEAD: Normocephalic/atraumatic. EYES: Normal reaction of pupils, equal size. Conjunctiva pink, sclera white. NOSE: Clear with pink turbinates. THROAT: No erythema or exudates. NECK: No masses, no JVD, no thyroid enlargement, no adenopathy. CHEST: No chest wall deformity. Symmetrical expansion. LUNGS: Equal air entry with scattered wheezes, no significant rhonchi or rales CVS: Regular rate and rhythm, normal S1 and S2, no gallops, no murmurs, no rubs ABDOMEN: Soft, nontender. No hepatosplenomegaly, normal bowel sounds, no guarding or rigidity. EXTREMITIES: No clubbing, no edema, no cyanosis, 2+ pulses and upper and lower extremities. MUSCULOSKELETAL: Muscle strength and tone normal. SPINE: No scoliosis or deformity SKIN: No rashes CENTRAL NERVOUS SYSTEM: Alert and oriented -3. No focal deficits, tone is normal in all 4 extremities. PSYCHIATRIC: Alert and oriented -3. Appropriate affect. Intact judgment and insight. - Labs CBC & Chem 7: 04/18/19 07:44 04/18/19 07:44 Labs: Abnormal Lab Results - Last 24 Hours (Table) 04/17/19 04/17/19 04/18/19 Range/Units 16:58 20:32 06:53 Neutrophils # (1.3-7.7) k/uL Chloride (98-107) mmol/L Glucose (74-99) mg/dL POC Glucose (mg/dL) 140 H 119 H 106 H (75-99) mg/dL 04/18/19 04/18/19 04/18/19 Range/Units 07:44 07:44 11:44 Neutrophils # 8.0 H (1.3-7.7) k/uL Chloride 109 H (98-107) mmol/L Glucose 125 H (74-99) mg/dL POC Glucose (mg/dL) 110 H (75-99) mg/dL Microbiology - Last 24 Hours (Table) 04/14/19 15:15 Blood Culture - Preliminary Blood No Growth after 72 hours 04/14/19 14:18 Blood Culture - Preliminary Blood No Growth after 72 hours Assessment and Plan Plan: Assessment: #1. Acute exacerbation of severe persistent eosinophilic bronchial asthma, complicated by tracheobronchitis #2. Fever, chills, generalized body aches, influenza screen was negative, possibly a viral infection. Chest x-ray and lung bases seen on the CT of abdomen and pelvis showed no acute process #3. History of pulmonary embolism, recurrent, patient is on long-term anticoagulation in the form of Xarelto #4. 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 Hx of eosinophilic bronchial asthma, S/P bronchial thermoplasty, previous treatment with Xolair, with no improvement, and currenty on Fasenra #6. Bipolar disorder #7. Essential tremors #8. Chronic anxiety #9. History of lymphocytic plasmacytoid colitis #10. Cervical disc disease #11. Chronic pain syndrome #12. Previous respiratory MRSA infection Plan: Doing better, less dyspneic less wheezy, coughing has subsided, continue current medical treatment, continue same dose steroids, Rocephin, neb bronchodilators, and antibiotics. Vital signs are stable, afebrile. Continue to follow, anticipate possible discharge home in the next 24 hours I performed a history & physical examination of the patient and discussed their management with my nurse practitioner, Lola Castillo. I reviewed the nurse practitioner's note and agree with the documented findings and plan of care. Lung sounds are positive for scattered wheezes. The findings and the impression was discussed with the patient. I attest to the documentation by the nurse practitioner. Time with Patient: Less than 30
[2019-04-18 17:06] LABS: Glucose,Whole Blood 102 mg/dL (75-99)
--- NOTE | 2019-04-18 19:40 | PN ---
PROGRESS NOTE DATE OF SERVICE: 04/18/2019 This 54-year-old gentleman who was admitted with asthma acute exacerbation as well as right lower lobe pneumonia is being closely monitored. Clinically the patient is slightly better. Dr. Reynoso is following the patient. No chest pain. No palpitations. No fever. EXAM: Alert, oriented x3. Pulse is 86, blood pressure 148/82, respirations 16, temp 98.2, pulse ox 94% on 2 L. HEENT: Conjunctivae normal. Oral mucosa moist. NECK: No jugular venous distention. No lymph node enlargement. CARDIOVASCULAR: S1, S2. RESPIRATORY: Diminished breath sounds at the bases. Scattered rhonchi and crackles. Expiratory wheezing also present. ABDOMEN: Soft, nontender. LEGS: No edema, no swelling. NERVOUS SYSTEM: Higher functions mentioned earlier. Moves all four limbs. No focal deficits. LYMPHATICS: No lymph node in neck or axilla. SKIN: No rash. JOINTS: No active deforming arthropathy. LABS: CBC within normal. Sodium 140, potassium 4.3. ASSESSMENT: 1. Asthma, acute exacerbation, with cough at baseline, chronic persistent severe asthma. 2. Acute right lower lobe pneumonia possibly gram-negative with sepsis, present on admission. 3. Obesity with body mass index of 32.6. 4. History of obstructive sleep apnea. 5. Gastroesophageal reflux disease. 6. Anxiety. 7. Hypertension. 8. History of pulmonary embolism. 9. History of sleep apnea. 10.History of deep venous thrombosis. 11.History of degenerative joint disease. 12.History of cholecystectomy. 13.History of anxiety, depression. RECOMMENDATIONS AND DISCUSSION: I recommend to continue current medications, continue symptomatic treatment. The patient is still short of breath at rest. Dr. Reynoso is following the patient closely. Currently patient is on broad-spectrum antibiotics in the form of Rocephin and ( ) and the patient is also on tapering dose of IV steroids and Xarelto. I would add Zithromax to the current regimen as well. Otherwise, continue to monitor. Guarded prognosis because of the multiple complex medical issues. Further recommendations to follow. MMODL / IJN: [id number] /
[2019-04-18 20:22] LABS: Glucose,Whole Blood 115 mg/dL (75-99)
[2019-04-18] MEDS: MELATONIN 5 MG TABLET PO SCH (21:18)
[2019-04-18] MEDS: TAMSULOSIN 0.4 MG CAP.ER.24H PO SCH (21:19)
[2019-04-18] MEDS: clonazePAM 0.5 MG TAB PO SCH (21:19)
[2019-04-18] MEDS: DIPHENOX-ATROP 2.5-0.025 MG 1 EACH TAB PO SCH (21:19)
[2019-04-18] MEDS: SERTRALINE 100 MG TAB PO SCH (21:19)
[2019-04-18] MEDS: TOPIRAMATE 25 MG TAB PO SCH (21:19)
[2019-04-18] MEDS: AZITHROMYCIN 500 MG TAB PO SCH (21:19)
[2019-04-18] MEDS: GABAPENTIN 300 MG CAP PO SCH (21:19)
[2019-04-19] MEDS: IPRATROPIUM-ALBUTEROL 3 ML NEB INHALATION SCH ×3 (03:17→11:04)
[2019-04-19 05:20] VITALS: BP 125/70; RESP 20; TEMP 97.5
[2019-04-19 07:19] LABS: Glucose,Whole Blood 109 mg/dL (75-99)
[2019-04-19] MEDS: FORMOTEROL FUMARATE 20 MCG/2 ML NEBU INHALATION SCH (07:27)
[2019-04-19] MEDS: BUDESONIDE 1 MG/2 ML NEBU INHALATION SCH (07:27)
[2019-04-19] MEDS: RIVAROXABAN 20 MG TAB PO SCH (07:45)
[2019-04-19] MEDS: MONTELUKAST 10 MG TAB PO SCH (07:45)
[2019-04-19] MEDS: LACTOBACILLUS ACIDOPH & BULGAR 1 EACH PACKET PO SCH (07:45)
[2019-04-19] MEDS: methylPREDNISolone SOD SUCCI 40 MG/ML 1 ML VIAL IV SCH (07:45)
[2019-04-19] MEDS: AZITHROMYCIN 500 MG TAB PO SCH (07:45)
[2019-04-19] MEDS: LORATADINE 10 MG TAB PO SCH (07:45)
[2019-04-19] MEDS: INSULIN ASPART (NovoLOG) 100 UNIT/ML VIAL SQ SCH ×2 (07:45→11:59)
[2019-04-19 09:12] LABS: African American GFR (CKD) >90 (>60 ml/min/1.73 sqM); Anion Gap 10 mmol/L; Blood Urea Nitrogen 21 mg/dL (9-20); Calcium 9.4 mg/dL (8.4-10.2); Carbon Dioxide 27 mmol/L (22-30); Chloride 104 mmol/L (98-107); Glucose 184 mg/dL (74-99); Non-African American GFR(CKD) >90 (>60 ml/min/1.73 sqM); Potassium 4.3 mmol/L (3.5-5.1); Sodium 141 mmol/L (137-145)
[2019-04-19 11:16] VITALS: PULSE 90
[2019-04-19 11:57] LABS: Glucose,Whole Blood 102 mg/dL (75-99)
--- NOTE | 2019-04-19 13:36 | P.PN ---
Subjective Progress Note Date: 04/19/19 Principal diagnosis: Acute exacerbation of severe persistent a was in the final bronchial asthma, and tracheobronchitis This is a 54-year-old white male patient with past medical history of severe persistent eosinophilic bronchial asthma, status post bronchial thermoplasty, on Fasenra, history of pulmonary embolism currently on Xarelto, sleep apnea syndrome on CPAP therapy, morbid obesity, chronic steroid use, anxiety, bipolar disorder, lymphocytic-plasmacytic colitis, previous history of MRSA infection, chronic pain syndrome who presented to the hospital on 04/14/2019 for evaluation of worsening shortness of breath, fever, diffuse body aches, lethargy, and poor appetite. He stated that his symptoms started on Friday, on Friday had a fever of 102.3, he went to [place] ER where he was given a dose of Levaquin and a prescription for oral Levaquin however she never filled the prescription. His symptoms became progressively worse and patient came into [facility] ER for further treatment. No chest pain, no hemoptysis, no nausea vomiting or diarrhea, his appetite is poor, and he is also complaining of feeling weak and dehydrated. Chest x-ray was completed showing COPD with basilar atelectasis. Abdominal and pelvis CT showed clear lung bases and no distinct abnormality. Influenza screen was negative, white blood cell count was 13.5, hemoglobin is 14.3, coagulation profile was within normal limits, renal profile and electrolytes are within normal limits, troponin was negative 1, urinalysis did not show evidence of infection. Patient was started on empiric antibiotics in the form of Rocephin, IV steroids, and breathing treatments and was seen the patient in consultation for acute exacerbation of severe persistent bronchial asthma likely related to possibility of viral infection. On 04/17/2019 patient seen in follow-up on medical surgical floor. He states his breathing is still labored, although slightly improved, his cough is dry, nonproductive, no complaints of chest pain, he is afebrile, remains on 2 L of oxygen, he is wearing his CPAP from home. Influenza is negative. Continues on IV steroids, empiric antibiotics and oral anticoagulants On 04/18/2019 patient seen in follow-up on medical surgical floor. Doing better, breathing easier. At times she is producing small amount of philip-colored phlegm, no fever or chills. Still has some burning sensation with coughing in his chest, but the throat burning has subsided. Vital signs are stable, afebrile. He is on a combination of ceftriaxone, IV steroids, nebulized bronchodilators, and Pulmicort/Perforomist, improving On 04/19/2019 patient seen in follow-up on medical surgical floor. He continues to improve, lung sounds are positive for slightly coarse breath sounds, no major wheezing, or congestion, patient has ambulated in the hallway, maintaining oxygenation on room air, the pulse ox of 95%, his had no fever or chills, last signs have been stable, patient has been treated with Zithromax and Rocephin, nebulized bronchodilators, and IV steroids, and responded well to treatments. Blood and sputum cultures have shown no growth thus far. He is on oral anticoagulation for his history of pulmonary embolism. No acute events overnight, patient is requesting to go home today. Objective - Vital Signs Vital signs: Vital Signs Temp 97.5 F L 04/19/19 04:30 Pulse 90 04/19/19 11:16 Resp 20 04/19/19 07:51 BP 125/70 04/19/19 04:30 Pulse Ox 96 04/19/19 08:55 Intake & Output 04/18/19 04/19/19 04/19/19 18:59 06:59 18:59 Intake Total 540 Balance 540 Intake: Oral 540 Other: Voiding Method Toilet Toilet Urinal Urinal # Voids 3 1 1 # Bowel Movements 1 - Exam GENERAL EXAM: Alert, pleasant, 54-year-old white male, on 2 L of oxygen, with a pulse ox of 95% comfortable in no apparent distress. HEAD: Normocephalic/atraumatic. EYES: Normal reaction of pupils, equal size. Conjunctiva pink, sclera white. NOSE: Clear with pink turbinates. THROAT: No erythema or exudates. NECK: No masses, no JVD, no thyroid enlargement, no adenopathy. CHEST: No chest wall deformity. Symmetrical expansion. LUNGS: Equal air entry with coarse breath sounds, no significant rhonchi or rales CVS: Regular rate and rhythm, normal S1 and S2, no gallops, no murmurs, no rubs ABDOMEN: Soft, nontender. No hepatosplenomegaly, normal bowel sounds, no guarding or rigidity. EXTREMITIES: No clubbing, no edema, no cyanosis, 2+ pulses and upper and lower extremities. MUSCULOSKELETAL: Muscle strength and tone normal. SPINE: No scoliosis or deformity SKIN: No rashes CENTRAL NERVOUS SYSTEM: Alert and oriented -3. No focal deficits, tone is normal in all 4 extremities. PSYCHIATRIC: Alert and oriented -3. Appropriate affect. Intact judgment and insight. - Labs CBC & Chem 7: 04/18/19 07:44 04/19/19 08:40 Labs: Abnormal Lab Results - Last 24 Hours (Table) 04/18/19 04/18/19 04/19/19 Range/Units 17:04 20:19 07:15 BUN (9-20) mg/dL Glucose (74-99) mg/dL POC Glucose (mg/dL) 102 H 115 H 109 H (75-99) mg/dL 04/19/19 04/19/19 Range/Units 08:40 11:54 BUN 21 H (9-20) mg/dL Glucose 184 H (74-99) mg/dL POC Glucose (mg/dL) 102 H (75-99) mg/dL Microbiology - Last 24 Hours (Table) 04/18/19 09:45 Gram Stain - Preliminary Sputum Sputum Culture - Preliminary 04/14/19 15:15 Blood Culture - Preliminary Blood No Growth after 96 hours 04/14/19 14:18 Blood Culture - Preliminary Blood No Growth after 96 hours Assessment and Plan Plan: Assessment: #1. Acute exacerbation of severe persistent eosinophilic bronchial asthma, complicated by tracheobronchitis #2. Fever, chills, generalized body aches, influenza screen was negative, possibly a viral infection. Chest x-ray and lung bases seen on the CT of abdomen and pelvis showed no acute process #3. History of pulmonary embolism, recurrent, patient is on long-term anticoagulation in the form of Xarelto #4. 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 Hx of eosinophilic bronchial asthma, S/P bronchial thermoplasty, previous treatment with Xolair, with no improvement, and currenty on Fasenra #6. Bipolar disorder #7. Essential tremors #8. Chronic anxiety #9. History of lymphocytic plasmacytoid colitis #10. Cervical disc disease #11. Chronic pain syndrome #12. Previous respiratory MRSA infection Plan: Continues to improve, vital signs are stable, home oxygen assessment was completed and patient maintained O2 sat at 95% with ambulation in the hallway, coughing has subsided, less bronchospastic and dyspneic on exertion, stable for discharge home today with outpatient follow-up in the office with Dr. Gifford. I performed a history & physical examination of the patient and discussed their management with my nurse practitioner, Lola Castillo. I reviewed the nurse practitioner's note and agree with the documented findings and plan of care. Lung sounds are positive for scattered wheezes. The findings and the impression was discussed with the patient. I attest to the documentation by the nurse practitioner. Time with Patient: Less than 30
--- NOTE | 2019-04-19 14:12 | P.DS ---
Providers Date of admission: 04/16/19 13:35 Attending physician: Rodolfo Smith Consults: 04/15/19 23:57 Consult Physician Routine Consulting Provider: Pop Reynoso Consult Reason/Comments: Asthma Do you want consulting provider notified?: Yes Primary care physician: Corona Sweet [place] Hospital Course: Diagnoses: Acute asthma exacerbation Acute purulent tracheobronchitis Systemic inflammatory response syndrome with fever and leukocytosis, present on admission Sepsis secondary to above History of pulmonary embolism on Xarelto History of deep venous thrombosis, on Xarelto Hyperlipidemia Sleep apnea on CPAP/BiPAP hospital course: This is a pleasant 54 years old male with past medical history of asthma, COPD, deep venous thrombosis, pulmonary embolism on Xarelto, hyperlipidemia and sleep apnea on CPAP/BiPAP. He presents because of respiratory distress and found to have acute asthma exacerbation acute tracheobronchitis with sepsis. Patient has been treated with Zithromax and ceftriaxone as well as a steroids, patient showed interval improvement as his been followed closely by pulmonary services. On the day of discharge his dyspnea is significantly improved. He is saturating 94% on room air and 95% on room air while on exertion. Patient does not need home oxygen upon discharge. His leukocytosis has been improved. Patient has been afebrile for more than 72 hours. No other new complaints, no abdominal pain or nausea vomiting. No chest pain. Patient denies change in urine or bowel habits. Patient was eager to go home today. Patient will be discharged on short course of oral antibiotics and Taper steroids. Patient is a 20 mg of prednisone daily at baseline Patient was cleared for discharge by pulmonary team Problems and management plan were discussed with the patient and he verbalized understanding and acceptance Patient was found stable and can be discharged home however he needs follow-up as an outpatient. Patient was instructed to follow up with PCP within one week and patient agrees. I discussed the appointments and the timing with the patient for his PCP and snaker and he agrees with [facility] he will follow-up patient has is on medication of Xarelto and prednisone 20 mg daily at home Gen: patient is a AAOx3, no distress CVS: S1-S2, RRR, no murmur Lungs: B/L CTA, no wheezing Abdomen: soft, no distention, no tenderness, positive bowel sounds Extremity: no leg edema or induration Time spent more than 35 minutes Plan - Discharge Summary Discharge Rx Participant: Yes New Discharge Prescriptions: No Action Montelukast [Singulair] 10 mg PO DAILY Loratadine [Claritin] 10 mg PO DAILY Sertraline [Zoloft] 100 mg PO HS Topiramate [Topamax] 50 mg PO HS Diphenox-Atrop 2.5-0.025 mg [Lomotil] 2 tab PO HS Tamsulosin HCl [Flomax] 0.8 mg PO HS Ipratropium-Albuterol Nebulize [Duoneb 0.5 mg-3 mg/3 ml Soln] 3 ml INHALATION RT-QID Gabapentin [Neurontin] 600 mg PO HS L.acidoph,Paracasei, B.lactis [Probiotic] 2 cap PO DAILY predniSONE 20 mg PO DAILY Albuterol Inhaler [Ventolin Hfa Inhaler] 2 puff INHALATION RT-Q6H PRN PRN Reason: Shortness Of Breath Benralizumab [Fasenra] 30 mg SQ Q56D clonazePAM [KlonoPIN] 1.5 mg PO HS Arformoterol Tartrate [Brovana] 15 mcg INHALATION RT-BID Budesonide [Pulmicort] 0.5 mg INHALATION RT-BID Rivaroxaban [Xarelto] 20 mg PO DAILY Discharge Medication List Montelukast [Singulair] 10 mg PO DAILY 11/28/14 [History] Loratadine [Claritin] 10 mg PO DAILY 09/18/16 [History] Sertraline [Zoloft] 100 mg PO HS 01/30/17 [History] Topiramate [Topamax] 50 mg PO HS 01/30/17 [History] Diphenox-Atrop 2.5-0.025 mg [Lomotil] 2 tab PO HS 08/11/18 [History] Gabapentin [Neurontin] 600 mg PO HS 08/11/18 [History] Ipratropium-Albuterol Nebulize [Duoneb 0.5 mg-3 mg/3 ml Soln] 3 ml INHALATION RT-QID 08/11/18 [History] Tamsulosin HCl [Flomax] 0.8 mg PO HS 08/11/18 [History] L.acidoph,Paracasei, B.lactis [Probiotic] 2 cap PO DAILY 09/17/18 [History] Albuterol Inhaler [Ventolin Hfa Inhaler] 2 puff INHALATION RT-Q6H PRN 12/25/18 [History] predniSONE 20 mg PO DAILY 12/25/18 [History] Arformoterol Tartrate [Brovana] 15 mcg INHALATION RT-BID 04/14/19 [History] Benralizumab [Fasenra] 30 mg SQ Q56D 04/14/19 [History] Budesonide [Pulmicort] 0.5 mg INHALATION RT-BID 04/14/19 [History] Rivaroxaban [Xarelto] 20 mg PO DAILY 04/14/19 [History] clonazePAM [KlonoPIN] 1.5 mg PO HS 04/14/19 [History] Follow up Appointment(s)/Referral(s): Pop Reynoso MD [STAFF PHYSICIAN] - 05/03/19 11:00 am Corona Sweet MD [Primary Care Provider] - 04/21/19 10:00 am Patient Instructions/Handouts: COPD (Chronic Obstructive Pulmonary Disease) (DC)
== END 2019-04-19 15:17 | disposition home or self-care (01) | DRG 871 ==
LOC: EC 13:15 → 4MS4W 15:52 → OBSVTOIN 04-16 13:35
PROVIDERS: ADMIT Hospitalist; ATTEND Hospitalist
PROC: 5A09357 Assistance with Respiratory Ventilation, Less than 24 Consecutive Hours, Continuous Positive Airway Pressure (ICD-10-PCS; principal; 2019-04-16)
DX: A41.50 Gram-negative sepsis, unspecified (principal); J15.6 Pneumonia due to other Gram-negative bacteria; J45.51 Severe persistent asthma with (acute) exacerbation; J44.0 Chronic obstructive pulmonary disease with (acute) lower respiratory infection; J98.11 Atelectasis; E24.2 Drug-induced Cushing's syndrome; J44.1 Chronic obstructive pulmonary disease with (acute) exacerbation; G47.33 Obstructive sleep apnea (adult) (pediatric); M19.90 Unspecified osteoarthritis, unspecified site; K21.9 Gastro-esophageal reflux disease without esophagitis; F41.9 Anxiety disorder, unspecified; K59.00 Constipation, unspecified; F31.9 Bipolar disorder, unspecified; E86.0 Dehydration; M50.90 Cervical disc disorder, unspecified, unspecified cervical region; M10.072 Idiopathic gout, left ankle and foot; T38.0X5A Adverse effect of glucocorticoids and synthetic analogues, initial encounter; J20.9 Acute bronchitis, unspecified; M10.071 Idiopathic gout, right ankle and foot; G25.0 Essential tremor; G89.4 Chronic pain syndrome; R63.0 Anorexia; K52.9 Noninfective gastroenteritis and colitis, unspecified; I10 Essential (primary) hypertension; E78.5 Hyperlipidemia, unspecified; E66.01 Morbid (severe) obesity due to excess calories; Z68.32 Body mass index [BMI] 32.0-32.9, adult; Z60.2 Problems related to living alone; Z88.0 Allergy status to penicillin; Z79.01 Long term (current) use of anticoagulants; Z79.52 Long term (current) use of systemic steroids; Z79.1 Long term (current) use of non-steroidal anti-inflammatories (NSAID); Z79.899 Other long term (current) drug therapy; Z86.718 Personal history of other venous thrombosis and embolism; Z86.711 Personal history of pulmonary embolism; Z90.49 Acquired absence of other specified parts of digestive tract; Z87.442 Personal history of urinary calculi; Z87.891 Personal history of nicotine dependence; Z87.19 Personal history of other diseases of the digestive system; Z98.52 Vasectomy status; Z86.14 Personal history of Methicillin resistant Staphylococcus aureus infection; Z86.59 Personal history of other mental and behavioral disorders; Z98.890 Other specified postprocedural states; Z82.49 Family history of ischemic heart disease and other diseases of the circulatory system; Z83.6 Family history of other diseases of the respiratory system; Z83.511 Family history of glaucoma; Z81.8 Family history of other mental and behavioral disorders
CPT/HCPCS: 36415; 71046; 74176; 80048; 80053; 81003; 83605; 84484; 85025; 85610; 85730; 87040; 87070; 87205; 87502; 93005; 94640; 94760; 96361; 96365; 96375; 99285

== ENCOUNTER → 2020-06-05 | Outpatient (CLI) | payer OTHER ==
--- NOTE | 2020-06-05 13:07 | CT ---
EXAMINATION TYPE: CT abdomen pelvis wo con DATE OF EXAM: 06/05/2020 COMPARISON: 04/14/2019 HISTORY: Abd pain CT DLP: 1571.2 mGycm Examination of the solid and hollow viscera is limited given the lack of contrast. FINDINGS: LUNG BASES: No evidence for nodule. No evidence for infiltrate. LIVER/GB: The gallbladder surgically absent. No space-occupying hepatic lesion. PANCREAS: No pancreatic mass identified. No inflammatory process seen. SPLEEN: No evidence for splenomegaly. No intrasplenic lesions seen. ADRENALS: No adrenal nodules identified. No evidence for thickening. KIDNEYS: No evidence for renal mass. No nephrolithiasis. No hydronephrosis. BOWEL: Appendix has a normal appearance. No evidence of bowel obstruction. No inflammatory process. Lymph nodes: No evidence for adenopathy greater than 1 cm. Abdominal aorta: Atheromatous changes seen. No evidence for aneurysm. Genital organs: No significant abnormality. Other: No significant abnormality. IMPRESSION: No significant abnormality.
== END | disposition home or self-care (01) ==
LOC: RADCTMAIN 10:40
PROVIDERS: ATTEND Surgery Plastic and Reconstructive Surgery
DX: R10.84 Generalized abdominal pain (principal)
CPT/HCPCS: 74176; Q9967

== ENCOUNTER 2020-06-21 07:29 | Day surgery (SDC) | payer OTHER ==
[2020-06-19 10:54] VITALS: BMI 35.9
[~2020-06-21 07:29] MED LIST changes: +LIDOCAINE 1% (10MG/ML) FOR IV START INTRADERMA PRN; -LIDOCAINE 1% 20 ML VIAL (10MG/ML) FOR IV START INTRADERMA PRN
[2020-06-21 08:02] VITALS: TEMP 97
[2020-06-21 08:09] VITALS: RESP 16
--- NOTE | 2020-06-21 08:13 | P.GSHP ---
History of Present Illness H&P Date: 06/21/20 CHIEF COMPLAINT: GERD and colon screen HISTORY OF PRESENT ILLNESS: The patient is a 55-year-old male who presents with gastroesophageal reflux disease and need for colon screen. Upper and lower endoscopy were offered for further evaluation and management. PAST MEDICAL HISTORY: Please see list. PAST SURGICAL HISTORY: Please see list. MEDICATIONS: Please see list. ALLERGIES: Please see list. SOCIAL HISTORY: No illicit drug use FAMILY HISTORY: No reports of Crohn disease or ulcerative colitis. REVIEW OF ORGAN SYSTEMS: CONSTITUTIONAL: No reports of fevers or chills. GI: Denies any blood in stools or constipation. PHYSICAL EXAM: VITAL SIGNS: Stable GENERAL: Well-developed pleasant in no acute distress. HEENT: No scleral icterus. Extraocular movements grossly intact. Moist buccal mucosa. NECK: Supple without lymphadenopathy. CHEST: Unlabored respirations. Equal bilateral excursions. CARDIOVASCULAR: Regular rate and rhythm. Distal 2+ pulses. ABDOMEN: Soft, nondistended. MUSCULOSKELETAL: No clubbing, cyanosis, or edema. ASSESSMENT: 1. Gastroesophageal reflux disease 2. Colon screen. PLAN: 1. Recommend proceeding with an upper and lower endoscopy Past Medical History Past Medical History: Asthma, COPD, Deep Vein Thrombosis (DVT), Hyperlipidemia, Osteoarthritis (OA), Pneumonia, Pulmonary Embolus (PE), Sleep Apnea/CPAP/BIPAP Additional Past Medical History / Comment(s): remote history of pulmonary embolism, no longer on blood thinner, remote history of DVT of the right lower extremity, degenerative arthritis, chronic back pain, r, nephrolithiais, chronic diarrhea, stomach pain, benign familial essential tremors, bilateral tinnitis, past hx of gout in bilateral feet/toes, numbness/tingling bilateral hands/fingers. History of Any Multi-Drug Resistant Organisms: MRSA Date of last positivie culture/infection: 2015 MDRO Source:: lungs Past Surgical History: Cholecystectomy, Heart Catheterization Additional Past Surgical History / Comment(s): EGD, colonoscopies, esophageal motility test, kaylee fundlaplication, bronchoscopies, bronchial thermoplasty, cervical disc surgery, vasectomy, sinus surgery x 3. Past Anesthesia/Blood Transfusion Reactions: Family History of Problems w/ Anesthesia Additional Past Anesthesia/Blood Transfusion Reaction / Comment(s): Mother, brother-ponv. Pt received blood in past without reaction. Smoking Status: Former smoker - Past Family History Son(s) Additional Family Medical History / Comment(s): suicide- depression. Daughter(s) Additional Family Medical History / Comment(s): "two holes in heart" Brother(s) Family Medical History: Myocardial Infarction ([place]) Additional Family Medical History / Comment(s): Brother of a [place] at the age of 56yrs. Father Family Medical History: Pneumonia, Respiratory Disorder Mother Family Medical History: Eye Disorder, Hypertension, Myocardial Infarction ([place]) Additional Family Medical History / Comment(s): GLAUCOMA. Mother had a [place] at the age of 87yrs. Medications and Allergies Home Medications Medication Instructions Recorded Confirmed Type Montelukast [Singulair] 10 mg PO DAILY 11/28/14 06/21/20 History Loratadine [Claritin] 10 mg PO DAILY 09/18/16 06/21/20 History Sertraline [Zoloft] 100 mg PO HS 01/30/17 06/21/20 History Topiramate [Topamax] 50 mg PO HS 01/30/17 06/21/20 History Diphenox-Atrop 2.5-0.025 mg 1 tab PO QID 08/11/18 06/21/20 History [Lomotil] Gabapentin [Neurontin] 600 mg PO HS 08/11/18 06/21/20 History Ipratropium-Albuterol Nebulize 3 ml INHALATION RT-QID 08/11/18 06/19/20 History [Duoneb 0.5 mg-3 mg/3 ml Soln] Tamsulosin HCl [Flomax] 0.8 mg PO HS 08/11/18 06/21/20 History L.acidoph,Paracasei, B.lactis 2 cap PO DAILY 09/17/18 06/21/20 History [Probiotic] Albuterol Inhaler (Mhu) [Ventolin 2 puff INHALATION RT-Q6H PRN 12/25/18 06/19/20 History Hfa Inhaler (Mhu)] predniSONE [Deltasone] 20 mg PO DAILY 12/25/18 06/21/20 History Budesonide-Formot 160-4.5 Mcg 2 puff INHALATION BID 06/19/20 06/19/20 History [Symbicort 160-4.5 Mcg Inhaler] Calcium Citrate 600 mg PO BID 06/19/20 History Cholecalciferol (Vitamin D3) 125 mcg PO DAILY 06/19/20 06/21/20 History [Vitamin D3 (5000 Iu)] Dicyclomine [Bentyl] 10 mg PO QID 06/19/20 06/21/20 History Ezetimibe [Zetia] 10 mg PO HS 06/19/20 06/21/20 History Melatonin 5 - 10 mg PO HS 06/19/20 06/21/20 History Omeprazole [PriLOSEC] 20 mg PO AC-BID 06/19/20 06/21/20 History Topiramate [Topamax] 25 mg PO QAM PRN 06/19/20 06/21/20 History Allergies Allergy/AdvReac Type Severity Reaction Status Date / Time Penicillins Allergy Swelling Verified 06/19/20 10:42 Surgical - Exam Vital Signs Temp 97.0 F L 06/21/20 08:00
[2020-06-21 08:20] LABS: Glucose,Whole Blood 102 mg/dL (75-99)
[2020-06-21] MEDS ORDERED: LIDOCAINE 1% INJ 10MG/ML (20 ML MDV) ONE (08:47)
[2020-06-21] MEDS ORDERED: PROPOFOL 10 MG/ML 20 ML VIAL IV ONE (08:47)
--- NOTE | 2020-06-21 09:07 | P.PCN ---
Date of Procedure: 06/21/20 Description of Procedure: PREOPERATIVE DIAGNOSIS: Gastroesophageal reflux disease. History of Wojciech fundoplasty POSTOPERATIVE DIAGNOSIS: Gastritis. Gastroesophageal reflux disease. History of Wojciech fundoplasty OPERATION: Esophagogastroduodenoscopy with biopsies along antrum. SURGEON: Melissa Capellan MD ANESTHESIA: MAC. INDICATIONS: The patient is a 55-year-old male who presents with reflux disease. Benefits and risks of the procedure were described. Informed consent was obtained. DESCRIPTION: The patient was brought into the endoscopy suite and laid in the left lateral decubitus position. An Olympus gastroscope was passed along the posterior oropharynx down to the distal esophagus where the squamocolumnar junction was encountered at 45 cm from the incisors. The stomach was entered and no bile reflux was found. Additional findings are listed below. Biopsies with cold forceps were obtained of the antrum. The first through third portion of the duodenum was examined and unremarkable. Retroflexion of the scope confirmed Hill grade 2 lower esophageal valve. The squamocolumnar junction demonstrated no LA grade A erosive esophagitis. The stomach was desufflated. The patient tolerated the procedure well. FINDINGS: Squamocolumnar junction 45 cm from the incisors. Diaphragmatic hiatus at 45 cm. Hill grade 2 lower esophageal valve. No LA grade A erosive esophagitis. No active duodenitis. Chronic gastritis RECOMMENDATIONS: Upper endoscopy as needed.
--- NOTE | 2020-06-21 09:30 | P.PCN ---
Date of Procedure: 06/21/20 Description of Procedure: PREOPERATIVE DIAGNOSIS: Colitis Change in bowel habits with chronic diarrhea Generalized abdominal pain POSTOPERATIVE DIAGNOSIS: Colitis Change in bowel habits with chronic diarrhea Generalized abdominal pain OPERATION: Colonoscopy to the cecum, ileocecal valve and appendiceal orifice. Colonoscopy random cold forceps biopsy with stool samples obtained SURGEON: Melissa Capellan MD. ANESTHESIA: MAC. INDICATIONS: The patient is a 55-year-old male who presents with worsening colitis including increased abdominal pain. Benefits and risks were described and informed consent was obtained. DESCRIPTION OF PROCEDURE: The patient had undergone Suprep tablets. He had been brought into the operating room and laid in the left lateral decubitus position. After adequate intravenous sedation, the rectum was examined with 2% lidocaine jelly. The prostate was unremarkable. No external hemorrhoids were encountered. The rectal tone was within normal limits but with mild stricture. No lesions were palpated in the rectal vault. An Olympus colonoscope was advanced until the cecum, ileocecal valve and appendiceal orifice were clearly viewed. The prep was excellent. No scattered diverticulosis was encountered. No colonic polyps were found. Random cold forceps biopsies were obtained for microscopic colitis. Stool samples were collected for C. diff, cultures, lactoferrin. Retroflexion of the scope demonstrated grade 1 internal hemorrhoids without active bleeding or inf lammation. The colon was desufflated. The patient had tolerated the procedure well. Withdrawal time was over 6 minutes. FINDINGS: Aronchick preparation quality scale 1 (1-5) Internal hemorrhoids, grade 1 No external prolapsed hemorrhoids. No arteriovenous malformations. No adenomatous polyps. No large sigmoid diverticulosis. Stool assay obtained for C. diff, stool cultures, lactoferrin RECOMMENDATIONS: Lower endoscopy in 10 years, 2030 Plan - Discharge Summary Discharge Rx Participant: No New Discharge Prescriptions: Continue Montelukast [Singulair] 10 mg PO DAILY Loratadine [Claritin] 10 mg PO DAILY Sertraline [Zoloft] 100 mg PO HS Topiramate [Topamax] 50 mg PO HS Diphenox-Atrop 2.5-0.025 mg [Lomotil] 1 tab PO QID Tamsulosin HCl [Flomax] 0.8 mg PO HS Ipratropium-Albuterol Nebulize [Duoneb 0.5 mg-3 mg/3 ml Soln] 3 ml INHALATION RT-QID Gabapentin [Neurontin] 600 mg PO HS L.acidoph,Paracasei, B.lactis [Probiotic] 2 cap PO DAILY predniSONE [Deltasone] 20 mg PO DAILY Albuterol Inhaler (Mhu) [Ventolin Hfa Inhaler (Mhu)] 2 puff INHALATION RT-Q6H PRN PRN Reason: Shortness Of Breath Dicyclomine [Bentyl] 10 mg PO QID Cholecalciferol (Vitamin D3) [Vitamin D3 (5000 Iu)] 125 mcg PO DAILY Omeprazole [PriLOSEC] 20 mg PO AC-BID Ezetimibe [Zetia] 10 mg PO HS Budesonide-Formot 160-4.5 Mcg [Symbicort 160-4.5 Mcg Inhaler] 2 puff INHALATION BID Melatonin 5 - 10 mg PO HS Calcium Citrate 600 mg PO BID Topiramate [Topamax] 25 mg PO QAM PRN PRN Reason: tremors Discharge Medication List Montelukast [Singulair] 10 mg PO DAILY 11/28/14 [History] Loratadine [Claritin] 10 mg PO DAILY 09/18/16 [History] Sertraline [Zoloft] 100 mg PO HS 01/30/17 [History] Topiramate [Topamax] 50 mg PO HS 01/30/17 [History] Diphenox-Atrop 2.5-0.025 mg [Lomotil] 1 tab PO QID 08/11/18 [History] Gabapentin [Neurontin] 600 mg PO HS 08/11/18 [History] Ipratropium-Albuterol Nebulize [Duoneb 0.5 mg-3 mg/3 ml Soln] 3 ml INHALATION RT-QID 08/11/18 [History] Tamsulosin HCl [Flomax] 0.8 mg PO HS 08/11/18 [History] L.acidoph,Paracasei, B.lactis [Probiotic] 2 cap PO DAILY 09/17/18 [History] Albuterol Inhaler (Mhu) [Ventolin Hfa Inhaler (Mhu)] 2 puff INHALATION RT-Q6H PRN 12/25/18 [History] predniSONE [Deltasone] 20 mg PO DAILY 12/25/18 [History] Budesonide-Formot 160-4.5 Mcg [Symbicort 160-4.5 Mcg Inhaler] 2 puff INHALATION BID 06/19/20 [History] Calcium Citrate 600 mg PO BID 06/19/20 [History] Cholecalciferol (Vitamin D3) [Vitamin D3 (5000 Iu)] 125 mcg PO DAILY 06/19/20 [History] Dicyclomine [Bentyl] 10 mg PO QID 06/19/20 [History] Ezetimibe [Zetia] 10 mg PO HS 06/19/20 [History] Melatonin 5 - 10 mg PO HS 06/19/20 [History] Omeprazole [PriLOSEC] 20 mg PO AC-BID 06/19/20 [History] Topiramate [Topamax] 25 mg PO QAM PRN 06/19/20 [History] Follow up Appointment(s)/Referral(s): Melissa Capellan MD [STAFF PHYSICIAN] - 06/27/20 Patient Instructions/Handouts: Microscopic Colitis (DC), Gastritis (DC), *Surgery [facility] - (Anesthesia) Endoscopy Discharge Instructions Activity/Diet/Wound Care/Special Instructions: Repeat colonoscopy in 10 years2030 Discharge Disposition: HOME SELF-CARE
[2020-06-21 09:45] VITALS: BP 118/73; PULSE 101
== END 2020-06-21 10:30 | disposition home or self-care (01) ==
LOC: ORWHC2ENDO 07:29
PROVIDERS: ATTEND Surgery Plastic and Reconstructive Surgery
DX: K52.9 Noninfective gastroenteritis and colitis, unspecified (principal); K29.50 Unspecified chronic gastritis without bleeding; K31.9 Disease of stomach and duodenum, unspecified; K21.9 Gastro-esophageal reflux disease without esophagitis; K64.0 First degree hemorrhoids; J44.9 Chronic obstructive pulmonary disease, unspecified; Z86.718 Personal history of other venous thrombosis and embolism; E78.5 Hyperlipidemia, unspecified; M19.90 Unspecified osteoarthritis, unspecified site; Z87.01 Personal history of pneumonia (recurrent); Z86.711 Personal history of pulmonary embolism; G47.30 Sleep apnea, unspecified; Z99.89 Dependence on other enabling machines and devices; G89.29 Other chronic pain; M54.9 Dorsalgia, unspecified; Z87.442 Personal history of urinary calculi; G25.0 Essential tremor; H93.13 Tinnitus, bilateral; Z87.39 Personal history of other diseases of the musculoskeletal system and connective tissue; R20.0 Anesthesia of skin; R20.2 Paresthesia of skin; Z86.14 Personal history of Methicillin resistant Staphylococcus aureus infection; Z90.49 Acquired absence of other specified parts of digestive tract; Z98.52 Vasectomy status; Z98.890 Other specified postprocedural states; Z87.891 Personal history of nicotine dependence; Z81.8 Family history of other mental and behavioral disorders; Z82.49 Family history of ischemic heart disease and other diseases of the circulatory system; Z82.5 Family history of asthma and other chronic lower respiratory diseases; Z83.511 Family history of glaucoma; Z79.51 Long term (current) use of inhaled steroids; Z79.52 Long term (current) use of systemic steroids; Z79.899 Other long term (current) drug therapy; Z88.0 Allergy status to penicillin
CPT/HCPCS: 88305; 88313; 87324; 83993; 87329; 87328; 83630; 45380; 43239; J2001; J2704

== ENCOUNTER 2021-10-24 09:53 | Day surgery (SDC) | payer OTHER ==
[2021-10-23 10:18] VITALS: BMI 36.1
--- NOTE | 2021-10-24 06:34 | P.GSHP ---
History of Present Illness H&P Date: 10/24/21 CHIEF COMPLAINT: Colon screen HISTORY OF PRESENT ILLNESS: The patient is a 56-year-old male who presents for colon screen. Lower endoscopy was offered for further evaluation and management. PAST MEDICAL HISTORY: Please see list. PAST SURGICAL HISTORY: Please see list. MEDICATIONS: Please see list. ALLERGIES: Please see list. SOCIAL HISTORY: No illicit drug use FAMILY HISTORY: No reports of Crohn disease or ulcerative colitis. REVIEW OF ORGAN SYSTEMS: CONSTITUTIONAL: No reports of fevers or chills. PHYSICAL EXAM: VITAL SIGNS: Stable GENERAL: Well-developed pleasant in no acute distress. HEENT: No scleral icterus. Extraocular movements grossly intact. Moist buccal mucosa. NECK: Supple without lymphadenopathy. CHEST: Unlabored respirations. Equal bilateral excursions. CARDIOVASCULAR: Regular rate and rhythm. Distal 2+ pulses. ABDOMEN: Soft, nontender, nondistended. MUSCULOSKELETAL: No clubbing, cyanosis, or edema. ASSESSMENT: 1. Colon screen. PLAN: 1. Recommend proceeding with a lower endoscopy Past Medical History Past Medical History: Asthma, COPD, Deep Vein Thrombosis (DVT), GERD/Reflux, GI Bleed, Hearing Disorder / Deafness, Hyperlipidemia, Liver Disease, Pneumonia, Prostate Disorder, Pulmonary Embolus (PE), Sleep Apnea/CPAP/BIPAP Additional Past Medical History / Comment(s): Hx C-Diff and Norovirus 10/08/21. Severe persistent bronchial asthma, hx of DVT of the right lower extremity, degenerative arthritis, chronic back pain, hx kidney stone, hx anemia r/t blood thinner, chronic diarrhea, benign nonessential tremors, bilateral tinnitis, hard of hearing, gout in bilateral feet/toes, hx PE X3, colitis, bruises easily, persistant fungal rash, adrenal glands "shut down from prednisone", sepsis X2, mild fatty liver. History of Any Multi-Drug Resistant Organisms: C-DIFF, MRSA Date of last positivie culture/infection: 2015 MDRO Source:: lungs Past Surgical History: Back Surgery, Cholecystectomy, Heart Catheterization Additional Past Surgical History / Comment(s): EGD, colonoscopies, esophageal motility test, kaylee fundloplication, bronchoscopies, bronchial thermoplasty, cervical disc surgery, vasectomy, sinus surgery X3, spinal fusion L5-S1, surgery to remove hematomas X3, bilateral cataracts. Past Anesthesia/Blood Transfusion Reactions: Family History of Problems w/ Anesthesia, Motion Sickness Additional Past Anesthesia/Blood Transfusion Reaction / Comment(s): Mother and brother - PONV. Pt received blood in past without reaction. Past Psychological History: Depression Smoking Status: Former smoker Past Alcohol Use History: Occasional Additional Past Alcohol Use History / Comment(s): SMOKED CIGARS IN THE , QUIT IN 1996. Past Drug Use History: None Reported - Past Family History Son(s) Additional Family Medical History / Comment(s): Suicide - depression. Daughter(s) Additional Family Medical History / Comment(s): "Two holes in heart." Brother(s) Family Medical History: Cancer, Myocardial Infarction ([place]) Additional Family Medical History / Comment(s): Brother of a [place] at the age of 56. Medications and Allergies Home Medications Medication Instructions Recorded Confirmed Type Montelukast [Singulair] 10 mg PO QAM 11/28/14 10/23/21 History Topiramate [Topamax] 75 mg PO 01/30/17 10/23/21 History Tamsulosin HCl [Flomax] 0.8 mg PO QAM 08/11/18 10/23/21 History L.acidoph,Paracasei, B.lactis 2 cap PO DAILY 09/17/18 10/23/21 History [Probiotic] predniSONE [Deltasone] 20 mg PO DAILY 12/25/18 10/23/21 History Cholecalciferol (Vitamin D3) 125 mcg PO DAILY 06/19/20 10/23/21 History [Vitamin D3 (5000 Iu)] Ezetimibe [Zetia] 10 mg PO DAILY 06/19/20 10/23/21 History Melatonin 10 mg PO 06/19/20 10/23/21 History Albuterol Sulfate [Proair Hfa] 1 - 2 puff INHALATION TID PRN 06/18/21 10/23/21 History Alendronate Sodium [Fosamax] 70 mg PO SA 06/18/21 10/23/21 History Apixaban [Eliquis] 5 mg PO BID 06/18/21 10/23/21 History Atovaquone Liq 10 ml PO QAM 06/18/21 10/23/21 History Budesonide-Formot 160-4.5 Mcg 2 puff INHALATION BID 06/18/21 10/23/21 History [Symbicort 160-4.5 Mcg Inhaler] Calcium Carbonate [Calcium] 600 mg PO BID 06/18/21 10/23/21 History Cholestyramine/Aspartame 4 gm PO BID PRN 06/18/21 10/23/21 History [Cholestyramine Light Packet] DULoxetine HCL [Cymbalta] 30 mg PO BID 06/18/21 10/23/21 History Diphenoxylate HCl/Atropine 2 tab PO BID PRN 06/18/21 10/23/21 History [Lomotil 2.5-0.025 mg Tablet] Ipratropium-Albuterol Nebulize 3 ml INHALATION TID 06/18/21 10/23/21 History [Duoneb 0.5 mg-3 mg/3 ml Soln] Methocarbamol [Robaxin-750] 750 mg PO TID PRN 06/18/21 10/23/21 History Pantoprazole [Protonix] 40 mg PO DAILY PRN 06/18/21 10/23/21 History Tylenol Tab 1 gm PO TID PRN 06/18/21 10/23/21 History Gabapentin 900 mg PO BID 10/23/21 10/23/21 History Vitamin C (Unknown Dose) 1 tab PO DAILY 10/23/21 10/23/21 History Allergies Allergy/AdvReac Type Severity Reaction Status Date / Time ciprofloxacin [From Cipro] Allergy Severe Suicidal Verified 10/23/21 10:29
[2021-10-24 10:20] VITALS: TEMP 96.9
[2021-10-24 10:36] LABS: Glucose,Whole Blood 112 mg/dL (75-99)
[2021-10-24] MEDS ORDERED: HYDROCORTISONE SUCCINATE 100 MG/2 ML VIAL IVP ONE (10:45)
[2021-10-24] MEDS ORDERED: PROPOFOL 10 MG/ML 20 ML VIAL IV ONE (11:10)
[2021-10-24] MEDS ORDERED: LIDOCAINE 2% INJ 20 MG/ML (2 ML VIAL) ONE (11:10)
[2021-10-24 11:35] VITALS: RESP 16
[2021-10-24 11:50] VITALS: BP 112/71; PULSE 108
--- NOTE | 2021-10-24 11:58 | P.PCN ---
Date of Procedure: 10/24/21 Description of Procedure: PREOPERATIVE DIAGNOSIS: Colitis POSTOPERATIVE DIAGNOSIS: Colitis Tubular adenoma ascending colon OPERATION: Colonoscopy to the ileocecal valve and appendiceal orifice, cecum Colonoscopy with hot snare polypectomy Colonoscopy with cold forceps biopsy, random for colitis SURGEON: Melissa Capellan MD. ANESTHESIA: MAC. INDICATIONS: The patient is an 56-year-old male who presents with colitis. Benefits and risks were described and informed consent was obtained. DESCRIPTION OF PROCEDURE: The patient had undergone Sutab prep. The patient had been brought into the operating room and laid in the left lateral decubitus position. After adequate intravenous sedation, the rectum was examined with 2% lidocaine jelly. The prostate was unremarkable. No external hemorrhoids were encountered. The rectal tone was within normal limits. No lesions were palpated in the rectal vault. An Olympus colonoscope was advanced until the cecum, ileocecal valve and appendiceal orifice were clearly viewed. The prep was fair. No sigmoid diverticulosis was encountered. Colonic polyps were found and removed. No evidence of focal colitis was found. Retroflexion of the scope demonstrated grade 1 internal hemorrhoids without active bleeding or inflammation. The colon was desufflated. The patient had tolerated the procedure well. Withdrawal time was over 6 minutes. FINDINGS: Aronchick preparation quality scale 3 (1-5) Internal hemorrhoids, grade 1 No external hemorrhoids, grade 4. No arteriovenous malformations. No sigmoid diverticulosis Removal of 1 polyps: - Snare polypectomy of ascending colon, 8 mm flat villous adenoma polyp. Random biopsies for colitis. RECOMMENDATIONS: Repeat colonoscopy in 3 years, 2024 Plan - Discharge Summary Discharge Rx Participant: No New Discharge Prescriptions: Continue Montelukast [Singulair] 10 mg PO QAM Topiramate [Topamax] 75 mg PO HS Tamsulosin HCl [Flomax] 0.8 mg PO QAM L.acidoph,Paracasei, B.lactis [Probiotic] 2 cap PO DAILY predniSONE [Deltasone] 20 mg PO DAILY Cholecalciferol (Vitamin D3) [Vitamin D3 (5000 Iu)] 125 mcg PO DAILY Ezetimibe [Zetia] 10 mg PO DAILY Melatonin 10 mg PO HS Atovaquone Liq 10 ml PO QAM Albuterol Sulfate [Proair Hfa] 1 - 2 puff INHALATION TID PRN PRN Reason: sob Alendronate Sodium [Fosamax] 70 mg PO SA Apixaban [Eliquis] 5 mg PO BID Budesonide-Formot 160-4.5 Mcg [Symbicort 160-4.5 Mcg Inhaler] 2 puff INHALATION BID Calcium Carbonate [Calcium] 600 mg PO BID Cholestyramine/Aspartame [Cholestyramine Light Packet] 4 gm PO BID PRN PRN Reason: colitis Diphenoxylate HCl/Atropine [Lomotil 2.5-0.025 mg Tablet] 2 tab PO BID PRN PRN Reason: Diarrhea DULoxetine HCL [Cymbalta] 30 mg PO BID Ipratropium-Albuterol Nebulize [Duoneb 0.5 mg-3 mg/3 ml Soln] 3 ml INHALATION TID Pantoprazole [Protonix] 40 mg PO DAILY PRN PRN Reason: Acid Reflux Gabapentin 900 mg PO BID Vitamin C (Unknown Dose) 1 tab PO DAILY Tylenol Tab 1 gm PO TID PRN PRN Reason: Pain methocarbamoL [Robaxin-750] 750 mg PO TID PRN PRN Reason: Pain Discharge Medication List Montelukast [Singulair] 10 mg PO QAM 11/28/14 [History] Topiramate [Topamax] 75 mg PO HS 01/30/17 [History] Tamsulosin HCl [Flomax] 0.8 mg PO QAM 08/11/18 [History] L.acidoph,Paracasei, B.lactis [Probiotic] 2 cap PO DAILY 09/17/18 [History] predniSONE [Deltasone] 20 mg PO DAILY 12/25/18 [History] Cholecalciferol (Vitamin D3) [Vitamin D3 (5000 Iu)] 125 mcg PO DAILY 06/19/20 [History] Ezetimibe [Zetia] 10 mg PO DAILY 06/19/20 [History] Melatonin 10 mg PO HS 06/19/20 [History] Albuterol Sulfate [Proair Hfa] 1 - 2 puff INHALATION TID PRN 06/18/21 [History] Alendronate Sodium [Fosamax] 70 mg PO SA 06/18/21 [History] Apixaban [Eliquis] 5 mg PO BID 06/18/21 [History] Atovaquone Liq 10 ml PO QAM 06/18/21 [History] Budesonide-Formot 160-4.5 Mcg [Symbicort 160-4.5 Mcg Inhaler] 2 puff INHALATION BID 06/18/21 [History] Calcium Carbonate [Calcium] 600 mg PO BID 06/18/21 [History] Cholestyramine/Aspartame [Cholestyramine Light Packet] 4 gm PO BID PRN 06/18/21 [History] DULoxetine HCL [Cymbalta] 30 mg PO BID 06/18/21 [History] Diphenoxylate HCl/Atropine [Lomotil 2.5-0.025 mg Tablet] 2 tab PO BID PRN 06/18/21 [History] Ipratropium-Albuterol Nebulize [Duoneb 0.5 mg-3 mg/3 ml Soln] 3 ml INHALATION TID 06/18/21 [History] Pantoprazole [Protonix] 40 mg PO DAILY PRN 06/18/21 [History] Tylenol Tab 1 gm PO TID PRN 06/18/21 [History] methocarbamoL [Robaxin-750] 750 mg PO TID PRN 06/18/21 [History] Gabapentin 900 mg PO BID 10/23/21 [History] Vitamin C (Unknown Dose) 1 tab PO DAILY 10/23/21 [History] Follow up Appointment(s)/Referral(s): Melissa Capellan MD [STAFF PHYSICIAN] - 10/30/21 Patient Instructions/Handouts: Infectious Colitis (ED), Colorectal Polyps (GEN) Activity/Diet/Wound Care/Special Instructions: Repeat colonoscopy in 3 years, 2024 Discharge Disposition: HOME SELF-CARE
== END 2021-10-24 12:36 | disposition home or self-care (01) ==
LOC: ORWHC2ENDO 09:53
PROVIDERS: ATTEND Surgery Plastic and Reconstructive Surgery
DX: D12.2 Benign neoplasm of ascending colon (principal); K52.9 Noninfective gastroenteritis and colitis, unspecified; K64.0 First degree hemorrhoids; J44.9 Chronic obstructive pulmonary disease, unspecified; J45.50 Severe persistent asthma, uncomplicated; Z86.718 Personal history of other venous thrombosis and embolism; Z86.711 Personal history of pulmonary embolism; K21.9 Gastro-esophageal reflux disease without esophagitis; E78.5 Hyperlipidemia, unspecified; H91.90 Unspecified hearing loss, unspecified ear; N42.9 Disorder of prostate, unspecified; G47.33 Obstructive sleep apnea (adult) (pediatric); Z87.442 Personal history of urinary calculi; K74.60 Unspecified cirrhosis of liver; Z86.14 Personal history of Methicillin resistant Staphylococcus aureus infection; Z90.49 Acquired absence of other specified parts of digestive tract; Z98.1 Arthrodesis status; F32.A Depression, unspecified; Z87.891 Personal history of nicotine dependence; Z82.49 Family history of ischemic heart disease and other diseases of the circulatory system; Z81.8 Family history of other mental and behavioral disorders; Z79.51 Long term (current) use of inhaled steroids; Z79.899 Other long term (current) drug therapy; Z79.01 Long term (current) use of anticoagulants; Z88.0 Allergy status to penicillin
CPT/HCPCS: 88305; 88313; 45380; 45385; J1720; J2704; J2001

== ENCOUNTER → 2021-10-29 | Outpatient (CLI) | payer OTHER | END | disposition home or self-care (01) | LOC: LABWHC1 12:41 | PROVIDERS: ATTEND Internal Medicine Critical Care Medicine | DX: J45.909 Unspecified asthma, uncomplicated (principal) | CPT/HCPCS: 36415; 85008 ==